=== PATIENT | female | born 1945 | race Caucasian/White ===

== ENCOUNTER → 2017-10-03 10:12 | Outpatient (CLI) | payer MEDICARE, SELFPAY ==
--- NOTE | 2017-10-03 | DI.MG.S_ITS ---
BILATERAL DIGITAL SCREENING MAMMOGRAM 3D/2D WITH CAD: 10/03/2017 CLINICAL: Routine screening. Family history of breast cancer. Comparison is made to exams dated: 09/15/2016 mammogram, 09/10/2015 mammogram, and 09/04/2014 mammogram - [facility]. There are scattered fibroglandular elements in both breasts. Current study was also evaluated with a Computer Aided Detection (CAD) system. No significant masses, calcifications, or other findings are seen in either breast. There has been no significant interval change. IMPRESSION: NEGATIVE There is no mammographic evidence of malignancy. A 1 year screening mammogram is recommended. This exam was interpreted at Station ID: [id number]. NOTE: For mammograms, a report in lay terms will be sent to the patient. Approximately 15% of breast malignancies will not be visualized mammographically. In the management of a palpable breast mass, a negative mammogram must not discourage biopsy of a clinically suspicious lesion. Electronically Signed By: Sergey wakefield/soraida:10/03/2017 16:58:36 letter sent: Normal Exam ACR BI-RADS Category 1: Negative [id number]
== END ==
PROVIDERS: Family Provider Internal Medicine; PCP Internal Medicine; Visit Provider Internal Medicine
DX: Z12.31 Encounter for screening mammogram for malignant neoplasm of breast (principal); Z80.3 Family history of malignant neoplasm of breast
CPT/HCPCS: 77063; 77067

== ENCOUNTER → 2017-11-23 14:02 | Outpatient (CLI) | payer MEDICARE, SELFPAY | PROVIDERS: Family Provider Internal Medicine; PCP Internal Medicine; Visit Provider Internal Medicine | DX: M85.852 Other specified disorders of bone density and structure, left thigh (principal); Z78.0 Asymptomatic menopausal state; E06.3 Autoimmune thyroiditis; Z82.62 Family history of osteoporosis; Z87.891 Personal history of nicotine dependence | CPT/HCPCS: 77080 ==

== ENCOUNTER 2017-12-04 13:53 | Emergency (ER) | payer MEDICARE, SELFPAY ==
[2017-12-04 14:03] VITALS: BP 144/82; PULSE 98; RESP 18; TEMP 35.9; O2SAT 98; BMI 25.8
--- NOTE | 2017-12-04 14:10 | ED.FALL ---
HPI - Fall <Guadalupe CAITLIN Singh - Last Filed: 12/04/17 16:24> General Chief Complaint: Fall Stated Complaint: Cut on head from fall Time Seen by Provider: 12/04/17 14:09 Source: patient Mode of arrival: ambulatory Limitations: no limitations History of Present Illness HPI Narrative: slipped on wet floor and fell, striking her forehead on corner of stove, concerned that the cut has something, like a piece of metal from stove, denies any other injury, thinks she passed out afterwards for a few minutes, but feels fine since, nick trujillo MD complaint: fall Onset (ago): day(s) (yesterday at 0300) Fall from: standing Fall witnessed: no Place fall occurred: home Loss of consciousness: yes (thinks she passed out afterwards, but not sure how long, maybe a few minutes) Prolonged down time: no Symptoms prior to fall: none Context: tripped/slipped (wet floor) Location of injury: face (R eyebrow area) Severity: mild Associated symptoms (after fall): denies Related Data Home Medications Medication Instructions Recorded Confirmed fexofenadine 180 mg PO Q DAY PRN #0 05/04/11 12/04/17 acetaminophen 4 tab PO BID 07/06/17 12/04/17 betamethasone valerate 1 applic TOPICAL DIRECTED 07/06/17 12/04/17 dexamethasone sodium phosphate 1 drp OPHTHALMIC (EYE) BID PRN 07/06/17 12/04/17 diazepam 5 - 10 mg PO QDAY PRN 07/06/17 12/04/17 diphenhydramine HCl [Benadryl] 50 - 100 mg PO BEDTIME PRN 07/06/17 12/04/17 fluticasone 1 spray INTRANASAL BID 07/06/17 12/04/17 levothyroxine 125 mcg PO MOTUWETHFRSA 07/06/17 12/04/17 metronidazole [Metrogel] 1 applic TOPICAL BID PRN 07/06/17 12/04/17 zolpidem 5 mg PO QHS PRN 07/06/17 12/04/17 Calcium Citrate + D 2 tab PO TID 12/04/17 12/04/17 Celebrate Multi-Complex 45 3 cap PO DAILY 12/04/17 12/04/17 cetirizine 10 mg PO DAILY PRN 12/04/17 12/04/17 [id number] 1 applic TOPICAL BID PRN 12/04/17 12/04/17 levothyroxine 0.5 tab PO ESPINOZA 12/04/17 12/04/17 Allergies Allergy/AdvReac Type Severity Reaction Status Date / Time erythromycin base Allergy Intermediate HIVES Unverified 12/04/17 14:07 adhesive Allergy Mild ALLERGIC Unverified 12/04/17 14:07 TO TAPE epinephrine Allergy Mild TACHYCARDIA Unverified 12/04/17 14:07 gentamicin [Gentamicin] Allergy Mild RASH Unverified 12/04/17 14:07 NSAIDS (Non-Steroidal Allergy Mild GASTRITIS Unverified 12/04/17 14:07 Anti-Inflamma Serotonin 5HT-3 Antagonists Allergy Mild GASTRITIS Unverified 12/04/17 14:07 trazodone Allergy Mild LOSS OF Unverified 12/04/17 14:07 BALANCE alprazolam Allergy Unknown LOSS OF Unverified 12/04/17 14:07 ABILITY TO FOCUS amitriptyline Allergy Unknown IBS Unverified 12/04/17 14:07 SYMPTOMS buspirone Allergy Unknown Unverified 12/04/17 14:07 codeine Allergy Unknown IBS Unverified 06/14/17 12:20 SYMPTOMS gabapentin Allergy Unknown SEVERE Unverified 06/14/17 12:20 GASTRITIS Review of Systems <CAITLIN Quarles - Last Filed: 12/04/17 16:24> Constitutional Reports as per HPI, Reports system reviewed and no additional complaints, except as docu and Denies weakness Eyes Reports system reviewed and no additional complaints, except as docu, Denies blurry vision, Denies change in vision, Denies loss of vision, Denies other visual disturbances and Denies eye pain ENT Ears, Nose, Mouth, and Throat: Denies neck pain Cardiovascular Denies chest pain and Denies dyspnea Respiratory Denies dyspnea Musculoskeletal Denies abnormal gait, Denies back pain, Denies limited range of motion, Denies neck pain and Denies numbness Neurologic Denies abnormal gait, Denies loss of vision, Denies numbness and Denies weakness Exam <CAITLIN Quarles - Last Filed: 12/04/17 16:24> Initial Vital Signs Initial Vital Signs: Vital Signs Temperature 96.6 F L 12/04/17 14:03 Pulse Rate 98 H 12/04/17 14:03 Respiratory Rate 18 12/04/17 14:03 Blood Pressure 144/82 H 12/04/17 14:03 Pulse Oximetry 98 12/04/17 14:03 Const General: cooperative, healthy appearing, comfortable, well developed and well groomed Nutritional Appearance: average body habitus Orientation: alert, awake and oriented x3 [facility] Head: normal to inspection and normocephalic Ears: hearing grossly normal bilaterally, external ears normal, TM's normal bilaterally and mastoids normal Nose: external nose normal, nares normal and septum normal Face and sinus: sinuses nontender, face symmetric and laceration (R eyebrow area, 1cm closed with scab, no s/s of infection, no erythema, mild tenderness, mild swelling and contusion to that area) Mouth: oral mucosae normal, lip normal, tongue normal, oropharynx normal, moist mucous membranes and No mouth trauma Teeth and gingiva: dentition normal and gingiva normal Throat: posterior oropharynx normal, tonsils normal and uvula midline Eyes General: appearance normal, both eyes and all related structures Visual Campuzano: normal visual campuzano by confrontation Eyelids: eyelids normal Conjunctivae: conjunctivae normal Sclera: sclerae normal Pupils: PERRL EOM: EOM intact bilaterally Direct ophthalmoscopy: normal light reflex, no papilledema, fundi normal bilaterally and anterior chamber normal Neck Neck: normal visual inspection, full ROM, no meningeal signs, trachea midline, supple, No lymphadenopathy, No midline deformity, No tender and No tracheal deviation Chest Chest: normal inspection of the chest Resp Effort & Inspection: normal respiratory effort and able to speak in complete sentences Auscultation: clear to auscultation bilaterally Cardio Rate: regular rate Rhythm: regular rhythm Heart Sounds: S1 normal and S2 normal Back/Spine/Pelvis Back: normal to inspection and No back tenderness Cervical Spine: cervical ROM normal Thoracic/Lumbar Spine: thoracic and lumbar spine normal to inspection and thoraco-lumbar ROM normal Sacroiliac Joints: nontender Skin General: no rashes or lesions noted, elasticity normal, turgor normal and dry skin Neuro General: alert, awake, oriented x3 and meningeal signs present Cognition: normal cognition Speech: speech normal Gait: normal gait Motor: muscle tone normal throughout Sensory Exam: no sensory deficits noted Extrem General: normal to inspection and full ROM Psych Appearance: grossly normal and well kempt Mental Status: mental status grossly normal Speech and Movement: speech and movement normal Mood: congruent mood Affect: normal affect Attitude: cooperative Thought Process: normal Thought Content: normal Judgment: judgment good <Valentina Hunt DO - Last Filed: 12/09/17 07:26> Initial Vital Signs Initial Vital Signs: Vital Signs Temperature 96.6 F L 12/04/17 14:03 Pulse Rate 98 H 12/04/17 14:03 Respiratory Rate 18 12/04/17 14:03 Blood Pressure 144/82 H 12/04/17 14:03 Pulse Oximetry 98 12/04/17 14:03 Course <CAITLIN Quarles - Last Filed: 12/04/17 16:24> Course Narrative: tx options discussed, nurse Marie in room during discussion, pt voicing concerns about fb being in cut, but has no idea what type of fb, could be metal from corner of stove, or something else, discussed doing imaging, explained that not all fb's, like glass would show up in xray, and discussed doing ct head, but pt declined ct, and agreed we could skip ct since pt is not on blood thinners, fall and head injury was more than 24 hrs ago, neuro exam normal Vital Signs - 8 hr 12/04/17 14:03 Temperature 96.6 F L Pulse Rate 98 H Respiratory Rate 18 Blood Pressure 144/82 H Pulse Oximetry 98 <Valentina Hunt DO - Last Filed: 12/09/17 07:26> Vital Signs - 8 hr 12/04/17 14:03 Temperature 96.6 F L Pulse Rate 98 H Respiratory Rate 18 Blood Pressure 144/82 H Pulse Oximetry 98 MDM - Fall <CAITLIN Quarles - Last Filed: 12/04/17 16:24> Differential Diagnosis Likely other (fall, closed head injury, fx, lac, contusions, abrasions, sprains) Discharge Plan Departure Patient Disposition: Home Clinical Impression: Laceration of eyebrow and forehead, Fall Discharge Date/Time: 12/04/17 14:59 Interventions: ED Discharge Assessment Last Done: 12/04/17 14:59 Instructions: How to Prevent Falls, DI for Minor Laceration Prescriptions: No Action fexofenadine 180 mg Tablet 180 mg PO Q DAY PRN (Reason: Allergy Symptoms) Qty: 0 RF: 0 dexamethasone sodium phosphate 0.1 % drops 1 drp ophthalmic (eye) BID PRN (Reason: Allergy Symptoms) RF: 0 betamethasone valerate 0.1 % cream 1 applic Topical DIRECTED RF: 0 levothyroxine 125 mcg tablet 125 mcg PO MOTUWETHFRSA RF: 0 zolpidem 5 mg tablet 5 mg PO QHS PRN (Reason: Sleep) RF: 0 fluticasone 50 mcg/actuation spray,suspension 1 spray Intranasal BID RF: 0 acetaminophen 500 mg Tablet 4 tab PO BID RF: 0 diphenhydramine HCl [Benadryl] 25 mg Capsule 50 - 100 mg PO BEDTIME PRN (Reason: Sleep) RF: 0 diazepam 5 mg Tablet 5 - 10 mg PO QDAY PRN (Reason: Muscle Spasm) RF: 0 metronidazole [Metrogel] 1 % Gel 1 applic Topical BID PRN (Reason: antibiotic) RF: 0 cetirizine 10 mg Tablet 10 mg PO DAILY PRN (Reason: Allergy Symptoms) RF: 0 yteksdwqcbtnse-sioopkkty-uaby3 2-1-1 % Gel 1 applic Topical BID PRN (Reason: unknown) RF: 0 Celebrate Multi-Complex 45 3 cap PO DAILY RF: 0 Calcium Citrate + D 2 tab PO TID RF: 0 levothyroxine 125 mcg tablet 0.5 tab PO ESPINOZA RF: 0 Referrals: Pete Jones MD [Primary Care Provider] - (follow up in approx 3 days for wound recheck and further evaluation) <Valentina Hunt DO - Last Filed: 12/09/17 07:26> [facility] I was immediately available in the department for consultation. Documentation has been reviewed. I agree with assessment and plan.
--- NOTE | 2017-12-04 14:26 | PC.NURSE ---
Patient fell early monday morning hitting above right eye on oven. Concerns of foreign body in wound. Wound is closed with scab, no signs of infection at this time. Extensive discussion with provider about concerns of foreign body. Patient neurologically intact denies any neck or back pain. Denies headache. Has been icing head at home nad reports cleaning wound after injury
--- NOTE | 2017-12-04 14:44 | ED_ITS ---
HPI - Fall <Guadalupe CAITLIN Singh - Last Filed: 12/04/17 16:24> General Chief Complaint: Fall Stated Complaint: Cut on head from fall Time Seen by Provider: 12/04/17 14:09 Source: patient Mode of arrival: ambulatory Limitations: no limitations History of Present Illness HPI Narrative: slipped on wet floor and fell, striking her forehead on corner of stove, concerned that the cut has something, like a piece of metal from stove , denies any other injury, thinks she passed out afterwards for a few minutes, but feels fine since, nick trujillo MD complaint: fall Onset (ago): day(s) (yesterday at 0300) Fall from: standing Fall witnessed: no Place fall occurred: home Loss of consciousness: yes (thinks she passed out afterwards, but not sure how long, maybe a few minutes) Prolonged down time: no Symptoms prior to fall: none Context: tripped/slipped (wet floor) Location of injury: face (R eyebrow area) Severity: mild Associated symptoms (after fall): denies Related Data Home Medications Medication Instructions Recorded Confirmed fexofenadine 180 mg PO Q DAY PRN #0 05/04/11 12/04/17 acetaminophen 4 tab PO BID 07/06/17 12/04/17 betamethasone valerate 1 applic TOPICAL DIRECTED 07/06/17 12/04/17 dexamethasone sodium phosphate 1 drp OPHTHALMIC (EYE) BID PRN 07/06/17 12/04/17 diazepam 5 - 10 mg PO QDAY PRN 07/06/17 12/04/17 diphenhydramine HCl [Benadryl] 50 - 100 mg PO BEDTIME PRN 07/06/17 12/04/17 fluticasone 1 spray INTRANASAL BID 07/06/17 12/04/17 levothyroxine 125 mcg PO MOTUWETHFRSA 07/06/17 12/04/17 metronidazole [Metrogel] 1 applic TOPICAL BID PRN 07/06/17 12/04/17 zolpidem 5 mg PO QHS PRN 07/06/17 12/04/17 Calcium Citrate + D 2 tab PO TID 12/04/17 12/04/17 Celebrate Multi-Complex 45 3 cap PO DAILY 12/04/17 12/04/17 cetirizine 10 mg PO DAILY PRN 12/04/17 12/04/17 [id number]-[id number] 1 applic TOPICAL BID PRN 12/04/17 12/04/17 levothyroxine 0.5 tab PO ESPINOZA 12/04/17 12/04/17 Allergies Allergy/AdvReac Type Severity Reaction Status Date / Time erythromycin base Allergy Intermediate HIVES Unverified 12/04/17 14:07 adhesive Allergy Mild ALLERGIC Unverified 12/04/17 14:07 TO TAPE epinephrine Allergy Mild TACHYCARDIA Unverified 12/04/17 14:07 gentamicin [Gentamicin] Allergy Mild RASH Unverified 12/04/17 14:07 NSAIDS (Non-Steroidal Allergy Mild GASTRITIS Unverified 12/04/17 14:07 Anti-Inflamma Serotonin 5HT-3 Antagonists Allergy Mild GASTRITIS Unverified 12/04/17 14:07 trazodone Allergy Mild LOSS OF Unverified 12/04/17 14:07 BALANCE alprazolam Allergy Unknown LOSS OF Unverified 12/04/17 14:07 ABILITY TO FOCUS amitriptyline Allergy Unknown IBS Unverified 12/04/17 14:07 SYMPTOMS buspirone Allergy Unknown Unverified 12/04/17 14:07 codeine Allergy Unknown IBS Unverified 06/14/17 12:20 SYMPTOMS gabapentin Allergy Unknown SEVERE Unverified 06/14/17 12:20 GASTRITIS Review of Systems <CAITLIN Quarles - Last Filed: 12/04/17 16:24> Constitutional Reports as per HPI, Reports system reviewed and no additional complaints, except as docu and Denies weakness Eyes Reports system reviewed and no additional complaints, except as docu, Denies blurry vision, Denies change in vision, Denies loss of vision, Denies other visual disturbances and Denies eye pain ENT Ears, Nose, Mouth, and Throat: Denies neck pain Cardiovascular Denies chest pain and Denies dyspnea Respiratory Denies dyspnea Musculoskeletal Denies abnormal gait, Denies back pain, Denies limited range of motion, Denies neck pain and Denies numbness Neurologic Denies abnormal gait, Denies loss of vision, Denies numbness and Denies weakness Exam <CAITLIN Quarles - Last Filed: 12/04/17 16:24> Initial Vital Signs Initial Vital Signs: Vital Signs Temperature 96.6 F L 12/04/17 14:03 Pulse Rate 98 H 12/04/17 14:03 Respiratory Rate 18 12/04/17 14:03 Blood Pressure 144/82 H 12/04/17 14:03 Pulse Oximetry 98 12/04/17 14:03 Const General: cooperative, healthy appearing, comfortable, well developed and well groomed Nutritional Appearance: average body habitus Orientation: alert, awake and oriented x3 [facility] Head: normal to inspection and normocephalic Ears: hearing grossly normal bilaterally, external ears normal, TM's normal bilaterally and mastoids normal Nose: external nose normal, nares normal and septum normal Face and sinus: sinuses nontender, face symmetric and laceration (R eyebrow area , 1cm closed with scab, no s/s of infection, no erythema, mild tenderness, mild swelling and contusion to that area) Mouth: oral mucosae normal, lip normal, tongue normal, oropharynx normal, moist mucous membranes and No mouth trauma Teeth and gingiva: dentition normal and gingiva normal Throat: posterior oropharynx normal, tonsils normal and uvula midline Eyes General: appearance normal, both eyes and all related structures Visual Campuzano: normal visual campuzano by confrontation Eyelids: eyelids normal Conjunctivae: conjunctivae normal Sclera: sclerae normal Pupils: PERRL EOM: EOM intact bilaterally Direct ophthalmoscopy: normal light reflex, no papilledema, fundi normal bilaterally and anterior chamber normal Neck Neck: normal visual inspection, full ROM, no meningeal signs, trachea midline, supple, No lymphadenopathy, No midline deformity, No tender and No tracheal deviation Chest Chest: normal inspection of the chest Resp Effort & Inspection: normal respiratory effort and able to speak in complete sentences Auscultation: clear to auscultation bilaterally Cardio Rate: regular rate Rhythm: regular rhythm Heart Sounds: S1 normal and S2 normal Back/Spine/Pelvis Back: normal to inspection and No back tenderness Cervical Spine: cervical ROM normal Thoracic/Lumbar Spine: thoracic and lumbar spine normal to inspection and thoraco-lumbar ROM normal Sacroiliac Joints: nontender Skin General: no rashes or lesions noted, elasticity normal, turgor normal and dry skin Neuro General: alert, awake, oriented x3 and meningeal signs present Cognition: normal cognition Speech: speech normal Gait: normal gait Motor: muscle tone normal throughout Sensory Exam: no sensory deficits noted Extrem General: normal to inspection and full ROM Psych Appearance: grossly normal and well kempt Mental Status: mental status grossly normal Speech and Movement: speech and movement normal Mood: congruent mood Affect: normal affect Attitude: cooperative Thought Process: normal Thought Content: normal Judgment: judgment good <Valentina Hunt DO - Last Filed: 12/09/17 07:26> Initial Vital Signs Initial Vital Signs: Vital Signs Temperature 96.6 F L 12/04/17 14:03 Pulse Rate 98 H 12/04/17 14:03 Respiratory Rate 18 12/04/17 14:03 Blood Pressure 144/82 H 12/04/17 14:03 Pulse Oximetry 98 12/04/17 14:03 Course <CAITLIN Quarles - Last Filed: 12/04/17 16:24> Course Narrative: tx options discussed, nurse Marie in room during discussion, pt voicing concerns about fb being in cut, but has no idea what type of fb, could be metal from corner of stove, or something else, discussed doing imaging , explained that not all fb's, like glass would show up in xray, and discussed doing ct head, but pt declined ct, and agreed we could skip ct since pt is not on blood thinners, fall and head injury was more than 24 hrs ago, neuro exam normal Vital Signs - 8 hr 12/04/17 14:03 Temperature 96.6 F L Pulse Rate 98 H Respiratory Rate 18 Blood Pressure 144/82 H Pulse Oximetry 98 <Valentina Hunt DO - Last Filed: 12/09/17 07:26> Vital Signs - 8 hr 12/04/17 14:03 Temperature 96.6 F L Pulse Rate 98 H Respiratory Rate 18 Blood Pressure 144/82 H Pulse Oximetry 98 MDM - Fall <CAITLIN Quarles - Last Filed: 12/04/17 16:24> Differential Diagnosis Likely other (fall, closed head injury, fx, lac, contusions, abrasions, sprains) Discharge Plan Departure Patient Disposition: Home Clinical Impression: Laceration of eyebrow and forehead, Fall Discharge Date/Time: 12/04/17 14:59 Interventions: ED Discharge Assessment Last Done: 12/04/17 14:59 Instructions: How to Prevent Falls, DI for Minor Laceration Prescriptions: No Action fexofenadine 180 mg Tablet 180 mg PO Q DAY PRN (Reason: Allergy Symptoms) Qty: 0 RF: 0 dexamethasone sodium phosphate 0.1 % drops 1 drp ophthalmic (eye) BID PRN (Reason: Allergy Symptoms) RF: 0 betamethasone valerate 0.1 % cream 1 applic Topical DIRECTED RF: 0 levothyroxine 125 mcg tablet 125 mcg PO MOTUWETHFRSA RF: 0 zolpidem 5 mg tablet 5 mg PO QHS PRN (Reason: Sleep) RF: 0 fluticasone 50 mcg/actuation spray,suspension 1 spray Intranasal BID RF: 0 acetaminophen 500 mg Tablet 4 tab PO BID RF: 0 diphenhydramine HCl [Benadryl] 25 mg Capsule 50 - 100 mg PO BEDTIME PRN (Reason: Sleep) RF: 0 diazepam 5 mg Tablet 5 - 10 mg PO QDAY PRN (Reason: Muscle Spasm) RF: 0 metronidazole [Metrogel] 1 % Gel 1 applic Topical BID PRN (Reason: antibiotic) RF: 0 cetirizine 10 mg Tablet 10 mg PO DAILY PRN (Reason: Allergy Symptoms) RF: 0 [id number]-tukwlbdlg-oslo1 2-1-1 % Gel 1 applic Topical BID PRN (Reason: unknown) RF: 0 Celebrate Multi-Complex 45 3 cap PO DAILY RF: 0 Calcium Citrate + D 2 tab PO TID RF: 0 levothyroxine 125 mcg tablet 0.5 tab PO ESPINOZA RF: 0 Referrals: Pete Jones MD [Primary Care Provider] - (follow up in approx 3 days for wound recheck and further evaluation) <Valentina Hunt DO - Last Filed: 12/09/17 07:26> [facility]: I was immediately available in the department for consultation. Documentation has been reviewed. I agree with assessment and plan.
== END 2017-12-04 14:59 | disposition home or self-care (01) ==
PROVIDERS: Emergency Provider Nurse Practitioner; Family Provider Internal Medicine; PCP Internal Medicine
DX: S01.81XA Laceration without foreign body of other part of head, initial encounter (principal); W01.190A Fall on same level from slipping, tripping and stumbling with subsequent striking against furniture, initial encounter
CPT/HCPCS: 99282

== ENCOUNTER → 2018-04-27 13:31 | Outpatient (CLI) | payer MEDICARE, SELFPAY ==
[2018-04-27 13:59] LABS: Add Manual Diff / Slide Review NO; Basophils Absolute Auto 0 /uL (0-100); Basophils Percent Auto 0.4 % (0-2); Eosinophils Absolute Auto 100 /uL (0-450); Eosinophils Percent Auto 1.9 % (2-4); Hematocrit 47.8 % (36-46); Hemoglobin 15.8 g/dL (12.0-16.0); Lymphocytes Absolute Auto 2900 /uL (1100-4500); Lymphocytes Percent Auto 37.9 % (25-40); Mean Corpuscular HGB Conc 33.1 % (30-36); Mean Corpuscular Hemoglobin 33.2 PG (26-34); Mean Corpuscular Volume 100.4 fL (80-100); Monocytes Absolute Auto 700 /uL (0-900); Monocytes Percent Auto 9.2 % (3-14); Neutrophils Absolute Auto 3900 /uL (1500-7000); Neutrophils Percent Auto 50.6 % (50-75); Platelet Count 316 X10^3/uL (150-400); Red Blood Cell Count 4.77 X10^6/uL (4.0-5.2); Red Cell Distribution Width 12.8 % (11.6-14.8); White Blood Cell Count 7.6 X10^3/uL (4.5-11.0)
[2018-04-27 14:44] LABS: Alanine Aminotransferase 27 IU/L (9-52); Albumin 4.8 g/dL (3.5-5.0); Albumin Globulin Ratio 1.5 (1.0-2.8); Alkaline Phosphatase 77 U/L (38-126); Aspartate Aminotransferase 38 IU/L (14-36); BUN Creatinine Ratio 18.6 (6-22); Bilirubin Total 0.5 mg/dL (0.2-1.3); Blood Urea Nitrogen 13 mg/dL (7-17); Calcium 9.8 mg/dL (8.4-10.2); Carbon Dioxide 27 mmol/L (22-32); Chloride 104 mmol/L (98-107); Creatine Kinase 23 U/L (30-135); Estimated Glomerular Filt Rate > 60.0 mL/min (>60); Globulin 3.3 g/dL (1.7-4.1); Glucose 68 mg/dL (80-110); HEMOLYSIS < 15 (0-50); Potassium 3.9 mmol/L (3.4-5.1); Sodium 141 mmol/L (137-145); Total Protein 8.1 g/dL (6.3-8.2)
== END ==
PROVIDERS: PCP Internal Medicine; Visit Provider Internal Medicine
DX: R53.83 Other fatigue (principal); E78.2 Mixed hyperlipidemia
CPT/HCPCS: 36415; 80053; 82550; 85025

== ENCOUNTER 2018-05-21 16:57 | Emergency (ER) | payer MEDICARE, SELFPAY ==
[2018-05-21 16:58] VITALS: BP 150/90; PULSE 100; RESP 15; O2SAT 98
--- NOTE | 2018-05-21 17:01 | DI.RAD.S_ITS ---
PROCEDURE: XR KNEE RT 3V INDICATIONS: knee pain TECHNIQUE: 3 views of the knee were acquired. COMPARISON: None. FINDINGS: Bones: No fractures or dislocations. No suspicious bony lesions. Soft tissues: No joint effusion. No suspicious soft tissue calcifications. IMPRESSION: No acute radiographic findings. If pain persists, repeat study in 5-7 days is recommended to exclude occult fracture. Dictated by: Goldie Pierce M.D. on 05/21/2018 at 17:40 Approved by: Goldie Pierce M.D. on 05/21/2018 at 17:40
[2018-05-21] MEDS: ACETAMINOPHEN 325 MG TABLET 975 MG PO (17:15)
--- NOTE | 2018-05-21 18:15 | ED.LOWEXIN ---
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 she has worsening pain with ambulation and improved with rest. She denies any redness, swelling or specific injury but has been limping a bit due to a known right foot injury about a week ago. She denies any history of knee injury MD complaint: knee injury Onset (ago): day(s) Place: home Severity: moderate Relieving factors: rest Exacerbating factors: weight bearing and movement Associated symptoms: able to partially bear weight Other symptoms: none Related Data Home Medications Medication Instructions Recorded Confirmed fexofenadine 180 mg PO Q DAY PRN #0 05/04/11 12/04/17 acetaminophen 4 tab PO BID 07/06/17 12/04/17 betamethasone valerate 1 applic TOPICAL DIRECTED 07/06/17 12/04/17 dexamethasone sodium phosphate 1 drp OPHTHALMIC (EYE) BID PRN 07/06/17 12/04/17 diazepam 5 - 10 mg PO QDAY PRN 07/06/17 12/04/17 diphenhydramine HCl [Benadryl] 50 - 100 mg PO BEDTIME PRN 07/06/17 12/04/17 fluticasone propionate 1 spray INTRANASAL BID 07/06/17 12/04/17 levothyroxine 125 mcg PO MOTUWETHFRSA 07/06/17 12/04/17 metronidazole [Metrogel] 1 applic TOPICAL BID PRN 07/06/17 12/04/17 zolpidem 5 mg PO QHS PRN 07/06/17 12/04/17 Calcium Citrate + D 2 tab PO TID 12/04/17 12/04/17 Celebrate Multi-Complex 45 3 cap PO DAILY 12/04/17 12/04/17 cetirizine 10 mg PO DAILY PRN 12/04/17 12/04/17 [id number] 1 applic TOPICAL BID PRN 12/04/17 12/04/17 levothyroxine 0.5 tab PO ESPINOZA 12/04/17 12/04/17 Allergies Allergy/AdvReac Type Severity Reaction Status Date / Time erythromycin base Allergy Intermediate HIVES Verified 05/21/18 16:58 adhesive Allergy Mild ALLERGIC Verified 05/21/18 16:58 TO TAPE epinephrine Allergy Mild TACHYCARDIA Verified 05/21/18 16:58 gentamicin [Gentamicin] Allergy Mild RASH Verified 05/21/18 16:58 NSAIDS (Non-Steroidal Allergy Mild GASTRITIS Verified 05/21/18 16:58 Anti-Inflamma Serotonin 5HT-3 Antagonists Allergy Mild GASTRITIS Verified 05/21/18 16:58 trazodone Allergy Mild LOSS OF Verified 05/21/18 16:58 BALANCE alprazolam Allergy Unknown LOSS OF Verified 05/21/18 16:58 ABILITY TO FOCUS amitriptyline Allergy Unknown IBS Verified 05/21/18 16:58 SYMPTOMS buspirone Allergy Unknown Verified 05/21/18 16:58 codeine Allergy Unknown IBS Verified 05/21/18 16:58 SYMPTOMS gabapentin Allergy Unknown SEVERE Verified 05/21/18 16:58 GASTRITIS Review of Systems Constitutional Denies chills, Denies fever(s), Denies lethargy and Denies weakness Eyes Denies change in vision, Denies eye discharge, Denies irritation and Denies loss of vision ENT Ears, Nose, Mouth, and Throat: Denies change in voice, Denies neck pain and Denies sore throat Cardiovascular Denies chest pain, Denies irregular heart rhythm, Denies lightheadedness, Denies palpitations, Denies dyspnea, Denies dyspnea on exertion and Denies orthopnea Respiratory Denies cough, Denies dyspnea, Denies dyspnea on exertion and Denies wheezing Gastrointestinal Gastrointestinal: Denies abdominal pain, Denies change in bowel habits, Denies diarrhea, Denies nausea and Denies vomiting Genitourinary Denies hematuria, Denies flank pain, Denies urinary incontinence and Denies urinary urgency Musculoskeletal Reports limited range of motion and Denies neck pain Integumentary/Breasts Denies pruritus, Denies erythema, Denies rash and Denies wounds Neurologic Denies confusion, Denies loss of vision and Denies weakness Psychiatric Denies anxiety, Denies confusion, Denies depression, Denies homicidal ideation and Denies suicidal ideation Endocrine Denies palpitations Hematologic/Lymphatic Denies easy bruising Allergic/Immunologic Denies wheezing PFSH Social History Smoking Status: Never smoker Social History Smoking Status: Never smoker Exam Narrative Exam Narrative: GEN: AOx3 and in mild distress EYES: Pupils are equal, round, and reactive to light and accommodation. Extraoccular muscles are intact bilaterally. There is no subconjunctival hemorrhage or exudate. CHEST: Lungs are clear to auscultation bilaterally and free of wheezes, rales, or rhonchi. Heart rate is regular rhythm, there are no murmurs, clicks, rubs, or gallops. There is no chest wall tenderness. ABD: Abdomen is soft and nontender. There is no guarding or rebound. Bowel sounds are normal in all 4 quadrants. There is no mass or organomegaly. EXT: full but painful range of motion of the right knee. No obvious external manifestation of injury. No effusion, erythema or warmth. No joint line tenderness, no pain with axial load. Mild pain with Gil's test SKIN: Warm, pink, and dry. No erythema or rash Initial Vital Signs Initial Vital Signs: Vital Signs Pulse Rate 100 H 05/21/18 16:58 Respiratory Rate 15 05/21/18 16:58 Blood Pressure 150/90 H 05/21/18 16:58 Pulse Oximetry 98 05/21/18 16:58 Procedures Orthopedic Splinting/Casting Injury #1: Side: right Lower Extremity Injury Location: knee Lower Extremity Immobilizer: knee immobilizer Post splinting neuro exam: intact Post splinting vascular exam: intact Placed by: Nursing Course Orders Ordered: Discontinued Medications Acetaminophen (Tylenol) 975 mg PO NOW ONE Stop: 05/21/18 17:12 Last Admin: 05/21/18 17:15 Dose: 975 mg Vital Signs - 8 hr 05/21/18 16:58 Pulse Rate 100 H Respiratory Rate 15 Blood Pressure 150/90 H Pulse Oximetry 98 MDM - Extremity Injury (Lower) Differential Diagnosis Likely acute internal derangement of knee Imaging Data knee: Radiologist's impression: [address] [address] XRay Report Signed Patient: Mckay Costa GMR#: [id number] : 5Acct:[id number] Age/Sex: 72 / FDate of Service: 05/21/18 Loc: ED Accession Number: [id number] Procedure: XR knee RT 3V Ordering Provider: Hiram Shaw D.O. PROCEDURE: XR KNEE RT 3V INDICATIONS: knee pain TECHNIQUE: 3 views of the knee were acquired. COMPARISON: None. FINDINGS: Bones: No fractures or dislocations. No suspicious bony lesions. Soft tissues: No joint effusion. No suspicious soft tissue calcifications. IMPRESSION: No acute radiographic findings. If pain persists, repeat study in 5-7 days is recommended to exclude occult fracture. Dictated by: Goldie Pierce M.D. on 05/21/2018 at 17:40 Approved by: Goldie Pierce M.D. on 05/21/2018 at 17:40 [facility] Narrative Medical decision making narrative: severe right knee pain in the absence of injury. No redness, warmth or swelling consistent with septic arthritis. Furthermore the patient has relatively painless passive range of motion. Gout and DVT also considered. Most likely etiology of pain is change in gait and mechanics of ambulation secondary to the injury to her right foot. Discharge Plan Departure Patient Disposition: Home Clinical Impression: Internal derangement of knee Qualifiers: Laterality: right Qualified Code(s): M23.91 - Unspecified internal derangement of right knee Discharge Date/Time: 05/21/18 19:00 Interventions: ED Discharge Assessment Last Done: 05/21/18 18:53 Instructions: DI for Knee Sprain Activity Restrictions/Additional Instructions: *You have been diagnosed with [ Internal derangement of Right knee, possible meniscus ] *What to do: *Take medications as directed *Follow up with your primary care provider in 2-3 days, call for an appointment. Let them know you were seen in the Emergency Department and that we ask that you be seen in follow up *Return to ER if you should have any new, worsening or concerning symptoms Prescriptions: No Action fexofenadine 180 mg Tablet 180 mg PO Q DAY PRN (Reason: Allergy Symptoms) Qty: 0 RF: 0 dexamethasone sodium phosphate 0.1 % drops 1 drp ophthalmic (eye) BID PRN (Reason: Allergy Symptoms) RF: 0 betamethasone valerate 0.1 % cream 1 applic Topical DIRECTED RF: 0 levothyroxine 125 mcg tablet 125 mcg PO MOTUWETHFRSA RF: 0 zolpidem 5 mg tablet 5 mg PO QHS PRN (Reason: Sleep) RF: 0 fluticasone propionate 50 mcg/actuation spray,suspension 1 spray Intranasal BID RF: 0 acetaminophen 500 mg Tablet 4 tab PO BID RF: 0 diphenhydramine HCl [Benadryl] 25 mg Capsule 50 - 100 mg PO BEDTIME PRN (Reason: Sleep) RF: 0 diazepam 5 mg Tablet 5 - 10 mg PO QDAY PRN (Reason: Muscle Spasm) RF: 0 metronidazole [Metrogel] 1 % Gel 1 applic Topical BID PRN (Reason: antibiotic) RF: 0 cetirizine 10 mg Tablet 10 mg PO DAILY PRN (Reason: Allergy Symptoms) RF: 0 kamguslcpqvukl-jtxvraall-jxeq5 2-1-1 % Gel 1 applic Topical BID PRN (Reason: unknown) RF: 0 Celebrate Multi-Complex 45 3 cap PO DAILY RF: 0 Calcium Citrate + D 2 tab PO TID RF: 0 levothyroxine 125 mcg tablet 0.5 tab PO ESPINOZA RF: 0 Referrals: Zach Helton MD [Primary Care Provider] - John Dawkins MD [Physician] -
[2018-05-21 18:53] VITALS: BP 115/46; PULSE 78; RESP 18; O2SAT 99
== END 2018-05-21 19:00 | disposition home or self-care (01) ==
PROVIDERS: Emergency Provider Emergency Medicine; PCP Internal Medicine
DX: M23.91 Unspecified internal derangement of right knee (principal)
CPT/HCPCS: 73562; 99283

== ENCOUNTER → 2018-05-30 16:14 | Outpatient (CLI) | payer MEDICARE, SELFPAY ==
--- NOTE | 2018-05-30 | DI.MRI.S_ITS ---
PROCEDURE: MR KNEE RT WO CON INDICATIONS: PAIN IN RIGHT KNEE TECHNIQUE: Noncontrast sagittal PD fast spin echo and T2 fast spin echo with fat saturation, sagittal 3-D FLASH with fat saturation; coronal T1 spin echo and PD fast spin echo with fat saturation, and axial PD fast spin echo with fat saturation through the knee. COMPARISON: None. FINDINGS: Image quality: Excellent. Menisci: There is absence of body and posterior horn of lateral meniscus suggestive of prior partial meniscectomy versus chronic complex tear. Signal abnormality in anterior horn of lateral meniscus, extending to superior articulating surface and is suspicious for focal anterior horn lateral meniscal tear. No evidence of focal medial meniscal tear. The meniscal root ligaments appear intact. Cruciate ligaments: The anterior and posterior cruciate ligaments appear intact. Medial structures: The medial collateral ligament appears intact. The posterior oblique ligament, semimembranosus tendon insertions, oblique popliteal ligament, and meniscocapsular junction appear intact. Visualized portions of the pes anserinus tendons appear normal. No abnormal bursal fluid. Lateral structures: The lateral collateral ligament, long and short heads of the biceps femoris tendon appear intact. The popliteus tendon appears normal; the popliteofibular ligament appears intact. The posterosuperior and anteroinferior popliteomeniscal fascicles appear intact. The arcuate and fabellofibular ligaments appear intact, on either side of the lateral inferior geniculate artery. Iliotibial band appears normal. Anterior structures: The quadriceps and patellar tendons appear intact. Patellar alignment is normal. No femoral trochlear dysplasia or ventral trochlear prominence. No edema in the infrapatellar fat pad. Bones and cartilage: No bone marrow contusions or fractures. 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 The patella cartilage is grossly intact. Joint space: There is moderate amount of joint fluid, and no gross intra-articular loose body. No Chavez's cyst. Normal appearing synovial plicae are incidentally noted. IMPRESSION: 1. Absence of normal body and posterior horn of lateral meniscus, which may represent prior partial meniscectomy versus chronic lateral meniscal tear. There is also signal abnormality in anterior horn of lateral meniscus extending to superior articulating surface suggestive of focal oblique tear in the anterior horn. No evidence of focal medial meniscal tear. 2. Cruciate ligaments are intact. 3. Mild to moderate compartment osteophytes. No fracture or dislocation. 4. Moderate amount of joint fluid, no gross loose body. Dictated by: Jeronimo Bowling M.D. on 05/30/2018 at 17:05 Approved by: Jeronimo Bowling M.D. on 05/30/2018 at 17:09
== END ==
PROVIDERS: Family Provider Internal Medicine; PCP Internal Medicine; Visit Provider Student in an Organized Health Care Education/Training Program
DX: M25.561 Pain in right knee (principal); M25.761 Osteophyte, right knee
CPT/HCPCS: 73721

== ENCOUNTER → 2018-09-21 14:44 | Outpatient (CLI) | payer MEDICARE, SELFPAY ==
--- NOTE | 2018-09-21 | DI.RAD.S_ITS ---
PROCEDURE: XR FOOT RT MIN 3V INDICATIONS: Rt foot pain TECHNIQUE: 3 views of the foot were acquired. COMPARISON: None. FINDINGS: Bones: There is a transverse fracture with minimal displacement at the fifth proximal phalanx. No suspicious bony lesions. Soft tissues: No tibiotalar joint effusion. Achilles tendon appears normal. IMPRESSION: Minimally displaced transverse fracture of the fifth proximal phalanx. This fracture may be subacute given sclerotic appearance across the fracture line. Dictated by: Marge Quinn M.D. on 09/21/2018 at 17:40 Approved by: Marge Quinn M.D. on 09/21/2018 at 17:43
== END ==
PROVIDERS: PCP Internal Medicine; Visit Provider Internal Medicine
DX: S92.911A Unspecified fracture of right toe(s), initial encounter for closed fracture (principal); M79.671 Pain in right foot
CPT/HCPCS: 73630

== ENCOUNTER → 2018-10-17 16:25 | Outpatient (CLI) | payer MEDICARE, SELFPAY ==
--- NOTE | 2018-10-17 16:27 | DI.MG.S_ITS ---
BILATERAL DIGITAL SCREENING MAMMOGRAM 3D/2D WITH CAD: 10/17/2018 CLINICAL: Routine screening. Family history of breast cancer. Comparison is made to exams dated: 10/03/2017 mammogram, 09/15/2016 mammogram, and 09/10/2015 mammogram - [facility]. There are scattered fibroglandular elements in both breasts. Current study was also evaluated with a Computer Aided Detection (CAD) system. No significant masses, calcifications, or other findings are seen in either breast. There has been no significant interval change. IMPRESSION: NEGATIVE There is no mammographic evidence of malignancy. A 1 year screening mammogram is recommended. This exam was interpreted at Station ID: [id number]. NOTE: For mammograms, a report in lay terms will be sent to the patient. Approximately 15% of breast malignancies will not be visualized mammographically. In the management of a palpable breast mass, a negative mammogram must not discourage biopsy of a clinically suspicious lesion. Electronically Signed By: Goldie gimenez/soraida:10/17/2018 17:42:23 letter sent: Normal Exam ACR BI-RADS Category 1: Negative [id number]
== END ==
PROVIDERS: PCP Internal Medicine; Visit Provider Internal Medicine
DX: Z12.31 Encounter for screening mammogram for malignant neoplasm of breast (principal); Z80.3 Family history of malignant neoplasm of breast
CPT/HCPCS: 77063; 77067

== ENCOUNTER 2018-11-28 17:32 | Emergency (ER) | payer MEDICARE, SELFPAY ==
[2018-11-28 17:41] VITALS: BP 171/96; PULSE 102; RESP 22; TEMP 36.6; O2SAT 91; BMI 27.4
--- NOTE | 2018-11-28 17:52 | DI.RAD.S_ITS ---
PROCEDURE: XR CHEST 2V INDICATIONS: difficulty breathing right sided pain TECHNIQUE: 2 views of the chest were acquired. COMPARISON: [facility], CR, XR CHEST 2V, 07/06/2017, 12:53. FINDINGS: Surgical changes and devices: Cervical spine hardware. Surgical clips in left upper quadrant of the abdomen. Lungs and pleura: Lungs are mildly hyperinflated but clear. No pleural effusions or pneumothorax. Mediastinum: Mediastinal contours are normal. Heart size is normal. Bones and chest wall: No suspicious bony abnormalities. Soft tissues appear unremarkable. IMPRESSION: No acute cardiopulmonary disease. Dictated by: Jody Phelps M.D. on 11/28/2018 at 19:18 Approved by: Jody Phelps M.D. on 11/28/2018 at 19:20
[2018-11-28 17:56] VITALS: PULSE 95; RESP 26; O2SAT 91
[2018-11-28] MEDS: ALBUTEROL 2.5 MG/3 ML NEB (ADULT) INH (17:56)
--- NOTE | 2018-11-28 18:03 | PC.NURSE ---
Pt managing secretions,able to swallow
[2018-11-28 18:05] LABS: Add Manual Diff / Slide Review NO; Basophils Absolute Auto 0 /uL (0-100); Basophils Percent Auto 0.6 % (0-2); Eosinophils Absolute Auto 100 /uL (0-450); Eosinophils Percent Auto 1.7 % (2-4); Hematocrit 42.8 % (36-46); Hemoglobin 14.4 g/dL (12.0-16.0); Lymphocytes Absolute Auto 3000 /uL (1100-4500); Lymphocytes Percent Auto 43.4 % (25-40); Mean Corpuscular HGB Conc 33.6 % (30-36); Mean Corpuscular Hemoglobin 32.3 PG (26-34); Monocytes Absolute Auto 600 /uL (0-900); Monocytes Percent Auto 8.2 % (3-14); Neutrophils Absolute Auto 3100 /uL (1500-7000); Neutrophils Percent Auto 46.1 % (50-75); Platelet Count 281 X10^3/uL (150-400); Red Blood Cell Count 4.46 X10^6/uL (4.0-5.2); Red Cell Distribution Width 13.1 % (11.6-14.8); White Blood Cell Count 6.8 X10^3/uL (4.5-11.0)
[2018-11-28] MEDS: MAG HYDROX/ALUMINUM/SIMETH SUS 20 ML, LIDOCAINE VISCOUS 2% 15 ML PO (18:15)
[2018-11-28 18:18] LABS: Alanine Aminotransferase 18 IU/L (9-52); Albumin 4.4 g/dL (3.5-5.0); Albumin Globulin Ratio 1.6 (1.0-2.8); Alkaline Phosphatase 90 U/L (38-126); Aspartate Aminotransferase 32 IU/L (14-36); Bilirubin Total 0.6 mg/dL (0.2-1.3); Blood Urea Nitrogen 24 mg/dL (7-17); Calcium 9.7 mg/dL (8.4-10.2); Carbon Dioxide 23 mmol/L (22-32); Chloride 106 mmol/L (98-107); Creatine Kinase 44 U/L (30-135); Estimated Glomerular Filt Rate > 60.0 mL/min (>60); Globulin 2.8 g/dL (1.7-4.1); Glucose 94 mg/dL (80-110); HEMOLYSIS 22 (0-50); Lipase 211 U/L (23-300); Potassium 4.8 mmol/L (3.4-5.1); Sodium 138 mmol/L (137-145); Total Protein 7.2 g/dL (6.3-8.2)
[2018-11-28 18:30] VITALS: BP 164/72; PULSE 99; RESP 19; O2SAT 100
[2018-11-28 18:30] LABS: Troponin I < 0.012 ng/mL (0.01-0.034)
[2018-11-28 19:00] VITALS: PULSE 98; RESP 20; O2SAT 95
--- NOTE | 2018-11-28 19:23 | ED.SOB ---
HPI - SOB/Dyspnea General Chief Complaint: Shortness of Breath/Dyspnea Stated Complaint: TROUBLE BREATHING,POSSIBLY CHOKING ON A PILL Time Seen by Provider: 11/28/18 17:52 Source: patient Mode of arrival: Ambulatory Limitations: no limitations History of Present Illness HPI Narrative: The patient was taking a calcium supplement about 1 hour prior to arrival. She gagged on the large pill, arrives with difficulty breathing. Initial O2 sats at triage were 88% on room air. She has no chronic airway issues. She has no history of asthma or CHF. She had initial profound coughing. After our the ER she was able calf up fragments of the pill. She has no sinus pressure, ENT complaints or sore throat. She has not been ill. She has no chest pain. She feels like her throat is achy. She has multiple prior C-spine surgeries, she has a C5-C6 fusion with anterior fixation. She has no dysphagia associated with her surgeries. Related Data Home Medications Medication Instructions Recorded Confirmed fexofenadine 180 mg PO Q DAY PRN #0 05/04/11 12/04/17 acetaminophen 4 tab PO BID 07/06/17 12/04/17 betamethasone valerate 1 applic TOPICAL DIRECTED 07/06/17 12/04/17 dexamethasone sodium phosphate 1 drp OPHTHALMIC (EYE) BID PRN 07/06/17 12/04/17 diazepam 5 - 10 mg PO QDAY PRN 07/06/17 12/04/17 diphenhydramine HCl [Benadryl] 50 - 100 mg PO BEDTIME PRN 07/06/17 12/04/17 fluticasone propionate 1 spray INTRANASAL BID 07/06/17 12/04/17 levothyroxine 125 mcg PO MOTUWETHFRSA 07/06/17 12/04/17 metronidazole [Metrogel] 1 applic TOPICAL BID PRN 07/06/17 12/04/17 zolpidem 5 mg PO QHS PRN 07/06/17 12/04/17 Calcium Citrate + D 2 tab PO TID 12/04/17 12/04/17 Celebrate Multi-Complex 45 3 cap PO DAILY 12/04/17 12/04/17 cetirizine 10 mg PO DAILY PRN 12/04/17 12/04/17 [id number] 1 applic TOPICAL BID PRN 12/04/17 12/04/17 levothyroxine 0.5 tab PO ESPINOZA 12/04/17 12/04/17 Previous Rx's Medication Instructions Recorded doxycycline hyclate 100 mg PO BID 7 Days #14 tab 11/28/18 Allergies Allergy/AdvReac Type Severity Reaction Status Date / Time erythromycin base Allergy Intermediate HIVES Verified 11/28/18 17:41 adhesive Allergy Mild ALLERGIC Verified 11/28/18 17:41 TO TAPE epinephrine Allergy Mild TACHYCARDIA Verified 11/28/18 17:41 gentamicin [Gentamicin] Allergy Mild RASH Verified 11/28/18 17:41 NSAIDS (Non-Steroidal Allergy Mild GASTRITIS Verified 11/28/18 17:41 Anti-Inflamma Serotonin 5HT-3 Antagonists Allergy Mild GASTRITIS Verified 11/28/18 17:41 trazodone Allergy Mild LOSS OF Verified 11/28/18 17:41 BALANCE alprazolam Allergy Unknown LOSS OF Verified 11/28/18 17:41 ABILITY TO FOCUS amitriptyline Allergy Unknown IBS Verified 11/28/18 17:41 SYMPTOMS buspirone Allergy Unknown Verified 11/28/18 17:41 codeine Allergy Unknown IBS Verified 11/28/18 17:41 SYMPTOMS gabapentin Allergy Unknown SEVERE Verified 11/28/18 17:41 GASTRITIS Review of Systems Review of Systems ROS Unobtainable: All systems reviewed & are unremarkable except as noted in HPI and below Constitutional Constitutional: Denies chills, Denies fever(s), Denies lethargy and Denies weakness ENT Ears, Nose, Mouth, and Throat: Denies change in voice, Denies dysphagia, Denies neck pain and Reports sore throat Cardiovascular Cardiovascular: Denies chest pain, Denies lightheadedness and Reports dyspnea Respiratory Respiratory: Reports cough, Reports pain with cough and Reports dyspnea Gastrointestinal Gastrointestinal: Denies abdominal pain and Denies dysphagia Musculoskeletal Musculoskeletal: Denies back pain and Denies neck pain Neurologic Neurologic: Denies weakness [facility] Medical History (Updated 11/29/18 @ 01:44 by Alexander Jacobsen MD) Cervical vertebral fusion (Acute) Hypertension (Acute) Hypothyroidism (Acute) Surgical History (Updated 11/29/18 @ 01:44 by Alexander Jacobsen MD) Gastric bypass status for obesity (Acute) Social History Smoking Status: Never smoker Social History Smoking Status: Never smoker Exam Initial Vital Signs Initial Vital Signs: Vital Signs Temperature 97.8 F 11/28/18 17:41 Pulse Rate 102 H 11/28/18 17:41 Respiratory Rate 22 11/28/18 17:41 Blood Pressure 171/96 H 11/28/18 17:41 Pulse Oximetry 91 11/28/18 17:41 Const General: cooperative and well developed Nutritional Appearance: well nourished Orientation: alert, awake and oriented x3 HENMT Mouth: oral mucosae normal and moist mucous membranes Throat: posterior oropharynx normal Neck Neck: normal visual inspection, full ROM, No anterior neck swelling and No lymphadenopathy Chest Chest: normal inspection of the chest Resp Effort & Inspection: normal respiratory effort, able to speak in complete sentences, no respiratory distress and no use of accessory muscles Auscultation: clear to auscultation bilaterally, no rales, no rhonchi and no wheezes Cardio Rate: regular rate Rhythm: regular rhythm Heart Sounds: no click, no gallops, no murmurs and no rubs Pulses: normal peripheral pulses Course Course Course Narrative: Patient's O2 sat on arrival was 87% in triage. She was having severe spasmodic cough. She was given albuterol neb, this induced additional coughing. She coughed up multiple small amounts of white chalky debris. A 2nd neb with saline was given, she appears to have clear airway. The coughing airway discomfort ceased. Chest x-ray is normal. The O2 sats on room air prior to discharge were 100%. The aspirated substance was in her lung for greater than 1 hour. I did give her doxycycline due to the aspiration. She is asymptomatic at the time of discharge home. Orders Ordered: ED Orders 11/28/18 17:39 EKG-12 Lead Routine 11/28/18 17:50 Complete Blood Count AUTO DIFF Stat Comprehensive Metabolic Panel Stat Lipase Stat Troponin & CK Cardiac Panel Stat 11/28/18 17:52 XR chest 2V Stat Discontinued Medications Albuterol (Ventolin) 2.5 mg INH NOW ONE Stop: 11/28/18 17:53 Last Admin: 11/28/18 17:56 Dose: 2.5 mg Documented by: BRITTANY Al Hydrox/Mg Hydrox/Simethicone 20 ml/ Lidocaine HCl 15 ml 0 ml PO NOW ONE Stop: 11/28/18 18:09 Last Admin: 11/28/18 18:15 Dose: 1 ml Documented by: DALLAS Doxycycline Hyclate (Vibramycin) 100 mg PO NOW ONE Stop: 11/28/18 19:24 Last Admin: 11/28/18 19:42 Dose: 100 mg Documented by: DALLAS Vital Signs Vital signs: Vital Signs - 8 hr 11/28/18 17:41 11/28/18 17:56 11/28/18 18:30 Temperature 97.8 F Pulse Rate 102 H 95 H 99 H Respiratory Rate 22 26 H 19 Blood Pressure 171/96 H Blood Pressure [Right Arm] 164/72 H Pulse Oximetry 91 91 100 11/28/18 19:00 11/28/18 20:00 Temperature Pulse Rate 98 H 93 H Respiratory Rate 20 Blood Pressure 154/73 H Blood Pressure [Right Arm] Pulse Oximetry 95 100 MDM - SOB/Dyspnea Lab Data Result diagrams: 11/28/18 17:50 11/28/18 17:50 Labs: Lab Results 11/28/18 11/28/18 Range/Units 17:50 17:50 WBC 6.8 (4.5-11.0) X10^3/uL RBC 4.46 (4.0-5.2) X10^6/uL Hgb 14.4 (12.0-16.0) g/dL Hct 42.8 (36-46) % MCV 96.0 (80-100) fL MCH 32.3 (26-34) PG MCHC 33.6 (30-36) % RDW 13.1 (11.6-14.8) % Plt Count 281 (150-400) X10^3/uL Neut % (Auto) 46.1 L (50-75) % Lymph % (Auto) 43.4 H (25-40) % [place] % (Auto) 8.2 (3-14) % Eos % (Auto) 1.7 L (2-4) % Baso % (Auto) 0.6 (0-2) % Neut # (Auto) 3100 (5265-4162) /uL Lymph # (Auto) 3000 (6535-5528) /uL [place] # (Auto) 600 (0-900) /uL Eos # (Auto) 100 (0-450) /uL Baso # (Auto) 0 (0-100) /uL Sodium 138 (137-145) mmol/L Potassium 4.8 (3.4-5.1) mmol/L Chloride 106 (98-107) mmol/L Carbon Dioxide 23 (22-32) mmol/L BUN 24 H (7-17) mg/dL Creatinine 0.80 (0.52-1.04) mg/dL Estimated GFR > 60.0 (>60) mL/min BUN/Creatinine Ratio 30.0 H (6-22) Glucose 94 (80-110) mg/dL Calcium 9.7 (8.4-10.2) mg/dL Total Bilirubin 0.6 (0.2-1.3) mg/dL AST 32 (14-36) IU/L ALT 18 (9-52) IU/L Alkaline Phosphatase 90 (38-126) U/L Total Creatine Kinase 44 (30-135) U/L CK-MB (CK-2) TNP CK-MB (CK-2) Rel Index TNP Troponin I < 0.012 (0.01-0.034) ng/mL Total Protein 7.2 (6.3-8.2) g/dL Albumin 4.4 (3.5-5.0) g/dL Globulin 2.8 (1.7-4.1) g/dL Albumin/Globulin Ratio 1.6 (1.0-2.8) Lipase 211 (23-300) U/L Imaging Data Chest x-ray: Radiologist's impression: Normal Discharge Plan Departure Patient Disposition: Home Clinical Impression: Aspiration of foreign body into lung Discharge Date/Time: 11/28/18 20:01 Instructions: Aspiration Pneumonia Activity Restrictions/Additional Instructions: Doxycycline 2 times daily for 1 week. Return the ER if he develops fever or increased difficulty breathing. Prescriptions: New doxycycline hyclate 100 mg tablet 100 mg PO BID 7 Days Qty: 14 RF: 0 No Action fexofenadine 180 mg Tablet 180 mg PO Q DAY PRN (Reason: Allergy Symptoms) Qty: 0 RF: 0 dexamethasone sodium phosphate 0.1 % drops 1 drp ophthalmic (eye) BID PRN (Reason: Allergy Symptoms) RF: 0 betamethasone valerate 0.1 % cream 1 applic Topical DIRECTED RF: 0 levothyroxine 125 mcg tablet 125 mcg PO MOTUWETHFRSA RF: 0 zolpidem 5 mg tablet 5 mg PO QHS PRN (Reason: Sleep) RF: 0 fluticasone propionate 50 mcg/actuation spray,suspension 1 spray Intranasal BID RF: 0 acetaminophen 500 mg Tablet 4 tab PO BID RF: 0 diphenhydramine HCl [Benadryl] 25 mg Capsule 50 - 100 mg PO BEDTIME PRN (Reason: Sleep) RF: 0 diazepam 5 mg Tablet 5 - 10 mg PO QDAY PRN (Reason: Muscle Spasm) RF: 0 metronidazole [Metrogel] 1 % Gel 1 applic Topical BID PRN (Reason: antibiotic) RF: 0 cetirizine 10 mg Tablet 10 mg PO DAILY PRN (Reason: Allergy Symptoms) RF: 0 qixgbmmpqsalzj-ezfpylldp-gzft1 2-1-1 % Gel 1 applic Topical BID PRN (Reason: unknown) RF: 0 Celebrate Multi-Complex 45 3 cap PO DAILY RF: 0 Calcium Citrate + D 2 tab PO TID RF: 0 levothyroxine 125 mcg tablet 0.5 tab PO ESPINOZA RF: 0 Referrals: Zach Helton MD [Primary Care Provider] -
[2018-11-28] MEDS: DOXYCYCLINE HYCLATE 100 MG TABLET PO (19:42)
[2018-11-28 20:00] VITALS: BP 154/73; PULSE 93; O2SAT 100
== END 2018-11-28 20:01 | disposition home or self-care (01) ==
PROVIDERS: Emergency Medicine; Emergency Provider Emergency Medicine; PCP Internal Medicine
DX: T17.808A Unspecified foreign body in other parts of respiratory tract causing other injury, initial encounter (principal); R06.02 Shortness of breath; I10 Essential (primary) hypertension
CPT/HCPCS: 36415; 71046; 80053; 82550; 83690; 84484; 85025; 93005; 93010; 94640; 94667; 99282; 99285; J7613

== ENCOUNTER 2019-01-16 07:52 | Day surgery (SDC) | payer MEDICARE, SELFPAY ==
[2019-01-16] VITALS (7 sets, daily range): BP systolic 167–171; BP diastolic 79–102; PULSE 87–102; RESP 11–16; TEMP 36–36.7; O2SAT 98–100; BMI 28.3
--- NOTE | 2019-01-16 | PATH_ITS ---
[facility] Accession Number: [id number] . 01 Material submitted: . PART A: cecum - CECUM POLYP X2 PART B: colon - ASCENDING COLON POLYP PART C: colon - TRANSVERSE COLON POLYP . 02 Diagnosis: A. Cecum, Polyps x2, Biopsies: Tubular adenoma in one of two fragments. . B. Ascending Colon, Polyp, Biopsy: Tubular adenoma. . C. Transverse Colon, Polyp, Biopsy: Sessile serrated adenoma. MRV 01/17/2019 1422 Local . 02 Electronically signed: . Thu Alves MD, Pathologist NPI- [id number] . 01 Gross description: . Part A: CECUM POLYP X2: Received in formalin are 2 fragment(s) of chen, soft tissue measuring 0.1 x 0.1 x 0.1 cm to 0.2 x 0.2 x 0.2 cm submitted entirely in 1 cassette(s) Part B: ASCENDING COLON POLYP: Received in formalin is 1 fragment(s) of chen, soft tissue measuring 0.3 x 0.2 x 0.2 cm submitted entirely in 1 cassette(s) Part C: TRANSVERSE COLON POLYP: Received in formalin is 1 fragment(s) of chen, soft tissue measuring 0.7 x 0.7 x 0.3 cm submitted entirely in 1 cassette(s) /[facility] [place] 01/16/2019 1925 Local . 02 Pathologist provided ICD-10: D12.0, D12.2, D12.3 . 02 CPT . 306586, 900127, 213314 Performed at: [address] [facility], [place], [place] [id number] MD Hunter Ambriz MD Phone: [phone] Performed at: [facility] [address] [place] [id number] MD Thu Alves MD Phone: [phone]
--- NOTE | 2019-01-16 07:51 | PM.HP.1 ---
History of Present Illness History of Present Illness Date Patient Seen: 01/16/19 Chief complaint: [id number] Narrative: 73-year-old female with a family history of colon cancer in a grandmother who is here for colon cancer screening; prior colonoscopy report not available for review. No active GI complaints Patient History Medical History (Updated 12/13/18 @ 00:01 by ) Cervical vertebral fusion (Acute) Hypertension (Acute) Hypothyroidism (Acute) Surgical History (Updated 11/29/18 @ 01:44 by Alexander Jacobsen MD) Gastric bypass status for obesity (Acute) Family & Social History Tobacco & Substance use: Smoking Status Never smoker alcohol intake frequency a few times a week Substance Use Type does not use Meds Home Medications and Allergies Home Medications Medication Instructions Recorded Confirmed Type fexofenadine 180 mg PO Q DAY PRN #0 05/04/11 12/04/17 History acetaminophen 4 tab PO BID 07/06/17 12/04/17 History betamethasone valerate 1 applic TOPICAL DIRECTED 07/06/17 12/04/17 History dexamethasone sodium phosphate 1 drp OPHTHALMIC (EYE) BID PRN 07/06/17 12/04/17 History diazepam 5 - 10 mg PO QDAY PRN 07/06/17 12/04/17 History diphenhydramine HCl [Benadryl] 50 - 100 mg PO BEDTIME PRN 07/06/17 12/04/17 History fluticasone propionate 1 spray INTRANASAL BID 07/06/17 12/04/17 History levothyroxine 125 mcg PO MOTUWETHFRSA 07/06/17 12/04/17 History metronidazole [Metrogel] 1 applic TOPICAL BID PRN 07/06/17 12/04/17 History zolpidem 5 mg PO QHS PRN 07/06/17 12/04/17 History Calcium Citrate + D 2 tab PO TID 12/04/17 12/04/17 History Celebrate Multi-Complex 45 3 cap PO DAILY 12/04/17 12/04/17 History cetirizine 10 mg PO DAILY PRN 12/04/17 12/04/17 History nulbpxtvhavkti-mkixacihk-[id number] 1 applic TOPICAL BID PRN 12/04/17 12/04/17 History levothyroxine 0.5 tab PO ESPINOZA 10/01/18 10/01/18 History Allergies Allergy/AdvReac Type Severity Reaction Status Date / Time erythromycin base Allergy Intermediate HIVES Verified 11/28/18 17:41 adhesive Allergy Mild ALLERGIC Verified 11/28/18 17:41 TO TAPE epinephrine Allergy Mild TACHYCARDIA Verified 11/28/18 17:41 gentamicin [Gentamicin] Allergy Mild RASH Verified 11/28/18 17:41 NSAIDS (Non-Steroidal Allergy Mild GASTRITIS Verified 11/28/18 17:41 Anti-Inflamma Serotonin 5HT-3 Antagonists Allergy Mild GASTRITIS Verified 11/28/18 17:41 trazodone Allergy Mild LOSS OF Verified 11/28/18 17:41 BALANCE alprazolam Allergy Unknown LOSS OF Verified 11/28/18 17:41 ABILITY TO FOCUS amitriptyline Allergy Unknown IBS Verified 11/28/18 17:41 SYMPTOMS buspirone Allergy Unknown Verified 11/28/18 17:41 codeine Allergy Unknown IBS Verified 11/28/18 17:41 SYMPTOMS gabapentin Allergy Unknown SEVERE Verified 11/28/18 17:41 GASTRITIS Exam Narrative Exam Narrative: General: Patient is overweight, not in apparent distress Cardiovascular: Regular rate and rhythm, no murmurs, rubs, or gallops; no evidence of edema; no palpable abdominal aortic aneurysm Gastrointestinal: Normoactive bowel sounds, soft, nontender, nondistended, no rebound tenderness, no hepatosplenomegaly, no evidence of hernia Assessment & Plan Assessment & Plan narrative: 73-year-old female with a family history of colon cancer who is here for colon cancer screening. Prior colonoscopy report not available for review. Regarding the procedure(s), the risks and potential complications, benefits, and alternatives (including not doing the procedure) were discussed with the patient. The risks include but are not limited to bleeding, splenic injury, infection, perforation which may require surgical intervention, missed lesions, and adverse reactions to sedative medicines. After a question and answer period, the patient agreed to proceed with the procedure(s) and gives informed consent.
[2019-01-16] MEDS: SODIUM CHLORIDE 0.9% 1,000 ML 70 ML IV (08:25)
--- NOTE | 2019-01-16 08:42 | PM.OP.ENDO ---
Operative Date/Time/Diagnoses Date of procedure: 01/16/19 Procedure Notes Procedure in detail: Surgeon: Yamil Fraser MD Procedure: Colonoscopy with polypectomy Preoperative diagnosis: Colon cancer screening, family history colon cancer Postoperative diagnosis: Small cecal vascular ectasia, Colon polyps x4 status post polypectomy, grade 1 internal hemorrhoids Medications: Conscious sedation using 4 mg IV of Midazolam and 150 mcg IV of Fentanyl Preanesthesia Assessment An H and P was performed/updated and the Px?s ASA class is 2. The procedure was discussed in detail with the patient. The potential risks and complications including infection, bleeding, missed lesions, perforation, need for surgery in case of perforation, prolonged hospital stay, and were explained. A brief question and answer period was allotted and once all questions were answered, informed consent was obtained. The patient was brought back to the procedure room and placed on standard monitoring. The patient?s vital signs were monitored continuously throughout the entire procedure. Prior to starting, a timeout was performed to confirm the patient?s identity, allergies, medications, and procedure. Procedure in detail The patient was placed in left lateral decubitus position and once adequate sedation was obtained a IMMANUEL was performed. The digital rectal examination did not reveal any palpable lesions. The tip of the colonoscope was placed in the anal canal and advanced without difficulty all the way to the cecum which was identified by the appendiceal orifice and the ileocecal valve. The terminal ileum was intubated to a distance of 5 cm from the ileocecal valve and the mucosa appeared normal. The colonoscope was then withdrawn back into the cecum. Careful examination of all silver of the colon was performed with irrigation of any residual stool. In the cecum, there was note of a small vascular ectasia which was not bleeding. No treatment was performed In the cecum, there was note of 2 sessile polyps measuring 2-3 mm. These were removed by means of cold Jumbo forceps. Retrieval and resection was complete with minimal bleeding In the ascending colon, there was note of a 2 mm sessile polyp which was removed by means of cold Jumbo forceps. Retrieval and resection was complete with minimal bleeding In the transverse colon, there was note of a 7 mm sessile polyp which was removed by means of cold snare. Retrieval and resection was complete with minimal bleeding Retroflexion was performed in the rectum which revealed grade 1 internal hemorrhoids The patient tolerated the procedure well and will be brought back to the recovery area to be discharged once criteria are met. The prep was judged to be good and adequate to identify polyps less than 5 mm. The withdrawal time was 12 minutes. The total physician intraservice time was 19 minutes. Complications There were no complications and estimated blood loss was minimal. Recommendations: Resume previous diet Continue outPx medications Follow up pathology results Repeat colonoscopy in 3 or 5 years depending on pathology results An emergency contact number was given to the patient for any complications related to the procedure
[2019-01-16] MEDS: MIDAZOLAM 5 MG/5 ML VIAL IV (09:12)
[2019-01-16] MEDS: fentaNYL 250 MCG/5 ML INJ IV (09:13)
== END 2019-01-16 10:00 | disposition home or self-care (01) ==
PROVIDERS: PCP Internal Medicine; Visit Provider Internal Medicine Gastroenterology
PROC: 0DJD8ZZ Inspection of Lower Intestinal Tract, Via Natural or Artificial Opening Endoscopic (ICD-10-PCS; CPT 45378; principal; 2019-01-16 09:00)
DX: Z12.11 Encounter for screening for malignant neoplasm of colon (principal); Z80.0 Family history of malignant neoplasm of digestive organs; K64.0 First degree hemorrhoids; K92.89 Other specified diseases of the digestive system; D12.0 Benign neoplasm of cecum; D12.2 Benign neoplasm of ascending colon; D12.3 Benign neoplasm of transverse colon; I10 Essential (primary) hypertension; E03.9 Hypothyroidism, unspecified
CPT/HCPCS: 45385; 45380; J2250; J3010

== ENCOUNTER 2019-03-31 15:52 | Emergency (ER) | payer MEDICARE, SELFPAY ==
[2019-03-31 15:54] VITALS: BP 145/92; PULSE 103; RESP 24; TEMP 36.6; O2SAT 98; BMI 27.4
--- NOTE | 2019-03-31 16:04 | ED_ITS ---
HPI - SOB/Dyspnea General Chief Complaint: Fall Stated Complaint: trouble breathing Time Seen by Provider: 03/31/19 15:59 Source: patient Mode of arrival: Ambulatory Limitations: no limitations History of Present Illness HPI Narrative: Patient is 73-year-old female who presents with left-sided rib pain ongoing for last 2 days. It hurts every time she breathes or moves. She says she tripped and fell and hit her head 2 days ago she is not on any antiplatelet or anticoagulation medication. She has no numbness tingling visual changes nausea or vomiting. However the breathing is becoming more difficult due to pain. MD Complaint: pain with inspiration Related Data Home Medications Medication Instructions Recorded Confirmed acetaminophen 4 tab PO BID 07/06/17 01/16/19 betamethasone valerate 1 applic TOPICAL DIRECTED 07/06/17 01/16/19 dexamethasone sodium phosphate 1 drp OPHTHALMIC (EYE) BID PRN 07/06/17 01/16/19 diazepam 5 - 10 mg PO QDAY PRN 07/06/17 01/16/19 diphenhydramine HCl [Benadryl] 50 - 100 mg PO BEDTIME PRN 07/06/17 01/16/19 fluticasone propionate 1 spray INTRANASAL BID 07/06/17 01/16/19 levothyroxine 125 mcg PO MOTUWETHFRSA 07/06/17 01/16/19 metronidazole [Metrogel] 1 applic TOPICAL BID PRN 07/06/17 01/16/19 zolpidem 5 mg PO QHS PRN 07/06/17 01/16/19 Calcium Citrate + D 2 tab PO TID 12/04/17 01/16/19 Celebrate Multi-Complex 45 3 cap PO DAILY 12/04/17 01/16/19 cetirizine 10 mg PO DAILY PRN 12/04/17 01/16/19 [id number] 1 applic TOPICAL BID PRN 12/04/17 01/16/19 levothyroxine 0.5 tab PO ESPINOZA 12/04/17 01/16/19 Allergies Allergy/AdvReac Type Severity Reaction Status Date / Time erythromycin base Allergy Intermediate HIVES Verified 03/31/19 16:03 adhesive Allergy Mild ALLERGIC Verified 03/31/19 16:03 TO TAPE epinephrine Allergy Mild TACHYCARDIA Verified 03/31/19 16:03 gentamicin [Gentamicin] Allergy Mild RASH Verified 03/31/19 16:03 NSAIDS (Non-Steroidal Allergy Mild GASTRITIS Verified 03/31/19 16:03 Anti-Inflamma Serotonin 5HT-3 Antagonists Allergy Mild GASTRITIS Verified 03/31/19 16:03 trazodone Allergy Mild LOSS OF Verified 03/31/19 16:03 BALANCE alprazolam Allergy Unknown LOSS OF Verified 03/31/19 16:03 ABILITY TO FOCUS amitriptyline Allergy Unknown IBS Verified 03/31/19 16:03 SYMPTOMS buspirone Allergy Unknown Verified 03/31/19 16:03 codeine Allergy Unknown IBS Verified 03/31/19 16:03 SYMPTOMS gabapentin Allergy Unknown SEVERE Verified 03/31/19 16:03 GASTRITIS Review of Systems Review of Systems ROS Unobtainable: All systems reviewed & are unremarkable except as noted in HPI and below Eyes Eyes: Denies change in vision, Denies eye discharge, Denies irritation and Denies loss of vision Cardiovascular Cardiovascular: Denies chest pain, Denies irregular heart rhythm, Denies lightheadedness, Denies palpitations and Denies orthopnea Respiratory Respiratory: Reports as per HPI Gastrointestinal Gastrointestinal: Denies abdominal pain, Denies change in bowel habits, Denies diarrhea, Denies nausea and Denies vomiting Musculoskeletal Musculoskeletal: Denies back pain, Denies muscle weakness, Denies numbness and Denies tingling Integumentary/Breasts Skin/Breast: Denies pruritus, Denies erythema, Denies rash and Denies wounds Neurologic Neurologic: Denies loss of vision, Denies numbness and Denies tingling Endocrine Endocrine: Denies palpitations Patient History Medical History Cervical vertebral fusion (Acute) Hypertension (Acute) Hypothyroidism (Acute) Surgical History Gastric bypass status for obesity (Acute) Social History household members: none Smoking Status: Never smoker Smoking Status: Never smoker alcohol intake frequency: a few times a week Substance Use Type: does not use Exam Initial Vital Signs Initial Vital Signs: Vital Signs Temperature 97.8 F 03/31/19 15:54 Pulse Rate 103 H 03/31/19 15:54 Respiratory Rate 24 03/31/19 15:54 Blood Pressure 145/92 H 03/31/19 15:54 Pulse Oximetry 98 03/31/19 15:54 GENERAL: Well-appearing, well-nourished and in no acute distress. HEENT: Head atraumatic,EOMI, pupils reactive, CARDIOVASCULAR: Regular rate and rhythm without murmurs, rubs or gallops. RESPIRATORY: Breath sounds equal bilaterally, no wheezes rales or rhonchi. Rib but 5. Or 6 just under the breast is tender to touch pain is reproducible with palpation no contusion no flail chest no erythema ABDOMEN: Soft, nontender. Normoactive bowel sounds all 4 quadrants. No guarding or rebound. EXTREMITIES: Normal range of motion, no clubbing or edema. Neurovascularly intact NEUROLOGICAL: Alert and oriented x4.Normal gait and speech. SKIN: Warm, dry, no laceration, no petechiae, no rashes or lesions. Course Orders Ordered: ED Orders 03/31/19 16:05 XR ribs LT min 3V w CXR1V Stat Vital Signs Vital signs: Vital Signs - 8 hr 03/31/19 15:54 Temperature 97.8 F Pulse Rate 103 H Respiratory Rate 24 Blood Pressure 145/92 H Pulse Oximetry 98 MDM - SOB/Dyspnea Imaging Data Chest x-ray: Radiologist's Impression: PROCEDURE: XR RIBS LT MIN 3V W CXR1V INDICATIONS: fall pain TECHNIQUE: 2 views of the left ribs were acquired, along with a single view chest. COMPARISON: [facility], , XR CHEST 2V, 11/28/2018, 18:20. FINDINGS: Surgical changes and devices: Post surgical changes of the lower cervical spine are present. Bones and chest wall: No displaced left rib fractures are evident. No dislocations are identified. No suspicious bony lesions. Overlying soft tissues appear unremarkable. Lungs and pleura: No pleural effusions or pneumothorax. Lungs appear clear. Mediastinum: Mediastinal contours appear normal. Heart size is normal. IMPRESSION: No displaced left rib fractures. Dictated by: Peter Cruz M.D. on 03/31/2019 at 15:34 MDM Narrative Medical decision making narrative: Patient initially requested Dilaudid however she drove herself. She is allergic to NSAIDs and other narcotic medications. She does not have a fractured rib however she is quite tender to palpation pain is reproducible with touch it is possible she has a slight fracture just not seen on x-ray. Unlikely to be cardiac. She is requesting Dilaudid to be a prescription for her at home I have explained that I will not write her for Dilaudid in if she needs that she needs to talk to her PCP. Patient left without her discharge instructions. Discharge Plan Departure Patient Disposition: Home Clinical Impression: Contusion of rib on left side Qualifiers: Encounter type: initial encounter Qualified Code(s): S20.212A - Contusion of left front wall of thorax, initial encounter Discharge Date/Time: 03/31/19 17:19 Instructions: DI for Contusion Activity Restrictions/Additional Instructions: *You have been diagnosed with left rib contusion *What to do: There is no fracture noted on her x-ray however based on the amount of pain your and I would not be surprised if there is a minor fracture that is may Increase activity as tolerated recommend splinting with a pillow or a blanket test help ease the pain. Ice 20-30 minutes at a time complication of *Continue to take medications as directed If you should need stronger pain medications such as to law did please speak with your primary care physician it will not be prescribed in the emergency department *Follow up with your primary care provider in 2-3 days *Return to ER if you should have increasing shortness of breath, worsening pain or any new, worsening or concerning symptoms Prescriptions: No Action dexamethasone sodium phosphate 0.1 % drops 1 drp ophthalmic (eye) BID PRN (Reason: Allergy Symptoms) RF: 0 betamethasone valerate 0.1 % cream 1 applic Topical DIRECTED RF: 0 levothyroxine 125 mcg tablet 125 mcg PO MOTUWETHFRSA RF: 0 zolpidem 5 mg tablet 5 mg PO QHS PRN (Reason: Sleep) RF: 0 fluticasone propionate 50 mcg/actuation spray,suspension 1 spray Intranasal BID RF: 0 acetaminophen 500 mg Tablet 4 tab PO BID RF: 0 diphenhydramine HCl [Benadryl] 25 mg Capsule 50 - 100 mg PO BEDTIME PRN (Reason: Sleep) RF: 0 diazepam 5 mg Tablet 5 - 10 mg PO QDAY PRN (Reason: Muscle Spasm) RF: 0 metronidazole [Metrogel] 1 % Gel 1 applic Topical BID PRN (Reason: antibiotic) RF: 0 cetirizine 10 mg Tablet 10 mg PO DAILY PRN (Reason: Allergy Symptoms) RF: 0 bazxrwakqgafkg-sqjpbniqz-krzb3 2-1-1 % Gel 1 applic Topical BID PRN (Reason: unknown) RF: 0 Celebrate Multi-Complex 45 3 cap PO DAILY RF: 0 Calcium Citrate + D 2 tab PO TID RF: 0 levothyroxine 125 mcg tablet 0.5 tab PO ESPINOZA RF: 0 Referrals: Zach Helton MD [Primary Care Provider] -
--- NOTE | 2019-03-31 17:17 | PC.NURSE ---
pt verbal understanding to follow up with her primary if not better and with worsen conditions. she states, she will call tomorrow.
--- NOTE | 2019-03-31 17:20 | PC.NURSE ---
percocet or tramadol, reactions with rashes.
== END 2019-03-31 17:19 | disposition home or self-care (01) ==
PROVIDERS: Emergency Provider Emergency Medicine; PCP Internal Medicine
DX: S20.212A Contusion of left front wall of thorax, initial encounter (principal); W01.0XXA Fall on same level from slipping, tripping and stumbling without subsequent striking against object, initial encounter
CPT/HCPCS: 71101; 99283

== ENCOUNTER 2019-07-18 16:36 | Emergency (ER) | payer MEDICARE, SELFPAY ==
[2019-07-18 16:45] VITALS: BP 210/112; PULSE 99; RESP 16; TEMP 37.1; O2SAT 97; BMI 27.4
--- NOTE | 2019-07-18 16:49 | ED.FALL ---
HPI - Fall General Chief Complaint: Fall Stated Complaint: left side rib pain s/p fall on monday Time Seen by Provider: 07/18/19 16:38 Source: patient and family Mode of arrival: Ambulatory Limitations: no limitations History of Present Illness HPI Narrative: 73 Nonsmoker with history of hypertension and hypothyroidism presents with a chief complaint of left-sided rib pain after a fall a few days ago. She denies any head neck or back pain. She states she was taking her garbage cans to the street when she tripped on a crack in the concrete landing on her left-sided ribs. She denies any cough or shortness of breath. She denies any hemoptysis. She has had no nausea, vomiting or diarrhea. She denies any difficulty with urination or bloody urine. She has no abdominal pain. She complains of sharp pain with deep breaths and that it wraps around to her back. MD complaint: fall Onset (ago): day(s) Fall from: standing Fall witnessed: no Place fall occurred: home Loss of consciousness: none Prolonged down time: no Symptoms prior to fall: none Context: tripped/slipped Location of injury: chest Severity: moderate Quality: sharp Associated symptoms (after fall): chest pain Related Data Home Medications Medication Instructions Recorded Confirmed acetaminophen 4 tab PO BID 07/06/17 01/16/19 betamethasone valerate 1 applic TOPICAL DIRECTED 07/06/17 01/16/19 dexamethasone sodium phosphate 1 drp OPHTHALMIC (EYE) BID PRN 07/06/17 01/16/19 diazepam 5 - 10 mg PO QDAY PRN 07/06/17 01/16/19 diphenhydramine HCl [Benadryl] 50 - 100 mg PO BEDTIME PRN 07/06/17 01/16/19 fluticasone propionate 1 spray INTRANASAL BID 07/06/17 01/16/19 levothyroxine 125 mcg PO MOTUWETHFRSA 07/06/17 01/16/19 metronidazole [Metrogel] 1 applic TOPICAL BID PRN 07/06/17 01/16/19 zolpidem 5 mg PO QHS PRN 07/06/17 01/16/19 Calcium Citrate + D 2 tab PO TID 12/04/17 01/16/19 Celebrate Multi-Complex 45 3 cap PO DAILY 12/04/17 01/16/19 cetirizine 10 mg PO DAILY PRN 12/04/17 01/16/19 [id number] 1 applic TOPICAL BID PRN 12/04/17 01/16/19 levothyroxine 0.5 tab PO ESPINOZA 12/04/17 01/16/19 Allergies Allergy/AdvReac Type Severity Reaction Status Date / Time erythromycin base Allergy Intermediate HIVES Verified 07/18/19 16:49 adhesive Allergy Mild ALLERGIC Verified 07/18/19 16:49 TO TAPE epinephrine Allergy Mild TACHYCARDIA Verified 07/18/19 16:49 gentamicin [Gentamicin] Allergy Mild RASH Verified 07/18/19 16:49 NSAIDS (Non-Steroidal Allergy Mild GASTRITIS Verified 07/18/19 16:49 Anti-Inflamma Serotonin 5HT-3 Antagonists Allergy Mild GASTRITIS Verified 07/18/19 16:49 trazodone Allergy Mild LOSS OF Verified 07/18/19 16:49 BALANCE alprazolam Allergy Unknown LOSS OF Verified 07/18/19 16:49 ABILITY TO FOCUS amitriptyline Allergy Unknown IBS Verified 07/18/19 16:49 SYMPTOMS buspirone Allergy Unknown Verified 07/18/19 16:49 codeine Allergy Unknown IBS Verified 07/18/19 16:49 SYMPTOMS gabapentin Allergy Unknown SEVERE Verified 07/18/19 16:49 GASTRITIS Review of Systems Constitutional Constitutional: Denies chills, Denies fatigue, Denies fever(s), Denies frequent falls, Denies lethargy and Denies weakness Eyes Eyes: Denies change in vision, Denies eye discharge, Denies irritation and Denies loss of vision ENT Ears, Nose, Mouth, and Throat: Denies change in voice, Denies dizziness, Denies neck pain, Denies sore throat and Denies throat swelling Cardiovascular Cardiovascular: Reports chest pain, Denies irregular heart rhythm, Denies lightheadedness, Denies palpitations, Denies dyspnea, Denies dyspnea on exertion and Denies orthopnea Respiratory Respiratory: Denies cough, Denies dyspnea, Denies dyspnea on exertion and Denies wheezing Gastrointestinal Gastrointestinal: Denies abdominal pain, Denies change in bowel habits, Denies diarrhea, Denies nausea and Denies vomiting Genitourinary Genitourinary: Denies hematuria, Denies flank pain, Denies urinary incontinence and Denies urinary urgency Musculoskeletal Musculoskeletal: Denies back pain, Denies muscle weakness, Denies neck pain, Denies numbness and Denies tingling Integumentary/Breasts Skin/Breast: Denies pruritus, Denies erythema, Denies rash and Denies wounds Neurologic Neurologic: Denies behavioral changes, Denies confusion, Denies dizziness, Denies frequent falls, Denies loss of vision, Denies numbness, Denies tingling and Denies weakness Psychiatric Psychiatric: Denies anxiety, Denies behavioral changes, Denies confusion, Denies depression, Denies homicidal ideation and Denies suicidal ideation Endocrine Endocrine: Denies fatigue, Denies flushing and Denies palpitations Hematologic/Lymphatic Hematologic/Lymphatic: Denies easy bruising Allergic/Immunologic Allergic/Immunologic: Denies urticaria, Denies throat swelling and Denies wheezing Patient History Medical History Cervical vertebral fusion (Acute) Hypertension (Acute) Hypothyroidism (Acute) Surgical History Gastric bypass status for obesity (Acute) Social History household members: none Smoking Status: Never smoker Smoking Status: Never smoker alcohol intake frequency: a few times a week Substance Use Type: does not use Exam Narrative Exam Narrative: GENERAL: [73] year old patient appears stated age. Well-nourished, well-developed patient, in mild distress. HEAD: Atraumatic. Normocephalic. EYES: Pupils equal round and reactive. Extraocular motions intact. No scleral icterus. No injection or drainage. ENT: Nose without bleeding, purulent drainage. Throat without erythema, tonsillar hypertrophy or exudate. Airway patent. NECK: Trachea midline. Non tender CARDIOVASCULAR: Left-sided ribs tender to palpation, no obvious external manifestation such as abrasion, contusion, crepitance. Regular rate and rhythm without murmurs, gallops, or rubs. RESPIRATORY: Clear to auscultation. Breath sounds equal bilaterally. No wheezes, rales, or rhonchi. GASTROINTESTINAL: Abdomen soft, non-tender, nondistended. EXTREMITIES: No edema or joint tenderness. BACK: Nontender without deformity or crepitance. No flank tenderness. NEURO: AOx3. SKIN: No rash or erythema of visible areas Initial Vital Signs Initial Vital Signs: Vital Signs Temperature 98.7 F 07/18/19 16:45 Pulse Rate 99 H 07/18/19 16:45 Respiratory Rate 16 07/18/19 16:45 Blood Pressure 210/112 H 07/18/19 16:45 Pulse Oximetry 97 07/18/19 16:45 Course Course Course Narrative: Patient has x-ray that is unremarkable and demonstrates no obvious fracture. I explained to the patient that there may be contusion or occult fracture causing her pain. Patient has allergies to NSAIDs, all opioids other than the law did and even adhesive tape. I told her that despite her request I was not comfortable giving the law did for this injury from the emergency department but she could call her PCP Orders Ordered: ED Orders 07/18/19 16:48 XR ribs LT min 3V w CXR1V Stat Vital Signs Vital signs: Vital Signs - 8 hr 07/18/19 16:45 07/18/19 17:25 Temperature 98.7 F Pulse Rate 99 H 98 H Respiratory Rate 16 16 Blood Pressure 210/112 H Blood Pressure [Right Arm] 199/93 H Pulse Oximetry 97 98 MDM - Fall Imaging Data Chest x-ray: Radiologist's Impression: [address] [address] XRay Report Signed Patient: Mckay Costa R#: [id number] : 5Acct:[id number] Age/Sex: 73 / FDate of Service: 07/18/19 Loc: ED Accession Number: [id number] Procedure: XR ribs LT min 3V w CXR1V Ordering Provider: Hiram Shaw D.O. PROCEDURE: XR RIBS LT MIN 3V W CXR1V INDICATIONS: fall with severe L sided rib pain TECHNIQUE: 2 views of the left ribs were acquired, along with a single view chest. COMPARISON: [facility], [place], XR RIBS LT MIN 3V W CXR1V, 03/31/2019, 16:04. FINDINGS: Surgical changes and devices: Lower cervical fusion hardware. Bones and chest wall: No displaced fractures or dislocations. No suspicious bony lesions. Overlying soft tissues appear unremarkable. Lungs and pleura: No pleural effusions or pneumothorax. Lungs appear clear. Mediastinum: Mediastinal contours appear normal. Heart size is normal. IMPRESSION: No displaced left rib fractures identified. No pneumothorax or acute pulmonary process identified. Dictated by: Frank Renee M.D. on 07/18/2019 at 17:16 Approved by: Frank Renee M.D. on 07/18/2019 at 17:18 Discharge Plan Departure Patient Disposition: Home Clinical Impression: Contusion of rib Qualifiers: Encounter type: initial encounter Laterality: left Qualified Code(s): S20.212A - Contusion of left front wall of thorax, initial encounter Instructions: How to Prevent Falls Activity Restrictions/Additional Instructions: Activity Restrictions/Additional Instructions: *You have been diagnosed with left rib contusion *What to do: There is no fracture noted on her x-ray however based on the amount of pain there is always the possibility of a minor fracture *You may Increase activity as tolerated recommend splinting with a pillow or a blanket test help ease the pain. Ice 20-30 minutes at a time *Continue to take medications as directed If you should need stronger pain medications suchplease speak with your primary care physician it will not be prescribed in the emergency department *Follow up with your primary care provider in 2-3 days *Return to ER if you should have increasing shortness of breath, worsening pain or any new, worsening or concerning symptoms Prescriptions: No Action dexamethasone sodium phosphate 0.1 % drops 1 drp ophthalmic (eye) BID PRN (Reason: Allergy Symptoms) RF: 0 betamethasone valerate 0.1 % cream 1 applic Topical DIRECTED RF: 0 levothyroxine 125 mcg tablet 125 mcg PO MOTUWETHFRSA RF: 0 zolpidem 5 mg tablet 5 mg PO QHS PRN (Reason: Sleep) RF: 0 fluticasone propionate 50 mcg/actuation spray,suspension 1 spray Intranasal BID RF: 0 acetaminophen 500 mg Tablet 4 tab PO BID RF: 0 diphenhydramine HCl [Benadryl] 25 mg Capsule 50 - 100 mg PO BEDTIME PRN (Reason: Sleep) RF: 0 diazepam 5 mg Tablet 5 - 10 mg PO QDAY PRN (Reason: Muscle Spasm) RF: 0 metronidazole [Metrogel] 1 % Gel 1 applic Topical BID PRN (Reason: antibiotic) RF: 0 cetirizine 10 mg Tablet 10 mg PO DAILY PRN (Reason: Allergy Symptoms) RF: 0 [id number]-[id number]-truh0 2-1-1 % Gel 1 applic Topical BID PRN (Reason: unknown) RF: 0 Celebrate Multi-Complex 45 3 cap PO DAILY RF: 0 Calcium Citrate + D 2 tab PO TID RF: 0 levothyroxine 125 mcg tablet 0.5 tab PO ESPINOZA RF: 0 Referrals: Roberta Olea PA-C [Primary Care Provider] -
[2019-07-18 17:25] VITALS: BP 199/93; PULSE 98; RESP 16; O2SAT 98
[2019-07-18 18:14] VITALS: BP 170/94; PULSE 86; RESP 16; TEMP 37.1; O2SAT 95
== END 2019-07-18 18:20 | disposition home or self-care (01) ==
PROVIDERS: Emergency Provider Emergency Medicine; PCP Physician Assistant
DX: S20.212A Contusion of left front wall of thorax, initial encounter (principal); W19.XXXA Unspecified fall, initial encounter
CPT/HCPCS: 71101; 99283

== ENCOUNTER 2019-10-23 12:09 | Inpatient (IN) | payer MEDICARE, SELFPAY ==
[2019-10-23] VITALS (14 sets, daily range): BP systolic 141–212; BP diastolic 73–88; PULSE 90–114; RESP 11–38; TEMP 37.3; O2SAT 94–99; BMI 31.6
--- NOTE | 2019-10-23 12:31 | DI.CT.S_ITS ---
PROCEDURE: CT CERVICAL SPINE WO CON INDICATIONS: Trauma TECHNIQUE: Noncontrast 3 mm thick sections acquired from the skull base to the T4 level. Sagittal and coronal reformats were then constructed. For radiation dose reduction, the following was used: automated exposure control, adjustment of mA and/or kV according to patient size. COMPARISON: None. FINDINGS: Image quality: Excellent. Bones: No fractures or dislocations. Visualized superior ribs are intact. Postoperative changes are seen, with a disc fusion device at the C5-C6 level. Anteriorly placed fixation hardware with a disc spacer can be seen at C6-C7. No findings of hardware failure or hardware loosening are seen. There is focal reversal of the normal cervical doses seen at C5-C6. Soft tissues: Prevertebral soft tissues are normal in thickness. No paravertebral hematomas. No apical pneumothoraces. IMPRESSION: No acute fractures are seen. Lower cervical spine fixation hardware, which appears intact. Dictated by: Yehuda Ledbetter M.D. on 10/23/2019 at 12:11 Approved by: Yehuda Ledbetter M.D. on 10/23/2019 at 12:12
--- NOTE | 2019-10-23 12:38 | DI.CT.S_ITS ---
PROCEDURE: CT HEAD/BRAIN WO CON INDICATIONS: Trauma TECHNIQUE: Noncontrast 4.5 mm thick angled axial sections acquired from the foramen magnum to the vertex, with coronal and sagittal reformats. For radiation dose reduction, the following was used: automated exposure control, adjustment of mA and/or kV according to patient size. COMPARISON: [facility], CT, CT CERVICAL SPINE WO CON, 10/23/2019, 12:42. [facility], CT, CT HEAD/BRAIN WO CON, 07/06/2017, 12:58. FINDINGS: Image quality: Metallic artifact from the patient's earrings can be seen. CSF spaces: Basal cisterns are patent. No extra-axial fluid collections. The ventricles are symmetric in size and shape. Brain: No intracranial bleeds or masses. There is cerebral volume loss for age, with resultant ventricular and sulcal prominence. There are periventricular and deep white matter chronic small vessel ischemic changes. There is intracranial internal carotid artery atherosclerosis. Skull and face: Calvarium and visualized facial bones appear intact, without suspicious lesions. Sinuses: Visualized sinuses and mastoids are clear. IMPRESSION: Limited study demonstrating no jean-pierre intracranial hemorrhage. No acute intracranial process is seen. Dictated by: Yehuda Ledbetter M.D. on 10/23/2019 at 12:09 Approved by: Yehuda Ledbetter M.D. on 10/23/2019 at 12:11
[2019-10-23 12:41] LABS: Add Manual Diff / Slide Review NO; Basophils Absolute Auto 0 /uL (0-100); Basophils Percent Auto 0.4 % (0-2); Eosinophils Absolute Auto 0 /uL (0-450); Hematocrit 40.8 % (36-46); Hemoglobin 13.6 g/dL (12.0-16.0); Lymphocytes Absolute Auto 1700 /uL (1100-4500); Lymphocytes Percent Auto 13.7 % (25-40); Mean Corpuscular HGB Conc 33.4 % (30-36); Mean Corpuscular Hemoglobin 32.2 PG (26-34); Mean Corpuscular Volume 96.6 fL (80-100); Monocytes Absolute Auto 1000 /uL (0-900); Monocytes Percent Auto 8.4 % (3-14); Neutrophils Absolute Auto 9400 /uL (1500-7000); Neutrophils Percent Auto 77.5 % (50-75); Platelet Count 231 X10^3/uL (150-400); Red Blood Cell Count 4.22 X10^6/uL (4.0-5.2); Red Cell Distribution Width 13.5 % (11.6-14.8); White Blood Cell Count 12.1 X10^3/uL (4.5-11.0)
[2019-10-23 12:43] LABS: Prothrombin Time 11.4 SECONDS (10.1-12.7)
[2019-10-23 12:46] LABS: PTT Partial Thromboplastin Tim 31 SECONDS (26.4-36.2)
[2019-10-23 12:47] LABS: Alanine Aminotransferase 30 IU/L (<35); Albumin 4.6 g/dL (3.5-5.0); Albumin Globulin Ratio 1.5 (1.0-2.8); Alkaline Phosphatase 91 U/L (38-126); Aspartate Aminotransferase 51 IU/L (14-36); BUN Creatinine Ratio 27.7 (6-22); Blood Urea Nitrogen 18 mg/dL (7-17); Carbon Dioxide 26 mmol/L (22-32); Chloride 103 mmol/L (98-107); Creatine Kinase 86 U/L (30-135); Estimated Glomerular Filt Rate > 60.0 mL/min (>60); Ethanol (ETOH) < 10 mg/dL; Globulin 3.1 g/dL (1.7-4.1); Glucose 122 mg/dL (80-110); HEMOLYSIS 35 (0-50); Lipase 88 U/L (23-300); Potassium 4.6 mmol/L (3.4-5.1); Sodium 137 mmol/L (137-145); Total Protein 7.7 g/dL (6.3-8.2)
--- NOTE | 2019-10-23 12:51 | DI.CT.S_ITS ---
PROCEDURE: CT UE RT WO CON INDICATIONS: Fall/injury TECHNIQUE: Noncontrast 1-1.5 mm thick sections acquired from the acromioclavicular joint to the inferior scapula, with coronal and sagittal reformatting. COMPARISON: None. FINDINGS: Image quality: Excellent. Bones: Severely comminuted fracture involving the surgical neck and greater tuberosity of the right humerus. There is slight medial displacement of the distal dominant humeral diaphyseal fracture fragment. Grossly anatomic alignment of the glenohumeral joint and the AC joint. Soft tissues: Diffuse soft tissue edema and swelling. IMPRESSION: Severely comminuted fracture of the right humerus as above Dictated by: Arthur Wagner M.D. on 10/23/2019 at 13:32 Approved by: Arthur Wagner M.D. on 10/23/2019 at 13:37
--- NOTE | 2019-10-23 12:54 | DI.CT.S_ITS ---
PROCEDURE: CT CHEST WO CON INDICATIONS: Fall/injury TECHNIQUE: Noncontrast 5 mm thick sections acquired from the pulmonary apices to the posterior costophrenic angles. 1 mm lung window, 5 mm thick coronal and sagittal and 7 mm axial MIP reformats were then acquired. For radiation dose reduction, the following was used: automated exposure control, adjustment of mA and/or kV according to patient size. COMPARISON: CR, SPINE LUMB 2 OR 3VW, 12/12/2013, 15:25. [facility], CT, CT UE RT WO CON, 10/23/2019, 12:42. [facility], CR, XR CHEST 2V, 11/28/2018, 18:20. FINDINGS: Image quality: Excellent. Lungs and pleura: No acute air space opacities. No pleural effusions or pneumothorax. Central and peripheral airways are patent and normal in caliber. Mediastinum: Heart size is normal. No pericardial effusion. No mediastinal adenopathy by size criteria. Thoracic aorta and central pulmonary arteries are normal in size. Esophagus is normal in caliber. No hiatal hernia. Bones and chest wall: Incompletely visualized sclerosis within the L3 vertebral body. No vertebral body compression fractures. No axillary or supraclavicular adenopathy by size criteria. Comminuted fracture of the humeral head extending through the tuberosity and surgical neck. There is a fracture is also present within the proximal humeral diaphysis. Thyroid gland is unremarkable. Abdomen: Visualized upper abdominal solid organs and bowel loops appear normal in the absence of contrast. IMPRESSION: 1. Comminuted right humeral fracture as above. Please see CT upper extremity report of 10/23/2019 for further details. 2. Incompletely visualized L3 sclerosis. While this could represent degenerative change, is incompletely evaluated. If clinical concern persists, bone scan or lumbar spine may be obtained. Dictated by: Nga Knowles M.D. on 10/23/2019 at 13:22 Approved by: Nga Knowles M.D. on 10/23/2019 at 13:29
--- NOTE | 2019-10-23 12:57 | ED.FALL ---
HPI - Fall General Chief Complaint: Trauma Stated Complaint: syncope / + arm/shoulder pain, fx Time Seen by Provider: 10/23/19 12:32 Source: patient and EMS Mode of arrival: EMS History of Present Illness HPI Narrative: Patient is certain that she fell, however she does not remember falling or how she fell or where she fell in her house. She woke on her couch. She thinks she may have fallen in her kitchen but is uncertain. Complains of right shoulder pain bilateral rib pain and scalp pain. Denies any alcohol abuse or drug abuse. No recent illness cough cold congestion fever chills. No nausea vomiting or diarrhea. No urinary complaints. Patient does not recall any chest pain or back pain or abdominal pain yesterday or today. Patient called EMS Related Data Home Medications Medication Instructions Recorded Confirmed acetaminophen 4 tab PO BID 07/06/17 01/16/19 betamethasone valerate 1 applic TOPICAL DIRECTED 07/06/17 01/16/19 dexamethasone sodium phosphate 1 drp OPHTHALMIC (EYE) BID PRN 07/06/17 01/16/19 diazepam 5 - 10 mg PO QDAY PRN 07/06/17 01/16/19 diphenhydramine HCl [Benadryl] 50 - 100 mg PO BEDTIME PRN 07/06/17 01/16/19 fluticasone propionate 1 spray INTRANASAL BID 07/06/17 01/16/19 levothyroxine 125 mcg PO MOTUWETHFRSA 07/06/17 01/16/19 metronidazole [Metrogel] 1 applic TOPICAL BID PRN 07/06/17 01/16/19 zolpidem 5 mg PO QHS PRN 07/06/17 01/16/19 Calcium Citrate + D 2 tab PO TID 12/04/17 01/16/19 Celebrate Multi-Complex 45 3 cap PO DAILY 12/04/17 01/16/19 cetirizine 10 mg PO DAILY PRN 12/04/17 01/16/19 [id number] 1 applic TOPICAL BID PRN 12/04/17 01/16/19 levothyroxine 0.5 tab PO ESPINOZA 12/04/17 01/16/19 Allergies Allergy/AdvReac Type Severity Reaction Status Date / Time erythromycin base Allergy Intermediate HIVES Verified 10/23/19 12:29 adhesive Allergy Mild ALLERGIC Verified 10/23/19 12:29 TO TAPE epinephrine Allergy Mild TACHYCARDIA Verified 10/23/19 12:29 gentamicin [Gentamicin] Allergy Mild RASH Verified 10/23/19 12:29 NSAIDS (Non-Steroidal Allergy Mild GASTRITIS Verified 10/23/19 12:29 Anti-Inflamma Serotonin 5HT-3 Antagonists Allergy Mild GASTRITIS Verified 10/23/19 12:29 trazodone Allergy Mild LOSS OF Verified 10/23/19 12:29 BALANCE alprazolam Allergy Unknown LOSS OF Verified 10/23/19 12:29 ABILITY TO FOCUS amitriptyline Allergy Unknown IBS Verified 10/23/19 12:29 SYMPTOMS buspirone Allergy Unknown Verified 10/23/19 12:29 codeine Allergy Unknown IBS Verified 10/23/19 12:29 SYMPTOMS gabapentin Allergy Unknown SEVERE Verified 10/23/19 12:29 GASTRITIS Review of Systems Review of Systems Narrative: GENERAL: Denies chills, fatigue, malaise, fever, sweats. HEENT: Denies sinus pain, ear pain, sore throat, difficulty swallowing, dizziness. RESPIRATORY: Denies dyspnea, cough, wheezing, hemoptysis, sputum. CARDIOVASCULAR: Denies chest pain, palpitations, orthopnea, edema, GASTROINTESTINAL: Denies nausea, vomiting, abdominal pain, diarrhea, constipation, melena. : Denies dysuria, frequency, incontinence, hematuria, urinary retention. MUSCULOSKELETAL: denies weakness, complains of joint pain, and bony pain SKIN: Denies rash, skin lesions, or other NEUROLOGIC: Denies weakness, headache, numbness, change in speech, complains of confusion, denies seizures, incoordination. PSYCHIATRIC: No concerning psychosocial issues. No hallucinations no SI HI ROS Unobtainable: All systems reviewed & are unremarkable except as noted in HPI and below Patient History Medical History Cervical vertebral fusion (Acute) Hypertension (Acute) Hypothyroidism (Acute) Surgical History Gastric bypass status for obesity (Acute) Social History household members: none Smoking Status: Former smoker alcohol intake: current Smoking Status: Former smoker alcohol intake frequency: 3 or more drinks per day Substance Use Type: does not use Exam Narrative Exam Narrative: GENERAL: patient appears stated age. Well-nourished, well-developed patient, in no distress, not toxic HEAD: Atraumatic. Normocephalic. Mild tenderness to the right forehead. No bruising. No crepitus or step-off EYES: Pupils equal round and reactive. Extraocular motions intact. No scleral icterus. No injection or drainage. ENT: Nose without bleeding, purulent drainage. Throat without erythema, tonsillar hypertrophy or exudate. Airway patent. No facial mandibular tenderness no malocclusion or trismus NECK: Trachea midline. Non tender no midline tenderness or step-off CARDIOVASCULAR: Regular rate and rhythm without murmurs, gallops, or rubs. RESPIRATORY: Clear to auscultation. Breath sounds equal bilaterally. No wheezes, rales, or rhonchi. GASTROINTESTINAL: Abdomen soft, non-tender, nondistended. EXTREMITIES: Nontender bilateral feet ankles knees and hips and pelvis. Nontender left upper extremity shoulder elbow and wrist. Right arm held in adduction and flex 90? close to the chest. Nontender hand wrist and elbow. Strong watch electrician. Light touch intact to thumb and fingers. Diffuse tenderness of the right shoulder with deformity of the biceps. Bruising overlying the biceps. No deformity of the right shoulder. Clavicle nontender BACK: Nontender without deformity or crepitance. No flank tenderness. Patient in down. Did patient up to use bedside commode with assist with the nurse. No midline tenderness or step-off of the back are thoracic or lumbar spine. No skin injury other than old healing left scapular bruise NEURO: AOx3. Patient does not recall events of falling SKIN: No rash or erythema of visible areas, diffuse bruising different stages of healing on the left leg left scapula as well as right biceps and right clavicle PSYCH: Not anxious, is cooperative Initial Vital Signs Initial Vital Signs: Vital Signs Temperature 99.1 F 10/23/19 12:10 Pulse Rate 103 H 10/23/19 12:10 Respiratory Rate 32 H 10/23/19 12:10 Blood Pressure 141/75 H 10/23/19 12:10 Pulse Oximetry 96 10/23/19 12:10 Course Course Course Narrative: Patient has multiple bilateral rib fractures. Will have surgery as consult. Admit to hospitalist. Right humeral fracture is nonsurgical according to Dr. cho, orthopedics Decision to Admit Date: 10/23/19 Decision to Admit time: 14:54 Orders Ordered: ED Orders 10/23/19 12:31 CT cervical spine wo con Stat 10/23/19 12:38 CT head/brain wo con Stat Complete Blood Count AUTO DIFF Stat Comprehensive Metabolic Panel Stat Ethanol (ETOH) Stat Lipase Stat Partial Thromboplastin Time Stat Prothrombin Time INR Stat Troponin & CK Cardiac Panel Stat 10/23/19 12:40 Urinalysis and Microscopic Stat Urine Drug Screen, Rapid Stat 10/23/19 12:51 CT UE RT wo con Stat 10/23/19 12:54 CT chest wo con Stat 10/23/19 12:56 Thyroid Stimulating Hormone Stat Acetaminophen (Tylenol) 650 mg PO Q6HR SIDRA Acetaminophen (Tylenol) 650 mg PO Q6HR PRN PRN Reason: Fever/Mild Pain (1-3) Hydrocodone Bitart/Acetaminophen ([place] 5/325) 1 tab PO Q4HR PRN PRN Reason: Pain, Moderate (4-6) Al Hydrox/Mg Hydrox/Simethicone (Maalox Plus) 30 ml PO Q6HR PRN PRN Reason: Dyspepsia Bisacodyl (Dulcolax) 10 mg TX DAILY PRN PRN Reason: Constipation Calcium Carbonate (Tums) 1,000 mg PO Q4HR PRN PRN Reason: Dyspepsia Enoxaparin Sodium (Lovenox) 40 mg SUBCUT DAILY SIDRA Magnesium Hydroxide (Milk Of Magnesia) 30 ml PO DAILY PRN PRN Reason: Constipation Morphine Sulfate (Morphine) 2 mg IV Q4HR PRN PRN Reason: Pain, Moderate (4-6) Last Admin: 10/23/19 16:44 Dose: 2 mg Documented by: FREDDIE Naloxone HCl (Narcan) 0.2 mg IV Q2MIN PRN PRN Reason: Opiate Reversal Naloxone HCl (Narcan) 0.2 mg IV Q2MIN PRN PRN Reason: Opiate Reversal Ondansetron HCl (Zofran) 4 mg IV Q6HR PRN PRN Reason: Nausea And Vomiting Ondansetron HCl (Zofran) 4 mg IV Q8HR PRN PRN Reason: Nausea And Vomiting Ondansetron HCl (Zofran Odt) 4 mg PO Q8HR PRN PRN Reason: Nausea And Vomiting Discontinued Medications Hydromorphone HCl (Dilaudid) 1 mg IV NOW ONE Stop: 10/23/19 14:55 Last Admin: 10/23/19 15:00 Dose: 1 mg Documented by: FREDDIE Consultations Consultation #1: Spoke with Dr. cho, orthopedist, will treat nonsurgical. Apply sling Time: 14:55 Consultation #2: Spoke with Dr. Fitzgerald, general surgeon/trauma, will follow along with patient Time: 14:57 Consultation #3: Spoke with hospitalist Dr. San, will admit observation telemetry Time: 15:12 Vital Signs Vital signs: Vital Signs - 8 hr 10/23/19 12:10 10/23/19 12:42 10/23/19 12:49 Temperature 99.1 F Pulse Rate 103 H 114 H 102 H Respiratory Rate 32 H 38 H 25 H Blood Pressure 141/75 H 212/88 H Pulse Oximetry 96 98 10/23/19 13:04 10/23/19 13:30 10/23/19 14:30 Temperature Pulse Rate 101 H 96 H 90 Respiratory Rate 21 15 Blood Pressure Pulse Oximetry 98 95 99 10/23/19 15:00 10/23/19 15:03 Temperature Pulse Rate 92 H 92 H Respiratory Rate 20 26 H Blood Pressure 177/86 H Pulse Oximetry 97 99 MDM - Fall Differential Diagnosis Differential diagnosis: Likely syncope, dislocation of shoulder region, concussion with loss of consciousness and other (Multiple fractures) Lab Data Attestation: I reviewed the patient's lab results. Result diagrams: 10/23/19 12:38 10/23/19 12:38 Labs: Lab Results 10/23/19 10/23/19 10/23/19 Range/Units 12:38 12:38 12:38 WBC 12.1 H (4.5-11.0) X10^3/uL RBC 4.22 (4.0-5.2) X10^6/uL Hgb 13.6 (12.0-16.0) g/dL Hct 40.8 (36-46) % MCV 96.6 (80-100) fL MCH 32.2 (26-34) PG MCHC 33.4 (30-36) % RDW 13.5 (11.6-14.8) % Plt Count 231 (150-400) X10^3/uL Neut % (Auto) 77.5 H (50-75) % Lymph % (Auto) 13.7 L (25-40) % [place] % (Auto) 8.4 (3-14) % Eos % (Auto) 0.0 L (2-4) % Baso % (Auto) 0.4 (0-2) % Neut # (Auto) 9400 H (5639-8435) /uL Lymph # (Auto) 1700 (3178-8486) /uL [place] # (Auto) 1000 H (0-900) /uL Eos # (Auto) 0 (0-450) /uL Baso # (Auto) 0 (0-100) /uL PT 11.4 (10.1-12.7) SECONDS INR 1.0 (0.9-1.3) APTT 31 (26.4-36.2) SECONDS Sodium 137 (137-145) mmol/L Potassium 4.6 (3.4-5.1) mmol/L Chloride 103 (98-107) mmol/L Carbon Dioxide 26 (22-32) mmol/L BUN 18 H (7-17) mg/dL Creatinine 0.65 (0.52-1.04) mg/dL Estimated GFR > 60.0 (>60) mL/min BUN/Creatinine Ratio 27.7 H (6-22) Glucose 122 H (80-110) mg/dL Calcium 10.0 (8.4-10.2) mg/dL Total Bilirubin 1.0 (0.2-1.3) mg/dL AST 51 H (14-36) IU/L ALT 30 (<35) IU/L Alkaline Phosphatase 91 (38-126) U/L Total Creatine Kinase 86 (30-135) U/L CK-MB (CK-2) TNP CK-MB (CK-2) Rel Index TNP Troponin I < 0.012 (0.01-0.034) ng/mL Total Protein 7.7 (6.3-8.2) g/dL Albumin 4.6 (3.5-5.0) g/dL Globulin 3.1 (1.7-4.1) g/dL Albumin/Globulin Ratio 1.5 (1.0-2.8) Lipase 88 (23-300) U/L TSH (0.47-4.68) uIU/mL Urine Color Urine Appearance Urine pH (4.5-8.0) Ur Specific [place] (1.000-1.035) Urine Protein (Negative) Urine Glucose (UA) (Negative) g/dL Urine Ketones (NEGATIVE) Urine Occult Blood (Negative) Urine Nitrate (Negative) Urine Bilirubin (NEGATIVE) Urine Urobilinogen (0.2) E.U./dL Ur Leukocyte Esterase (NEGATIVE) Urine RBC (0-5/HPF) Urine WBC (0-5/HPF) Ur Squamous Epith Cells (0-5/HPF) Urine Bacteria (None) Hyaline Casts (None) Urine Mucus (Negative) Ur Culture Indicated? U Opiates 300ng/mL cut (Negative) Ur Oxycodone Screen (Negative) Urine Methadone Screen (Negative) Ur Barbiturates Screen (Negative) U Tricyclic Antidepress (Negative) Ur Phencyclidine Scrn (Negative) Ur Amphetamines Screen (Negative) U Methamphetamines Scrn (Negative) Ur MDMA Scrn (Ecstasy) (Negative) U Benzodiazepines Scrn (Negative) Urine Cocaine Screen (Negative) U Marijuana (THC) Screen (Negative) Ethyl Alcohol < 10 ( - 10) mg/dL COVID-19 PCR (Negative) 10/23/19 10/23/19 10/23/19 Range/Units 12:40 12:40 12:56 WBC (4.5-11.0) X10^3/uL RBC (4.0-5.2) X10^6/uL Hgb (12.0-16.0) g/dL Hct (36-46) % MCV (80-100) fL MCH (26-34) PG MCHC (30-36) % RDW (11.6-14.8) % Plt Count (150-400) X10^3/uL Neut % (Auto) (50-75) % Lymph % (Auto) (25-40) % [place] % (Auto) (3-14) % Eos % (Auto) (2-4) % Baso % (Auto) (0-2) % Neut # (Auto) (9946-2922) /uL Lymph # (Auto) (0103-8346) /uL [place] # (Auto) (0-900) /uL Eos # (Auto) (0-450) /uL Baso # (Auto) (0-100) /uL PT (10.1-12.7) SECONDS INR (0.9-1.3) APTT (26.4-36.2) SECONDS Sodium (137-145) mmol/L Potassium (3.4-5.1) mmol/L Chloride (98-107) mmol/L Carbon Dioxide (22-32) mmol/L BUN (7-17) mg/dL Creatinine (0.52-1.04) mg/dL Estimated GFR (>60) mL/min BUN/Creatinine Ratio (6-22) Glucose (80-110) mg/dL Calcium (8.4-10.2) mg/dL Total Bilirubin (0.2-1.3) mg/dL AST (14-36) IU/L ALT (<35) IU/L Alkaline Phosphatase (38-126) U/L Total Creatine Kinase (30-135) U/L CK-MB (CK-2) CK-MB (CK-2) Rel Index Troponin I (0.01-0.034) ng/mL Total Protein (6.3-8.2) g/dL Albumin (3.5-5.0) g/dL Globulin (1.7-4.1) g/dL Albumin/Globulin Ratio (1.0-2.8) Lipase (23-300) U/L TSH 0.475 (0.47-4.68) uIU/mL Urine Color Yellow Urine Appearance Clear Urine pH 6.5 (4.5-8.0) Ur Specific [place] 1.020 (1.000-1.035) Urine Protein 1+ H (Negative) Urine Glucose (UA) Negative (Negative) g/dL Urine Ketones Trace H (NEGATIVE) Urine Occult Blood Negative (Negative) Urine Nitrate Negative (Negative) Urine Bilirubin Negative (NEGATIVE) Urine Urobilinogen 0.2 (0.2) E.U./dL Ur Leukocyte Esterase Trace H (NEGATIVE) Urine RBC None seen (0-5/HPF) Urine WBC None seen (0-5/HPF) Ur Squamous Epith Cells 1-5 /hpf (0-5/HPF) Urine Bacteria None seen (None) Hyaline Casts 1-5/lpf (None) Urine Mucus 3+ H (Negative) Ur Culture Indicated? Cult not indicated U Opiates 300ng/mL cut Negative (Negative) Ur Oxycodone Screen Negative (Negative) Urine Methadone Screen Negative (Negative) Ur Barbiturates Screen Negative (Negative) U Tricyclic Antidepress Negative (Negative) Ur Phencyclidine Scrn Negative (Negative) Ur Amphetamines Screen Negative (Negative) U Methamphetamines Scrn Negative (Negative) Ur MDMA Scrn (Ecstasy) Negative (Negative) U Benzodiazepines Scrn Positive H (Negative) Urine Cocaine Screen Negative (Negative) U Marijuana (THC) Screen Negative (Negative) Ethyl Alcohol ( - 10) mg/dL COVID-19 PCR (Negative) 10/23/19 Range/Units 13:05 WBC (4.5-11.0) X10^3/uL RBC (4.0-5.2) X10^6/uL Hgb (12.0-16.0) g/dL Hct (36-46) % MCV (80-100) fL MCH (26-34) PG MCHC (30-36) % RDW (11.6-14.8) % Plt Count (150-400) X10^3/uL Neut % (Auto) (50-75) % Lymph % (Auto) (25-40) % [place] % (Auto) (3-14) % Eos % (Auto) (2-4) % Baso % (Auto) (0-2) % Neut # (Auto) (5771-6920) /uL Lymph # (Auto) (5468-4263) /uL [place] # (Auto) (0-900) /uL Eos # (Auto) (0-450) /uL Baso # (Auto) (0-100) /uL PT (10.1-12.7) SECONDS INR (0.9-1.3) APTT (26.4-36.2) SECONDS Sodium (137-145) mmol/L Potassium (3.4-5.1) mmol/L Chloride (98-107) mmol/L Carbon Dioxide (22-32) mmol/L BUN (7-17) mg/dL Creatinine (0.52-1.04) mg/dL Estimated GFR (>60) mL/min BUN/Creatinine Ratio (6-22) Glucose (80-110) mg/dL Calcium (8.4-10.2) mg/dL Total Bilirubin (0.2-1.3) mg/dL AST (14-36) IU/L ALT (<35) IU/L Alkaline Phosphatase (38-126) U/L Total Creatine Kinase (30-135) U/L CK-MB (CK-2) CK-MB (CK-2) Rel Index Troponin I (0.01-0.034) ng/mL Total Protein (6.3-8.2) g/dL Albumin (3.5-5.0) g/dL Globulin (1.7-4.1) g/dL Albumin/Globulin Ratio (1.0-2.8) Lipase (23-300) U/L TSH (0.47-4.68) uIU/mL Urine Color Urine Appearance Urine pH (4.5-8.0) Ur Specific [place] (1.000-1.035) Urine Protein (Negative) Urine Glucose (UA) (Negative) g/dL Urine Ketones (NEGATIVE) Urine Occult Blood (Negative) Urine Nitrate (Negative) Urine Bilirubin (NEGATIVE) Urine Urobilinogen (0.2) E.U./dL Ur Leukocyte Esterase (NEGATIVE) Urine RBC (0-5/HPF) Urine WBC (0-5/HPF) Ur Squamous Epith Cells (0-5/HPF) Urine Bacteria (None) Hyaline Casts (None) Urine Mucus (Negative) Ur Culture Indicated? U Opiates 300ng/mL cut (Negative) Ur Oxycodone Screen (Negative) Urine Methadone Screen (Negative) Ur Barbiturates Screen (Negative) U Tricyclic Antidepress (Negative) Ur Phencyclidine Scrn (Negative) Ur Amphetamines Screen (Negative) U Methamphetamines Scrn (Negative) Ur MDMA Scrn (Ecstasy) (Negative) U Benzodiazepines Scrn (Negative) Urine Cocaine Screen (Negative) U Marijuana (THC) Screen (Negative) Ethyl Alcohol ( - 10) mg/dL COVID-19 PCR Negative (Negative) Imaging Data CT scan - chest: Radiologist's Impression: [address] [address] [address] Scan Report Addendum Patient: Mckay Costa GMR#: [id number] : 5Acct:[id number] Age/Sex: 73 / FDate of Service: 10/23/19 Loc: ED Accession Number: [id number] Procedure: CT chest wo con Ordering Provider: John Vidal MD ADDENDUM This report includes an Addendum and supersedes previous reports for this exam. This report includes an Addendum and supersedes previous reports for this exam. PROCEDURE: CT CHEST WO CON INDICATIONS: Fall/injury TECHNIQUE: Noncontrast 5 mm thick sections acquired from the pulmonary apices to the posterior costophrenic angles. 1 mm lung window, 5 mm thick coronal and sagittal and 7 mm axial MIP reformats were then acquired. For radiation dose reduction, the following was used: automated exposure control, adjustment of mA and/or kV according to patient size. COMPARISON: CR, SPINE LUMB 2 OR 3VW, 12/12/2013, 15:25. [facility], CT, CT UE RT WO CON, 10/23/2019, 12:42. [facility], CR, XR CHEST 2V, 11/28/2018, 18:20. FINDINGS: Image quality: Excellent. Lungs and pleura: No acute air space opacities. No pleural effusions or pneumothorax. Central and peripheral airways are patent and normal in caliber. Mediastinum: Heart size is normal. No pericardial effusion. No mediastinal adenopathy by size criteria. Thoracic aorta and central pulmonary arteries are normal in size. Esophagus is normal in caliber. No hiatal hernia. Bones and chest wall: Incompletely visualized sclerosis within the L3 vertebral body. No vertebral body compression fractures. No axillary or supraclavicular adenopathy by size criteria. Comminuted fracture of the humeral head extending through the tuberosity and surgical neck. There is a fracture is also present within the proximal humeral diaphysis. Thyroid gland is unremarkable. Abdomen: Visualized upper abdominal solid organs and bowel loops appear normal in the absence of contrast. IMPRESSION: 1. Comminuted right humeral fracture as above. Please see CT upper extremity report of 10/23/2019 for further details. 2. Incompletely visualized L3 sclerosis. While this could represent degenerative change, is incompletely evaluated. If clinical concern persists, bone scan or lumbar spine may be obtained. Dictated by: Nga Knowles M.D. on 10/23/2019 at 13:22 Approved by: Nga Knowles M.D. on 10/23/2019 at 13:29 ADDENDUM: Left posterior 8-10th rib fractures are noted. Left posterior lateral 10th and suuspected nondisplaced posterior right 11th and 12th rib fractures. Dictated by: Nga Knowles M.D. on 10/23/2019 at 13:49 Approved by: Nga Knowles M.D. on 10/23/2019 at 13:56 ADDENDUM: Left posterior 8-10th rib fractures are noted. Right posterior lateral 10th and suuspected nondisplaced posterior right 11th and 12th rib fractures.Slight cortical irregularity of anterolateral right 5-7th ribs. This could be related to chest wall deformity and point tenderness correlation is recommended. Dictated by: Nga Knowles M.D. on 10/23/2019 at 14:01 Approved by: Nga Knowles M.D. on 10/23/2019 at 14:03 Addendum Dictated By:Nga Knowles MD Addendum Signed By: Addendum Cosigned By: DD/ TD/TT: 10/23/19 PROCEDURE: CT CHEST WO CON INDICATIONS: Fall/injury TECHNIQUE: Noncontrast 5 mm thick sections acquired from the pulmonary apices to the posterior costophrenic angles. 1 mm lung window, 5 mm thick coronal and sagittal and 7 mm axial MIP reformats were then acquired. For radiation dose reduction, the following was used: automated exposure control, adjustment of mA and/or kV according to patient size. COMPARISON: CR, SPINE LUMB 2 OR 3VW, 12/12/2013, 15:25. [facility], CT, CT UE RT WO CON, 10/23/2019, 12:42. [facility], CR, XR CHEST 2V, 11/28/2018, 18:20. FINDINGS: Image quality: Excellent. Lungs and pleura: No acute air space opacities. No pleural effusions or pneumothorax. Central and peripheral airways are patent and normal in caliber. Mediastinum: Heart size is normal. No pericardial effusion. No mediastinal adenopathy by size criteria. Thoracic aorta and central pulmonary arteries are normal in size. Esophagus is normal in caliber. No hiatal hernia. Bones and chest wall: Incompletely visualized sclerosis within the L3 vertebral body. No vertebral body compression fractures. No axillary or supraclavicular adenopathy by size criteria. Comminuted fracture of the humeral head extending through the tuberosity and surgical neck. There is a fracture is also present within the proximal humeral diaphysis. Thyroid gland is unremarkable. Abdomen: Visualized upper abdominal solid organs and bowel loops appear normal in the absence of contrast. IMPRESSION: 1. Comminuted right humeral fracture as above. Please see CT upper extremity report of 10/23/2019 for further details. 2. Incompletely visualized L3 sclerosis. While this could represent degenerative change, is incompletely evaluated. If clinical concern persists, bone scan or lumbar spine may be obtained. Dictated by: Nga Knowles M.D. on 10/23/2019 at 13:22 Approved by: Nga Knowles M.D. on 10/23/2019 at 13:29 CT scan - head: Radiologist's Impression: [place] [address] CT Scan Report Signed Patient: Mckay Costa GMR#: [id number] : 5Acct:[id number] Age/Sex: 73 / FDate of Service: 10/23/19 Loc: ED Accession Number: [id number] Procedure: CT head/brain wo con Ordering Provider: John Vidal MD PROCEDURE: CT HEAD/BRAIN WO CON INDICATIONS: Trauma TECHNIQUE: Noncontrast 4.5 mm thick angled axial sections acquired from the foramen magnum to the vertex, with coronal and sagittal reformats. For radiation dose reduction, the following was used: automated exposure control, adjustment of mA and/or kV according to patient size. COMPARISON: [facility], CT, CT CERVICAL SPINE WO CON, 10/23/2019, 12:42. [facility], CT, CT HEAD/BRAIN WO CON, 07/06/2017, 12:58. FINDINGS: Image quality: Metallic artifact from the patient's earrings can be seen. CSF spaces: Basal cisterns are patent. No extra-axial fluid collections. The ventricles are symmetric in size and shape. Brain: No intracranial bleeds or masses. There is cerebral volume loss for age, with resultant ventricular and sulcal prominence. There are periventricular and deep white matter chronic small vessel ischemic changes. There is intracranial internal carotid artery atherosclerosis. Skull and face: Calvarium and visualized facial bones appear intact, without suspicious lesions. Sinuses: Visualized sinuses and mastoids are clear. IMPRESSION: Limited study demonstrating no jean-pierre intracranial hemorrhage. No acute intracranial process is seen. Dictated by: Yehuda Ledbetter M.D. on 10/23/2019 at 12:09 Approved by: Yehuda Ledbetter M.D. on 10/23/2019 at 12:11 CT - cervical spine: Radiologist's Impression: [address] [address] [address] Scan Report Signed Patient: Mckay Costa GMR#: [id number] : 5Acct:[id number] Age/Sex: 73 / FDate of Service: 10/23/19 Loc: ED Accession Number: [id number] Procedure: CT cervical spine wo con Ordering Provider: John Vidal MD PROCEDURE: CT CERVICAL SPINE WO CON INDICATIONS: Trauma TECHNIQUE: Noncontrast 3 mm thick sections acquired from the skull base to the T4 level. Sagittal and coronal reformats were then constructed. For radiation dose reduction, the following was used: automated exposure control, adjustment of mA and/or kV according to patient size. COMPARISON: None. FINDINGS: Image quality: Excellent. Bones: No fractures or dislocations. Visualized superior ribs are intact. Postoperative changes are seen, with a disc fusion device at the C5-C6 level. Anteriorly placed fixation hardware with a disc spacer can be seen at C6-C7. No findings of hardware failure or hardware loosening are seen. There is focal reversal of the normal cervical doses seen at C5-C6. Soft tissues: Prevertebral soft tissues are normal in thickness. No paravertebral hematomas. No apical pneumothoraces. IMPRESSION: No acute fractures are seen. Lower cervical spine fixation hardware, which appears intact. Dictated by: Yehuda Ledbetter M.D. on 10/23/2019 at 12:11 Approved by: Yehuda Ledbetter M.D. on 10/23/2019 at 12:12 CT scan right upper extremity: Radiologist's Impression: [address] [address] [address] Scan Report Signed Patient: Mckay Costa R#: [id number] : 5Acct:[id number] Age/Sex: 73 / FDate of Service: 10/23/19 Loc: ED Accession Number: [id number] Procedure: CT UE RT wo con Ordering Provider: John Vidal MD PROCEDURE: CT UE RT WO CON INDICATIONS: Fall/injury TECHNIQUE: Noncontrast 1-1.5 mm thick sections acquired from the acromioclavicular joint to the inferior scapula, with coronal and sagittal reformatting. COMPARISON: None. FINDINGS: Image quality: Excellent. Bones: Severely comminuted fracture involving the surgical neck and greater tuberosity of the right humerus. There is slight medial displacement of the distal dominant humeral diaphyseal fracture fragment. Grossly anatomic alignment of the glenohumeral joint and the AC joint. Soft tissues: Diffuse soft tissue edema and swelling. IMPRESSION: Severely comminuted fracture of the right humerus as above Dictated by: Arthur Wagner M.D. on 10/23/2019 at 13:32 Approved by: Arthur Wagner M.D. on 10/23/2019 at 13:37 ECG Data Attestation: I personally reviewed and interpreted this ECG as follows: Interpretation: Sinus tachycardia otherwise normal EKG, rate 106 MDM Narrative Medical decision making narrative: Appropriate for admission. Will need pain control as well as PT/OT and pulmonary toilet, possible rehab Discharge Plan Departure Patient Disposition: Admitted As Inpatient Clinical Impression: Closed right humeral fracture Qualifiers: Encounter type: initial encounter Humerus Location: greater tuberosity Fracture alignment: displaced Qualified Code(s): S42.251A - Displaced fracture of greater tuberosity of right humerus, initial encounter for closed fracture Multiple fractures of ribs Qualifiers: Encounter type: initial encounter Fracture type: closed Laterality: bilateral Qualified Code(s): S22.43XA - Multiple fractures of ribs, bilateral, initial encounter for closed fracture Discharge Date/Time: 10/23/19 16:55 Referrals: Roberta Olea PA-C [Primary Care Provider] - Admit Date/Time: 10/23/19 15:08 Admit Provider: Naz San
[2019-10-23 12:58] LABS: Troponin I < 0.012 ng/mL (0.01-0.034)
[2019-10-23 13:04] LABS: Ur Creatinine Normal (Normal); Ur Specific Gravity Normal (Normal); Urine pH Normal (Normal)
[2019-10-23 13:05] LABS: UR Morphine/Opiate cutoff 300 Negative (Negative); Urine Amphetamines Negative (Negative); Urine Barbiturates Negative (Negative); Urine Benzodiazepines Positive (Negative); Urine Cocaine Negative (Negative); Urine MDMA Negative (Negative); Urine Methadone Negative (Negative); Urine Methamphetamines Negative (Negative); Urine Oxycodone Negative (Negative); Urine Phencyclidine Negative (Negative); Urine Tetrahydrocannabinol Negative (Negative); Urine Tricyclic Antidepressant Negative (Negative)
[2019-10-23 13:29] LABS: Bacteria Urine None Seen; RBC Urine None Seen (0-5/HPF); WBC Urine None Seen (0-5/HPF)
[2019-10-23 13:30] LABS: Appearance Urine UA CLEAR; Bilirubin Urine UA NEGATIVE (NEGATIVE); Color Urine UA YELLOW; Glucose Urine UA NEGATIVE (Negative); Ketones Urine UA TRACE (NEGATIVE); Leukocyte Esterase Urine UA TRACE (NEGATIVE); Nitrite Urine UA NEGATIVE (Negative); Occult Blood Urine UA NEGATIVE (Negative); Protein Urine UA 1+ (Negative); Urobilinogen Urine UA 0.2 E.U./dL (0.2)
[2019-10-23 13:33] LABS: pH Urine UA 6.5 (4.5-8.0)
[2019-10-23 13:35] LABS: Squamous Epithelial Cell Urine 1-5 /HPF (0-5/HPF)
[2019-10-23 13:36] LABS: Culture Indicated Urine Cult Not Indicated; Hyaline Casts Urine 1-5/LPF; Mucus Urine 3+ (Negative)
[2019-10-23 13:48] LABS: Thyroid Stimulating Hormone 0.475 uIU/mL (0.47-4.68)
[2019-10-23] MEDS: HYDROMORPHONE 1 MG INJ IV (15:00)
--- NOTE | 2019-10-23 15:27 | PM.CN ---
History of Present Illness Consult details Date Patient Seen: 10/23/19 Time Patient Seen: 15:27 Chief complaint: syncope / + arm/shoulder pain, fx Reason for consult: Trauma Narrative: 73-year-old female status post ground level fall seen in consultation for trauma. She thinks she has slipped and fell last night perhaps a loss of consciousness. When she awoke she was having right shoulder pain and left rib pain. Pain aggravated with deep inspiration and rotation of her right upper extremity. On arrival to the emergency room she was hemodynamically stable alert and oriented. She is not anticoagulated. Meds Home Medications and Allergies Home Medications Medication Instructions Recorded Confirmed Type acetaminophen 4 tab PO BID 07/06/17 01/16/19 History betamethasone valerate 1 applic TOPICAL DIRECTED 07/06/17 01/16/19 History dexamethasone sodium phosphate 1 drp OPHTHALMIC (EYE) BID PRN 07/06/17 01/16/19 History diazepam 5 - 10 mg PO QDAY PRN 07/06/17 01/16/19 History diphenhydramine HCl [Benadryl] 50 - 100 mg PO BEDTIME PRN 07/06/17 01/16/19 History fluticasone propionate 1 spray INTRANASAL BID 07/06/17 01/16/19 History levothyroxine 125 mcg PO MOTUWETHFRSA 07/06/17 01/16/19 History metronidazole [Metrogel] 1 applic TOPICAL BID PRN 07/06/17 01/16/19 History zolpidem 5 mg PO QHS PRN 07/06/17 01/16/19 History Calcium Citrate + D 2 tab PO TID 12/04/17 01/16/19 History Celebrate Multi-Complex 45 3 cap PO DAILY 12/04/17 01/16/19 History cetirizine 10 mg PO DAILY PRN 12/04/17 01/16/19 History [id number] 1 applic TOPICAL BID PRN 12/04/17 01/16/19 History levothyroxine 0.5 tab PO ESPINOZA 12/04/17 01/16/19 History Allergies Allergy/AdvReac Type Severity Reaction Status Date / Time erythromycin base Allergy Intermediate HIVES Verified 10/23/19 12:29 adhesive Allergy Mild ALLERGIC Verified 10/23/19 12:29 TO TAPE epinephrine Allergy Mild TACHYCARDIA Verified 10/23/19 12:29 gentamicin [Gentamicin] Allergy Mild RASH Verified 10/23/19 12:29 NSAIDS (Non-Steroidal Allergy Mild GASTRITIS Verified 10/23/19 12:29 Anti-Inflamma Serotonin 5HT-3 Antagonists Allergy Mild GASTRITIS Verified 10/23/19 12:29 trazodone Allergy Mild LOSS OF Verified 10/23/19 12:29 BALANCE alprazolam Allergy Unknown LOSS OF Verified 10/23/19 12:29 ABILITY TO FOCUS amitriptyline Allergy Unknown IBS Verified 10/23/19 12:29 SYMPTOMS buspirone Allergy Unknown Verified 10/23/19 12:29 codeine Allergy Unknown IBS Verified 10/23/19 12:29 SYMPTOMS gabapentin Allergy Unknown SEVERE Verified 10/23/19 12:29 GASTRITIS Review of Systems Review of Systems Narrative: A 10 point review of systems is negative except as noted in the HPI Exam Vital Signs (past 8 hours): - 10/23/19 12:10 10/23/19 12:42 10/23/19 12:49 Temperature 99.1 F Pulse Rate 103 H 114 H 102 H Respiratory Rate 32 H 38 H 25 H Blood Pressure 141/75 H 212/88 H Pulse Oximetry 96 98 10/23/19 13:04 10/23/19 13:30 10/23/19 14:30 Temperature Pulse Rate 101 H 96 H 90 Respiratory Rate 21 15 Blood Pressure Pulse Oximetry 98 95 99 10/23/19 15:00 10/23/19 15:03 Temperature Pulse Rate 92 H 92 H Respiratory Rate 20 26 H Blood Pressure 177/86 H Pulse Oximetry 97 99 Oxygen Delivery Method Room Air Narrative Exam Narrative: General-elderly female no acute distress HEENT-moist mucous membranes, no scleral icterus Neck-supple, no lymphadenopathy Chest- non labored respirations, clear to auscultation bilaterally Cardiac-regular rate no peripheral edema Abdomen-soft, nontender, non distended Extremities-warm, well perfused. Right upper extremity is in a sling motor and motor intact Neurological-alert and oriented, no focal deficits Objective Labs Result Diagrams: 10/23/19 12:38 10/23/19 12:38 Labs: Laboratory Results - last 24 hr 10/23/19 10/23/19 10/23/19 12:38 12:38 12:38 WBC 12.1 H RBC 4.22 Hgb 13.6 Hct 40.8 MCV 96.6 MCH 32.2 MCHC 33.4 RDW 13.5 Plt Count 231 Neut % (Auto) 77.5 H Lymph % (Auto) 13.7 L [place] % (Auto) 8.4 Eos % (Auto) 0.0 L Baso % (Auto) 0.4 Neut # (Auto) 9400 H Lymph # (Auto) 1700 [place] # (Auto) 1000 H Eos # (Auto) 0 Baso # (Auto) 0 PT 11.4 INR 1.0 APTT 31 Sodium 137 Potassium 4.6 Chloride 103 Carbon Dioxide 26 BUN 18 H Creatinine 0.65 Estimated GFR > 60.0 BUN/Creatinine Ratio 27.7 H Glucose 122 H Calcium 10.0 Total Bilirubin 1.0 AST 51 H ALT 30 Alkaline Phosphatase 91 Total Creatine Kinase 86 CK-MB (CK-2) TNP CK-MB (CK-2) Rel Index TNP Troponin I < 0.012 Total Protein 7.7 Albumin 4.6 Globulin 3.1 Albumin/Globulin Ratio 1.5 Lipase 88 TSH Urine Color Urine Appearance Urine pH Ur Specific [place] Urine Protein Urine Glucose (UA) Urine Ketones Urine Occult Blood Urine Nitrate Urine Bilirubin Urine Urobilinogen Ur Leukocyte Esterase Urine RBC Urine WBC Ur Squamous Epith Cells Urine Bacteria Hyaline Casts Urine Mucus Ur Culture Indicated? U Opiates 300ng/mL cut Ur Oxycodone Screen Urine Methadone Screen Ur Barbiturates Screen U Tricyclic Antidepress Ur Phencyclidine Scrn Ur Amphetamines Screen U Methamphetamines Scrn Ur MDMA Scrn (Ecstasy) U Benzodiazepines Scrn Urine Cocaine Screen U Marijuana (THC) Screen Ethyl Alcohol < 10 10/23/19 10/23/19 10/23/19 12:40 12:40 12:56 WBC RBC Hgb Hct MCV MCH MCHC RDW Plt Count Neut % (Auto) Lymph % (Auto) [place] % (Auto) Eos % (Auto) Baso % (Auto) Neut # (Auto) Lymph # (Auto) [place] # (Auto) Eos # (Auto) Baso # (Auto) PT INR APTT Sodium Potassium Chloride Carbon Dioxide BUN Creatinine Estimated GFR BUN/Creatinine Ratio Glucose Calcium Total Bilirubin AST ALT Alkaline Phosphatase Total Creatine Kinase CK-MB (CK-2) CK-MB (CK-2) Rel Index Troponin I Total Protein Albumin Globulin Albumin/Globulin Ratio Lipase TSH 0.475 Urine Color Yellow Urine Appearance Clear Urine pH 6.5 Ur Specific [place] 1.020 Urine Protein 1+ H Urine Glucose (UA) Negative Urine Ketones Trace H Urine Occult Blood Negative Urine Nitrate Negative Urine Bilirubin Negative Urine Urobilinogen 0.2 Ur Leukocyte Esterase Trace H Urine RBC None seen Urine WBC None seen Ur Squamous Epith Cells 1-5 /hpf Urine Bacteria None seen Hyaline Casts 1-5/lpf Urine Mucus 3+ H Ur Culture Indicated? Cult not indicated U Opiates 300ng/mL cut Negative Ur Oxycodone Screen Negative Urine Methadone Screen Negative Ur Barbiturates Screen Negative U Tricyclic Antidepress Negative Ur Phencyclidine Scrn Negative Ur Amphetamines Screen Negative U Methamphetamines Scrn Negative Ur MDMA Scrn (Ecstasy) Negative U Benzodiazepines Scrn Positive H Urine Cocaine Screen Negative U Marijuana (THC) Screen Negative Ethyl Alcohol Assessment & Plan Assessment & Plan narrative: 73-year-old female status post ground level fall hemodynamically stable. I reviewed her workup including laboratory studies and imaging CT head, CT C-spine, CT chest and CT right upper extremity. She sustained multiple rib fractures and a right humeral fracture. On tertiary exam there is no evidence of any further injury. Her initial trauma workup is complete. Unclear if fall was mechanical in nature or if she had syncope, will need further investigation. # multiple fractures of ribs-left rib fractures 8 through 10 and right 10 through 12. No acute surgical intervention there is no evidence of pneumothorax. -incentive spirometry -multimodal pain control, ordered # right humeral fracture-orthopedic surgery consulted appears to be non operative management.
[2019-10-23 16:14] LABS: COVID19 -Nasal RAPID Negative (Negative)
[2019-10-23] MEDS: MORPHINE 2 MG/ML INJ IV (16:44)
--- NOTE | 2019-10-23 18:22 | PM.CN ---
History of Present Illness Consult details Date Patient Seen: 10/23/19 Time Patient Seen: 18:55 Chief complaint: syncope / + arm/shoulder pain, fx Reason for consult: Right Proximal humerus fracture Requesting provider: Naz San Narrative: 73-year-old female with a right proximal humerus fracture. She does not know what happened but she presumed she fell last night after she had gone to the bathroom. She normally takes Valium, Benadryl, and drinks up to a bottle of wine at night. She thinks she probably tripped on a small dresser. She woke up on the couch and had severe pain in her chest and her right arm. She called EMS and was brought to the hospital. She was found to have multiple rib fractures as well as a proximal humerus fracture. I was consulted to evaluate this. She also has chronic neck pain and this is about the same as it normally is. She denies pain anywhere else. Meds Home Medications and Allergies Home Medications Medication Instructions Recorded Confirmed Type acetaminophen 4 tab PO BID 07/06/17 01/16/19 History betamethasone valerate 1 applic TOPICAL DIRECTED 07/06/17 01/16/19 History dexamethasone sodium phosphate 1 drp OPHTHALMIC (EYE) BID PRN 07/06/17 01/16/19 History diazepam 5 - 10 mg PO QDAY PRN 07/06/17 01/16/19 History diphenhydramine HCl [Benadryl] 50 - 100 mg PO BEDTIME PRN 07/06/17 01/16/19 History fluticasone propionate 1 spray INTRANASAL BID 07/06/17 01/16/19 History levothyroxine 125 mcg PO MOTUWETHFRSA 07/06/17 01/16/19 History metronidazole [Metrogel] 1 applic TOPICAL BID PRN 07/06/17 01/16/19 History zolpidem 5 mg PO QHS PRN 07/06/17 01/16/19 History Calcium Citrate + D 2 tab PO TID 12/04/17 01/16/19 History Celebrate Multi-Complex 45 3 cap PO DAILY 12/04/17 01/16/19 History cetirizine 10 mg PO DAILY PRN 12/04/17 01/16/19 History [id number] 1 applic TOPICAL BID PRN 12/04/17 01/16/19 History fexofenadine [Madelyn Allergy] 180 mg PO DAILY 10/23/19 10/23/19 History Allergies Allergy/AdvReac Type Severity Reaction Status Date / Time erythromycin base Allergy Intermediate HIVES Verified 10/23/19 12:29 adhesive Allergy Mild ALLERGIC Verified 10/23/19 12:29 TO TAPE epinephrine Allergy Mild TACHYCARDIA Verified 10/23/19 12:29 gentamicin [Gentamicin] Allergy Mild RASH Verified 10/23/19 12:29 NSAIDS (Non-Steroidal Allergy Mild GASTRITIS Verified 10/23/19 12:29 Anti-Inflamma Serotonin 5HT-3 Antagonists Allergy Mild GASTRITIS Verified 10/23/19 12:29 trazodone Allergy Mild LOSS OF Verified 10/23/19 12:29 BALANCE alprazolam Allergy Unknown LOSS OF Verified 10/23/19 12:29 ABILITY TO FOCUS amitriptyline Allergy Unknown IBS Verified 10/23/19 12:29 SYMPTOMS buspirone Allergy Unknown Verified 10/23/19 12:29 codeine Allergy Unknown IBS Verified 10/23/19 12:29 SYMPTOMS gabapentin Allergy Unknown SEVERE Verified 10/23/19 12:29 GASTRITIS Review of Systems Constitutional Constitutional: Denies chills and Denies fever(s) Cardiovascular Cardiovascular: Denies chest pain Respiratory Respiratory: Denies chest congestion Hematologic/Lymphatic Hematologic/Lymphatic: Denies easy bruising Exam Vital Signs (past 8 hours): - 10/23/19 12:10 10/23/19 12:42 10/23/19 12:49 Temperature 99.1 F Pulse Rate 103 H 114 H 102 H Respiratory Rate 32 H 38 H 25 H Blood Pressure 141/75 H 212/88 H Pulse Oximetry 96 98 10/23/19 13:04 10/23/19 13:30 10/23/19 14:30 Temperature Pulse Rate 101 H 96 H 90 Respiratory Rate 21 15 Blood Pressure Pulse Oximetry 98 95 99 10/23/19 15:00 10/23/19 15:03 10/23/19 15:30 Temperature Pulse Rate 92 H 92 H 93 H Respiratory Rate 20 26 H 22 Blood Pressure 177/86 H Pulse Oximetry 97 99 94 10/23/19 15:31 10/23/19 16:00 10/23/19 16:30 Temperature Pulse Rate 92 H 92 H 93 H Respiratory Rate 26 H 11 L 21 Blood Pressure 171/73 H 165/78 H 166/79 H Pulse Oximetry 94 98 96 Oxygen Delivery Method Room Air Const Orientation: alert and oriented x3 Resp Auscultation: clear to auscultation bilaterally Cardio Rate: regular rate Rhythm: regular rhythm Back/Spine/Pelvis Other: Tender mid to lower bilateral cervical paraspinal muscles. 45 degree side rotation 20? extension 45 flexion. Extrem Other: Intact integument over the right shoulder significant ecchymosis going down along the anterior arm. Intact sensation throughout the arm and fingers. Good reconcilement clerk and easily moves fingers and thumb. 2+ distal pulses. Tender over the neck of the humerus and proximal head. Objective Imaging CT scan of right shoulder: My impression: Taken today shows a comminuted fracture through the proximal right humerus. This involves the greater tuberosity as well as the surgical neck. This is minimally displaced with good overall alignment. No intra-articular involvement of the glenohumeral joint. CT scan cervical spine: My impression: Taken today shows an anterior instrumented fusion at C5-6 and C6-7 with focal kyphosis at the C5-6 level. Mild central stenosis at C5-6. Open neural foramen throughout. No fracture or dislocation. Labs Result Diagrams: 10/23/19 12:38 10/23/19 12:38 Labs: Laboratory Results - last 24 hr 10/23/19 10/23/19 10/23/19 12:38 12:38 12:38 WBC 12.1 H RBC 4.22 Hgb 13.6 Hct 40.8 MCV 96.6 MCH 32.2 MCHC 33.4 RDW 13.5 Plt Count 231 Neut % (Auto) 77.5 H Lymph % (Auto) 13.7 L [place] % (Auto) 8.4 Eos % (Auto) 0.0 L Baso % (Auto) 0.4 Neut # (Auto) 9400 H Lymph # (Auto) 1700 [place] # (Auto) 1000 H Eos # (Auto) 0 Baso # (Auto) 0 PT 11.4 INR 1.0 APTT 31 Sodium 137 Potassium 4.6 Chloride 103 Carbon Dioxide 26 BUN 18 H Creatinine 0.65 Estimated GFR > 60.0 BUN/Creatinine Ratio 27.7 H Glucose 122 H Calcium 10.0 Total Bilirubin 1.0 AST 51 H ALT 30 Alkaline Phosphatase 91 Total Creatine Kinase 86 CK-MB (CK-2) TNP CK-MB (CK-2) Rel Index TNP Troponin I < 0.012 Total Protein 7.7 Albumin 4.6 Globulin 3.1 Albumin/Globulin Ratio 1.5 Lipase 88 TSH Urine Color Urine Appearance Urine pH Ur Specific [place] Urine Protein Urine Glucose (UA) Urine Ketones Urine Occult Blood Urine Nitrate Urine Bilirubin Urine Urobilinogen Ur Leukocyte Esterase Urine RBC Urine WBC Ur Squamous Epith Cells Urine Bacteria Hyaline Casts Urine Mucus Ur Culture Indicated? U Opiates 300ng/mL cut Ur Oxycodone Screen Urine Methadone Screen Ur Barbiturates Screen U Tricyclic Antidepress Ur Phencyclidine Scrn Ur Amphetamines Screen U Methamphetamines Scrn Ur MDMA Scrn (Ecstasy) U Benzodiazepines Scrn Urine Cocaine Screen U Marijuana (THC) Screen Ethyl Alcohol < 10 COVID-19 PCR 10/23/19 10/23/19 10/23/19 12:40 12:40 12:56 WBC RBC Hgb Hct MCV MCH MCHC RDW Plt Count Neut % (Auto) Lymph % (Auto) [place] % (Auto) Eos % (Auto) Baso % (Auto) Neut # (Auto) Lymph # (Auto) [place] # (Auto) Eos # (Auto) Baso # (Auto) PT INR APTT Sodium Potassium Chloride Carbon Dioxide BUN Creatinine Estimated GFR BUN/Creatinine Ratio Glucose Calcium Total Bilirubin AST ALT Alkaline Phosphatase Total Creatine Kinase CK-MB (CK-2) CK-MB (CK-2) Rel Index Troponin I Total Protein Albumin Globulin Albumin/Globulin Ratio Lipase TSH 0.475 Urine Color Yellow Urine Appearance Clear Urine pH 6.5 Ur Specific [place] 1.020 Urine Protein 1+ H Urine Glucose (UA) Negative Urine Ketones Trace H Urine Occult Blood Negative Urine Nitrate Negative Urine Bilirubin Negative Urine Urobilinogen 0.2 Ur Leukocyte Esterase Trace H Urine RBC None seen Urine WBC None seen Ur Squamous Epith Cells 1-5 /hpf Urine Bacteria None seen Hyaline Casts 1-5/lpf Urine Mucus 3+ H Ur Culture Indicated? Cult not indicated U Opiates 300ng/mL cut Negative Ur Oxycodone Screen Negative Urine Methadone Screen Negative Ur Barbiturates Screen Negative U Tricyclic Antidepress Negative Ur Phencyclidine Scrn Negative Ur Amphetamines Screen Negative U Methamphetamines Scrn Negative Ur MDMA Scrn (Ecstasy) Negative U Benzodiazepines Scrn Positive H Urine Cocaine Screen Negative U Marijuana (THC) Screen Negative Ethyl Alcohol COVID-19 PCR 10/23/19 13:05 WBC RBC Hgb Hct MCV MCH MCHC RDW Plt Count Neut % (Auto) Lymph % (Auto) [place] % (Auto) Eos % (Auto) Baso % (Auto) Neut # (Auto) Lymph # (Auto) [place] # (Auto) Eos # (Auto) Baso # (Auto) PT INR APTT Sodium Potassium Chloride Carbon Dioxide BUN Creatinine Estimated GFR BUN/Creatinine Ratio Glucose Calcium Total Bilirubin AST ALT Alkaline Phosphatase Total Creatine Kinase CK-MB (CK-2) CK-MB (CK-2) Rel Index Troponin I Total Protein Albumin Globulin Albumin/Globulin Ratio Lipase TSH Urine Color Urine Appearance Urine pH Ur Specific [place] Urine Protein Urine Glucose (UA) Urine Ketones Urine Occult Blood Urine Nitrate Urine Bilirubin Urine Urobilinogen Ur Leukocyte Esterase Urine RBC Urine WBC Ur Squamous Epith Cells Urine Bacteria Hyaline Casts Urine Mucus Ur Culture Indicated? U Opiates 300ng/mL cut Ur Oxycodone Screen Urine Methadone Screen Ur Barbiturates Screen U Tricyclic Antidepress Ur Phencyclidine Scrn Ur Amphetamines Screen U Methamphetamines Scrn Ur MDMA Scrn (Ecstasy) U Benzodiazepines Scrn Urine Cocaine Screen U Marijuana (THC) Screen Ethyl Alcohol COVID-19 PCR Negative Assessment & Plan Assessment & Plan narrative: Fall at home with loss of consciousness. Patient has high risk for future falls with her benzodiazepines and Benadryl combined with her alcohol use. Right proximal humerus fracture. There is good overall alignment of her fracture and this should heal up uneventfully. I do not recommend any surgical intervention. For now treated with a shoulder immobilizer. She can follow up my clinic in 1 week. No further hospital treatment needed for this. Cervical strain with a history of cervical fusion. No acute treatment needed. Multiple rib fractures, seen by General surgery, no intervention. Admitted to Medicine for pain control. COVID-19 COVID-19 status: Negative Result date/Date tested (Pos, Neg/Pending): 10/23/19
--- NOTE | 2019-10-23 18:33 | P.HP_ITS ---
History of Present Illness History of Present Illness Date Patient Seen: 10/23/19 Chief complaint: syncope / + arm/shoulder pain, fx Narrative: Mckay Costa is a 73-year-old female with a past medical history significant for hypothyroidism, seasonal allergies, alcohol dependence, previous opiate dependence in remission, insomnia on Ambien and Benadryl who presented to the ED via EMS after sustaining a ground level fall with arm pain. The patient reports that she got up in the middle of the night to use the restroom and believes she fell on the way back to bed. She does not remember the fall or specific details. She has piece together which she presumes happened which is she tr ipped and fell over dresser drawer. The patient is on Ambien and a significant dose of Benadryl per night approximately 150-200 mg. She also had several glasses of wine yesterday evening around 17:00 She reports that she drinks 2-3 drinks most nights and will finish a full bottle of wine every other day. She sleeps on her couch and woke up on her couch this morning with significant pain of her right arm prompting her to call EMS. She was found to have multiple rib fractures as well as a proximal humerus fracture. She endorses pain with deep inspiration of her ribs bilaterally and pain of her right arm. She has a significant allergy list especially to narcotics and reports only narcotic she is able to take his Dilaudid a couple times and then has to give herself a day or to break due to severe pruritus. She has a history of opiate dependence in remission since 2010. She has no other complaints and denies headache, chest pain, shortness of breath, abdominal pain, nausea, vomiting, fever, chills, dysuria, diarrhea or constipation. She is admitted observation for multiple bilateral rib fractures and right humeral fracture. Patient History Medical History (Updated 10/24/19 @ 09:24 by Naz San DO) Alcohol dependence (Acute) Cervical vertebral fusion (Acute) Hypothyroidism (Acute) Insomnia (Acute) Surgical History (Updated 10/24/19 @ 09:24 by Naz San DO) Gastric bypass status for obesity (Acute) S/P cervical spinal fusion (Acute) Family & Social History Family History (Updated 10/24/19 @ 00:03 by Naz San DO) Father MVA (motor vehicle accident) Mother Lung cancer Social History: household members none Prior Living Arrangements House Safety & Behavioral: Feels Safe in Current Yes Environment Been Physically Hurt or No Threatened By a Person Suicidal Ideation Description None Suicide Plan Description No Plan Tobacco & Substance use: Smoking Status Former smoker, 1 pack per day x 10 years alcohol intake current alcohol intake frequency 2-3 glasses of wine 3-4 x a week Substance Use Type does not use She is and has 2 adult sons who are healthy. 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 Meds Home Medications and Allergies Home Medications Medication Instructions Recorded Confirmed Type acetaminophen 3 tab PO BID 07/06/17 10/23/19 History betamethasone valerate 1 applic TOPICAL DIRECTED 07/06/17 10/23/19 History dexamethasone sodium phosphate 1 drp OPHTHALMIC (EYE) BID PRN 07/06/17 10/23/19 History diazepam 5 - 10 mg PO QDAY PRN 07/06/17 10/23/19 History diphenhydramine HCl [Benadryl] 150 mg PO BEDTIME PRN 07/06/17 10/23/19 History fluticasone propionate 1 spray INTRANASAL BID 07/06/17 10/23/19 History levothyroxine 150 mcg PO DAILY 07/06/17 10/23/19 History metronidazole [Metrogel] 1 applic TOPICAL BID PRN 07/06/17 10/23/19 History zolpidem 5 mg PO QHS PRN 07/06/17 10/23/19 History Calcium Citrate + D 2 tab PO TID 12/04/17 10/23/19 History Celebrate Multi-Complex 45 3 cap PO DAILY 12/04/17 10/23/19 History cetirizine 10 mg PO DAILY PRN 12/04/17 10/23/19 History [id number] 1 applic TOPICAL BID PRN 12/04/17 10/23/19 History fexofenadine [Madelyn Allergy] 180 mg PO DAILY 10/23/19 10/23/19 History Allergies Allergy/AdvReac Type Severity Reaction Status Date / Time erythromycin base Allergy Intermediate HIVES Verified 10/23/19 12:29 adhesive Allergy Mild ALLERGIC Verified 10/23/19 12:29 TO TAPE epinephrine Allergy Mild TACHYCARDIA Verified 10/23/19 12:29 gentamicin [Gentamicin] Allergy Mild RASH Verified 10/23/19 12:29 NSAIDS (Non-Steroidal Allergy Mild GASTRITIS Verified 10/23/19 12:29 Anti-Inflamma Serotonin 5HT-3 Antagonists Allergy Mild GASTRITIS Verified 10/23/19 12:29 trazodone Allergy Mild LOSS OF Verified 10/23/19 12:29 BALANCE alprazolam Allergy Unknown LOSS OF Verified 10/23/19 12:29 ABILITY TO FOCUS amitriptyline Allergy Unknown IBS Verified 10/23/19 12:29 SYMPTOMS buspirone Allergy Unknown Verified 10/23/19 12:29 codeine Allergy Unknown IBS Verified 10/23/19 12:29 SYMPTOMS gabapentin Allergy Unknown SEVERE Verified 10/23/19 12:29 GASTRITIS Review of Systems Review of Systems Narrative: A 10 system comprehensive review of systems was conducted with the patient and found to be negative except as above in the History of Present Illness. Exam Vital Signs (past 8 hours): - 10/23/19 12:42 10/23/19 12:49 10/23/19 13:04 Pulse Rate 114 H 102 H 101 H Respiratory Rate 38 H 25 H Blood Pressure 212/88 H Pulse Oximetry 98 98 10/23/19 13:30 10/23/19 14:30 10/23/19 15:00 Pulse Rate 96 H 90 92 H Respiratory Rate 21 15 20 Blood Pressure Pulse Oximetry 95 99 97 10/23/19 15:03 10/23/19 15:30 10/23/19 15:31 Pulse Rate 92 H 93 H 92 H Respiratory Rate 26 H 22 26 H Blood Pressure 177/86 H 171/73 H Pulse Oximetry 99 94 94 10/23/19 16:00 10/23/19 16:30 10/23/19 17:29 Pulse Rate 92 H 93 H Respiratory Rate 11 L 21 Blood Pressure 165/78 H 166/79 H Pulse Oximetry 98 96 96 Oxygen Delivery Method Room Air Narrative Exam Narrative: General: Elderly female sitting in bed and in no acute distress, well-developed, well-nourished, appropriately interactive. HEENT: Normocephalic, atraumatic. External ears without defect. Pupils equal, round, and reactive to light. Anicteric sclerae, moist conjunctivae, and no lid lag. Oropharynx free of erythema and cobble stoning with dry oral mucosa. Neck: Supple with full range of motion. No lymphadenopathy or thyromegaly. Cardiovascular: Regular rate and rhythm without murmurs, rubs, or gallops appreciated Pulmonary: Clear to auscultation bilaterally without crackles, wheezes, or rhonchi. Normal respiratory effort with no use of accessory muscles. Mild pain with inspiration due to rib fractures but no splinting. Abdomen: Soft, bowel tones present. nontender, nondistended. No hepatosplen omegaly or masses appreciated. Extremities: No clubbing, cyanosis, or edema. Right arm in sling with distal movement, sensation and pulses intact with large bruise over medial bicep. Scattered bruising throughout upper body Skin: Normal temperature, turgor, and texture; no rash, ulcers, or subcutaneous nodules appreciated. Neurological: Cranial nerves grossly intact. Psychiatric: Normal mood and affect. Alert and oriented to person, place, and time. Objective Labs Result Diagrams: 10/24/19 06:30 10/24/19 06:30 Labs: Laboratory Results - last 24 hr 10/23/19 10/23/19 10/23/19 12:38 12:38 12:38 WBC 12.1 H RBC 4.22 Hgb 13.6 Hct 40.8 MCV 96.6 MCH 32.2 MCHC 33.4 RDW 13.5 Plt Count 231 Neut % (Auto) 77.5 H Lymph % (Auto) 13.7 L Richardson % (Auto) 8.4 Eos % (Auto) 0.0 L Baso % (Auto) 0.4 Neut # (Auto) 9400 H Lymph # (Auto) 1700 Richardson # (Auto) 1000 H Eos # (Auto) 0 Baso # (Auto) 0 PT 11.4 INR 1.0 APTT 31 Sodium 137 Potassium 4.6 Chloride 103 Carbon Dioxide 26 BUN 18 H Creatinine 0.65 Estimated GFR > 60.0 BUN/Creatinine Ratio 27.7 H Glucose 122 H Calcium 10.0 Total Bilirubin 1.0 AST 51 H ALT 30 Alkaline Phosphatase 91 Total Creatine Kinase 86 CK-MB (CK-2) TNP CK-MB (CK-2) Rel Index TNP Troponin I < 0.012 Total Protein 7.7 Albumin 4.6 Globulin 3.1 Albumin/Globulin Ratio 1.5 Lipase 88 TSH Urine Color Urine Appearance Urine pH Ur Specific Florence Urine Protein Urine Glucose (UA) Urine Ketones Urine Occult Blood Urine Nitrate Urine Bilirubin Urine Urobilinogen Ur Leukocyte Esterase Urine RBC Urine WBC Ur Squamous Epith Cells Urine Bacteria Hyaline Casts Urine Mucus Ur Culture Indicated? U Opiates 300ng/mL cut Ur Oxycodone Screen Urine Methadone Screen Ur Barbiturates Screen U Tricyclic Antidepress Ur Phencyclidine Scrn Ur Amphetamines Screen U Methamphetamines Scrn Ur MDMA Scrn (Ecstasy) U Benzodiazepines Scrn Urine Cocaine Screen U Marijuana (THC) Screen Ethyl Alcohol < 10 COVID-19 PCR 10/23/19 10/23/19 10/23/19 12:40 12:40 12:56 WBC RBC Hgb Hct MCV MCH MCHC RDW Plt Count Neut % (Auto) Lymph % (Auto) Richardson % (Auto) Eos % (Auto) Baso % (Auto) Neut # (Auto) Lymph # (Auto) Richardson # (Auto) Eos # (Auto) Baso # (Auto) PT INR APTT Sodium Potassium Chloride Carbon Dioxide BUN Creatinine Estimated GFR BUN/Creatinine Ratio Glucose Calcium Total Bilirubin AST ALT Alkaline Phosphatase Total Creatine Kinase CK-MB (CK-2) CK-MB (CK-2) Rel Index Troponin I Total Protein Albumin Globulin Albumin/Globulin Ratio Lipase TSH 0.475 Urine Color Yellow Urine Appearance Clear Urine pH 6.5 Ur Specific Florence 1.020 Urine Protein 1+ H Urine Glucose (UA) Negative Urine Ketones Trace H Urine Occult Blood Negative Urine Nitrate Negative Urine Bilirubin Negative Urine Urobilinogen 0.2 Ur Leukocyte Esterase Trace H Urine RBC None seen Urine WBC None seen Ur Squamous Epith Cells 1-5 /hpf Urine Bacteria None seen Hyaline Casts 1-5/lpf Urine Mucus 3+ H Ur Culture Indicated? Cult not indicated U Opiates 300ng/mL cut Negative Ur Oxycodone Screen Negative Urine Methadone Screen Negative Ur Barbiturates Screen Negative U Tricyclic Antidepress Negative Ur Phencyclidine Scrn Negative Ur Amphetamines Screen Negative U Methamphetamines Scrn Negative Ur MDMA Scrn (Ecstasy) Negative U Benzodiazepines Scrn Positive H Urine Cocaine Screen Negative U Marijuana (THC) Screen Negative Ethyl Alcohol COVID-19 PCR 10/23/19 13:05 WBC RBC Hgb Hct MCV MCH MCHC RDW Plt Count Neut % (Auto) Lymph % (Auto) Richardson % (Auto) Eos % (Auto) Baso % (Auto) Neut # (Auto) Lymph # (Auto) Richardson # (Auto) Eos # (Auto) Baso # (Auto) PT INR APTT Sodium Potassium Chloride Carbon Dioxide BUN Creatinine Estimated GFR BUN/Creatinine Ratio Glucose Calcium Total Bilirubin AST ALT Alkaline Phosphatase Total Creatine Kinase CK-MB (CK-2) CK-MB (CK-2) Rel Index Troponin I Total Protein Albumin Globulin Albumin/Globulin Ratio Lipase TSH Urine Color Urine Appearance Urine pH Ur Specific Florence Urine Protein Urine Glucose (UA) Urine Ketones Urine Occult Blood Urine Nitrate Urine Bilirubin Urine Urobilinogen Ur Leukocyte Esterase Urine RBC Urine WBC Ur Squamous Epith Cells Urine Bacteria Hyaline Casts Urine Mucus Ur Culture Indicated? U Opiates 300ng/mL cut Ur Oxycodone Screen Urine Methadone Screen Ur Barbiturates Screen U Tricyclic Antidepress Ur Phencyclidine Scrn Ur Amphetamines Screen U Methamphetamines Scrn Ur MDMA Scrn (Ecstasy) U Benzodiazepines Scrn Urine Cocaine Screen U Marijuana (THC) Screen Ethyl Alcohol COVID-19 PCR Negative Assessment & Plan Assessment & Plan narrative: pranav Costa is a 73-year-old female with a past medical history significant for hypothyroidism, seasonal allergies, alcohol dependence, previous opiate dependence in remission, insomnia on Ambien and Benadryl who presented to the ED via EMS after sustaining a ground level fall with arm pain. 1. Ground level fall with pathological multiple bilateral rib fractures and right proximal comminuted humeral fracture, present on admission. Active. -CT head without contrast did not demonstrated any acute intracranial abnormalities. -CT right upper extremity without contrast demonstrated Sseverely comminuted fracture of the right humerus as above -CT chest without contrast demonstrated left posterior 8-10th rib fractures in right posterior lateral 10th and suspected nondisplaced posterior right 11th and 12th rib fractures. No pneumothorax. -Consulted general surgery, Dr. Fitzegrald, and we appreciate his time and recommendations. Continue pulmonary toilet with IS, deep breathing, duonebs every 6 hours as needed for shortness of breath or wheezing and respiratory therapy evaluation and treatment. -Consulted orthopedic surgery, Dr. Dawkins, and we appreciate his time and recommendations. Right proximal comminuted humeral fracture is nonoperable and continue immobilization right arm sling. -Continue pain control with: Frequent icing, acetaminophen 975 mg 3 times daily and Dilaudid 1 mg PO every 6 hours as needed for severe pain and 0.5 mg every 6 hours for severe break through pain and diazepam 5 mg twice daily as needed for muscle spasm. Patient has a significant list of allergies to narcotics and other nonnarcotic pain medications making pain control challenging. -ordered physical therapy and occupational therapy evaluation treatment. 2. Alcohol dependence, chronic, present on admission. Stable. -Patient consumes 2-3 glasses of wine most nights and reports she will finish a bottle of wine in approximately 2 days. She denies history of alcohol withdrawal, alcohol seizures or DTs. She has gone significant amount of time without alcohol without symptoms. Discussed sedative use with alcohol intake and risk of respiratory suppression and . Patient acknowledged risk and reports that she is going to stop drinking alcohol. -Continue to monitor for alcohol withdrawal and low threshold to start CIWA protocol. -Consulted IT INSTRUCTOR and we appreciate her time and recommendations. 3. Hypothyroidism, chronic, present on admission. Stable. -TSH normal at 0.475. -Continue levothyroxine 150 mcg daily. 4. Insomnia, chronic, present on admission. Stable. -Patient reports she takes Benadryl 150-200 mg and Ambien 5 mg each night. Discussed sedative use with alcohol intake and risk of respiratory suppression and . Patient acknowledged risk and reports that she is going to stop drinking alcohol. -Continued Ambien 5 mg daily at bedtime and Benadryl 25 mg daily at bedtime as needed for insomnia. Continuous pulse oximetry monitoring. 5. Chronic neck pain with benzodiazepine dependence and opiate dependence in remission, present on admission. Stable. -Patient reports multiple narcotic and nonnarcotic pain medication allergies. She previously was on Dilaudid for several years for neck pain and believes she has not been using this medication since approximately 2010. She reports that she cannot take Dilaudid more than a couple times a day and then has to give herself several day break due to severe pruritus. -Continue pain control as above. -Patient takes diazepam 5 mg up to twice daily for muscle spasms which has been continued. Code status: Full code VTE prophylaxis: Enoxaparin, SCDs Patient is admitted under observation status with expected length of stay less than 2 midnights due to severity of presenting symptoms, risk of adverse event, and complexity of treatment plan. Quality VTE Deep Vein Thrombosis/Pulmonary Embolism Present on Admission: No
[2019-10-23] MEDS: FLUTICASONE 120 SPRAY/16 GM SPRAY.SUSP NASAL (21:30)
[2019-10-23] MEDS: ACETAMINOPHEN 325 MG TABLET 975 MG PO (21:31)
[2019-10-23] MEDS: LEVOTHYROXINE 150 MCG TABLET PO (21:32)
[2019-10-23] MEDS: HYDROMORPHONE 0.5 MG INJ IV (21:36)
[2019-10-24] VITALS (9 sets, daily range): BP systolic 122–149; BP diastolic 75–95; PULSE 80–110; RESP 18–20; TEMP 35.9–37.2; O2SAT 94–99
[2019-10-24] MEDS: ZOLPIDEM 5 MG TABLET PO ×2 (01:20→23:24)
[2019-10-24] MEDS: LEVOTHYROXINE 150 MCG TABLET PO (06:21)
[2019-10-24 07:18] LABS: Add Manual Diff / Slide Review NO; Basophils Absolute Auto 0 /uL (0-100); Basophils Percent Auto 0.4 % (0-2); Eosinophils Absolute Auto 0 /uL (0-450); Eosinophils Percent Auto 0.6 % (2-4); Hematocrit 38.1 % (36-46); Hemoglobin 12.7 g/dL (12.0-16.0); Lymphocytes Absolute Auto 1900 /uL (1100-4500); Mean Corpuscular HGB Conc 33.3 % (30-36); Mean Corpuscular Hemoglobin 32.7 PG (26-34); Mean Corpuscular Volume 98.2 fL (80-100); Monocytes Absolute Auto 800 /uL (0-900); Monocytes Percent Auto 9.9 % (3-14); Neutrophils Absolute Auto 5100 /uL (1500-7000); Neutrophils Percent Auto 65.1 % (50-75); Platelet Count 188 X10^3/uL (150-400); Red Blood Cell Count 3.88 X10^6/uL (4.0-5.2); Red Cell Distribution Width 13.6 % (11.6-14.8); White Blood Cell Count 7.8 X10^3/uL (4.5-11.0)
[2019-10-24 07:27] LABS: Blood Urea Nitrogen 20 mg/dL (7-17); Calcium 9.1 mg/dL (8.4-10.2); Carbon Dioxide 28 mmol/L (22-32); Chloride 96 mmol/L (98-107); Estimated Glomerular Filt Rate > 60.0 mL/min (>60); Glucose 113 mg/dL (80-110); HEMOLYSIS < 15 (0-50); Magnesium 2.2 mg/dL (1.6-2.3); Potassium 3.9 mmol/L (3.4-5.1); Sodium 131 mmol/L (137-145)
[2019-10-24] MEDS: ACETAMINOPHEN 325 MG TABLET 975 MG PO ×3 (08:16→19:40)
[2019-10-24] MEDS: HYDROMORPHONE 0.5 MG INJ IV ×3 (08:17→19:41)
[2019-10-24] MEDS: ENOXAPARIN 40 MG/0.4 ML SYRINGE SUBCUT (08:17)
[2019-10-24] MEDS: LORATADINE 10 MG TABLET PO (08:17)
[2019-10-24] MEDS: FLUTICASONE 120 SPRAY/16 GM SPRAY.SUSP NASAL ×2 (08:18→21:13)
--- NOTE | 2019-10-24 11:03 | PT.IIE ---
Surgical History (Last Updated 10/23/19 @ 23:47 by Naz San DO) Gastric bypass status for obesity (Acute) S/P cervical spinal fusion (Acute) Medical History (Last Updated 10/23/19 @ 23:47 by Naz San DO) Alcohol dependence (Acute) Cervical vertebral fusion (Acute) Hypothyroidism (Acute) Insomnia (Acute) Physical Therapy Inpatient Evaluation/Re-Eval M1 PT/OT-IP Prior Functional Status Start: 10/24/19 12:43 Freq: NEEDED Status: Active Protocol: Document 10/24/19 11:03 AB (Rec: 10/24/19 13:43 AB [id number]) Medical Review Prior Functional Status Medical History Reviewed Yes Communication able to make needs known Mobility and Gait pt stated that she is independent with all mobilities and ambulation without AD Social History Household Members none Living Arrangements House Number of Floors (Floors) One Floor Number of Stairs To Enter/Railing? no stairs to enter from the garage Home Environment Standard Height Toilet,Tub/ Shower Home Equipment Front Wheel Walker,Straight Cane,Hand Held Shower,Grab Bars In Shower Additional Social History Comment pt have an adjustable bed but stated that she sleeps on her sofa M2 PT-IP Current Condition Start: 10/24/19 12:43 Freq: NEEDED Status: Active Protocol: Document 10/24/19 11:03 AB (Rec: 10/24/19 13:43 AB [id number]) Physical Therapy Current Condition Current Condition Evaluation Date 10/24/19 Treatment Diagnosis R proximal humerus fx; difficulty with walking Onset Date 10/23/19 Precautions Shoulder Precautions Sling Weight Bearing Status Weight Bearing Status Non-Weight Bearing Allowed Weight Bearing Amount (enter % RUE NWB or #) (%) M3 PT-IP Subjective Start: 10/24/19 12:43 Freq: NEEDED Status: Active Protocol: Document 10/24/19 11:03 AB (Rec: 10/24/19 13:43 AB [id number]) Subjective Physical Therapy Visit Type Type Initial Evaluation Visit Start Time 11:03 Visit Stop Time 11:25 Total Visit Minutes 22 Number of AUTOMATIC SCREWMAKER Visits 0 Physical Therapy Visit Comments Patient Comments pt requires encouragement to participate Therapy Pain Assessment Pain When Pain Assessed At Rest Pain Present Pain Present Pain Reported Location Right Shoulder Intensity 8 Scale Used Numeric (0 - 10) Pain Behaviors Holding Area Pain Management Techniques Apply Cold,Re-positioning, Timing of Activity with Medications M4 PT-IP Mobility and Gait Start: 10/24/19 12:43 Freq: NEEDED Status: Active Protocol: Document 10/24/19 11:03 AB (Rec: 10/24/19 13:43 AB [id number]) PT-Bed Mobility Assessment Supine to Sit Supine to Sit Maximum Assistance Scooting Scooting to Edge of Bed Maximum Assistance PT-Transfer Assessment Sit to and From Stand Sit to and from Stand Moderate Assistance,1 Person Assistance Equipment Transfer Assistive Device Gait Belt,Small Based Quad Cane Orthotic/Prosthetic Devices or Brace: No Transfers Transfer Destination Chair Transfer Technique ambulated using quad cane Transfer Ability Level of Assist 1 Person Assistance,Use of Upper Extremities Comments Mobility Comments reviewed weight bearing precautions with pt. completed supine to sit with HOB elevated max A and max cues. pt was able to sit on EOB CGA. Sling readjusted. pt completed sit to stand mod A and cues. ambulated towards the chair using quad cane mod A and max cues with (+) LOB x 2 requiring mod A for stability. positioned pt on chair. call light and table placed within reach. ice pack provided Gait Assessment Gait Gait Assistance Required: Moderate Assistance Distance (Feet) 20 Able to Maintain Weight Bearing Status Yes During Gait Assistive Devices Assistive Device Gait Belt,Small Based Quad Cane Orthotic/Prosthetic Devices or Brace: No Gait Deviations General Gait Pattern Antalgic,Decreased Stride Length,Decreased Feet Clearance Factors Limiting Gait Function Factors Limiting Gait Function Decreased Activity Tolerance, Decreased Strength,Difficulty Following Directions,Limited Range of Motion,Pain,Poor Balance,Poor Safety Awareness PT-Balance Assessment Sitting Balance and Reactions Static Sitting Balance Ability Good Dynamic Sitting Balance Ability Fair Standing Balance and Reactions Static Standing Balance Ability Poor Dynamic Standing Balance Ability Poor Device Used quad cane M5 PT-IP Objective Assessments Start: 10/24/19 12:43 Freq: NEEDED Status: Active Protocol: Document 10/24/19 11:03 AB (Rec: 10/24/19 13:43 AB [id number]) Orientation Orientation/Cognition Level of Alertness Alert Orientation Name Language Function Ability No Deficits Noted,Hard of Hearing Safety Awareness Decreased Safety Awareness Memory Description Short Term Impaired Gross Range of Motion Lower Extremity ROM Assessment Within Functional Limits Strength Lower Extremity Strength Hip 4-/5 Knee 4-/5 Coordination Assessment Gross Coordination Gross Coordination WNL Muscle Tone Muscle Tone WNL Yes M6 PT-IP Treatment Start: 10/24/19 12:43 Freq: NEEDED Status: Active Protocol: Document 10/24/19 11:03 AB (Rec: 10/24/19 13:43 AB [id number]) Physical Therapy Treatment Education Education Provided Precautions,Weight Bearing Status,Safety M7 PT-IP Assessment and Plan Start: 10/24/19 12:43 Freq: NEEDED Status: Active Protocol: Document 10/24/19 11:03 AB (Rec: 10/24/19 13:43 AB [id number]) PT Summary Assessment and Plan Potential Rehabilitation Potential Fair Status of Condition at Evaluation Evolving Summary Impairments Pain,ROM,Strength,Balance, Coordination,Sensation,Tone, Cognition,Bed Mobility, Transfers,Gait,Activity Tolerance Assessment Summary pt requiring max A with bed mobility and mod A with transfer and ambulation and max cues for all tasks. pt with decrease safety awareness affecting mobility. pt will require SNF rehab to improve strength and function. Goals Bed Mobility Goal Standby Assistance Transfer Goal Minimal Assistance,Cane Gait Goal Minimal Assistance,Cane Gait Distance 100 Days to Meet Goals 5 Frequency of Treatment Frequency Of Treatment Twice a Day Treatment Plan Physical Therapy Treatment Plan Bed Mobility Training,Transfer Training,Gait Training, Therapeutic Exercise,Balance Retraining,Discharge Planning, Hot or Cold Pack,Neuromuscular Re-ed,Coordination Retraining Recommendations To Nursing Amount of Assist Needed 1 Person Assist Discharge Recommendations PT Discharge Recommendations SNF Rehab Transportation Needs at Discharge Wheelchair/Cabulance
[2019-10-24] MEDS: HYDROMORPHONE 2 MG TABLET 1 MG PO ×2 (11:45→19:42)
--- NOTE | 2019-10-24 11:55 | P.PN_ITS ---
Subjective Subjective Date Patient Seen: 10/24/19 Interval history: Mckay Costa is a 73-year-old female with a past medical history significant for hypothyroidism, seasonal allergies, alcohol dependence, chronic neck pain with benzodiazepine dependence and previous opiate dependence in remission, insomnia on Ambien and Benadryl who presented to the ED via EMS after sustaining a ground level fall with arm pain. The patient is returning to bed with nursing staff when entering the room. She appears moderately uncomfortable due to pain of her right arm. She just received Dilaudid IV for severe breakthrough pain. She is receiving acetaminophen 975 mg 3 times daily and is more open to taking the hydromorphone more regularly for pain control. She reports she will live with the itching caused by hydromorphone. She continues to have mild pain with deep inspiration and occasional splinting noted. She has no other complaints and denies headache, chest pain, shortness of breath, abdominal pain, nausea, vomiting, fever, chills, dysuria, diarrhea or constipation. She is voiding without difficulty. Patient had a bowel movement prior to admission and a bowel regimen has been implemented to avoid opiate induced constipation. She is up ambulating minimally with assistance. Exam Vital Signs (past 8 hours): - 10/24/19 06:00 10/24/19 08:00 Temperature 98.0 F 98.2 F Pulse Rate 96 H 110 H Respiratory Rate 18 20 Blood Pressure 134/90 122/76 Pulse Oximetry 95 98 Oxygen Delivery Method Room Air Oxygen Flow Rate 0 Narrative Exam Narrative: General: Elderly female getting into bed after using the restroom, appears uncomfortable but in no acute distress, well-developed, well-nourished, appropriately interactive. HEENT: Normocephalic, atraumatic. External ears without defect. Pupils equal, round, and reactive to light. Anicteric sclerae, moist conjunctivae, and no lid lag. Oropharynx free of erythema and cobble stoning with moist oral mucosa. Neck: Supple with full range of motion. No lymphadenopathy or thyromegaly. Cardiovascular: Regular rate and rhythm without murmurs, rubs, or gallops appreciated Pulmonary: Clear to auscultation bilaterally without crackles, wheezes, or rhonchi. Normal respiratory effort with no use of accessory muscles. Mild pain with inspiration due to rib fractures with mild splinting today. Abdomen: Soft, bowel tones present, nontender, nondistended. No hepatosplenomegaly or masses appreciated. Extremities: No clubbing, cyanosis, or edema. Right arm in sling with distal movement, sensation and pulses intact with large bruise over medial bicep. Scattered bruising throughout upper body. Skin: Normal temperature, turgor, and texture; no rash, ulcers, or subcutaneous nodules appreciated. Neurological: Cranial nerves grossly intact. Psychiatric: Normal mood and affect. Alert and oriented to person, place, and time. Mild cognitive impairment with short-term memory recall deficit. Objective Labs Result Diagrams: 10/24/19 06:30 10/24/19 06:30 Labs: Laboratory Results - last 24 hr 10/23/19 10/23/19 10/23/19 12:38 12:38 12:38 WBC 12.1 H RBC 4.22 Hgb 13.6 Hct 40.8 MCV 96.6 MCH 32.2 MCHC 33.4 RDW 13.5 Plt Count 231 Neut % (Auto) 77.5 H Lymph % (Auto) 13.7 L [place] % (Auto) 8.4 Eos % (Auto) 0.0 L Baso % (Auto) 0.4 Neut # (Auto) 9400 H Lymph # (Auto) 1700 [place] # (Auto) 1000 H Eos # (Auto) 0 Baso # (Auto) 0 PT 11.4 INR 1.0 APTT 31 Sodium 137 Potassium 4.6 Chloride 103 Carbon Dioxide 26 BUN 18 H Creatinine 0.65 Estimated GFR > 60.0 BUN/Creatinine Ratio 27.7 H Glucose 122 H Calcium 10.0 Magnesium Total Bilirubin 1.0 AST 51 H ALT 30 Alkaline Phosphatase 91 Total Creatine Kinase 86 CK-MB (CK-2) TNP CK-MB (CK-2) Rel Index TNP Troponin I < 0.012 Total Protein 7.7 Albumin 4.6 Globulin 3.1 Albumin/Globulin Ratio 1.5 Lipase 88 TSH Urine Color Urine Appearance Urine pH Ur Specific [place] Urine Protein Urine Glucose (UA) Urine Ketones Urine Occult Blood Urine Nitrate Urine Bilirubin Urine Urobilinogen Ur Leukocyte Esterase Urine RBC Urine WBC Ur Squamous Epith Cells Urine Bacteria Hyaline Casts Urine Mucus Ur Culture Indicated? U Opiates 300ng/mL cut Ur Oxycodone Screen Urine Methadone Screen Ur Barbiturates Screen U Tricyclic Antidepress Ur Phencyclidine Scrn Ur Amphetamines Screen U Methamphetamines Scrn Ur MDMA Scrn (Ecstasy) U Benzodiazepines Scrn Urine Cocaine Screen U Marijuana (THC) Screen Ethyl Alcohol < 10 COVID-19 PCR 10/23/19 10/23/19 10/23/19 12:40 12:40 12:56 WBC RBC Hgb Hct MCV MCH MCHC RDW Plt Count Neut % (Auto) Lymph % (Auto) [place] % (Auto) Eos % (Auto) Baso % (Auto) Neut # (Auto) Lymph # (Auto) [place] # (Auto) Eos # (Auto) Baso # (Auto) PT INR APTT Sodium Potassium Chloride Carbon Dioxide BUN Creatinine Estimated GFR BUN/Creatinine Ratio Glucose Calcium Magnesium Total Bilirubin AST ALT Alkaline Phosphatase Total Creatine Kinase CK-MB (CK-2) CK-MB (CK-2) Rel Index Troponin I Total Protein Albumin Globulin Albumin/Globulin Ratio Lipase TSH 0.475 Urine Color Yellow Urine Appearance Clear Urine pH 6.5 Ur Specific [place] 1.020 Urine Protein 1+ H Urine Glucose (UA) Negative Urine Ketones Trace H Urine Occult Blood Negative Urine Nitrate Negative Urine Bilirubin Negative Urine Urobilinogen 0.2 Ur Leukocyte Esterase Trace H Urine RBC None seen Urine WBC None seen Ur Squamous Epith Cells 1-5 /hpf Urine Bacteria None seen Hyaline Casts 1-5/lpf Urine Mucus 3+ H Ur Culture Indicated? Cult not indicated U Opiates 300ng/mL cut Negative Ur Oxycodone Screen Negative Urine Methadone Screen Negative Ur Barbiturates Screen Negative U Tricyclic Antidepress Negative Ur Phencyclidine Scrn Negative Ur Amphetamines Screen Negative U Methamphetamines Scrn Negative Ur MDMA Scrn (Ecstasy) Negative U Benzodiazepines Scrn Positive H Urine Cocaine Screen Negative U Marijuana (THC) Screen Negative Ethyl Alcohol COVID-19 PCR 10/23/19 10/24/19 10/24/19 13:05 06:30 06:30 WBC 7.8 RBC 3.88 L Hgb 12.7 Hct 38.1 MCV 98.2 MCH 32.7 MCHC 33.3 RDW 13.6 Plt Count 188 Neut % (Auto) 65.1 Lymph % (Auto) 24.0 L [place] % (Auto) 9.9 Eos % (Auto) 0.6 L Baso % (Auto) 0.4 Neut # (Auto) 5100 Lymph # (Auto) 1900 [place] # (Auto) 800 Eos # (Auto) 0 Baso # (Auto) 0 PT INR APTT Sodium 131 L Potassium 3.9 Chloride 96 L Carbon Dioxide 28 BUN 20 H Creatinine 0.77 Estimated GFR > 60.0 BUN/Creatinine Ratio 26.0 H Glucose 113 H Calcium 9.1 Magnesium 2.2 Total Bilirubin AST ALT Alkaline Phosphatase Total Creatine Kinase CK-MB (CK-2) CK-MB (CK-2) Rel Index Troponin I Total Protein Albumin Globulin Albumin/Globulin Ratio Lipase TSH Urine Color Urine Appearance Urine pH Ur Specific [place] Urine Protein Urine Glucose (UA) Urine Ketones Urine Occult Blood Urine Nitrate Urine Bilirubin Urine Urobilinogen Ur Leukocyte Esterase Urine RBC Urine WBC Ur Squamous Epith Cells Urine Bacteria Hyaline Casts Urine Mucus Ur Culture Indicated? U Opiates 300ng/mL cut Ur Oxycodone Screen Urine Methadone Screen Ur Barbiturates Screen U Tricyclic Antidepress Ur Phencyclidine Scrn Ur Amphetamines Screen U Methamphetamines Scrn Ur MDMA Scrn (Ecstasy) U Benzodiazepines Scrn Urine Cocaine Screen U Marijuana (THC) Screen Ethyl Alcohol COVID-19 PCR Negative Assessment & Plan Assessment & Plan narrative: Mckay Costa is a 73-year-old female with a past medical history significant for hypothyroidism, seasonal allergies, alcohol dependence, chronic neck pain with benzodiazepine dependence and previous opiate dependence in remission, insomnia on Ambien and Benadryl who presented to the ED via EMS after sustaining a ground level fall with arm pain. 1. Ground level fall with pathological multiple bilateral rib fractures and right proximal comminuted humeral fracture, present on admission. Active. -CT head without contrast did not demonstrated any acute intracranial abnormalities. -CT right upper extremity without contrast demonstrated Sseverely comminuted fracture of the right humerus as above -CT chest without contrast demonstrated left posterior 8-10th rib fractures in right posterior lateral 10th and suspected nondisplaced posterior right 11th and 12th rib fractures. No pneumothorax. -Consulted general surgery, Dr. Fitzgerald, and we appreciate his time and recommendations. Continue pulmonary toilet with IS, deep breathing, duonebs every 6 hours as needed for shortness of breath or wheezing and continuous pulse oximetry monitoring. Continue respiratory therapy evaluation and treatment. -Consulted orthopedic surgery, Dr. Dawkins, and we appreciate his time and recommendations. Right proximal comminuted humeral fracture is nonoperable and continue immobilization right arm sling. -Continue pain control with: Frequent icing, acetaminophen 975 mg 3 times daily and Dilaudid 1 mg PO every 6 hours as needed for severe pain and 0.5 mg IV every 6 hours for severe break through pain and home diazepam 5 mg twice daily as needed for muscle spasm. Patient has a significant list of allergies to narcotics and other non-narcotic pain medications making pain control challenging. -Continue physical therapy and occupational therapy evaluation treatment. 2. Alcohol dependence, chronic, present on admission. Stable. -Patient consumes 2-3 glasses of wine most nights and reports she will finish a bottle of wine in approximately 2 days. She denies history of alcohol withdrawal, alcohol seizures or DTs. She has gone significant amount of time without alcohol without symptoms. Discussed sedative use with alcohol intake and risk of respiratory suppression and . Patient acknowledged risk and reports that she is going to stop drinking alcohol. -Continue to monitor for alcohol withdrawal and low threshold to start CIWA protocol. -Consulted [facility] and we appreciate her time and recommendations. 3. Hypothyroidism, chronic, present on admission. Stable. -TSH normal at 0.475. -Continue levothyroxine 150 mcg daily. 4. Insomnia, chronic, present on admission. Stable. -Patient reports she takes Benadryl 150-200 mg and Ambien 5 mg each night. Discussed sedative use with alcohol intake and risk of respiratory suppression and . Patient acknowledged risk and reports that she is going to stop drinking alcohol. -Continue Ambien 5 mg daily at bedtime and Benadryl 25 mg daily at bedtime as needed for insomnia. Continuous pulse oximetry monitoring. 5. Chronic neck pain with benzodiazepine dependence and opiate dependence in remission, present on admission. Stable. -Patient reports multiple narcotic and nonnarcotic pain medication allergies. She previously was on Dilaudid for several years for neck pain and believes she has not been using this medication since approximately 2010. She reports that she cannot take Dilaudid more than a couple times a day and then has to give herself several day break due to severe pruritus. -Continue pain control as above. -Patient takes diazepam 5 mg up to twice daily for muscle spasms which has been continued. Code status: Full code VTE prophylaxis: Enoxaparin, SCDs Disposition: Patient remains hospitalized due to right comminuted humeral fracture and multiple rib fractures for pain control and mobilization. Patient may possibly discharge home with home health versus [facility] facility for rehabilitation. Quality VTE Deep Vein Thrombosis/Pulmonary Embolism Present on Admission: No
--- NOTE | 2019-10-24 11:57 | CM.DANOTE ---
Addendum entered by DREA Lopez 10/24/19 14:32: ADD: Per PT, recommending SNF/24-7 care at d/ currently based on pt's limited ability to complete ADL's and unsteady gait. SW and OT met bedside with pt and discussed SNF/24-7 care at [facility] and home and pt currently states she does not have anyone that can stay with her at discharge for 24/7 care and SW discussed SNF rehab and pt agreeable and aware that currently she is OBS Status and SNF would not be covered by Medicare unless she changes to Inpt Status. SW provided the SNF Choice list and preference is [facility] as pt lives nearby. SW made SNF referral to [facility] and updated that pt currently OBS and they will review. Plan: SW to follow in the morning towards determining if pt can be switched to Inpt Status towards SNF coverage at d/ vs backup plan of private pay vs home with HH and maybe caregiver?? DREA Lopez Original Note: Patient is a 73 year old female who was admitted on 10/23/19 for GLF/rib fx. Pt has MCR and AARP for insurance and her PCP is Roberta WALTERS. EMR was reviewed. Per Ortho MD, pt with multiple rib fxs and humerus fx that are non-operable and need to be immobilized with sling. Per Surgeon, no evidence of pneumothorax or need for surgery at this time. Per MD, pt with ETOH use and ambien and Benadryl prior to GLF. PT/OT have been ordered and pending. SW met bedside with pt and explained role and pt confirms that she lives alone in [place] near the hospital and is independent with ADL's at baseline and drives and does her own grocery shopping. Pt has no local family but has supportive neighbors/friends. Pt's son Kahlil is her DPOA and he lives in [place] near [place]. Pt denies any hx of HH or SNF and denies any ETOH treatment or need for treatment as she only drinks a glass or two of wine a night at the most. Pt currently on CIWA protocol for precaution and pt denies any hx of withdrawal. Pt states she does not need to drink and does not plan to drink again after d/c and takes Ambien and Benadryl due to insomnia issues. PT/OT to work with pt to determine if she will be able to safely manage return to home alone with possible HH when medically stable since pt not currently needing surgery but time to heal and pain management. Plan: SW to follow closely after PT/OT eval and recommendations to determine d/c planning needs. DREA Lopez Discharge Planning/Care Management CM Discharge Assessment Start: 10/24/19 11:45 Freq: Status: Active Protocol: Document 10/24/19 11:46 BF (Rec: 10/24/19 11:56 BF [email or web address]) Discharge Planning Assessment Assigned Strawhat Sizer DREA Naik DPOA/Assigned Designee Name son Kahlil near [place] Advance Directives? No Advance Directives on File No History Provided By Patient,Medical Record Has Patient been admitted in last 30 No days? Prior Living Arrangements House Household Members none Type of transporation used prior to Drives own vehicle admit Independent with ADL's Yes Is patient alert and oriented? Yes Caregiver for Another No Patient/Family Preference Home with Home Health Comment Pending PT/OT initial eval and recommendations Barriers to Discharge No Discharge Plan Home with Home Health Transportation Arrangement local neighbor/friend support for transport Additional Comment Pending PT/OT eval and recommendations Whiteboard Updated in Patient Room with Yes name and ext. # of Strawhat Sizer Review Status In Process Please Provide Date Initial DC 10/24/19 Assessment Was Performed Next Review Type Continued Stay Review
[2019-10-24] MEDS: SODIUM CHLORIDE 0.9% FLUSH 10 ML IV (14:13)
--- NOTE | 2019-10-24 14:30 | OT.IPNOTE ---
Spoke at length with pt regarding prior history, but pt not willing to get up at this time as states has been getting up with nursing to use the BSC often. Dr. Dawkins provided consult to pt due to her right proximal comminuted humeral fracture on 10/23/19 and did not recommend any surgical intervention and to treat with shoulder immobilizer. Called his office to ask if regarding her right arm can be taken out of the sling for any hygiene, dressing , and to clarify if pt able to just dangle her arm down. Office staff states the doctor not in but will have him call to clarify. Nursing notified of call to the doctor.
--- NOTE | 2019-10-24 15:03 | PT.IPTN ---
Physical Therapy Treatment Note M2 PT-IP Current Condition Start: 10/24/19 12:43 Freq: NEEDED Status: Active Protocol: Document 10/24/19 11:03 AB (Rec: 10/24/19 13:43 AB [id number]) Physical Therapy Current Condition Current Condition Evaluation Date 10/24/19 Treatment Diagnosis R proximal humerus fx; difficulty with walking Onset Date 10/23/19 Precautions Shoulder Precautions Sling Weight Bearing Status Weight Bearing Status Non-Weight Bearing Allowed Weight Bearing Amount (enter % RUE NWB or #) (%) M3 PT-IP Subjective Start: 10/24/19 12:43 Freq: NEEDED Status: Active Protocol: Document 10/24/19 14:43 KS (Rec: 10/24/19 16:23 KS [email or web address]) Subjective Physical Therapy Visit Type Type Treatment Note Visit Start Time 14:43 Visit Stop Time 15:03 Total Visit Minutes 20 Number of [place] ADMINISTRATOR Visits 1 Physical Therapy Visit Comments Patient Comments Pt agreeable to work w/ therapy. Therapy Pain Assessment Pain When Pain Assessed At Rest Pain Present Pain Present Pain Reported Location Right Shoulder Scale Used no number given, low pain after medication Description Dull Pain Behaviors Guarding Pain Management Techniques Apply Cold,Re-positioning, Timing of Activity with Medications M4 PT-IP Mobility and Gait Start: 10/24/19 12:43 Freq: NEEDED Status: Active Protocol: Document 10/24/19 14:43 KS (Rec: 10/24/19 16:23 KS [email or web address]) PT-Bed Mobility Assessment Supine to Sit Supine to Sit Minimal Assistance,Moderate Assistance,1 Person Assistance ,Head of Bed Elevated Scooting Scooting to Edge of Bed Minimal Assistance PT-Transfer Assessment Sit to and From Stand Sit to and from Stand Minimal Assistance,1 Person Assistance,Use of Upper Extremities Equipment Transfer Assistive Device Gait Belt,Small Based Quad Cane Orthotic/Prosthetic Devices or Brace: No Transfers Transfer Destination Bed Transfer Technique ambulated using quad cane Transfer Ability Level of Assist 1 Person Assistance,Use of Upper Extremities Comments Mobility Comments Pt in bed upon arrival from therapy w/ sling and ice to RUE. Pt Min to Mod A for sup<> sit w/ cues and HOB elevated. Min A/cues for scooting to EOB and for sit<>stand w/ SBQC. Pt then ambulated ~180 ft w/ SBQC CGA to Min A for balance. Pt appeared to have slight labored breathing, but denied SOB during ambulation. Pt returned to bed CGA to Min A for repositioning. Pt left in bed w/ ice applied to R shoulder and all needs in reach. Gait Assessment Gait Gait Assistance Required: Contact Guard Assist,Minimum Assistance,1 Person Assist Distance (Feet) 180 Able to Maintain Weight Bearing Status Yes During Gait Assistive Devices Assistive Device Gait Belt,Small Based Quad Cane Orthotic/Prosthetic Devices or Brace: No Gait Deviations General Gait Pattern Antalgic,Decreased Stride Length,Decreased Feet Clearance Factors Limiting Gait Function Factors Limiting Gait Function Decreased Activity Tolerance, Decreased Strength,Difficulty Following Directions,Limited Range of Motion,Pain,Poor Balance,Poor Safety Awareness Comments Gait Comments Pt ambulated ~180 ft w/ SBQC and CGA to Min A to remain balanced and cues for SBQC use . Pt denied SOB. Pt slightly impulsive w/ poor safety awareness resulting in 1 x slight LOB w/ Min A to recover. PT-Balance Assessment Sitting Balance and Reactions Static Sitting Balance Ability Good Dynamic Sitting Balance Ability Fair Standing Balance and Reactions Static Standing Balance Ability Fair Dynamic Standing Balance Ability Fair Device Used quad cane M5 PT-IP Objective Assessments Start: 10/24/19 12:43 Freq: NEEDED Status: Active Protocol: Document 10/24/19 11:03 AB (Rec: 10/24/19 13:43 AB [id number]) Orientation Orientation/Cognition Level of Alertness Alert Orientation Name Language Function Ability No Deficits Noted,Hard of Hearing Safety Awareness Decreased Safety Awareness Memory Description Short Term Impaired Gross Range of Motion Lower Extremity ROM Assessment Within Functional Limits Strength Lower Extremity Strength Hip 4-/5 Knee 4-/5 Coordination Assessment Gross Coordination Gross Coordination WNL Muscle Tone Muscle Tone WNL Yes M6 PT-IP Treatment Start: 10/24/19 12:43 Freq: NEEDED Status: Active Protocol: Document 10/24/19 14:43 KS (Rec: 10/24/19 16:23 KS [email or web address]) Physical Therapy Treatment Education Education Provided Precautions,Weight Bearing Status,Safety M7 PT-IP Assessment and Plan Start: 10/24/19 12:43 Freq: NEEDED Status: Active Protocol: Document 10/24/19 14:43 KS (Rec: 10/24/19 16:23 KS [email or web address]) PT Summary Assessment and Plan Potential Rehabilitation Potential Fair Status of Condition at Evaluation Evolving Summary Impairments Pain,ROM,Strength,Balance, Coordination,Sensation,Tone, Cognition,Bed Mobility, Transfers,Gait,Activity Tolerance Assessment Summary Pt Min to Mod A for sit<>sup, Min A for scooting to EOB, Min A for sit<>stand, and CGA to Min A for ambulation. Pt able to tolerate ~180 ft ambulation w/ SBQC w/ 1x slight LOB w/ Min A to recover. Pt had poor safety awareness during ambulation, and required cues for proper use of SBQC. Pt appeared fatigued and to have slight labored breathing during ambulation, but denied SOB. Pt unable to tolerate elbow extension at this time d /t pain and is limited in strength and mobility. Pt will require SNF to improve functional mobility and balance. Goals Bed Mobility Goal Standby Assistance Transfer Goal Minimal Assistance,Cane Gait Goal Minimal Assistance,Cane Gait Distance 100 Days to Meet Goals 5 Frequency of Treatment Frequency Of Treatment Twice a Day Treatment Plan Physical Therapy Treatment Plan Bed Mobility Training,Transfer Training,Gait Training, Therapeutic Exercise,Balance Retraining,Discharge Planning, Hot or Cold Pack,Neuromuscular Re-ed,Coordination Retraining Recommendations To Nursing Amount of Assist Needed 1 Person Assist Discharge Recommendations PT Discharge Recommendations SNF Rehab Transportation Needs at Discharge Wheelchair/Cabulance
--- NOTE | 2019-10-24 19:29 | PM.PN.1 ---
Subjective Subjective Date Patient Seen: 10/24/19 Time Patient Seen: 19:29 Interval history: She has been up and walking around today. Still very limited. Pain in the shoulder is getting better but the ribs are worse today. Exam Vital Signs (past 8 hours): - 10/24/19 13:00 10/24/19 15:15 Temperature 97.1 F L 96.6 F L Pulse Rate 99 H 88 Respiratory Rate 20 18 Blood Pressure 136/95 H 138/75 Pulse Oximetry 96 96 Oxygen Delivery Method Room Air Oxygen Flow Rate 0 Const Orientation: alert and oriented x3 Extrem Other: Unchanged ecchymosis along the forearm. Easily wiggles fingers. Intact sensation in the right arm. Objective Labs Result Diagrams: 10/24/19 06:30 10/24/19 06:30 Labs: Laboratory Results - last 24 hr 10/24/19 10/24/19 06:30 06:30 WBC 7.8 RBC 3.88 L Hgb 12.7 Hct 38.1 MCV 98.2 MCH 32.7 MCHC 33.3 RDW 13.6 Plt Count 188 Neut % (Auto) 65.1 Lymph % (Auto) 24.0 L [place] % (Auto) 9.9 Eos % (Auto) 0.6 L Baso % (Auto) 0.4 Neut # (Auto) 5100 Lymph # (Auto) 1900 [place] # (Auto) 800 Eos # (Auto) 0 Baso # (Auto) 0 Sodium 131 L Potassium 3.9 Chloride 96 L Carbon Dioxide 28 BUN 20 H Creatinine 0.77 Estimated GFR > 60.0 BUN/Creatinine Ratio 26.0 H Glucose 113 H Calcium 9.1 Magnesium 2.2 Assessment & Plan Assessment & Plan narrative: Right proximal humerus fracture Continuing sling. May come out of the sling and let arm hang for hygiene purposes only. No pendulum exercises at this point. Follow-up in 2 weeks in my office Quality VTE Deep Vein Thrombosis/Pulmonary Embolism Present on Admission: No
[2019-10-24] MEDS: diphenhydrAMINE 25 MG TABLET PO (23:24)
[2019-10-25] MEDS: diazePAM 5 MG TABLET PO (02:07)
[2019-10-25] MEDS: HYDROMORPHONE 2 MG TABLET 1 MG PO ×2 (02:13→08:16)
[2019-10-25] MEDS: HYDROMORPHONE 0.5 MG INJ IV (03:51)
[2019-10-25 04:15] VITALS: BP 114/68; PULSE 100; RESP 20; TEMP 37.2; O2SAT 98
[2019-10-25] MEDS: LEVOTHYROXINE 150 MCG TABLET PO (05:31)
[2019-10-25] MEDS: LORATADINE 10 MG TABLET PO (08:15)
[2019-10-25] MEDS: ACETAMINOPHEN 325 MG TABLET 975 MG PO ×3 (08:16→21:47)
[2019-10-25] MEDS: ENOXAPARIN 40 MG/0.4 ML SYRINGE SUBCUT (08:17)
[2019-10-25 08:36] VITALS: BP 157/84; PULSE 83; RESP 17; TEMP 37; O2SAT 98
[2019-10-25] MEDS: FLUTICASONE 120 SPRAY/16 GM SPRAY.SUSP NASAL ×2 (09:13→21:48)
--- NOTE | 2019-10-25 09:23 | OT.IP.EVAL ---
Past Medical History (Last Updated 10/23/19 @ 23:47 by Naz San DO) Alcohol dependence (Acute) Cervical vertebral fusion (Acute) Hypothyroidism (Acute) Insomnia (Acute) Surgical History (Last Updated 10/23/19 @ 23:47 by aNz San DO) Gastric bypass status for obesity (Acute) S/P cervical spinal fusion (Acute) Occupational Therapy Inpatient Evaluation/Re-Eval M1 PT/OT-IP Prior Functional Status Start: 10/25/19 10:35 Freq: NEEDED Status: Active Protocol: Document 10/25/19 10:36 [facility] (Rec: 10/25/19 10:50 [facility] [id number]) Medical Review Prior Functional Status Medical History Reviewed Yes Communication able to make needs known Mobility and Gait pt stated that she is independent with all mobilities and ambulation without AD Activities of Daily Living and IADL's Completely independent for all needs, including driving. Social History Household Members none Living Arrangements House Number of Stairs To Enter/Railing? no stairs to enter from the garage Home Environment Standard Height Toilet,Tub/ Shower Home Equipment Front Wheel Walker,Straight Cane,Hand Held Shower,Grab Bars In Shower Additional Social History Comment pt have an adjustable bed but stated that she sleeps on her sofa M2 OT-IP Current Condition Start: 10/25/19 10:35 Freq: Status: Active Protocol: Document 10/25/19 10:36 [facility] (Rec: 10/25/19 10:50 [facility] [id number]) Occupational Therapy Current Condition Current Condition Evaluation Date 10/25/19 Treatment Diagnosis Right proximal comminuted humeral fracture Diagnosis Onset Date 10/23/19 Post Operative Precautions Other Precautions Per Dr. Dawkins out of sling for hygiene, only to hang. Weight Bearing Status Weight Bearing Status Non-Weight Bearing Allowed Weight Bearing Amount (enter % NWB RUE or #) (%) M3 OT- IP Subjective and Pain Start: 10/25/19 10:35 Freq: Status: Active Protocol: Document 10/25/19 10:36 [facility] (Rec: 10/25/19 10:50 [facility] [id number]) OT- Subjective Occupational Therapy Visit Type Type Initial Evaluation Visit Start Time 09:23 Visit Stop Time 09:50 Total Visit Minutes 27 Occupational Therapy Visit Comments Patient Comments Pt agreed to see OT. Patient/Caregiver Goals To go home, but realizes will not be able to care for herself. OT Pain Assessment Pain When Pain Assessed At Rest Pain Present Pain Present Pain Reported Location Right Shoulder Intensity 8 M4 OT- IP ADL's Start: 10/25/19 10:35 Freq: Status: Active Protocol: Document 10/25/19 10:36 [facility] (Rec: 10/25/19 10:50 [facility] [id number]) OT [id number] General Evaluation Self-Feeding Ability Independent OT ADL-Grooming General Evaluation Grooming Ability Independent Comments OT Grooming Comments After set-up while seated in the recliner. OT ADL-Dressing General Eval Lower Body Dressing Ability Maximum Assistance Comments OT Dressing Comments At this time pt will be dependent for all sling management needs and MAX A for LB dressing as needing assist to doreen clothing over her feet and to assist to help pull up over her right hip. OT ADL-Toileting General Evaluation Toileting Ability Moderate Assistance,Maximum Assistance Areas Needing Assistance Perform Perineal Hygiene Comments OT Toileting Comments Pt needing assist for completeness for pericare needs and to help pull up brief all the way up in the back and right side. OT ADL-Bathing Comments OT Bathing Comments Not performed. M5 OT- IP IADL's Start: 10/25/19 10:35 Freq: Status: Active Protocol: Document 10/25/19 10:36 [facility] (Rec: 10/25/19 10:50 [facility] [id number]) OT-Instrumental Activities of Daily Living Home Safety Awareness Ability to Problem Solve Emergency Able to Problem Solve Situations Medication Management Medication Management No Deficits Identified Money Management Money Management No Deficits Identified Meal Preparation Meal Preparation Comments Pt will be dependent and need assist at this time. Superintendent Schools Superintendent Schools Comments Pt will be dependent and need assist at this time. M6 OT- IP Functional Cognition Start: 10/25/19 10:35 Freq: Status: Active Protocol: Document 10/25/19 10:36 [facility] (Rec: 10/25/19 10:50 [facility] [id number]) Cognitive Factors Limiting Selfcare Function Cognitive Ability Level of Alertness Alert Patient Orientation Name,Place,Situation Attention Span Ability Capable of Focused Attention, Capable of Sustained Attention Ability to Follow Commands Able to Follow One Step Commands Problem Solving Ability No deficits Noted Cognitive Comments Cognitive Assessment Comments Pt a little forgetful/groggy especially when just waking up or on pain medication. OT- Vision and Hearing OT- Hearing Assessment OT- Hearing Assessment WFL M7 OT- IP Mobility and Balance Start: 10/25/19 10:35 Freq: Status: Active Protocol: Document 10/25/19 10:36 [facility] (Rec: 10/25/19 10:50 [facility] [id number]) OT- Bed Mobility Assessment Supine to Sit Supine to Sit Assist Minimal Assistance Sit to Supine Sit to Supine Assist Minimal Assistance OT-Transfer Assessment Sit to and From Stand Sit to and from Stand Minimal Assistance,Moderate Assistance Comments Mobility Comments Per nursing , pt needing MODA to stand especially for the lower surfaces. OT- Gait Assessment Comments Gait Ability Comments See PT notes, pt not wanting to get up at this time as just got back from the bathroom with nursing. OT- Balance Assessment Sitting Balance and Reactions Static Sitting Balance Ability Normal M8 OT- IP Objective Assessments Start: 10/25/19 10:35 Freq: Status: Active Protocol: Document 10/25/19 10:36 [facility] (Rec: 10/25/19 10:50 [facility] [id number]) OT Gross Range of Motion Upper Extremity Range of Motion Assessment Right Impaired M9 OT- IP Assessment and Plan Start: 10/25/19 10:35 Freq: Status: Active Protocol: Document 10/25/19 10:36 [facility] (Rec: 10/25/19 10:50 [facility] [id number]) OT Summary Assessment and Plan Potential Rehabilitation Potential Good Analytic Complexity at Evaluation Low Summary OT Impairments Pain,Functional Mobility, Grooming,Dressing,Toileting, Bathing,Toilet Transfers, Shower Transfers,Activity Tolerance Progress Towards Goals Slow Progress due to Pain,Slow Progress due to Medical Issues Assessment Summary Pt low complexity with recent right proximal comminuted humeral fracture and to be in a sling at all times except for hygiene to hang per Dr. Dawkins. Pt at this time needing MODA-MAX A for all LB dressing and toileting needs. Pt lives alone and will not be able to care for herself at this time and would benefit from skilled rehab versus someone to stay with her to assist. Pt states lives alone and does not have anyone to assist . Goals Grooming Goal Independent Dressing Goal Independent Toileting Goal Independent Bathing Goal Independent Toilet Transfer Goal Independent Shower Transfer Goal Independent Days to Meet Goals 20 Frequency of Treatment Frequency Of Treatment Once a Day Treatment Plan OT Treatment Plan ADL Training,Functional Mobility,Patient/Family Education,Discharge Planning Other Treatment Recommendations and Next Sling managemeetn and RUE Treatment Focus positioning needs. Discharge Recommendations OT Discharge Recommendations SNF Rehab Home Equipment Needs defer to SNF Transportation Needs at Discharge Wheelchair/Cabulance
--- NOTE | 2019-10-25 10:50 | PT.IPTN ---
Physical Therapy Treatment Note M2 PT-IP Current Condition Start: 10/24/19 12:43 Freq: NEEDED Status: Active Protocol: Document 10/24/19 11:03 [facility] (Rec: 10/24/19 13:43 [facility] [id number]) Physical Therapy Current Condition Current Condition Evaluation Date 10/24/19 Treatment Diagnosis R proximal humerus fx; difficulty with walking Onset Date 10/23/19 Precautions Shoulder Precautions Sling Weight Bearing Status Weight Bearing Status Non-Weight Bearing Allowed Weight Bearing Amount (enter % RUE NWB or #) (%) M3 PT-IP Subjective Start: 10/24/19 12:43 Freq: NEEDED Status: Active Protocol: Document 10/25/19 10:27 [facility] (Rec: 10/25/19 11:57 [facility] [id number]) Subjective Physical Therapy Visit Type Type Treatment Note Visit Start Time 10:27 Visit Stop Time 10:50 Total Visit Minutes 23 Number of CANAL SUPERINTENDENT Visits 2 Physical Therapy Visit Comments Patient Comments Pt agreeable to work w/ therapy. Therapy Pain Assessment Pain When Pain Assessed During Mobility Pain Present Pain Present Pain Reported Location Right Shoulder Intensity 7 Scale Used Numeric (0 - 10) Description Dull Pain Behaviors Guarding Pain Management Techniques Apply Cold,Re-positioning, Timing of Activity with Medications M4 PT-IP Mobility and Gait Start: 10/24/19 12:43 Freq: NEEDED Status: Active Protocol: Document 10/25/19 10:27 [facility] (Rec: 10/25/19 11:57 [facility] [id number]) PT-Bed Mobility Assessment Supine to Sit Supine to Sit Minimal Assistance,Moderate Assistance,1 Person Assistance ,Head of Bed Elevated Sit to Supine Sit to Supine Contact Guard Assistance Scooting Scooting to Edge of Bed Minimal Assistance Scooting Up and Down in Bed Maximum Assistance PT-Transfer Assessment Sit to and From Stand Sit to and from Stand Minimal Assistance,1 Person Assistance,Use of Upper Extremities Equipment Transfer Assistive Device Gait Belt,Small Based Quad Cane Orthotic/Prosthetic Devices or Brace: No Transfers Transfer Destination Bed Transfer Technique ambulated using quad cane Transfer Ability Level of Assist 1 Person Assistance,Use of Upper Extremities Comments Mobility Comments Pt in bed upon arrival from therapy. Min to Mod A for sit< >sup w/ HOB elevated and Min A for scooting to EOB as well as sit<>stand w/ SBQC. Pt then amvbulated ~200 ft w/ SBQC and CGA to Min A for balance. Pt required 3x standing rest breaks during ambulation d/t fatigue and needed cues for SBQC management and avoiding obstacles in hallway. Pt expressed increase pain to 7/ 10 during ambulation. Pt returned to room and sit<>sup Min A. Repositoned pts sling for comfort and she refused elbow extension d/t pain. Max A x2 for scooting up in bed. Pt left w/ REFRIGERATOR ASSEMBLER. Gait Assessment Gait Gait Assistance Required: Contact Guard Assist,Minimum Assistance,1 Person Assist Distance (Feet) 200 Able to Maintain Weight Bearing Status Yes During Gait Assistive Devices Assistive Device Gait Belt,Small Based Quad Cane Orthotic/Prosthetic Devices or Brace: No Gait Deviations General Gait Pattern Antalgic,Decreased Stride Length,Decreased Feet Clearance Factors Limiting Gait Function Factors Limiting Gait Function Decreased Activity Tolerance, Decreased Strength,Difficulty Following Directions,Limited Range of Motion,Pain,Poor Balance,Poor Safety Awareness Comments Gait Comments Please refer to mobilty section for details. PT-Balance Assessment Sitting Balance and Reactions Static Sitting Balance Ability Good Dynamic Sitting Balance Ability Fair Standing Balance and Reactions Static Standing Balance Ability Fair Dynamic Standing Balance Ability Fair Device Used quad cane M5 PT-IP Objective Assessments Start: 10/24/19 12:43 Freq: NEEDED Status: Active Protocol: Document 10/24/19 11:03 [facility] (Rec: 10/24/19 13:43 [facility] [id number]) Orientation Orientation/Cognition Level of Alertness Alert Orientation Name Language Function Ability No Deficits Noted,Hard of Hearing Safety Awareness Decreased Safety Awareness Memory Description Short Term Impaired Gross Range of Motion Lower Extremity ROM Assessment Within Functional Limits Strength Lower Extremity Strength Hip 4-/5 Knee 4-/5 Coordination Assessment Gross Coordination Gross Coordination WNL Muscle Tone Muscle Tone WNL Yes M6 PT-IP Treatment Start: 10/24/19 12:43 Freq: NEEDED Status: Active Protocol: Document 10/25/19 10:27 [facility] (Rec: 10/25/19 11:57 [facility] [id number]) Physical Therapy Treatment Education Education Provided Precautions,Weight Bearing Status,Safety M7 PT-IP Assessment and Plan Start: 10/24/19 12:43 Freq: NEEDED Status: Active Protocol: Document 10/25/19 10:27 [facility] (Rec: 10/25/19 11:57 [facility] [id number]) PT Summary Assessment and Plan Potential Rehabilitation Potential Fair Status of Condition at Evaluation Evolving Summary Impairments Pain,ROM,Strength,Balance, Coordination,Sensation,Tone, Cognition,Bed Mobility, Transfers,Gait,Activity Tolerance Assessment Summary Pt continues to require Min to Mod A for most bed mobility and trasnfers, however Max A x2 for scooting up in bed. CGA to Min A during ambulation w/ SBQC for balance and cues. Pt able to tolerate 200 ft ambulation w/ SBQC, requiring 3x standing rest breaks d/t fatigue. Pt will require SNF to improve functional mobility and balance. Goals Bed Mobility Goal Standby Assistance Transfer Goal Minimal Assistance,Cane Gait Goal Minimal Assistance,Cane Gait Distance 100 Days to Meet Goals 5 Frequency of Treatment Frequency Of Treatment Twice a Day Treatment Plan Physical Therapy Treatment Plan Bed Mobility Training,Transfer Training,Gait Training, Therapeutic Exercise,Balance Retraining,Discharge Planning, Hot or Cold Pack,Neuromuscular Re-ed,Coordination Retraining Recommendations To Nursing Amount of Assist Needed 1 Person Assist Discharge Recommendations PT Discharge Recommendations SNF Rehab Transportation Needs at Discharge Wheelchair/Cabulance
--- NOTE | 2019-10-25 10:56 | CM.DPC ---
DCP SNF Planning: Per MD, pt with increased need for IV Dilaudid for better pain management and per RN having some SOB with ambulation/exertion. Per JENS Harrison, EHR determined pt meets Inpt Status criteria starting today 10/25/19. SW met bedside with pt and updated on Inpt Status and pt very appreciative and feels SNF still needed at d/c prior to safe return home as dominant arm in sling and pain management issues with rib fxs. SW spoke to admissions at [facility] and they can accept pt when stable for d/c and aware pt now Inpt Status. Pt preference is [facility] at d/c. PASRR completed in anticipation of SNF. Plan: SW to follow for likely pt d/c to [facility] when medically stable prior to safe return home alone. DREA Lopez
[2019-10-25] MEDS: HYDROMORPHONE 1 MG INJ 0.7 MG IV ×2 (11:41→18:03)
[2019-10-25 12:00] VITALS: BP 154/80; PULSE 80; RESP 18; TEMP 37.1; O2SAT 97
--- NOTE | 2019-10-25 12:13 | P.PN_ITS ---
Subjective Subjective Date Patient Seen: 10/25/19 Time Patient Seen: 12:13 Interval history: Mckay Costa is a 73-year-old female with a past medical history significant for hypothyroidism, seasonal allergies, alcohol dependence, chronic neck pain with benzodiazepine dependence and previous opiate dependence in remission, insomnia on Ambien and Benadryl who presented to the ED via EMS after sustaining a ground level fall with arm pain. The patient is returning to bed with nursing staff when entering the room. She appears moderately uncomfortable due to pain of her right arm. She just received Dilaudid IV for severe breakthrough pain which does seemingly help control her pain but she states this only brings her down to a 7/10. She is receiving acetaminophen 975 mg 3 times daily and will increase her dilaudid dosing today after discussion. She reports she will live with the itching caused by hydromorphone. She continues to have mild pain with deep inspiration and occasional splinting noted. She has no other complaints and denies headache, chest pain, shortness of breath, abdominal pain, nausea, vomiting, fever, chills, dysuria, diarrhea or constipation. She is voiding without difficulty. Patient had a bowel movement prior to admission and a bowel regimen has been implemented to avoid opiate induced constipation. Exam Vital Signs (past 8 hours): - 10/25/19 04:15 10/25/19 08:36 Temperature 99.0 F 98.6 F Pulse Rate 100 H 83 Respiratory Rate 20 17 Blood Pressure 114/68 157/84 H Pulse Oximetry 98 98 Oxygen Delivery Method Room Air Oxygen Flow Rate 0 Narrative Exam Narrative: General: Elderly female getting into bed after using the restroom, appears uncomfortable but in no acute distress, well-developed, well- nourished, appropriately interactive. HEENT: Normocephalic, atraumatic. External ears without defect. Pupils equal, round, and reactive to light. Anicteric sclerae, moist conjunctivae, and no lid lag. Oropharynx free of erythema and cobble stoning with moist oral mucosa. Neck: Supple with full range of motion. No lymphadenopathy or thyromegaly. Cardiovascular: Regular rate and rhythm without murmurs, rubs, or gallops appreciated Pulmonary: Clear to auscultation bilaterally without crackles, wheezes, or rhonchi. Normal respiratory effort with no use of accessory muscles. Mild pain with inspiration due to rib fractures with mild splinting today. Abdomen: Soft, bowel tones present, nontender, nondistended. No hepatosplenomega ly or masses appreciated. Extremities: No clubbing, cyanosis, or edema. Right arm in sling with distal movement, sensation and pulses intact with large bruise over medial bicep. Scattered bruising throughout upper body. Skin: Normal temperature, turgor, and texture; no rash, ulcers, or subcutaneous nodules appreciated. Neurological: Cranial nerves grossly intact. Psychiatric: Normal mood and affect. Alert and oriented to person, place, and time. Mild cognitive impairment with short-term memory recall deficit. Objective Labs Result Diagrams: 10/24/19 06:30 10/24/19 06:30 Assessment & Plan Assessment & Plan narrative: Mckay Costa is a 73-year-old female with a past medical history significant for hypothyroidism, seasonal allergies, alcohol dependence, chronic neck pain with benzodiazepine dependence and previous opiate dependence in remission, insomnia on Ambien and Benadryl who presented to the ED via EMS after sustaining a ground level fall with arm pain. 1. Ground level fall with pathological multiple bilateral rib fractures and right proximal comminuted humeral fracture, present on admission. Active. -CT head without contrast did not demonstrated any acute intracranial abnormalit ies. -CT right upper extremity without contrast demonstrated Sseverely comminuted fracture of the right humerus as above -CT chest without contrast demonstrated left posterior 8-10th rib fractures in right posterior lateral 10th and suspected nondisplaced posterior right 11th and 12th rib fractures. No pneumothorax. -Consulted general surgery, Dr. Fitzgerald, and we appreciate his time and recommendations. Continue pulmonary toilet with IS, deep breathing, duonebs every 6 hours as needed for shortness of breath or wheezing and continuous pulse oximetry monitoring. Continue respiratory therapy evaluation and treatment. -Consulted orthopedic surgery, Dr. Dawkins, and we appreciate his time and recommendations. Right proximal comminuted humeral fracture is nonoperable and continue immobilization right arm sling. -Continue pain control with: Frequent icing, acetaminophen 975 mg 3 times daily and increased Dilaudid to 2 mg PO every 6 hours as needed for severe pain and 0.7 mg IV every 6 hours for severe break through pain and home diazepam 5 mg twice daily as needed for muscle spasm. Patient has a significant list of allergies to narcotics and other non-narcotic pain medications making pain control challenging. -Continue physical therapy and occupational therapy evaluation treatment, currently recommending SNF placement. 2. Alcohol dependence, chronic, present on admission. Stable. -Patient consumes 2-3 glasses of wine most nights and reports she will finish a bottle of wine in approximately 2 days. She denies history of alcohol withdrawal, alcohol seizures or DTs. She has gone significant amount of time without alcohol without symptoms. Discussed sedative use with alcohol intake and risk of respiratory suppression and . Patient acknowledged risk and reports that she is going to stop drinking alcohol. -Continue to monitor for alcohol withdrawal and low threshold to start CIWA protocol. No current signs or symptoms of withdrawal but is receiving diazepam as noted above. -Consulted MANUAL CONTROL AUGER PRESS OPERATOR and we appreciate her time and recommendations. 3. Hypothyroidism, chronic, present on admission. Stable. -TSH normal at 0.475. -Continue levothyroxine 150 mcg daily. 4. Insomnia, chronic, present on admission. Stable. -Patient reports she takes Benadryl 150-200 mg and Ambien 5 mg each night. Discussed sedative use with alcohol intake and risk of respiratory suppression and . Patient acknowledged risk and reports that she is going to stop drinking alcohol. -Continue Ambien 5 mg daily at bedtime and Benadryl 25 mg daily at bedtime as needed for insomnia. Continuous pulse oximetry monitoring. 5. Chronic neck pain with benzodiazepine dependence and opiate dependence in remission, present on admission. Stable. -Patient reports multiple narcotic and nonnarcotic pain medication allergies. She previously was on Dilaudid for several years for neck pain and believes she has not been using this medication since approximately 2010. She reports that she cannot take Dilaudid more than a couple times a day and then has to give herself several day break due to severe pruritus. -Continue pain control as above. -Patient takes diazepam 5 mg up to twice daily for muscle spasms which has been continued. Code status: Full code VTE prophylaxis: Enoxaparin, SCDs Disposition: Patient remains hospitalized due to right comminuted humeral fracture and multiple rib fractures for pain control and mobilization. Changed to inpatient today. Likely SNF discharge after 3 midnights or home with home health depending on continued progress with PT. Quality VTE Deep Vein Thrombosis/Pulmonary Embolism Present on Admission: No
--- NOTE | 2019-10-25 13:47 | PC.NURSE ---
SHIFT SUMMARY: PATIENT PLEASANT AND COOPERATIVE, MOTIVATED TO DO MORE INDEP THROUGHOUT SHIFT. MIN ASSIST IN AND OUT OF BED, AMB TO BR SBA WITH 4PT CANE, ABLE TO SIT ON TOILET WITHOUT ASSIST. ABLE TO CLEANSE RUSLAN-AREA AFTERWARDS INDEP. SAT UP IN RECLINER THIS AM. PAIN MED REGIMEN CHANGED BY DR CERVANTES THIS AM. PATIENT STATES IS HELPING. SLING IN PLACE ALL SHIFT. CMS INTACT. STATES ICE PACKS HELP VERY MUCH. REFRESHING NEEDED T/O SHIFT. PATIENT CALLS FOR ASSIST APPROPRIATELY.
[2019-10-25 14:24] VITALS: PULSE 86; RESP 16; O2SAT 96
--- NOTE | 2019-10-25 15:12 | PT.IPTN ---
Physical Therapy Treatment Note M2 PT-IP Current Condition Start: 10/24/19 12:43 Freq: NEEDED Status: Active Protocol: Document 10/24/19 11:03 AB (Rec: 10/24/19 13:43 AB [id number]) Physical Therapy Current Condition Current Condition Evaluation Date 10/24/19 Treatment Diagnosis R proximal humerus fx; difficulty with walking Onset Date 10/23/19 Precautions Shoulder Precautions Sling Weight Bearing Status Weight Bearing Status Non-Weight Bearing Allowed Weight Bearing Amount (enter % RUE NWB or #) (%) M3 PT-IP Subjective Start: 10/24/19 12:43 Freq: NEEDED Status: Active Protocol: Document 10/25/19 14:43 KS (Rec: 10/25/19 15:29 KS [id number]) Subjective Physical Therapy Visit Type Type Treatment Note Visit Start Time 14:43 Visit Stop Time 15:12 Total Visit Minutes 29 Number of OFFSET SECOND PRESS OPERATOR Visits 3 Physical Therapy Visit Comments Patient Comments Pt agreeable to work w/ therapy. Therapy Pain Assessment Pain When Pain Assessed During Mobility Pain Present Pain Present Pain Reported Location Right Shoulder Intensity 7 Scale Used Numeric (0 - 10) Description Dull Pain Behaviors Guarding Pain Management Techniques Apply Cold,Re-positioning, Timing of Activity with Medications M4 PT-IP Mobility and Gait Start: 10/24/19 12:43 Freq: NEEDED Status: Active Protocol: Document 10/25/19 14:43 KS (Rec: 10/25/19 15:29 KS [id number]) PT-Bed Mobility Assessment Supine to Sit Supine to Sit Contact Guard Assistance, Minimal Assistance,1 Person Assistance,Head of Bed Elevated Sit to Supine Sit to Supine Contact Guard Assistance,Head of Bed Elevated,Bedrails PT-Transfer Assessment Sit to and From Stand Sit to and from Stand Contact Guard Assistance,1 Person Assistance,Use of Upper Extremities Equipment Transfer Assistive Device Gait Belt,Small Based Quad Cane Orthotic/Prosthetic Devices or Brace: No Transfers Transfer Destination Bed,Toilet Transfer Technique ambulated using quad cane Transfer Ability Level of Assist Contact Guard Assistance, Minimal Assistance,1 Person Assistance,Use of Upper Extremities Comments Mobility Comments Pt in bed upon arrival. CGA to Min A for sup<>sit w/ HOB elevated. CGA for sit<>stand from raised bed. Pt then ambulated to toilet CGA w/ SBQC. Pt able to stand<>sit<> stand from toilet CGA. Pt unable to perform own pericare . Pt then ambulated ~220 ft w/ CGA and SBQC. Pt still has poor safety awareness and needs min cues to avoid objects as well as reminders for breathing techniques. Pt had labored breathing during ambulation, but denied light headedness or SOB. Pt returned to room, CGA for stand<>sit<> sup in bed w/ HOB elevated. Pt then performed 1x AAROM for R elbow flexion/extension. Unable to reach full extension d/t pain. Pt left in bed w/ all needs in reach and [employer] in room. Gait Assessment Gait Gait Assistance Required: Contact Guard Assist,1 Person Assist Distance (Feet) 220 Able to Maintain Weight Bearing Status Yes During Gait Assistive Devices Assistive Device Gait Belt,Small Based Quad Cane Gait Deviations General Gait Pattern Antalgic,Decreased Stride Length,Decreased Feet Clearance Factors Limiting Gait Function Factors Limiting Gait Function Decreased Activity Tolerance, Decreased Strength,Difficulty Following Directions,Limited Range of Motion,Pain,Poor Balance,Poor Safety Awareness Comments Gait Comments Please refer to mobilty section for details. PT-Balance Assessment Sitting Balance and Reactions Static Sitting Balance Ability Good Dynamic Sitting Balance Ability Fair Standing Balance and Reactions Static Standing Balance Ability Fair Dynamic Standing Balance Ability Fair Device Used quad cane M5 PT-IP Objective Assessments Start: 10/24/19 12:43 Freq: NEEDED Status: Active Protocol: Document 10/24/19 11:03 AB (Rec: 10/24/19 13:43 AB [id number]) Orientation Orientation/Cognition Level of Alertness Alert Orientation Name Language Function Ability No Deficits Noted,Hard of Hearing Safety Awareness Decreased Safety Awareness Memory Description Short Term Impaired Gross Range of Motion Lower Extremity ROM Assessment Within Functional Limits Strength Lower Extremity Strength Hip 4-/5 Knee 4-/5 Coordination Assessment Gross Coordination Gross Coordination WNL Muscle Tone Muscle Tone WNL Yes M6 PT-IP Treatment Start: 10/24/19 12:43 Freq: NEEDED Status: Active Protocol: Document 10/25/19 14:43 KS (Rec: 10/25/19 15:29 KS [id number]) Physical Therapy Treatment Exercises Exercises Elbow Flexion/Extension Education Education Provided Precautions,Weight Bearing Status,Safety M7 PT-IP Assessment and Plan Start: 10/24/19 12:43 Freq: NEEDED Status: Active Protocol: Document 10/25/19 14:43 KS (Rec: 10/25/19 15:29 KS [id number]) PT Summary Assessment and Plan Potential Rehabilitation Potential Fair Status of Condition at Evaluation Evolving Summary Impairments Pain,ROM,Strength,Balance, Coordination,Sensation,Tone, Cognition,Bed Mobility, Transfers,Gait,Activity Tolerance Assessment Summary Pt CGA to Min A for mobility, transfers, and ambulation. She requires cues for safety and breathing while ambulating w/ SBQC. Pt fatigued w/ labored breathing after ambulation. Pt unable to perform pericare at this time. Pt will benefit from SNF to improve functional independence and tolerance for activity. Goals Bed Mobility Goal Standby Assistance Transfer Goal Minimal Assistance,Cane Gait Goal Minimal Assistance,Cane Gait Distance 100 Days to Meet Goals 5 Frequency of Treatment Frequency Of Treatment Twice a Day Treatment Plan Physical Therapy Treatment Plan Bed Mobility Training,Transfer Training,Gait Training, Therapeutic Exercise,Balance Retraining,Discharge Planning, Hot or Cold Pack,Neuromuscular Re-ed,Coordination Retraining Recommendations To Nursing Amount of Assist Needed 1 Person Assist Discharge Recommendations PT Discharge Recommendations SNF Rehab Transportation Needs at Discharge Wheelchair/Cabulance
[2019-10-25] MEDS: HYDROMORPHONE 2 MG TABLET PO (15:21)
[2019-10-25 15:42] VITALS: BP 128/73; PULSE 90; RESP 18; TEMP 36.1; O2SAT 99
[2019-10-25 19:52] VITALS: BP 130/74; PULSE 80; RESP 18; TEMP 35.8; O2SAT 98
[2019-10-25] MEDS: ZOLPIDEM 5 MG TABLET PO (23:33)
[2019-10-25] MEDS: diphenhydrAMINE 25 MG TABLET PO (23:33)
[2019-10-26] VITALS (8 sets, daily range): BP systolic 114–152; BP diastolic 66–93; PULSE 84–95; RESP 16–19; TEMP 36.1–37; O2SAT 96–100
[2019-10-26] MEDS: HYDROMORPHONE 2 MG TABLET PO ×3 (04:27→21:29)
[2019-10-26] MEDS: LEVOTHYROXINE 150 MCG TABLET PO (05:27)
--- NOTE | 2019-10-26 08:26 | P.PN_ITS ---
Subjective Subjective Date Patient Seen: 10/26/19 Time Patient Seen: 08:26 Interval history: Right shoulder pain is [id number]. Denies numbness tingling in the right upper extremity. Otherwise without complaints this morning. Exam Vital Signs (past 8 hours): - 10/26/19 04:00 Temperature 97.8 F Pulse Rate 95 H Respiratory Rate 18 Blood Pressure 136/93 H Pulse Oximetry 99 Oxygen Delivery Method Room Air Oxygen Flow Rate 0 Narrative Exam Narrative: 73-year-old female resting comfortably in bed in no apparent distress. Right arm is in a sling. Ecchymosis present right upper extremity into mid biceps. Sensation grossly intact to light touch wrist and hand. She is able wiggle all fingers as well as flex and extend her wrist. She has good capillary refill. Right upper extremity is warm and dry. Objective Labs Result Diagrams: 10/24/19 06:30 10/24/19 06:30 Assessment & Plan Assessment & Plan narrative: Right proximal humerus fracture. Patient may come out of sling for hygiene purposes only. No pendulum exercises at this point. Follow-up [facility] in 2 weeks. Quality VTE Deep Vein Thrombosis/Pulmonary Embolism Present on Admission: No
[2019-10-26] MEDS: ACETAMINOPHEN 325 MG TABLET 975 MG PO ×3 (08:30→21:29)
[2019-10-26] MEDS: FLUTICASONE 120 SPRAY/16 GM SPRAY.SUSP NASAL ×2 (08:31→21:31)
[2019-10-26] MEDS: LORATADINE 10 MG TABLET PO (08:32)
[2019-10-26] MEDS: ENOXAPARIN 40 MG/0.4 ML SYRINGE SUBCUT (08:32)
--- NOTE | 2019-10-26 10:18 | P.PN_ITS ---
Subjective Subjective Date Patient Seen: 10/26/19 Time Patient Seen: 10:35 Interval history: Mckay Costa is a 73-year-old female with a past medical history significant for hypothyroidism, seasonal allergies, alcohol dependence, chronic neck pain with benzodiazepine dependence and previous opiate dependence in remission, insomnia on Ambien and Benadryl who presented to the ED via EMS after sustaining a ground level fall with arm pain. She was found to have a R h umeral fracture as well as rib fractures and is seen for follow up today. She has improved pain control today with the increased doses of dilaudid. She has not had a bowel movement since admission. Agreed to prune juice and does take senna at home which we will start this evening. She is wary of any new medications. She complains her arm pain is a 7/10 at worst but also states it is a tolerable pain. Exam Vital Signs (past 8 hours): - 10/26/19 04:00 10/26/19 07:26 Temperature 97.8 F 97.4 F L Pulse Rate 95 H 85 Respiratory Rate 18 16 Blood Pressure 136/93 H 114/78 Pulse Oximetry 99 98 Oxygen Delivery Method Room Air Oxygen Flow Rate 0 Narrative Exam Narrative: General: Elderly female, well-developed, well-nourished, appropriately interactive. No acute distress. HEENT: Normocephalic, atraumatic. External ears without defect. Pupils equal, round, and reactive to light. Anicteric sclerae, moist conjunctivae, and no lid lag. Oropharynx free of erythema and cobble stoning with moist oral mucosa. Neck: Supple with full range of motion. No lymphadenopathy or thyromegaly. Cardiovascular: Regular rate and rhythm without murmurs, rubs, or gallops appreciated Pulmonary: Clear to auscultation bilaterally without crackles, wheezes, or rhonchi. Normal respiratory effort with no use of accessory muscles. Mild pain with inspiration due to rib fractures with mild splinting today. Abdomen: Soft, bowel tones present, nontender, nondistended. No hepatosplenomegaly or masses appreciated. Extremities: No clubbing, cyanosis, or edema. Right arm in sling with distal movement, sensation and pulses intact with large bruise over medial bicep. Scattered bruising throughout upper body and small hypopigmented lesion on R upper arm near sling border, non-tender near an apparent very small subcutaneous hematoma. Skin: Normal temperature, turgor, and texture; no rash, ulcers, or subcutaneous nodules appreciated. Neurological: Cranial nerves grossly intact. Psychiatric: Normal mood and affect. Alert and oriented to person, place, and time. Mild cognitive impairment with short-term memory recall deficit. Objective Labs Result Diagrams: 10/24/19 06:30 10/24/19 06:30 Assessment & Plan Assessment & Plan narrative: Mckay Costa is a 73-year-old female with a past medical history significant for hypothyroidism, seasonal allergies, alcohol dependence, chronic neck pain with benzodiazepine dependence and previous opiate dependence in remission, insomnia on Ambien and Benadryl who presented to the ED via EMS after sustaining a ground level fall with arm pain. 1. Ground level fall with pathological multiple bilateral rib fractures and right proximal comminuted humeral fracture, present on admission. Active. -CT head without contrast did not demonstrated any acute intracranial abnormalities. -CT right upper extremity without contrast demonstrated severely comminuted fracture of the right humerus as above -CT chest without contrast demonstrated left posterior 8-10th rib fractures in right posterior lateral 10th and suspected nondisplaced posterior right 11th and 12th rib fractures. No pneumothorax. -Consulted general surgery, Dr. Fitzgerald, and we appreciate his time and recommendations. Continue pulmonary toilet with IS, deep breathing, duonebs every 6 hours as needed for shortness of breath or wheezing and continuous pulse oximetry monitoring. Continue respiratory therapy evaluation and treatment. -Consulted orthopedic surgery, Dr. Dawkins, and we appreciate his time and recommendations. Right proximal comminuted humeral fracture is nonoperable and continue immobilization right arm sling. -Continue pain control with: Frequent icing, acetaminophen 975 mg 3 times daily and increased Dilaudid to 2 mg PO every 6 hours as needed for severe pain and 0.7 mg IV every 6 hours for severe break through pain and home diazepam 5 mg twice daily as needed for muscle spasm. Patient has a significant list of allergies to narcotics and other non-narcotic pain medications making pain control challenging. -Continue physical therapy and occupational therapy evaluation treatment, currently recommending SNF placement. 2. Alcohol dependence, chronic, present on admission. Stable. -Patient consumes 2-3 glasses of wine most nights and reports she will finish a bottle of wine in approximately 2 days. She denies history of alcohol withdrawal, alcohol seizures or DTs. She has gone significant amount of time without alcohol without symptoms. Discussed sedative use with alcohol intake and risk of respiratory suppression and . Patient acknowledged risk and reports that she is going to stop drinking alcohol. -Continue to monitor for alcohol withdrawal and low threshold to start CIWA protocol. No current signs or symptoms of withdrawal but is receiving some diazepam as noted above. -Consulted [facility]BACCO SAMPLE PULLER and we appreciate her time and recommendations. 3. Hypothyroidism, chronic, present on admission. Stable. -TSH normal at 0.475. -Continue levothyroxine 150 mcg daily. 4. Insomnia, chronic, present on admission. Stable. -Patient reports she takes Benadryl 150-200 mg and Ambien 5 mg each night. Discussed sedative use with alcohol intake and risk of respiratory suppression and . Patient acknowledged risk and reports that she is going to stop drinking alcohol. -Continue Ambien 5 mg daily at bedtime and Benadryl 25 mg daily at bedtime as needed for insomnia. Continuous pulse oximetry monitoring. 5. Chronic neck pain with benzodiazepine dependence and opiate dependence in remission, present on admission. Stable. -Patient reports multiple narcotic and nonnarcotic pain medication allergies. She previously was on Dilaudid for several years for neck pain and believes she has not been using this medication since approximately 2010. She reports that she cannot take Dilaudid more than a couple times a day and then has to give herself several day break due to severe pruritus. -Continue pain control as above. -Patient takes diazepam 5 mg up to twice daily for muscle spasms which has been continued. Code status: Full code VTE prophylaxis: Enoxaparin, SCDs Disposition: Patient remains hospitalized due to right comminuted humeral fracture and multiple rib fractures for pain control and mobilization. Changed to inpatient on 10/24. Likely SNF discharge after 3 midnights (10/27) or home with home health depending on continued progress with PT. Quality VTE Deep Vein Thrombosis/Pulmonary Embolism Present on Admission: No
--- NOTE | 2019-10-26 10:28 | PT-IP ANOTE ---
Attempted to see pt at 9:05 and again at 10:28 this AM, pt refused both times d/t reported high level of fatigue. Will try again in PM, per pts request.
[2019-10-26] MEDS: HYDROMORPHONE 1 MG INJ 0.7 MG IV (14:21)
--- NOTE | 2019-10-26 14:28 | OT.IP.TRT ---
Current Diagnoses Pathological fracture, other site, initial encounter for fracture (10/25/19) Occupational Therapy Treatment Note M2 OT-IP Current Condition Start: 10/25/19 10:35 Freq: Status: Active Protocol: Document 10/25/19 10:36 CCC (Rec: 10/25/19 10:50 [facility] [id number]) Occupational Therapy Current Condition Current Condition Evaluation Date 10/25/19 Treatment Diagnosis Right proximal comminuted humeral fracture Diagnosis Onset Date 10/23/19 Post Operative Precautions Other Precautions Per Dr. Dawkins out of sling for hygiene, only to hang. Weight Bearing Status Weight Bearing Status Non-Weight Bearing Allowed Weight Bearing Amount (enter % NWB RUE or #) (%) M3 OT- IP Subjective and Pain Start: 10/25/19 10:35 Freq: Status: Active Protocol: Document 10/26/19 14:26 CGR (Rec: 10/26/19 14:28 CGR [id number]) OT- Subjective Occupational Therapy Visit Type Type Administrative Note Notes Attempted to see pt for OT services. PT up to BR with nursing but declined other ADLs at this time d/t concern for her IV and nursing to assess her IV shortly. No OT services rendered.
--- NOTE | 2019-10-26 14:58 | CM.DPC ---
DCP/continued: Reviewed chart. Patient changed to inpatient status on 10-25-19. Current d/c plan is for patient to d/c to [facility] when medically stable. PASSR completed. CM team to continue to follow. P: [facility] when medically stable. DREA Conn
--- NOTE | 2019-10-26 15:03 | PC.NURSE ---
Nurse was giving IV Dilauded, diluted into saline syring and the IV infiltrated after about 2/3 given. No discoloration in skin, medication stopped and IV removed and new IV placed. Ice was placed on old IV site. Pt requested double gauze and tight coban wrap over old IV site. Pt in bed an comfortable, no complaints.
[2019-10-26] MEDS: SENNOSIDES 8.6 MG TABLET 17.2 MG PO (21:30)
[2019-10-26] MEDS: SODIUM CHLORIDE 0.9% FLUSH 10 ML IV (21:32)
[2019-10-27] VITALS (9 sets, daily range): BP systolic 139–158; BP diastolic 72–98; PULSE 76–93; RESP 16–18; TEMP 35.6–36.6; O2SAT 96–100
[2019-10-27] MEDS: diphenhydrAMINE 25 MG TABLET PO (00:03)
[2019-10-27] MEDS: ZOLPIDEM 5 MG TABLET PO ×2 (00:03→21:39)
[2019-10-27] MEDS: LEVOTHYROXINE 150 MCG TABLET PO (05:14)
[2019-10-27] MEDS: HYDROMORPHONE 2 MG TABLET PO ×4 (07:50→21:20)
[2019-10-27] MEDS: ACETAMINOPHEN 325 MG TABLET 975 MG PO ×3 (09:16→21:18)
[2019-10-27] MEDS: FLUTICASONE 120 SPRAY/16 GM SPRAY.SUSP NASAL ×2 (09:17→21:17)
[2019-10-27] MEDS: SODIUM CHLORIDE 0.9% FLUSH 10 ML IV ×2 (09:17→21:22)
[2019-10-27] MEDS: LORATADINE 10 MG TABLET PO (09:17)
[2019-10-27] MEDS: ENOXAPARIN 40 MG/0.4 ML SYRINGE SUBCUT (09:17)
--- NOTE | 2019-10-27 10:23 | PT.IPTN ---
Current Diagnoses Pathological fracture, other site, initial encounter for fracture (10/25/19) Physical Therapy Treatment Note M2 PT-IP Current Condition Start: 10/24/19 12:43 Freq: NEEDED Status: Active Protocol: Document 10/24/19 11:03 AB (Rec: 10/24/19 13:43 AB [id number]) Physical Therapy Current Condition Current Condition Evaluation Date 10/24/19 Treatment Diagnosis R proximal humerus fx; difficulty with walking Onset Date 10/23/19 Precautions Shoulder Precautions Sling Weight Bearing Status Weight Bearing Status Non-Weight Bearing Allowed Weight Bearing Amount (enter % RUE NWB or #) (%) M3 PT-IP Subjective Start: 10/24/19 12:43 Freq: NEEDED Status: Active Protocol: Document 10/27/19 09:50 LJ (Rec: 10/27/19 10:23 LJ [id number]) Subjective Physical Therapy Visit Type Type Treatment Note Visit Start Time 09:50 Visit Stop Time 10:12 Total Visit Minutes 22 Number of MARINE FIRE FIGHTER Visits 4 Physical Therapy Visit Comments Patient Comments Pt agreeable to work w/ therapy. Therapy Pain Assessment Pain When Pain Assessed During Mobility Pain Present Pain Present Pain Reported M4 PT-IP Mobility and Gait Start: 10/24/19 12:43 Freq: NEEDED Status: Active Protocol: Document 10/27/19 09:50 LJ (Rec: 10/27/19 10:23 LJ [id number]) PT-Bed Mobility Assessment Supine to Sit Supine to Sit Standby Assistance,Head of Bed Elevated,Bedrails PT-Transfer Assessment Sit to and From Stand Sit to and from Stand Standby Assistance,Use of Upper Extremities Equipment Orthotic/Prosthetic Devices or Brace: No Transfers Transfer Destination Bed,Toilet Transfer Technique ambulated using quad cane Transfer Ability Level of Assist Standby Assistance,Use of Upper Extremities Comments Mobility Comments Pt in bed requesting to use toilet prior to gait training. Required SBA for bed mobility and transfers both in and out of bed and sit<>stand to/from toilet. Gait Assessment Gait Gait Assistance Required: Standby Assistance,1 Person Assist Assistive Devices Assistive Device Gait Belt,Small Based Quad Cane Gait Deviations General Gait Pattern Antalgic,Decreased Stride Length,Decreased Feet Clearance Factors Limiting Gait Function Factors Limiting Gait Function Decreased Activity Tolerance, Decreased Strength,Difficulty Following Directions,Limited Range of Motion,Pain,Poor Balance,Poor Safety Awareness Comments Gait Comments Pt ambulated to toilet SBA using quad cane. No LOB. Ambulated in hallway around N nurse's station slowly while looking at art work. She required assist with pericare in bathroom. Pt returned to bed SBA. She did not demonstrate any LOB during gait training but stated her ribs were painful and affecting her breathing. She was encouraged to slow her breathing and attempt deeper breaths. M5 PT-IP Objective Assessments Start: 10/24/19 12:43 Freq: NEEDED Status: Active Protocol: Document 10/24/19 11:03 AB (Rec: 10/24/19 13:43 AB [id number]) Orientation Orientation/Cognition Level of Alertness Alert Orientation Name Language Function Ability No Deficits Noted,Hard of Hearing Safety Awareness Decreased Safety Awareness Memory Description Short Term Impaired Gross Range of Motion Lower Extremity ROM Assessment Within Functional Limits Strength Lower Extremity Strength Hip 4-/5 Knee 4-/5 Coordination Assessment Gross Coordination Gross Coordination WNL Muscle Tone Muscle Tone WNL Yes M6 PT-IP Treatment Start: 10/24/19 12:43 Freq: NEEDED Status: Active Protocol: Document 10/27/19 09:50 LJ (Rec: 10/27/19 10:23 LJ [id number]) Physical Therapy Treatment Education Education Provided Precautions,Weight Bearing Status,Safety M7 PT-IP Assessment and Plan Start: 10/24/19 12:43 Freq: NEEDED Status: Active Protocol: Document 10/27/19 09:50 LJ (Rec: 10/27/19 10:23 LJ [id number]) PT Summary Assessment and Plan Potential Rehabilitation Potential Fair Status of Condition at Evaluation Evolving Summary Impairments Pain,ROM,Strength,Balance, Coordination,Sensation,Tone, Bed Mobility,Transfers,Gait, Activity Tolerance Assessment Summary Pt SBA for all mobility and gait. She requires cues for relaxing her breathing during activity. Also needs assistance with pericare. She was left in bed with ice on RUE and all needs within reach Goals Bed Mobility Goal Standby Assistance Transfer Goal Minimal Assistance,Cane Gait Goal Minimal Assistance,Cane Gait Distance 100 Days to Meet Goals 5 Frequency of Treatment Frequency Of Treatment Twice a Day Treatment Plan Physical Therapy Treatment Plan Bed Mobility Training,Transfer Training,Gait Training, Therapeutic Exercise,Balance Retraining,Discharge Planning, Hot or Cold Pack,Neuromuscular Re-ed,Coordination Retraining Recommendations To Nursing Amount of Assist Needed 1 Person Assist Discharge Recommendations PT Discharge Recommendations SNF Rehab Transportation Needs at Discharge Wheelchair/Cabulance
--- NOTE | 2019-10-27 13:25 | PT.IPTN ---
Current Diagnoses Pathological fracture, other site, initial encounter for fracture (10/25/19) Physical Therapy Treatment Note M2 PT-IP Current Condition Start: 10/24/19 12:43 Freq: NEEDED Status: Active Protocol: Document 10/24/19 11:03 AB (Rec: 10/24/19 13:43 AB [id number]) Physical Therapy Current Condition Current Condition Evaluation Date 10/24/19 Treatment Diagnosis R proximal humerus fx; difficulty with walking Onset Date 10/23/19 Precautions Shoulder Precautions Sling Weight Bearing Status Weight Bearing Status Non-Weight Bearing Allowed Weight Bearing Amount (enter % RUE NWB or #) (%) M3 PT-IP Subjective Start: 10/24/19 12:43 Freq: NEEDED Status: Active Protocol: Document 10/27/19 12:54 LJ (Rec: 10/27/19 13:25 LJ [id number]) Subjective Physical Therapy Visit Type Type Treatment Note Visit Start Time 12:54 Visit Stop Time 13:13 Total Visit Minutes 19 Number of MANAGER ADVERTISING Visits 5 Physical Therapy Visit Comments Patient Comments Pt agreeable to work w/ therapy. Therapy Pain Assessment Pain When Pain Assessed During Mobility Pain Present Pain Present Pain Reported M4 PT-IP Mobility and Gait Start: 10/24/19 12:43 Freq: NEEDED Status: Active Protocol: Document 10/27/19 12:54 LJ (Rec: 10/27/19 13:25 LJ [id number]) PT-Bed Mobility Assessment Supine to Sit Supine to Sit Standby Assistance PT-Transfer Assessment Sit to and From Stand Sit to and from Stand Standby Assistance,Use of Upper Extremities Equipment Transfer Assistive Device Gait Belt,Small Based Quad Cane Orthotic/Prosthetic Devices or Brace: No Transfers Transfer Destination Chair,Toilet Transfer Technique ambulated using quad cane Transfer Ability Level of Assist Standby Assistance,Use of Upper Extremities Comments Mobility Comments Pt seated in chair. Removed sling for shower which she had earlier. Donned sling prior to treatment. Pt able to flex and extend elbow with limited extension. Transferred SBA and use of UEs to from chair and toilet. Pt ambulated in hallway one lap around [employer]s station 220' SBA. No LOB. Returned to room and sat in chair. Gait Assessment Gait Gait Assistance Required: Standby Assistance,1 Person Assist Distance (Feet) 220 Able to Maintain Weight Bearing Status Yes During Gait Assistive Devices Assistive Device Gait Belt,Small Based Quad Cane Gait Deviations General Gait Pattern Antalgic,Decreased Stride Length,Decreased Feet Clearance Factors Limiting Gait Function Factors Limiting Gait Function Decreased Activity Tolerance, Decreased Strength,Difficulty Following Directions,Limited Range of Motion,Pain,Poor Balance,Poor Safety Awareness Comments Gait Comments Pt shown how to don and adjust sling prior to ambulation. See mobility section for ambulation M5 PT-IP Objective Assessments Start: 10/24/19 12:43 Freq: NEEDED Status: Active Protocol: Document 10/24/19 11:03 AB (Rec: 10/24/19 13:43 AB [id number]) Orientation Orientation/Cognition Level of Alertness Alert Orientation Name Language Function Ability No Deficits Noted,Hard of Hearing Safety Awareness Decreased Safety Awareness Memory Description Short Term Impaired Gross Range of Motion Lower Extremity ROM Assessment Within Functional Limits Strength Lower Extremity Strength Hip 4-/5 Knee 4-/5 Coordination Assessment Gross Coordination Gross Coordination WNL Muscle Tone Muscle Tone WNL Yes M6 PT-IP Treatment Start: 10/24/19 12:43 Freq: NEEDED Status: Active Protocol: Document 10/27/19 12:54 LJ (Rec: 10/27/19 13:25 LJ [id number]) Physical Therapy Treatment Exercises Exercises Elbow Flexion/Extension Other Treatments Other Treatment Performed sling donning and doffing M7 PT-IP Assessment and Plan Start: 10/24/19 12:43 Freq: NEEDED Status: Active Protocol: Document 10/27/19 12:54 LJ (Rec: 10/27/19 13:25 LJ [id number]) PT Summary Assessment and Plan Potential Rehabilitation Potential Fair Status of Condition at Evaluation Evolving Summary Impairments Pain,ROM,Strength,Balance, Coordination,Sensation,Tone, Bed Mobility,Transfers,Gait, Activity Tolerance Assessment Summary Pt SBA for transfers and gait requiring assist with pericare . Still needing cues for proper breathing during ambulation but overall is doing well and able to carry on conversation while walking without increasing respiratory distress. Goals Bed Mobility Goal Standby Assistance Transfer Goal Minimal Assistance,Cane Gait Goal Minimal Assistance,Cane Gait Distance 100 Days to Meet Goals 5 Frequency of Treatment Frequency Of Treatment Twice a Day Treatment Plan Physical Therapy Treatment Plan Bed Mobility Training,Transfer Training,Gait Training, Therapeutic Exercise,Balance Retraining,Discharge Planning, Hot or Cold Pack,Neuromuscular Re-ed,Coordination Retraining Recommendations To Nursing Amount of Assist Needed 1 Person Assist Discharge Recommendations PT Discharge Recommendations SNF Rehab Transportation Needs at Discharge Wheelchair/Cabulance
--- NOTE | 2019-10-27 14:19 | PM.PN.1 ---
Subjective Subjective Date Patient Seen: 10/27/19 Time Patient Seen: 14:20 Interval history: Mckay Costa is a 73-year-old female with a past medical history significant for hypothyroidism, seasonal allergies, alcohol dependence, chronic neck pain with benzodiazepine dependence and previous opiate dependence in remission, insomnia on Ambien and Benadryl who presented to the ED via EMS after sustaining a ground level fall with arm pain. She was found to have a R humeral fracture as well as rib fractures and is seen for follow up today. She has improved pain control today with the increased doses of dilaudid but increased frequency. She has not had a bowel movement since admission. Agreed to prune juice and did take senna but refuses further interventions at this time as she is wary of any new medications. She complains her arm pain is a 7/10 at worst but also states it is a tolerable pain. Exam Vital Signs (past 8 hours): - 10/27/19 07:20 10/27/19 09:32 10/27/19 12:34 Temperature 97.0 F L 97.8 F Pulse Rate 76 91 H 90 Respiratory Rate 18 16 18 Blood Pressure 151/76 H 144/90 H Pulse Oximetry 99 96 100 Oxygen Delivery Method Room Air Oxygen Flow Rate 0 Narrative Exam Narrative: General: Elderly female, well-developed, well-nourished, appropriately interactive. No acute distress. HEENT: Normocephalic, atraumatic. External ears without defect. Pupils equal, round, and reactive to light. Anicteric sclerae, moist conjunctivae, and no lid lag. Oropharynx free of erythema and cobble stoning with moist oral mucosa. Neck: Supple with full range of motion. No lymphadenopathy or thyromegaly. Cardiovascular: Regular rate and rhythm without murmurs, rubs, or gallops appreciated Pulmonary: Clear to auscultation bilaterally without crackles, wheezes, or rhonchi. Normal respiratory effort with no use of accessory muscles. Mild pain with inspiration due to rib fractures with mild splinting today. Abdomen: Soft, bowel tones present, nontender, nondistended. No hepatosplenomegaly or masses appreciated. Extremities: No clubbing, cyanosis, or edema. Right arm without sling (being washed) with distal movement, sensation and pulses intact with large bruise over medial bicep. Scattered bruising throughout upper body and small hypopigmented lesion on R upper arm near sling border, non-tender near an apparent very small subcutaneous hematoma. Skin: Normal temperature, turgor, and texture; no rash, ulcers, or subcutaneous nodules appreciated. Neurological: Cranial nerves grossly intact. Psychiatric: Normal mood and affect. Alert and oriented to person, place, and time. Mild cognitive impairment with short-term memory recall deficit. Objective Labs Result Diagrams: 10/24/19 06:30 10/24/19 06:30 Assessment & Plan Assessment & Plan narrative: Mckay Costa is a 73-year-old female with a past medical history significant for hypothyroidism, seasonal allergies, alcohol dependence, chronic neck pain with benzodiazepine dependence and previous opiate dependence in remission, insomnia on Ambien and Benadryl who presented to the ED via EMS after sustaining a ground level fall with arm pain. 1. Ground level fall with pathological multiple bilateral rib fractures and right proximal comminuted humeral fracture, present on admission. Active. -CT head without contrast did not demonstrated any acute intracranial abnormalities. -CT right upper extremity without contrast demonstrated Sseverely comminuted fracture of the right humerus as above -CT chest without contrast demonstrated left posterior 8-10th rib fractures in right posterior lateral 10th and suspected nondisplaced posterior right 11th and 12th rib fractures. No pneumothorax. -Consulted general surgery, Dr. Fitzgeradl, and we appreciate his time and recommendations. Continue pulmonary toilet with IS, deep breathing, duonebs every 6 hours as needed for shortness of breath or wheezing and continuous pulse oximetry monitoring. Continue respiratory therapy evaluation and treatment. -Consulted orthopedic surgery, Dr. Dawkins, and we appreciate his time and recommendations. Right proximal comminuted humeral fracture is nonoperable and continue immobilization right arm sling. Follow up in clinic in 2 weeks. -Continue pain control with: Frequent icing, acetaminophen 975 mg 3 times daily and increased Dilaudid to 2 mg PO every 4 hours as needed for severe pain discontinued IV dilaudid for break through as planned to discharge to SNF tomorrow. Continue home diazepam 5 mg twice daily as needed for muscle spasm. Patient has a significant list of allergies to narcotics and other non-narcotic pain medications making pain control challenging. -Continue physical therapy and occupational therapy evaluation treatment, currently recommending SNF placement. 2. Alcohol dependence, chronic, present on admission. Stable. -Patient consumes 2-3 glasses of wine most nights and reports she will finish a bottle of wine in approximately 2 days. She denies history of alcohol withdrawal, alcohol seizures or DTs. She has gone significant amount of time without alcohol without symptoms. Discussed sedative use with alcohol intake and risk of respiratory suppression and . Patient acknowledged risk and reports that she is going to stop drinking alcohol. -Continue to monitor for alcohol withdrawal and low threshold to start CIWA protocol. No current signs or symptoms of withdrawal but is receiving diazepam as noted above. -Consulted [facility] and we appreciate her time and recommendations. 3. Hypothyroidism, chronic, present on admission. Stable. -TSH normal at 0.475. -Continue levothyroxine 150 mcg daily. 4. Insomnia, chronic, present on admission. Stable. -Patient reports she takes Benadryl 150-200 mg and Ambien 5 mg each night. Discussed sedative use with alcohol intake and risk of respiratory suppression and . Patient acknowledged risk and reports that she is going to stop drinking alcohol. -Continue Ambien 5 mg daily at bedtime and Benadryl 25 mg daily at bedtime as needed for insomnia. Stopped continuous pulse oximetry monitoring once unremarkable. 5. Chronic neck pain with benzodiazepine dependence and opiate dependence in remission, present on admission. Stable. -Patient reports multiple narcotic and nonnarcotic pain medication allergies. She previously was on Dilaudid for several years for neck pain and believes she has not been using this medication since approximately 2010. She reports that she cannot take Dilaudid more than a couple times a day and then has to give herself several day break due to severe pruritus. -Continue pain control as above. -Patient takes diazepam 5 mg up to twice daily for muscle spasms which has been continued. Code status: Full code VTE prophylaxis: Enoxaparin, SCDs Disposition: Patient remains hospitalized due to right comminuted humeral fracture and multiple rib fractures for pain control and mobilization. Changed to inpatient. Likely SNF discharge after 3 midnights or home with home health depending on continued progress with PT. Anticipate discharge tomorrow to SNF. Quality VTE Deep Vein Thrombosis/Pulmonary Embolism Present on Admission: No
[2019-10-27] MEDS: diazePAM 5 MG TABLET PO (14:22)
[2019-10-27] MEDS: SENNOSIDES 8.6 MG TABLET 17.2 MG PO (21:17)
[2019-10-28] MEDS: HYDROMORPHONE 2 MG TABLET PO ×4 (01:34→12:33)
[2019-10-28 04:54] VITALS: BP 138/78; PULSE 85; RESP 16; TEMP 36.3; O2SAT 100
[2019-10-28] MEDS: LEVOTHYROXINE 150 MCG TABLET PO (06:11)
--- NOTE | 2019-10-28 07:23 | PM.DS.1 ---
History of Present Illness History of Present Illness Date Patient Seen: 10/28/19 Time Patient Seen: 07:23 Chief complaint: syncope / + arm/shoulder pain, fx Narrative: As per Dr. San, Mckay Costa is a 73-year-old female with a past medical history significant for hypothyroidism, seasonal allergies, alcohol dependence, previous opiate dependence in remission, insomnia on Ambien and Benadryl who presented to the ED via EMS after sustaining a ground level fall with arm pain. The patient reports that she got up in the middle of the night to use the restroom and believes she fell on the way back to bed. She does not remember the fall or specific details. She has piece together which she presumes happened which is she tripped and fell over dresser drawer. The patient is on Ambien and a significant dose of Benadryl per night approximately 150-200 mg. She also had several glasses of wine yesterday evening around 17:00 She reports that she drinks 2-3 drinks most nights and will finish a full bottle of wine every other day. She sleeps on her couch and woke up on her couch this morning with significant pain of her right arm prompting her to call EMS. She was found to have multiple rib fractures as well as a proximal humerus fracture. She endorses pain with deep inspiration of her ribs bilaterally and pain of her right arm. She has a significant allergy list especially to narcotics and reports only narcotic she is able to take his Dilaudid a couple times and then has to give herself a day or to break due to severe pruritus. She has a history of opiate dependence in remission since 2010. She has no other complaints and denies headache, chest pain, shortness of breath, abdominal pain, nausea, vomiting, fever, chills, dysuria, diarrhea or constipation. She is admitted observation for multiple bilateral rib fractures and right humeral fracture. Discharge Providers Provider Date of admission: 10/25/19 10:38 Discharge Date: 10/28/19 Primary care physician: Roberta Olea PA-C Consults: 10/23/19 15:43 Consult to Respiratory Therapy Evaluate & Treat Comment: goal of 80% inspirority capcity or max 1500mL Physician Instructions: Baseline spriometry vol 10/23/19 17:33 Consult to Physical Therapy Evaluate & Treat Comment: Physician Instructions: Evaluate and Treat Consult to Physician Routine Comment: Consulting Provider: John Dawkins Reason for consultation: Right Humeral Fracture 10/23/19 17:34 Consult to Physician Routine Comment: Consulting Provider: Kin Fitzgerald Reason for consultation: Multiple Rib Fractures Has provider been notified: Yes 10/23/19 18:16 Consult to Respiratory Therapy Evaluate & Treat Comment: Physician Instructions: Evaluate and treat 10/24/19 00:23 Consult to INSURANCE PLAN SPECIALIST - Mixer Operator Routine Comment: INSURANCE PLAN SPECIALIST Consult: Substance Abuse Assess 10/24/19 09:24 Consult to Occupational Therapy Evaluate & Treat Comment: Physician Instructions: Evaluate and treat 10/24/19 10:14 Consult to Dietitian, Adult Routine Comment: Reason For Exam: per order Discharge provider: Konrad Cortez DO Summary Hospital Course Discharge Diagnosis: Please see hospital course by problem list noted below. Hospital Course: Mckay Costa is a 73-year-old female with a past medical history significant for hypothyroidism, seasonal allergies, alcohol dependence, chronic neck pain with benzodiazepine dependence and previous opiate dependence in remission, insomnia on Ambien and Benadryl who presented to the ED via EMS after sustaining a ground level fall with arm pain. 1. Ground level fall with pathological multiple bilateral rib fractures and right proximal comminuted humeral fracture, present on admission. Active. -CT head without contrast did not demonstrated any acute intracranial abnormalities. -CT right upper extremity without contrast demonstrated Sseverely comminuted fracture of the right humerus as above -CT chest without contrast demonstrated left posterior 8-10th rib fractures in right posterior lateral 10th and suspected nondisplaced posterior right 11th and 12th rib fractures. No pneumothorax. -Consulted general surgery, Dr. Fitzgerald, and we appreciate his time and recommendations. -Consulted orthopedic surgery, Dr. Dawkins, and we appreciate his time and recommendations. Right proximal comminuted humeral fracture is nonoperable and continue immobilization right arm sling. Follow up in clinic in 2 weeks. -Continue pain control with: Frequent icing, acetaminophen 975 mg 3 times daily and increased Dilaudid to 2 mg PO every 4 hours as needed for severe pain. Continue home diazepam 5 mg twice daily as needed for muscle spasm. Patient has a significant list of allergies to narcotics and other non-narcotic pain medications making pain control challenging. -Continue physical therapy and occupational therapy at SNF. 2. Alcohol dependence, chronic, present on admission. Stable. -Patient consumes 2-3 glasses of wine most nights and reports she will finish a bottle of wine in approximately 2 days. She denied history of alcohol withdrawal, alcohol seizures or DTs. She has gone significant amount of time without alcohol without symptoms. Discussed sedative use with alcohol intake and risk of respiratory suppression and . Patient acknowledged risk and reports that she is going to stop drinking alcohol. -Patient did not demonstrate any signs or symptoms of withdrawal but did receive diazepam as noted above. -Consulted INSURANCE PLAN SPECIALIST and we appreciate her time and recommendations. 3. Hypothyroidism, chronic, present on admission. Stable. -TSH normal at 0.475. -Continue levothyroxine 150 mcg daily. 4. Insomnia, chronic, present on admission. Stable. -Patient reports she takes Benadryl 150-200 mg and Ambien 5 mg each night. Discussed sedative use with alcohol intake and risk of respiratory suppression and . Patient acknowledged risk and reports that she is going to stop drinking alcohol. -Continue Ambien 5 mg daily at bedtime and Benadryl 25 mg daily at bedtime as needed for insomnia. Stopped continuous pulse oximetry monitoring once unremarkable. 5. Chronic neck pain with benzodiazepine dependence and opiate dependence in remission, present on admission. Stable. -Patient reports multiple narcotic and nonnarcotic pain medication allergies. She previously was on Dilaudid for several years for neck pain and believes she has not been using this medication since approximately 2010. She reports that she cannot take Dilaudid more than a couple times a day and then has to give herself several day break due to severe pruritus. -Continue pain control as above. -Patient takes diazepam 5 mg up to twice daily for muscle spasms which has been continued. Exam Vital Signs (past 8 hours): - 10/27/19 23:25 10/28/19 04:54 Temperature 97.3 F L Pulse Rate 85 Respiratory Rate 16 Blood Pressure 138/78 Pulse Oximetry 100 100 Oxygen Delivery Method Room Air Oxygen Flow Rate 0 Narrative Exam Narrative: General: Elderly female, well-developed, well-nourished, appropriately interactive. No acute distress. HEENT: Normocephalic, atraumatic. External ears without defect. Pupils equal, round, and reactive to light. Anicteric sclerae, moist conjunctivae, and no lid lag. Oropharynx free of erythema and cobble stoning with moist oral mucosa. Neck: Supple with full range of motion. No lymphadenopathy or thyromegaly. Cardiovascular: Regular rate and rhythm without murmurs, rubs, or gallops appreciated Pulmonary: Clear to auscultation bilaterally without crackles, wheezes, or rhonchi. Normal respiratory effort with no use of accessory muscles. Mild pain with inspiration due to rib fractures with mild splinting today. Abdomen: Soft, bowel tones present, nontender, nondistended. No hepatosplenomegaly or masses appreciated. Extremities: No clubbing, cyanosis, or edema. Right arm without sling (being washed) with distal movement, sensation and pulses intact with large bruise over medial bicep. Scattered bruising throughout upper body and small hypopigmented lesion on R upper arm near sling border, non-tender near an apparent very small subcutaneous hematoma. Skin: Normal temperature, turgor, and texture; no rash, ulcers, or subcutaneous nodules appreciated. Neurological: Cranial nerves grossly intact. Psychiatric: Normal mood and affect. Alert and oriented to person, place, and time. Objective Labs Result Diagrams: 10/24/19 06:30 10/24/19 06:30 Discharge Plan Discharge Plan Patient Disposition: SNF Discharge comment: Mckay Costa is a 73-year-old female with a past medical history significant for hypothyroidism, seasonal allergies, alcohol dependence, chronic neck pain with benzodiazepine dependence and previous opiate dependence in remission, insomnia on Ambien and Benadryl who presented to the ED via EMS after sustaining a ground level fall with arm pain. 1. Ground level fall with pathological multiple bilateral rib fractures and right proximal comminuted humeral fracture, present on admission. Active. -CT head without contrast did not demonstrated any acute intracranial abnormalities. -CT right upper extremity without contrast demonstrated Sseverely comminuted fracture of the right humerus as above -CT chest without contrast demonstrated left posterior 8-10th rib fractures in right posterior lateral 10th and suspected nondisplaced posterior right 11th and 12th rib fractures. No pneumothorax. -Consulted general surgery, Dr. Fitzgerald, and we appreciate his time and recommendations. Continue pulmonary toilet with IS, deep breathing, duonebs every 6 hours as needed for shortness of breath or wheezing and continuous pulse oximetry monitoring. Continue respiratory therapy evaluation and treatment. -Consulted orthopedic surgery, Dr. Dawkins, and we appreciate his time and recommendations. Right proximal comminuted humeral fracture is nonoperable and continue immobilization right arm sling. Follow up in clinic in 2 weeks. -Continue pain control with: Frequent icing, acetaminophen 975 mg 3 times daily and increased Dilaudid to 2 mg PO every 4 hours as needed for severe pain. Continue home diazepam 5 mg twice daily as needed for muscle spasm. Patient has a significant list of allergies to narcotics and other non-narcotic pain medications making pain control challenging. -Continue physical therapy and occupational therapy 2. Alcohol dependence, chronic, present on admission. Stable. -Patient consumes 2-3 glasses of wine most nights and reports she will finish a bottle of wine in approximately 2 days. She denied history of alcohol withdrawal, alcohol seizures or DTs. She has gone significant amount of time without alcohol without symptoms. Discussed sedative use with alcohol intake and risk of respiratory suppression and . Patient acknowledged risk and reports that she is going to stop drinking alcohol. -Patient did not demonstrate any signs or symptoms of withdrawal but did receive diazepam as noted above. -Consulted INSURANCE PLAN SPECIALIST and we appreciate her time and recommendations. 3. Hypothyroidism, chronic, present on admission. Stable. -TSH normal at 0.475. -Continue levothyroxine 150 mcg daily. 4. Insomnia, chronic, present on admission. Stable. -Patient reports she takes Benadryl 150-200 mg and Ambien 5 mg each night. Discussed sedative use with alcohol intake and risk of respiratory suppression and . Patient acknowledged risk and reports that she is going to stop drinking alcohol. -Continue Ambien 5 mg daily at bedtime and Benadryl 25 mg daily at bedtime as needed for insomnia. Stopped continuous pulse oximetry monitoring once unremarkable. 5. Chronic neck pain with benzodiazepine dependence and opiate dependence in remission, present on admission. Stable. -Patient reports multiple narcotic and nonnarcotic pain medication allergies. She previously was on Dilaudid for several years for neck pain and believes she has not been using this medication since approximately 2010. She reports that she cannot take Dilaudid more than a couple times a day and then has to give herself several day break due to severe pruritus. -Continue pain control as above. -Patient takes diazepam 5 mg up to twice daily for muscle spasms which has been continued. Discharge orders & Medications Prescriptions: New sennosides [senna] 8.6 mg Tablet 17.2 mg PO BEDTIME 14 Days Qty: 28 RF: 0 acetaminophen 325 mg Tablet 975 mg PO TID 30 Days Qty: 270 RF: 0 hydromorphone 2 mg Tablet 2 mg PO Q4HR PRN (Reason: Pain, Moderate (4-6)) 7 Days Qty: 30 RF: 0 magnesium hydroxide [Milk of Magnesia] 400 mg/5 mL Suspension 30 ml PO DAILY PRN (Reason: Constipation) 14 Days Qty: 14 RF: 0 diphenhydramine HCl [Allergy (diphenhydramine)] 25 mg Tablet 25 mg PO BEDTIME PRN (Reason: Sleep) 30 Days RF: 0 ondansetron 4 mg Tablet,Disintegrating 4 mg PO Q8HR PRN (Reason: Nausea And Vomiting) 14 Days Qty: 20 RF: 0 diazepam 5 mg Tablet 5 mg PO DAILY PRN (Reason: MUSCLE SPASM) 7 Days Qty: 7 RF: 0 Continued dexamethasone sodium phosphate 0.1 % drops 1 drp ophthalmic (eye) BID PRN (Reason: Allergy Symptoms) RF: 0 betamethasone valerate 0.1 % cream 1 applic Topical DIRECTED RF: 0 levothyroxine 125 mcg tablet 150 mcg PO DAILY RF: 0 zolpidem 5 mg tablet 5 mg PO QHS PRN (Reason: Sleep) RF: 0 fluticasone propionate 50 mcg/actuation spray,suspension 1 spray Intranasal BID RF: 0 metronidazole [Metrogel] 1 % Gel 1 applic Topical BID PRN (Reason: antibiotic) RF: 0 cetirizine 10 mg Tablet 10 mg PO DAILY PRN (Reason: Allergy Symptoms) RF: 0 [id number] 2-1-1 % Gel 1 applic Topical BID PRN (Reason: unknown) RF: 0 Celebrate Multi-Complex 45 3 cap PO DAILY RF: 0 Calcium Citrate + D 2 tab PO TID RF: 0 fexofenadine [Madelyn Allergy] 180 mg Tablet 180 mg PO DAILY RF: 0 Discontinued acetaminophen 500 mg Tablet 3 tab PO BID RF: 0 diphenhydramine HCl [Benadryl] 25 mg Capsule 150 mg PO BEDTIME PRN (Reason: Sleep) RF: 0 diazepam 5 mg Tablet 5 - 10 mg PO QDAY PRN (Reason: Muscle Spasm) RF: 0 Follow up/Referrals: Roberta Olea PA-C [Primary Care Provider] - John Dawkins MD [Physician] - (follow up in 2 weeks) Discharge Health Status Precautions: [place] Diet/Activity/Treatments Diet: Diet as Tolerated Liquid consistency: Normal/Thin Food texture: Regular Activity: As tolerated [facility] Rehab type: Physical therapy and Occupational therapy Discharge Data Primary Care Provider: Roberta Olea Discharges patient from system. Discharge Date/Time: 10/28/19 13:51 Quality VTE Deep Vein Thrombosis/Pulmonary Embolism Present on Admission: No
[2019-10-28 08:00] VITALS: BP 155/96; PULSE 79; RESP 20; TEMP 36.6; O2SAT 99
[2019-10-28] MEDS: ACETAMINOPHEN 325 MG TABLET 975 MG PO ×2 (09:21→12:32)
[2019-10-28] MEDS: SODIUM CHLORIDE 0.9% FLUSH 10 ML IV (09:22)
[2019-10-28] MEDS: LORATADINE 10 MG TABLET PO (09:22)
[2019-10-28] MEDS: FLUTICASONE 120 SPRAY/16 GM SPRAY.SUSP NASAL (09:22)
[2019-10-28] MEDS: ENOXAPARIN 40 MG/0.4 ML SYRINGE SUBCUT (09:22)
--- NOTE | 2019-10-28 11:32 | OT.IP.TRT ---
Current Diagnoses Pathological fracture, other site, initial encounter for fracture (10/25/19) Occupational Therapy Treatment Note M2 OT-IP Current Condition Start: 10/25/19 10:35 Freq: Status: Active Protocol: Document 10/25/19 10:36 [facility] (Rec: 10/25/19 10:50 [facility] [id number]) Occupational Therapy Current Condition Current Condition Evaluation Date 10/25/19 Treatment Diagnosis Right proximal comminuted humeral fracture Diagnosis Onset Date 10/23/19 Post Operative Precautions Other Precautions Per Dr. Dawkins out of sling for hygiene, only to hang. Weight Bearing Status Weight Bearing Status Non-Weight Bearing Allowed Weight Bearing Amount (enter % NWB RUE or #) (%) M3 OT- IP Subjective and Pain Start: 10/25/19 10:35 Freq: Status: Active Protocol: Document 10/28/19 11:31 [facility] (Rec: 10/28/19 11:32 [facility] [id number]) OT- Subjective Occupational Therapy Visit Type Type Administrative Note Notes Pt is dressed and ready for discharge to [facility] today, planned for a 1pm departure. Pt writing check and paying bills when OT entered. Pt requested to skip OT today to finish her bills before discharge. No OT services rendered.
[2019-10-28 11:55] LABS: COVID19 -Nasal RAPID Negative (Negative)
--- NOTE | 2019-10-28 12:21 | CM.DANOTE ---
DCP/continued: Reviewed chart. Received notification from provider that patient medically stable for d/c today. Orders obtained and faxed to [facility]. Met with patient in AM rounds and she confirms d/c plan today. Placed call to August at [facility] and patient scheduled to be picked up at approximately 1:30pm. RN updated. P: [facility] today. DREA Conn
--- NOTE | 2019-10-28 13:47 | PC.NURSE ---
Transfer to SNF: IV dc'd intact. Transfer packet given to transport staff (including controlled scripts). All personal belongings sent with patient including wallet/contents from safe. Taken out in wheelchair by [facility] transport staff.
== END 2019-10-28 13:51 | DRG 543 ==
LOC: ED 14:53 → AC 15:08
PROVIDERS: Internal Medicine; Admitting Provider Internal Medicine; Emergency Provider Emergency Medicine; PCP Physician Assistant; Visit Provider Internal Medicine
DX: M84.48XA Pathological fracture, other site, initial encounter for fracture (principal); F13.20 Sedative, hypnotic or anxiolytic dependence, uncomplicated; M84.421A Pathological fracture, right humerus, initial encounter for fracture; F10.20 Alcohol dependence, uncomplicated; Y90.0 Blood alcohol level of less than 20 mg/100 ml; W18.30XA Fall on same level, unspecified, initial encounter; Y92.009 Unspecified place in unspecified non-institutional (private) residence as the place of occurrence of the external cause; I10 Essential (primary) hypertension; E03.9 Hypothyroidism, unspecified; G47.00 Insomnia, unspecified; G89.29 Other chronic pain; Z87.891 Personal history of nicotine dependence
CPT/HCPCS: 36415; 51798; 70450; 71250; 72125; 73200; 80048; 80053; 80305; 80320; 81001; 82550; 83690; 83735; 84443; 84484; 85025; 85610; 85730; 87635; 93005; 93010; 94760; 94762; 96374; 96375; 97116; 97162; 97165; 97530; 99284; G0378; J1170; J1650; J2270

== ENCOUNTER 2019-11-24 19:00 | Emergency (ER) | payer MEDICARE, SELFPAY ==
[2019-10-23 15:16] VITALS: BMI 31.6
[2019-11-24 19:07] VITALS: BP 132/79; PULSE 86; RESP 18; TEMP 36.5; O2SAT 100; BMI 29.0
--- NOTE | 2019-11-24 19:20 | ED_ITS ---
HPI - Extremity Injury (Upper) General Chief Complaint: Extremity Injury, Upper Stated Complaint: R arm pain after fall Time Seen by Provider: 11/24/19 19:08 Source: patient and EMS Mode of arrival: EMS History of Present Illness HPI narrative: Patient brought here from home by EMS. Complains of right arm pain. Patient seen by me 1 month ago for a fall at home. She had multiple rib fractures with a right humeral fracture. She was sent to rehab after admission here. She does not want to go back to that facility again. She currently resides at home. She does have history of alcohol abuse. Does admit drinking wine today. Patient denies any new falls. Denies hitting her head or neck. She states her right arm is doing better. Has followed with Dr. cho, orthopedic this past Monday. She states she was informed that is healing well. At this time her main complaint is that her feet are cold. She has no shoes or socks on. She immediately felt better with warm blankets on her feet currently she states she has no head neck pain no chest pain no abdominal pain no headache. No pelvis or hip or lower extremity pain. She states her right arm is not a problem at this time. She only wants warm blankets. The patient is awake alert to self and place and events. Related Data Home Medications Medication Instructions Recorded Confirmed betamethasone valerate 1 applic TOPICAL DIRECTED 07/06/17 10/23/19 dexamethasone sodium phosphate 1 drp OPHTHALMIC (EYE) BID PRN 07/06/17 10/23/19 fluticasone propionate 1 spray INTRANASAL BID 07/06/17 10/23/19 levothyroxine 150 mcg PO DAILY 07/06/17 10/23/19 metronidazole [Metrogel] 1 applic TOPICAL BID PRN 07/06/17 10/23/19 zolpidem 5 mg PO QHS PRN 07/06/17 10/23/19 Calcium Citrate + D 2 tab PO TID 12/04/17 10/23/19 Celebrate Multi-Complex 45 3 cap PO DAILY 12/04/17 10/23/19 cetirizine 10 mg PO DAILY PRN 12/04/17 10/23/19 [id number] 1 applic TOPICAL BID PRN 12/04/17 10/23/19 fexofenadine [Madelyn Allergy] 180 mg PO DAILY 10/23/19 10/23/19 Previous Rx's Medication Instructions Recorded acetaminophen 975 mg PO TID 30 Days #270 tab 10/28/19 diphenhydramine HCl [Allergy 25 mg PO BEDTIME PRN 30 Days tab 10/28/19 (diphenhydramine)] Allergies Allergy/AdvReac Type Severity Reaction Status Date / Time erythromycin base Allergy Intermediate HIVES Verified 10/23/19 12:29 adhesive Allergy Mild ALLERGIC Verified 10/23/19 12:29 TO TAPE epinephrine Allergy Mild TACHYCARDIA Verified 10/23/19 12:29 gentamicin [Gentamicin] Allergy Mild RASH Verified 10/23/19 12:29 NSAIDS (Non-Steroidal Allergy Mild GASTRITIS Verified 10/23/19 12:29 Anti-Inflamma Serotonin 5HT-3 Antagonists Allergy Mild GASTRITIS Verified 10/23/19 12:29 trazodone Allergy Mild LOSS OF Verified 10/23/19 12:29 BALANCE alprazolam Allergy Unknown LOSS OF Verified 10/23/19 12:29 ABILITY TO FOCUS amitriptyline Allergy Unknown IBS Verified 10/23/19 12:29 SYMPTOMS buspirone Allergy Unknown Verified 10/23/19 12:29 codeine Allergy Unknown IBS Verified 10/23/19 12:29 SYMPTOMS gabapentin Allergy Unknown SEVERE Verified 10/23/19 12:29 GASTRITIS Review of Systems Review of Systems Narrative: GENERAL: Denies chills, fatigue, malaise, fever, sweats. HEENT: Denies sinus pain, ear pain, sore throat, difficulty swallowing, dizziness. RESPIRATORY: Denies dyspnea, cough, wheezing, hemoptysis, sputum. CARDIOVASCULAR: Denies chest pain, palpitations, orthopnea, edema, GASTROINTESTINAL: Denies nausea, vomiting, abdominal pain, diarrhea, constipation, melena. : Denies dysuria, frequency, incontinence, hematuria, urinary retention. MUSCULOSKELETAL: denies weakness, joint pain, or bony pain SKIN: Denies rash, skin lesions NEUROLOGIC: Denies weakness, headache, numbness, change in speech, confusion, seizures, incoordination. PSYCHIATRIC: No concerning psychosocial issues. ROS Unobtainable: All systems reviewed & are unremarkable except as noted in HPI and below Patient History Medical History Alcohol dependence (Acute) Cervical vertebral fusion (Acute) Hypothyroidism (Acute) Insomnia (Acute) Surgical History Gastric bypass status for obesity (Acute) S/P cervical spinal fusion (Acute) Family History Father MVA (motor vehicle accident) Mother Lung cancer Social History household members: none Smoking Status: Former smoker alcohol intake: current Smoking Status: Former smoker alcohol intake frequency: 3 or more drinks per day Alcohol type: wine Substance Use Type: does not use Exam Narrative Exam Narrative: GENERAL: patient appears stated age. Well-nourished, well-d eveloped patient, in no distress, not toxic HEAD: Atraumatic. Normocephalic. Nontender scalp face and skull. No crepitus or step-off for skin injury. EYES: Pupils equal round and reactive. Extraocular motions intact. No scleral icterus. No injection or drainage. ENT: Nose without bleeding, purulent drainage. Throat without erythema, tonsillar hypertrophy or exudate. Airway patent. NECK: Trachea midline. Non tender, no midline tenderness or step-off. Full active range of motion without any pain. CARDIOVASCULAR: Regular rate and rhythm without murmurs, gallops, or rubs. Nontender chest wall and ribs RESPIRATORY: Clear to auscultation. Breath sounds equal bilaterally. No wheezes, rales, or rhonchi. GASTROINTESTINAL: Abdomen soft, non-tender, nondistended. EXTREMITIES: Nontender shoulder and humerus on the right side. Strong hotel associate in radial pulse with light touch intact to deltoid in fingertips and thumb. No skin injury. BACK: Nontender without deformity or crepitance. No flank tenderness., patient able leaned forward. No midline tenderness or step-off NEURO: AOx4. No altered mental status at this time. Clear speech no facial droop. No slurred speech SKIN: No rash or erythema of visible areas PSYCH: Patient is slightly anxious, is cooperative, not combative. Initial Vital Signs Initial Vital Signs: Vital Signs Temperature 97.7 F 11/24/19 19:07 Pulse Rate 86 11/24/19 19:07 Respiratory Rate 18 11/24/19 19:07 Blood Pressure 132/79 11/24/19 19:07 Pulse Oximetry 100 11/24/19 19:07 Course Course Course Narrative: Patient did not request any pain medication while here. Patient has been cooperative. No new issues. She desires discharge home after review of imaging results Orders Ordered: ED Orders 11/24/19 19:18 CT cervical spine wo con Stat CT head/brain wo con Stat XR humerus RT 2V Stat 11/24/19 19:25 Complete Blood Count AUTO DIFF Stat Comprehensive Metabolic Panel Stat Ethanol (ETOH) Stat Reevaluation(s) Reevaluation #1: Not toxic. Clear speech. Not altered. Patient desires discharge home. Time: 21:00 Vital Signs Vital signs: Vital Signs - 8 hr 11/24/19 19:07 11/24/19 19:25 11/24/19 19:30 Temperature 97.7 F Pulse Rate 86 86 85 Respiratory Rate 18 Blood Pressure 132/79 Pulse Oximetry 100 96 97 11/24/19 19:31 11/24/19 20:00 11/24/19 20:30 Temperature Pulse Rate 86 93 H Respiratory Rate Blood Pressure 127/62 143/70 H 149/83 H Pulse Oximetry 98 100 99 MDM - Extremity Injury (Upper) Differential Diagnosis Differential diagnosis: Likely other (Right humerus contusion) Medical Records Attestation: I reviewed the patient's medical records. Lab Data Attestation: I reviewed the patient's lab results. Result diagrams: 11/24/19 19:25 11/24/19 19:25 Labs: Lab Results 11/24/19 11/24/19 Range/Units 19:25 19:25 WBC 5.5 (4.5-11.0) X10^3/uL RBC 4.72 (4.0-5.2) X10^6/uL Hgb 15.2 (12.0-16.0) g/dL Hct 45.5 (36-46) % MCV 96.4 (80-100) fL MCH 32.2 (26-34) PG MCHC 33.4 (30-36) % RDW 13.5 (11.6-14.8) % Plt Count 274 (150-400) X10^3/uL Neut % (Auto) 52.7 (50-75) % Lymph % (Auto) 39.0 (25-40) % Scott % (Auto) 5.4 (3-14) % Eos % (Auto) 1.9 L (2-4) % Baso % (Auto) 1.0 (0-2) % Neut # (Auto) 2900 (9346-2997) /uL Lymph # (Auto) 2200 (7927-5630) /uL Scott # (Auto) 300 (0-900) /uL Eos # (Auto) 100 (0-450) /uL Baso # (Auto) 100 (0-100) /uL Sodium 149 H (137-145) mmol/L Potassium 4.1 (3.4-5.1) mmol/L Chloride 113 H (98-107) mmol/L Carbon Dioxide 19 L (22-32) mmol/L BUN 15 (7-17) mg/dL Creatinine 0.69 (0.52-1.04) mg/dL Estimated GFR > 60.0 (>60) mL/min BUN/Creatinine Ratio 21.7 (6-22) Glucose 94 (80-110) mg/dL Calcium 10.0 (8.4-10.2) mg/dL Total Bilirubin 0.4 (0.2-1.3) mg/dL AST 35 (14-36) IU/L ALT 20 (<35) IU/L Alkaline Phosphatase 142 H (38-126) U/L Total Protein 7.7 (6.3-8.2) g/dL Albumin 4.6 (3.5-5.0) g/dL Globulin 3.1 (1.7-4.1) g/dL Albumin/Globulin Ratio 1.5 (1.0-2.8) Ethyl Alcohol 210 H ( - 10) mg/dL Urine Dip Bedside Urine Glucose Negative Bedside Urine Bilirubin - Negative Bedside Urine Ketone - Negative Urine Specific [place] 1.005 Bedside Urine Occult Blood - Negative Bedside Urine pH 6.0 Bedside Urine Protein - Negative Bedside Urine Urobilinogen - Negative Bedside Urine Nitrite - Negative Bedside Urine Leukocytes - Negative Esterase Imaging Data CT scan - head: Radiologist's Impression: [address] [address] [address] Scan Report Signed Patient: Mckay Costa GMR#: [id number] : 5Acct:[id number] Age/Sex: 73 / FDate of Service: 11/24/19 Loc: ED Accession Number: [id number] Procedure: CT head/brain wo con Ordering Provider: John Vidal MD PROCEDURE: CT HEAD/BRAIN WO CON INDICATIONS: fall TECHNIQUE: Noncontrast 4.5 mm thick angled axial sections acquired from the foramen magnum to the vertex, with coronal and sagittal reformats. For radiation dose reduction, the following was used: automated exposure control, adjustment of mA and/or kV according to patient size. COMPARISON: [facility], CT, CT HEAD/BRAIN WO CON, 10/23/2019, 12:42. [facility], CT, CT HEAD/BRAIN WO CON, 07/06/2017, 12:58. FINDINGS: Image quality: Excellent. CSF spaces: Basal cisterns are patent. No extra-axial fluid collections. The ventricles are symmetric in size and shape. Brain: No intracranial bleeds or masses. There is cerebral volume loss for age, with resultant ventricular and sulcal prominence. There are periventricular and deep white matter chronic small vessel ischemic changes. There is intracranial internal carotid artery atherosclerosis. Skull and face: Calvarium and visualized facial bones appear intact, without suspicious lesions. Sinuses: Visualized sinuses and mastoids are clear. IMPRESSION: No acute intracranial abnormality. Dictated by: Delroy Main M.D. on 11/24/2019 at 20:12 Approved by: Delroy Main M.D. on 11/24/2019 at 20:13 CT - cervical spine: Radiologist's Impression: [place] [address] CT Scan Report Signed Patient: Mckay Costa GMR#: [id number] : 5Acct:[id number] Age/Sex: 73 / FDate of Service: 11/24/19 Loc: ED Accession Number: [id number] Procedure: CT cervical spine wo con Ordering Provider: John Vidal MD PROCEDURE: CT CERVICAL SPINE WO CON INDICATIONS: fall TECHNIQUE: Noncontrast 3 mm thick sections acquired from the skull base to the T4 level. Sagittal and coronal reformats were then constructed. For radiation dose reduction, the following was used: automated exposure control, adjustment of mA and/or kV according to patient size. COMPARISON: [facility], CT, CT CERVICAL SPINE WO CON, 10/23/2019, 12:42. FINDINGS: Image quality: Excellent. Bones: Postsurgical changes are seen from anterior fixation of the cervical spine extending from C5 through C7 with osseous fusion. The metallic hardware is grossly intact. No acute fractures or dislocations. The alignment is grossly unchanged when compared to the CT from 10/23/2019. Visualized superior ribs are intact. Soft tissues: Prevertebral soft tissues are normal in thickness. No paravertebral hematomas. No apical pneumothoraces. IMPRESSION: Stable postsurgical changes extending from C5 through C7. No acute cervical spine fracture is seen. Dictated by: Delroy Main M.D. on 11/24/2019 at 20:14 Approved by: Delroy Main M.D. on 11/24/2019 at 20:20 Extremity x-ray #1: Radiologist's Impression: [address] [address] XRay Report Signed Patient: Mckay Costa GMR#: [id number] : 5Acct:[id number] Age/Sex: 73 / FDate of Service: 11/24/19 Loc: ED Accession Number: [id number] Procedure: XR humerus RT 2V Ordering Provider: John Vidal MD PROCEDURE: XR HUMERUS RT 2V INDICATIONS: fall TECHNIQUE: 2 views of the humerus were acquired. COMPARISON: [facility], CR, XR SHOULDER 2+ VIEWS RIGHT, 11/06/2019, 10:33. [facility], CR, XR SHOULDER 2+ VIEWS RIGHT, 11/20/2019, 14:41. FINDINGS: Bones: A comminuted fracture is redemonstrated in the proximal humeral head and neck. The alignment does not appear significantly changed when compared to the radiographs from 11/20/2019. Soft tissues: No suspicious soft tissue calcifications. IMPRESSION: Comminuted, mildly displaced fracture of the proximal humeral head and neck with unchanged alignment when compared to the radiographs from 11/20/2019. Dictated by: Delroy Main M.D. on 11/24/2019 at 20:05 Approved by: Delroy Main M.D. on 11/24/2019 at 20:07 MDM Narrative Medical decision making narrative: Appropriate for discharge home. Alcohol level reviewed. However patient drinks daily. Patient is mentating appropriately no slurred speech. Awake alert oriented x4 Discharge Plan Departure Patient Disposition: Home Clinical Impression: Fracture of humerus Qualifiers: Encounter type: subsequent encounter Humerus Location: surgical neck Fracture type: closed Fracture morphology: unspecified fracture morphology Fracture alignment: displaced Laterality: right Fracture healing: with routine healing Qualified Code(s): S42.211D - Unspecified displaced fracture of surgical neck of right humerus, subsequent encounter for fracture with routine healing Discharge Date/Time: 11/24/19 21:15 Activity Restrictions/Additional Instructions: Decrease your alcohol consumption. See your orthopedist and her family doctor's week for recheck. Return if worse. No operating machinery. No driving. Prescriptions: No Action dexamethasone sodium phosphate 0.1 % drops 1 drp ophthalmic (eye) BID PRN (Reason: Allergy Symptoms) RF: 0 betamethasone valerate 0.1 % cream 1 applic Topical DIRECTED RF: 0 levothyroxine 125 mcg tablet 150 mcg PO DAILY RF: 0 zolpidem 5 mg tablet 5 mg PO QHS PRN (Reason: Sleep) RF: 0 fluticasone propionate 50 mcg/actuation spray,suspension 1 spray Intranasal BID RF: 0 metronidazole [Metrogel] 1 % Gel 1 applic Topical BID PRN (Reason: antibiotic) RF: 0 cetirizine 10 mg Tablet 10 mg PO DAILY PRN (Reason: Allergy Symptoms) RF: 0 yjdgplnwtmgcpw-irdhqqykr-svuu7 2-1-1 % Gel 1 applic Topical BID PRN (Reason: unknown) RF: 0 Celebrate Multi-Complex 45 3 cap PO DAILY RF: 0 Calcium Citrate + D 2 tab PO TID RF: 0 fexofenadine [Madelyn Allergy] 180 mg Tablet 180 mg PO DAILY RF: 0 acetaminophen 325 mg Tablet 975 mg PO TID 30 Days Qty: 270 RF: 0 diphenhydramine HCl [Allergy (diphenhydramine)] 25 mg Tablet 25 mg PO BEDTIME PRN (Reason: Sleep) 30 Days RF: 0 Referrals: Roberta Olea PA-C [Primary Care Provider] -
[2019-11-24 19:25] VITALS: PULSE 86; O2SAT 96
[2019-11-24 19:30] VITALS: PULSE 85; O2SAT 97
[2019-11-24 19:31] VITALS: BP 127/62; O2SAT 98
[2019-11-24 19:34] LABS: Add Manual Diff / Slide Review NO; Basophils Absolute Auto 100 /uL (0-100); Eosinophils Absolute Auto 100 /uL (0-450); Eosinophils Percent Auto 1.9 % (2-4); Hematocrit 45.5 % (36-46); Hemoglobin 15.2 g/dL (12.0-16.0); Lymphocytes Absolute Auto 2200 /uL (1100-4500); Mean Corpuscular HGB Conc 33.4 % (30-36); Mean Corpuscular Hemoglobin 32.2 PG (26-34); Mean Corpuscular Volume 96.4 fL (80-100); Monocytes Absolute Auto 300 /uL (0-900); Monocytes Percent Auto 5.4 % (3-14); Neutrophils Absolute Auto 2900 /uL (1500-7000); Neutrophils Percent Auto 52.7 % (50-75); Platelet Count 274 X10^3/uL (150-400); Red Blood Cell Count 4.72 X10^6/uL (4.0-5.2); Red Cell Distribution Width 13.5 % (11.6-14.8); White Blood Cell Count 5.5 X10^3/uL (4.5-11.0)
[2019-11-24 19:43] LABS: Alanine Aminotransferase 20 IU/L (<35); Albumin 4.6 g/dL (3.5-5.0); Albumin Globulin Ratio 1.5 (1.0-2.8); Alkaline Phosphatase 142 U/L (38-126); Aspartate Aminotransferase 35 IU/L (14-36); BUN Creatinine Ratio 21.7 (6-22); Bilirubin Total 0.4 mg/dL (0.2-1.3); Blood Urea Nitrogen 15 mg/dL (7-17); Carbon Dioxide 19 mmol/L (22-32); Chloride 113 mmol/L (98-107); Estimated Glomerular Filt Rate > 60.0 mL/min (>60); Ethanol (ETOH) 210 mg/dL; Globulin 3.1 g/dL (1.7-4.1); Glucose 94 mg/dL (80-110); HEMOLYSIS 23 (0-50); Potassium 4.1 mmol/L (3.4-5.1); Sodium 149 mmol/L (137-145); Total Protein 7.7 g/dL (6.3-8.2)
[2019-11-24 20:00] VITALS: BP 143/70; PULSE 86; O2SAT 100
[2019-11-24 20:30] VITALS: BP 149/83; PULSE 93; O2SAT 99
== END 2019-11-24 21:15 | disposition home or self-care (01) ==
PROVIDERS: Emergency Provider Emergency Medicine; PCP Physician Assistant
DX: S42.211D Unspecified displaced fracture of surgical neck of right humerus, subsequent encounter for fracture with routine healing (principal); S09.90XA Unspecified injury of head, initial encounter; S19.9XXA Unspecified injury of neck, initial encounter; W19.XXXD Unspecified fall, subsequent encounter
CPT/HCPCS: 36415; 70450; 72125; 73060; 80053; 80320; 81003; 85025; 99283; 99284

== ENCOUNTER 2020-01-14 14:06 | Emergency (ER) | payer MEDICARE, SELFPAY ==
[2019-10-23 15:16] VITALS: BMI 31.6
[2020-01-14] VITALS (7 sets, daily range): BP systolic 167–189; BP diastolic 80–86; PULSE 85–112; RESP 14–30; TEMP 36.4; O2SAT 98–99; BMI 27.4
--- NOTE | 2020-01-14 14:17 | DI.RAD.S_ITS ---
PROCEDURE: XR CHEST 1V INDICATIONS: Shortness of breath TECHNIQUE: One view of the chest was acquired. COMPARISON: [facility], , XR CHEST 2V, 11/28/2018, 18:20. FINDINGS: Surgical changes and devices: Cervical spine fixation hardware. Lungs and pleura: Lungs are clear of acute opacities. 1.4 centimeter nodular opacity projects over the right lung base.. No pleural effusions or pneumothorax. Mediastinum: Mediastinal contours appear normal. Heart size is normal. Bones and chest wall: No suspicious bony lesions. Overlying soft tissues appear unremarkable. IMPRESSION: 1. No acute cardiopulmonary disease process. 2. 1.4 centimeter nodular opacity projecting over the right lung base. Recommend standard two view of the chest when clinically feasible to confirm presence of the finding. If nodule persists on two view of the chest, CT scan of the chest should be performed to exclude neoplastic process. Dictated by: Traci Sanders MD, PhD on 01/14/2020 at 15:35 Approved by: Traci Sanders MD, PhD on 01/14/2020 at 15:37
[2020-01-14 14:45] LABS: COVID19 -Nasal RAPID Negative (Negative)
--- NOTE | 2020-01-14 16:14 | ED_ITS ---
HPI - SOB/Dyspnea <Humza CAITLIN Rayo - Last Filed: 01/14/20 23:35> General Chief Complaint: Shortness of Breath/Dyspnea Stated Complaint: trouble breathing// mucas/ sore throat Time Seen by Provider: 01/14/20 14:16 Source: patient Mode of arrival: Ambulatory Limitations: no limitations History of Present Illness HPI Narrative: This is a 74 year female, former smoker, who has past medical history significant for hypothyroidism, allergies who is currently taking Flonase BID and as needed Madelyn presented to ED with chief complain of clear postnasal drips with some short of breath which started this morning at 8:00 a.m.. Patient denies chest pain, dizziness or diaphoresis. Patient reports mild nausea but denies vomiting, fever, cough or chills. Patient denies known exposure to COVID virus and states has been using mask everywhere she goes. Patient denies recent weight changes, leg swelling. Related Data Home Medications Medication Instructions Recorded Confirmed betamethasone valerate 1 applic TOPICAL DIRECTED 07/06/17 10/23/19 dexamethasone sodium phosphate 1 drp OPHTHALMIC (EYE) BID PRN 07/06/17 10/23/19 fluticasone propionate 1 spray INTRANASAL BID 07/06/17 10/23/19 levothyroxine 150 mcg PO DAILY 07/06/17 10/23/19 metronidazole [Metrogel] 1 applic TOPICAL BID PRN 07/06/17 10/23/19 zolpidem 5 mg PO QHS PRN 07/06/17 10/23/19 Calcium Citrate + D 2 tab PO TID 12/04/17 10/23/19 Celebrate Multi-Complex 45 3 cap PO DAILY 12/04/17 10/23/19 cetirizine 10 mg PO DAILY PRN 12/04/17 10/23/19 [id number] 1 applic TOPICAL BID PRN 12/04/17 10/23/19 fexofenadine [Madelyn Allergy] 180 mg PO DAILY 10/23/19 10/23/19 Allergies Allergy/AdvReac Type Severity Reaction Status Date / Time erythromycin base Allergy Intermediate HIVES Verified 10/23/19 12:29 adhesive Allergy Mild ALLERGIC Verified 10/23/19 12:29 TO TAPE epinephrine Allergy Mild TACHYCARDIA Verified 10/23/19 12:29 gentamicin [Gentamicin] Allergy Mild RASH Verified 10/23/19 12:29 NSAIDS (Non-Steroidal Allergy Mild GASTRITIS Verified 10/23/19 12:29 Anti-Inflamma Serotonin 5HT-3 Antagonists Allergy Mild GASTRITIS Verified 10/23/19 12:29 trazodone Allergy Mild LOSS OF Verified 10/23/19 12:29 BALANCE alprazolam Allergy Unknown LOSS OF Verified 10/23/19 12:29 ABILITY TO FOCUS amitriptyline Allergy Unknown IBS Verified 10/23/19 12:29 SYMPTOMS buspirone Allergy Unknown Verified 10/23/19 12:29 codeine Allergy Unknown IBS Verified 10/23/19 12:29 SYMPTOMS gabapentin Allergy Unknown SEVERE Verified 10/23/19 12:29 GASTRITIS Review of Systems <CAITLIN Bright - Last Filed: 01/14/20 23:35> Review of Systems Narrative: General: Denies fever, chills, fatigue, malaise, sweats. HEENT: See HPI Respiratory: Denies dyspnea, cough, wheezing, hemoptysis, sputum but some sh ortness of breath. Cardiovascular: Denies chest pain, palpitations, orthopnea, edema. Gastrointestinal: Denies (+) mild nausea, vomiting, abdominal pain, diarrhea, constipation, melena. : Denies dysuria, frequency, incontinence, hematuria, urinary retention. Musculoskeletal: Denies weakness, joint pain or bony pain. Skin: Denies rash, skin lesions, or other. Neurologic: Denies weakness, headache, numbness, change in speech, confusion, seizures, incoordination. Psychiatric: No concerning psychosocial issues. 12-point review of systems is negative except for those stated above. Patient History <CAITLIN Bright - Last Filed: 01/14/20 23:35> Medical History Alcohol dependence (Acute) Cervical vertebral fusion (Acute) Hypothyroidism (Acute) Insomnia (Acute) Surgical History Gastric bypass status for obesity (Acute) S/P cervical spinal fusion (Acute) Family History Father MVA (motor vehicle accident) Mother Lung cancer Social History household members: none Smoking Status: Former smoker alcohol intake: current Smoking Status: Former smoker alcohol intake frequency: 3 or more drinks per day Alcohol type: wine Substance Use Type: does not use Exam <CAITLIN Bright - Last Filed: 01/14/20 23:35> Narrative Exam Narrative: GEN: Alert, oriented x 3, well appearing and nourished, and in no acute distress. Head: Normal cephalic, atraumatic. No scalp or temporal tenderness, palpable mass or rash. EYES: Pupils are equal, round, and reactive to light and accommodation. Extraocular muscles are intact bilaterally. There is no subconjunctival hemorrhage, exudate and sclera non-icteric. ENT: Hearing grossly intact. Nose without bleeding, purulent discharge or deviation. Moderate right nasal turbinate edema, erythema and post nasal drip appreciated in oral pharynx. Facial sinuses nontender to palpate. Mucous membrane moist, no mucosal lesion. Throat without erythema, tonsillar hypertrophy or exudate. Uvula in midline, airway patent. Neck: Trachea in midline. No JVD, non-tender without lymphadenopathy. No masses or thyroid megaly. Supple, non-tender and no meningeal signs. CARDIAC: Normal regular rate and rhythm without murmurs, gallops, or rubs. No chest wall tenderness. No peripheral edema, cyanosis or pallor. Capillary refill is less than 2 seconds. RESPIRATORY: Lungs are clear to auscultate bilaterally. No cough, wheezes, rales, or rhonchi. No stridor, respiratory distress, increase work of breathing, or accessary muscle used. ABD: Abdomen soft, nontender and non-distended. No guarding or rebound t enderness to palpate. Bowel sounds are normal in all 4 quadrants. There is no palpable masses or organomegaly. EXT: Full painless ROM of all extremities with no loss of sensation, strength, effusion or edema. SKIN: Warm, dry, normal color for patient. No erythema, lesions or rash over visible areas. BACK: Nontender without deformity or crepitance. No flank tenderness. NEUROLOGICAL: Alert and oriented to place, time and person. Sensation and motor function intact bilaterally. No facial droops, dysphasia. PSYCHIATRIC: Good judgement and reason, without hallucinations, abnormal affect or abnormal behaviors during the examination. Patient is not suicidal. Initial Vital Signs Initial Vital Signs: Vital Signs Temperature 97.5 F L 01/14/20 14:19 Pulse Rate 95 H 01/14/20 14:19 Respiratory Rate 20 01/14/20 14:19 Blood Pressure 167/80 H 01/14/20 14:19 Pulse Oximetry 98 01/14/20 14:19 <Tor Oliver DO - Last Filed: 01/18/20 18:21> Initial Vital Signs Initial Vital Signs: Vital Signs Temperature 97.5 F L 01/14/20 14:19 Pulse Rate 95 H 01/14/20 14:19 Respiratory Rate 01/14/20 14:19 Blood Pressure 167/80 H 01/14/20 14:19 Pulse Oximetry 98 01/14/20 14:19 Scores <CAITLIN Bright - Last Filed: 01/14/20 23:35> GCS [place] coma scale eye opening: Spontaneous [place] coma scale verbal response: Orientated Sarahy coma scale motor response: Obey commands Sarahy coma scale total score: 15 Course <CAITLIN Bright Last Filed: 01/14/20 23:35> Orders Ordered: Discontinued Medications Sodium Chloride (Normal Saline 0.9%) 1,000 mls @ 125 mls/hr IV CONT SIDRA Vital Signs Vital signs: Vital Signs - 8 hr 01/14/20 15:52 01/14/20 16:00 01/14/20 16:30 Pulse Rate 92 H 88 92 H Respiratory Rate 21 17 30 H Blood Pressure 189/86 H Pulse Oximetry 98 99 99 01/14/20 19:01 01/14/20 19:03 01/14/20 19:30 Pulse Rate 112 H 91 H 85 Respiratory Rate 27 H 14 Blood Pressure 187/84 H Pulse Oximetry 98 99 <DO Haydee Esteves Last Filed: 01/18/20 18:21> Orders Ordered: Discontinued Medications Sodium Chloride (Normal Saline 0.9%) 1,000 mls @ 125 mls/hr IV CONT SIDRA Vital Signs Vital signs: Vital Signs - 8 hr 01/14/20 15:52 01/14/20 16:00 01/14/20 16:30 Pulse Rate 92 H 88 92 H Respiratory Rate 21 17 30 H Blood Pressure 189/86 H Pulse Oximetry 98 99 99 01/14/20 19:01 01/14/20 19:03 01/14/20 19:30 Pulse Rate 112 H 91 H 85 Respiratory Rate 27 H 14 Blood Pressure 187/84 H Pulse Oximetry 98 99 MDM - SOB/Dyspnea <Humza CAITLIN Rayo - Last Filed: 01/14/20 23:35> Differential Diagnosis Differential diagnosis: Likely other (Postnasal drips, allergies, nasal congest ion, sinus infection, Covid, pneumonia) Medical Records Attestation: I reviewed the patient's medical records. Lab Data Attestation: I reviewed the patient's lab results. Result diagrams: 01/14/20 17:51 01/14/20 17:51 Labs: Lab Results 01/14/20 01/14/20 01/14/20 Range/Units 14:23 17:51 17:51 WBC 5.6 (4.5-11.0) X10^3/uL RBC 4.35 (4.0-5.2) X10^6/uL Hgb 13.7 (12.0-16.0) g/dL Hct 41.6 (36-46) % MCV 95.8 (80-100) fL MCH 31.6 (26-34) PG MCHC 33.0 (30-36) % RDW 14.8 (11.6-14.8) % Plt Count 235 (150-400) X10^3/uL Neut % (Auto) 55.0 (50-75) % Lymph % (Auto) 35.9 (25-40) % Kingfisher % (Auto) 7.3 (3-14) % Eos % (Auto) 1.2 L (2-4) % Baso % (Auto) 0.6 (0-2) % Neut # (Auto) 3100 (5718-2637) /uL Lymph # (Auto) 2000 (6555-6662) /uL [place] # (Auto) 400 (0-900) /uL Eos # (Auto) 100 (0-450) /uL Baso # (Auto) 0 (0-100) /uL PT 11.3 (10.1-12.7) SECONDS INR 1.0 (0.9-1.3) APTT 33 D (26.4-36.2) SECONDS Sodium (137-145) mmol/L Potassium (3.4-5.1) mmol/L Chloride (98-107) mmol/L Carbon Dioxide (22-32) mmol/L BUN (7-17) mg/dL Creatinine (0.52-1.04) mg/dL Estimated GFR (>60) mL/min BUN/Creatinine Ratio (6-22) Glucose (80-110) mg/dL Calcium (8.4-10.2) mg/dL Magnesium (1.6-2.3) mg/dL Total Bilirubin (0.2-1.3) mg/dL AST (14-36) IU/L ALT (<35) IU/L Alkaline Phosphatase (38-126) U/L Total Creatine Kinase (30-135) U/L CK-MB (CK-2) CK-MB (CK-2) Rel Index Troponin I (0.01-0.034) ng/mL NT-Pro-B Natriuret Pep (<450) pg/mL Total Protein (6.3-8.2) g/dL Albumin (3.5-5.0) g/dL Globulin (1.7-4.1) g/dL Albumin/Globulin Ratio (1.0-2.8) COVID-19 PCR Negative (Negative) 01/14/20 Range/Units 17:51 WBC (4.5-11.0) X10^3/uL RBC (4.0-5.2) X10^6/uL Hgb (12.0-16.0) g/dL Hct (36-46) % MCV (80-100) fL MCH (26-34) PG MCHC (30-36) % RDW (11.6-14.8) % Plt Count (150-400) X10^3/uL Neut % (Auto) (50-75) % Lymph % (Auto) (25-40) % Kingfisher % (Auto) (3-14) % Eos % (Auto) (2-4) % Baso % (Auto) (0-2) % Neut # (Auto) (5031-4237) /uL Lymph # (Auto) (5686-2574) /uL Kingfisher # (Auto) (0-900) /uL Eos # (Auto) (0-450) /uL Baso # (Auto) (0-100) /uL PT (10.1-12.7) SECONDS INR (0.9-1.3) APTT (26.4-36.2) SECONDS Sodium 137 (137-145) mmol/L Potassium 3.8 (3.4-5.1) mmol/L Chloride 103 (98-107) mmol/L Carbon Dioxide 26 (22-32) mmol/L BUN 20 H (7-17) mg/dL Creatinine 0.68 (0.52-1.04) mg/dL Estimated GFR > 60.0 (>60) mL/min BUN/Creatinine Ratio 29.4 H (6-22) Glucose 92 (80-110) mg/dL Calcium 9.9 (8.4-10.2) mg/dL Magnesium 2.0 (1.6-2.3) mg/dL Total Bilirubin 0.8 (0.2-1.3) mg/dL AST 26 (14-36) IU/L ALT 15 (<35) IU/L Alkaline Phosphatase 114 (38-126) U/L Total Creatine Kinase 47 (30-135) U/L CK-MB (CK-2) TNP CK-MB (CK-2) Rel Index TNP Troponin I < 0.012 (0.01-0.034) ng/mL NT-Pro-B Natriuret Pep 53 (<450) pg/mL Total Protein 7.2 (6.3-8.2) g/dL Albumin 4.4 (3.5-5.0) g/dL Globulin 2.8 (1.7-4.1) g/dL Albumin/Globulin Ratio 1.6 (1.0-2.8) COVID-19 PCR (Negative) Imaging Data Chest x-ray: Radiologist's Impression: [address] [address] XRay Report Signed Patient: Mckay Costa GMR#: [id number] : 5Acct:[id number] Age/Sex: 74 / FDate of Service: 01/14/20 Loc: ED Accession Number: [id number] Procedure: XR chest 1V Ordering Provider: Tor Oliver D.O. PROCEDURE: XR CHEST 1V INDICATIONS: Shortness of breath TECHNIQUE: One view of the chest was acquired. COMPARISON: [facility], XR CHEST 2V, 11/28/2018, 18:20. FINDINGS: Surgical changes and devices: Cervical spine fixation hardware. Lungs and pleura: Lungs are clear of acute opacities. 1.4 centimeter nodular opacity projects over the right lung base.. No pleural effusions or pneumothorax. Mediastinum: Mediastinal contours appear normal. Heart size is normal. Bones and chest wall: No suspicious bony lesions. Overlying soft tissues appear unremarkable. IMPRESSION: 1. No acute cardiopulmonary disease process. 2. 1.4 centimeter nodular opacity projecting over the right lung base. Recommend standard two view of the chest when clinically feasible to confirm presence of the finding. If nodule persists on two view of the chest, CT scan of the chest should be performed to exclude neoplastic process. Dictated by: Traci Sanders MD, PhD on 01/14/2020 at 15:35 Approved by: Traci Sanders MD, PhD on 01/14/2020 at 15:37 XR-Chest 2 view: Radiologist's Impression: [place] [address] XRay Report Signed Patient: Mckay Costa GMR#: [id number] : 5Acct:[id number] Age/Sex: 74 / FDate of Service: 01/14/20 Loc: ED Accession Number: [id number] Procedure: XR chest 2V Ordering Provider: Humza Rayo PROCEDURE: XR CHEST 2V INDICATIONS: POSSIBLE NODULE TECHNIQUE: 2 views of the chest were acquired. COMPARISON: [facility], XR CHEST 1V, 01/14/2020, 14:49. [facility], XR CHEST 2V, 11/28/2018, 18:20. FINDINGS: Surgical changes and devices: None. Lungs and pleura: Lungs are clear. Nodular density persist in the right lung base may represent superimposition of shadows or lung nodule. No pleural effusions or pneumothorax. Mediastinum: Mediastinal contours are normal. Heart size is normal. Bones and chest wall: No suspicious bony abnormalities. Soft tissues appear unremarkable. IMPRESSION: 1.4 centimeter nodule opacity in the right lung base which could represent superimposition shadows or nodule. Recommend CT scan of the chest for further evaluation. Dictated by: Traci Sanders MD, PhD on 01/14/2020 at 17:11 Approved by: Traci Sanders MD, PhD on 01/14/2020 at 17:15 CT scan - chest: Radiologist's Impression: [address] [address] [address] Scan Report Signed Patient: Mckay Costa GMR#: [id number] : 5Acct:[id number] Age/Sex: 74 / FDate of Service: 01/14/20 Loc: ED Accession Number: [id number] Procedure: CT chest w con Ordering Provider: Humza Rayo PROCEDURE: CT CHEST W CON INDICATIONS: chest nodule per CXR, SOB TECHNIQUE: After the administration of intravenous contrast, 5 mm thick sections acquired from the pulmonary apices to the posterior costophrenic angles. 1 mm axial lung, 5 mm thick coronal and sagittal reformats and 7 mm axial MIP were acquired. For radiation dose reduction, the following was used: automated exposure control, adjustment of mA and/or kV according to patient size. COMPARISON: [facility], CT, CT CHEST WO CON, 10/23/2019, 12:42. [facility], CR, XR CHEST 2V, 01/14/2020, 16:51. FINDINGS: Image quality: Excellent. Lungs and pleura: No acute air space opacities. No pleural effusions or pneumothorax. Central and peripheral airways are patent and normal in caliber. No nodules identified in the area of concern on chest x-ray of 01/14/2020. Mediastinum: Heart size is normal. No pericardial effusion. No mediastinal or hilar adenopathy by size criteria. Thoracic aorta and central pulmonary arteries are normal in size. Esophagus is normal in caliber. No hiatal hernia. Bones and chest wall: No suspicious bony lesions. Multiple old bilateral rib fractures are noted. Incompletely visualized old right humeral head fracture. No vertebral body compression fractures. No axillary or supraclavicular adenopathy by size criteria. Thyroid gland is unremarkable . Abdomen: Visualized upper abdominal solid organs appear normal. Upper abdominal bowel loops are normal in caliber. IMPRESSION: 1. No pulmonary parenchymal abnormality identified an area of concern on recent chest x-ray. Areas likely represent of overlapping soft tissue and osseous structures. Dictated by: Nga Knowles M.D. on 01/14/2020 at 19:06 Approved by: Nga Knowles M.D. on 01/14/2020 at 19:10 ECG Data Attestation: I personally reviewed and interpreted this ECG as follows: Prior ECG tracings: available for review Interpretation: Sinus rhythm rate at 92. Left dominant axis. TX interval 168, QRS duration 72, QT/QTC 340/[address] changes. Previous EKG showing ST are in 100's with similar tracing but in normal axis. MDM Narrative Medical decision making narrative: This is a 74 year female who presents to ED with postnasal drips and some shortness of breath started this morning without purulent discharge, or facial pressure-like pain. Patient is afebrile with slightly hypertensive with room air oxygenation ranging from 98-99%. COvid test was negative. Portable CXR showed no acute cardiopulmonary disease process but indicated 1.4 cm nodular opacity projecting over the right lung base and recommending two-view chest x-ray test. Two view CXR was obtained again showing 1.4 cm nodule density persistent in the right lung base recommending chest CT to rule out neoplasm. Chest CT was ordered and obtained. CT test does not show nodules, pleural effusion, pneumothorax and indicates likely represent of overlapping soft tissue and osseous structures. Blood tests were unremarkable. No leukocytsis. Stable H/H. Mildly elevated BUN of 20 and BUN creatinine ratio of 29.4 indicating mild dehydration otherwise normal kidney function, normal liver function, negative cardiac enzymes. The patient reports resolved short of breath and would like to go home. Physical exam is not consistent for sinus infection at this time. Patient advised continue with allergy medication and Flonase at least twice a day for acute symptoms and she declines using Sudafed, guaifenesin, or Afrin in addition. Advised nasal rinses as needed and to monitor for signs and symptoms for sinus infection and to follow-up with her primary care physician next 2-3 days. Patient verbalized understanding in agreement with treatment plan. <Tor Oliver, DO - Last Filed: 01/18/20 18:21> Lab Data Labs: Lab Results 01/14/20 01/14/20 01/14/20 Range/Units 14:23 17:51 17:51 WBC 5.6 (4.5-11.0) X10^3/uL RBC 4.35 (4.0-5.2) X10^6/uL Hgb 13.7 (12.0-16.0) g/dL Hct 41.6 (36-46) % MCV 95.8 (80-100) fL MCH 31.6 (26-34) PG MCHC 33.0 (30-36) % RDW 14.8 (11.6-14.8) % Plt Count 235 (150-400) X10^3/uL Neut % (Auto) 55.0 (50-75) % Lymph % (Auto) 35.9 (25-40) % Kingfisher % (Auto) 7.3 (3-14) % Eos % (Auto) 1.2 L (2-4) % Baso % (Auto) 0.6 (0-2) % Neut # (Auto) 3100 (7607-1400) /uL Lymph # (Auto) 2000 (8596-6690) /uL Kingfisher # (Auto) 400 (0-900) /uL Eos # (Auto) 100 (0-450) /uL Baso # (Auto) 0 (0-100) /uL PT 11.3 (10.1-12.7) SECONDS INR 1.0 (0.9-1.3) APTT 33 D (26.4-36.2) SECONDS Sodium (137-145) mmol/L Potassium (3.4-5.1) mmol/L Chloride (98-107) mmol/L Carbon Dioxide (22-32) mmol/L BUN (7-17) mg/dL Creatinine (0.52-1.04) mg/dL Estimated GFR (>60) mL/min BUN/Creatinine Ratio (6-22) Glucose (80-110) mg/dL Calcium (8.4-10.2) mg/dL Magnesium (1.6-2.3) mg/dL Total Bilirubin (0.2-1.3) mg/dL AST (14-36) IU/L ALT (<35) IU/L Alkaline Phosphatase (38-126) U/L Total Creatine Kinase (30-135) U/L CK-MB (CK-2) CK-MB (CK-2) Rel Index Troponin I (0.01-0.034) ng/mL NT-Pro-B Natriuret Pep (<450) pg/mL Total Protein (6.3-8.2) g/dL Albumin (3.5-5.0) g/dL Globulin (1.7-4.1) g/dL Albumin/Globulin Ratio (1.0-2.8) COVID-19 PCR Negative (Negative) 01/14/20 Range/Units 17:51 WBC (4.5-11.0) X10^3/uL RBC (4.0-5.2) X10^6/uL Hgb (12.0-16.0) g/dL Hct (36-46) % MCV (80-100) fL MCH (26-34) PG MCHC (30-36) % RDW (11.6-14.8) % Plt Count (150-400) X10^3/uL Neut % (Auto) (50-75) % Lymph % (Auto) (25-40) % Kingfisher % (Auto) (3-14) % Eos % (Auto) (2-4) % Baso % (Auto) (0-2) % Neut # (Auto) (3360-6447) /uL Lymph # (Auto) (7470-9893) /uL Kingfisher # (Auto) (0-900) /uL Eos # (Auto) (0-450) /uL Baso # (Auto) (0-100) /uL PT (10.1-12.7) SECONDS INR (0.9-1.3) APTT (26.4-36.2) SECONDS Sodium 137 (137-145) mmol/L Potassium 3.8 (3.4-5.1) mmol/L Chloride 103 (98-107) mmol/L Carbon Dioxide 26 (22-32) mmol/L BUN 20 H (7-17) mg/dL Creatinine 0.68 (0.52-1.04) mg/dL Estimated GFR > 60.0 (>60) mL/min BUN/Creatinine Ratio 29.4 H (6-22) Glucose 92 (80-110) mg/dL Calcium 9.9 (8.4-10.2) mg/dL Magnesium 2.0 (1.6-2.3) mg/dL Total Bilirubin 0.8 (0.2-1.3) mg/dL AST 26 (14-36) IU/L ALT 15 (<35) IU/L Alkaline Phosphatase 114 (38-126) U/L Total Creatine Kinase 47 (30-135) U/L CK-MB (CK-2) TNP CK-MB (CK-2) Rel Index TNP Troponin I < 0.012 (0.01-0.034) ng/mL NT-Pro-B Natriuret Pep 53 (<450) pg/mL Total Protein 7.2 (6.3-8.2) g/dL Albumin 4.4 (3.5-5.0) g/dL Globulin 2.8 (1.7-4.1) g/dL Albumin/Globulin Ratio 1.6 (1.0-2.8) COVID-19 PCR (Negative) Discharge Plan Departure Patient Disposition: Home Clinical Impression: Nasal congestion with rhinorrhea Discharge Date/Time: 01/14/20 20:08 Instructions: DI for Nasal Congestion Activity Restrictions/Additional Instructions: You have been diagnosed with [nasal congestion and postnasal drips. Small nodule that was seen in chest xray was not visualized in chest CT. It is likely represent of overlapping soft tissue or bone structure. Lab tests are assuring. Covid test was negative.]. What to do: *Take your medications as directed. You can continue to use Flonase, allergy medications. You can consider using Afrin as needed which you can purchase [id number]. You can rinse your nose as needed. Sudafed will help with congestion and nasal drips if you can tolerated. *Follow up with your primary care provider in 2-3 days, call for an appointment. Let them know you were seen in the ED and that we asked you to be seen in follow up. *Return to ED if you have any new, worsening, or concerning symptoms, such as [facial pain and redness, fever, decreased energy, chest pain, breathing difficulty, unable to tolerate fluids, or any acute concerns]. Prescriptions: No Action dexamethasone sodium phosphate 0.1 % drops 1 drp ophthalmic (eye) BID PRN (Reason: Allergy Symptoms) RF: 0 betamethasone valerate 0.1 % cream 1 applic Topical DIRECTED RF: 0 levothyroxine 125 mcg tablet 150 mcg PO DAILY RF: 0 zolpidem 5 mg tablet 5 mg PO QHS PRN (Reason: Sleep) RF: 0 fluticasone propionate 50 mcg/actuation spray,suspension 1 spray Intranasal BID RF: 0 metronidazole [Metrogel] 1 % Gel 1 applic Topical BID PRN (Reason: antibiotic) RF: 0 cetirizine 10 mg Tablet 10 mg PO DAILY PRN (Reason: Allergy Symptoms) RF: 0 yaexymsxbacrrv-[id number] 2-1-1 % Gel 1 applic Topical BID PRN (Reason: unknown) RF: 0 Celebrate Multi-Complex 45 3 cap PO DAILY RF: 0 Calcium Citrate + D 2 tab PO TID RF: 0 fexofenadine [Madeyln Allergy] 180 mg Tablet 180 mg PO DAILY RF: 0 Referrals: Roberta Olea PA-C [Primary Care Provider] - <Tor Oliver, - Last Filed: 01/18/20 18:21> Cosign ED Attending Cosignature Attestation: Dr Oliver Co-Sign Statement: I was available for consultation during this patient's emergency department visit. This chart is signed by myself for administrative purposes only. I did not have direct contact with this patient during this visit. They were seen independentl y by the APC.
--- NOTE | 2020-01-14 16:52 | DI.RAD.S_ITS ---
PROCEDURE: XR CHEST 2V INDICATIONS: POSSIBLE NODULE TECHNIQUE: 2 views of the chest were acquired. COMPARISON: [facility], CR, XR CHEST 1V, 01/14/2020, 14:49. [facility], CR, XR CHEST 2V, 11/28/2018, 18:20. FINDINGS: Surgical changes and devices: None. Lungs and pleura: Lungs are clear. Nodular density persist in the right lung base may represent superimposition of shadows or lung nodule. No pleural effusions or pneumothorax. Mediastinum: Mediastinal contours are normal. Heart size is normal. Bones and chest wall: No suspicious bony abnormalities. Soft tissues appear unremarkable. IMPRESSION: 1.4 centimeter nodule opacity in the right lung base which could represent superimposition shadows or nodule. Recommend CT scan of the chest for further evaluation. Dictated by: Traci Sanders MD, PhD on 01/14/2020 at 17:11 Approved by: Traci Sanders MD, PhD on 01/14/2020 at 17:15
--- NOTE | 2020-01-14 17:19 | PC.NURSE ---
patient refusing monitoring while awaiting the results of the second chest xray. Provider aware
[2020-01-14 17:58] LABS: Add Manual Diff / Slide Review NO; Basophils Absolute Auto 0 /uL (0-100); Basophils Percent Auto 0.6 % (0-2); Eosinophils Absolute Auto 100 /uL (0-450); Eosinophils Percent Auto 1.2 % (2-4); Hematocrit 41.6 % (36-46); Hemoglobin 13.7 g/dL (12.0-16.0); Lymphocytes Absolute Auto 2000 /uL (1100-4500); Lymphocytes Percent Auto 35.9 % (25-40); Mean Corpuscular Hemoglobin 31.6 PG (26-34); Mean Corpuscular Volume 95.8 fL (80-100); Monocytes Absolute Auto 400 /uL (0-900); Monocytes Percent Auto 7.3 % (3-14); Neutrophils Absolute Auto 3100 /uL (1500-7000); Platelet Count 235 X10^3/uL (150-400); Red Blood Cell Count 4.35 X10^6/uL (4.0-5.2); Red Cell Distribution Width 14.8 % (11.6-14.8); White Blood Cell Count 5.6 X10^3/uL (4.5-11.0)
[2020-01-14 18:12] LABS: Prothrombin Time 11.3 SECONDS (10.1-12.7)
[2020-01-14 18:15] LABS: PTT Partial Thromboplastin Tim 33 SECONDS (26.4-36.2)
[2020-01-14 18:19] LABS: Alanine Aminotransferase 15 IU/L (<35); Albumin 4.4 g/dL (3.5-5.0); Albumin Globulin Ratio 1.6 (1.0-2.8); Alkaline Phosphatase 114 U/L (38-126); Aspartate Aminotransferase 26 IU/L (14-36); BUN Creatinine Ratio 29.4 (6-22); Bilirubin Total 0.8 mg/dL (0.2-1.3); Blood Urea Nitrogen 20 mg/dL (7-17); Calcium 9.9 mg/dL (8.4-10.2); Carbon Dioxide 26 mmol/L (22-32); Chloride 103 mmol/L (98-107); Creatine Kinase 47 U/L (30-135); Estimated Glomerular Filt Rate > 60.0 mL/min (>60); Globulin 2.8 g/dL (1.7-4.1); Glucose 92 mg/dL (80-110); HEMOLYSIS < 15 (0-50); Potassium 3.8 mmol/L (3.4-5.1); Sodium 137 mmol/L (137-145); Total Protein 7.2 g/dL (6.3-8.2)
[2020-01-14 18:30] LABS: NT-proBNP (BNP-Adult 18+) 53 pg/mL (<450); Troponin I < 0.012 ng/mL (0.01-0.034)
--- NOTE | 2020-01-14 18:34 | DI.CT.S_ITS ---
PROCEDURE: CT CHEST W CON INDICATIONS: chest nodule per CXR, SOB TECHNIQUE: After the administration of intravenous contrast, 5 mm thick sections acquired from the pulmonary apices to the posterior costophrenic angles. 1 mm axial lung, 5 mm thick coronal and sagittal reformats and 7 mm axial MIP were acquired. For radiation dose reduction, the following was used: automated exposure control, adjustment of mA and/or kV according to patient size. COMPARISON: [facility], CT, CT CHEST WO CON, 10/23/2019, 12:42. [facility], CR, XR CHEST 2V, 01/14/2020, 16:51. FINDINGS: Image quality: Excellent. Lungs and pleura: No acute air space opacities. No pleural effusions or pneumothorax. Central and peripheral airways are patent and normal in caliber. No nodules identified in the area of concern on chest x-ray of 01/14/2020. Mediastinum: Heart size is normal. No pericardial effusion. No mediastinal or hilar adenopathy by size criteria. Thoracic aorta and central pulmonary arteries are normal in size. Esophagus is normal in caliber. No hiatal hernia. Bones and chest wall: No suspicious bony lesions. Multiple old bilateral rib fractures are noted. Incompletely visualized old right humeral head fracture. No vertebral body compression fractures. No axillary or supraclavicular adenopathy by size criteria. Thyroid gland is unremarkable . Abdomen: Visualized upper abdominal solid organs appear normal. Upper abdominal bowel loops are normal in caliber. IMPRESSION: 1. No pulmonary parenchymal abnormality identified an area of concern on recent chest x-ray. Areas likely represent of overlapping soft tissue and osseous structures. Dictated by: Nga Knowles M.D. on 01/14/2020 at 19:06 Approved by: Nga Knowles M.D. on 01/14/2020 at 19:10
== END 2020-01-14 20:08 | disposition home or self-care (01) ==
PROVIDERS: Emergency Medicine; Emergency Provider Nurse Practitioner Family; PCP Physician Assistant
DX: R09.81 Nasal congestion (principal); J34.89 Other specified disorders of nose and nasal sinuses; R09.82 Postnasal drip; R11.0 Nausea; E03.9 Hypothyroidism, unspecified; E86.0 Dehydration; R07.9 Chest pain, unspecified
CPT/HCPCS: 36415; 71045; 71046; 71260; 80053; 82550; 83735; 83880; 84484; 85025; 85610; 85730; 87635; 93005; 99283; 99284

== ENCOUNTER 2020-07-03 16:56 | Emergency (ER) | payer MEDICARE, SELFPAY ==
[2019-10-23 15:16] VITALS: BMI 31.6
[2020-07-03 16:59] VITALS: BP 165/92; PULSE 91; RESP 22; TEMP 36.6; O2SAT 100; BMI 31.4
--- NOTE | 2020-07-03 17:25 | DI.RAD.S_ITS ---
PROCEDURE: XR FOOT RT 2V INDICATIONS: suspect toe fracture TECHNIQUE: 2 views of the foot were acquired. COMPARISON: None. FINDINGS: Bones: Nondisplaced fracture is suspected in the segment proximal phalangeal neck. No suspicious bony lesions. Soft tissues: No tibiotalar joint effusion. Achilles tendon appears normal. IMPRESSION: Suspect nondisplaced fracture of the 2nd proximal phalangeal neck. Dictated by: Marge Quinn M.D. on 07/03/2020 at 18:07 Approved by: Marge Quinn M.D. on 07/03/2020 at 18:08
--- NOTE | 2020-07-03 17:25 | DI.CT.S_ITS ---
PROCEDURE: CT CHEST ABD PEL W CON INDICATIONS: fall, rib pain, hip pain TECHNIQUE: After the administration of intravenous contrast, 5 mm thick sections acquired from the lung apices to the symphysis. 5 mm coronal and sagittal reformats were performed, with additional 7 mm MIP reformats through the lungs. For radiation dose reduction, the following was used: automated exposure control, adjustment of mA and/or kV according to patient size. COMPARISON: [facility], CT, CT CHEST WO CON, 10/23/2019, 12:42. [facility], CR, XR CHEST 2V, 01/14/2020, 16:51. [facility], CT, CT CHEST W CON, 01/14/2020, 18:40. FINDINGS: Image quality: Excellent. CHEST: Lungs and pleura: No acute airspace opacities. There are right middle lobe, lingula and left lower lobe scars and atelectasis. No pleural effusions or pneumothorax. Central and peripheral airways appear patent and normal in caliber. Small pulmonary nodules are present bilaterally. [employer] Inspector nodules are listed as the following: Nodule 1: 2 mm; RUL; series 3 image 79; stable. Nodule 2: 2 mm; RUL; series 3 image 144; stable. Mediastinum: Heart size is normal. No pericardial effusion. No mediastinal or hilar adenopathy by size criteria. Thoracic aorta and central pulmonary arteries are normal in size. Esophagus is normal in caliber. No hiatal hernia. Chest wall: Old left 8th, 9th, and 10th rib fractures are noted. No axillary or supraclavicular adenopathy by size criteria. Thyroid gland is normal. ABDOMEN: Solid organs: There is a large left hepatic lobe. Liver is normal in size and enhancement. Gallbladder is no . Biliary system is non dilated. Pancreas enhances normally. Spleen is normal in size and enhancement. No adrenal nodules. Kidneys demonstrate normal size and enhancement, without hydronephrosis. Peritoneum and bowel: Postsurgical changes with gastric bypass. Bowel loops demonstrate normal wall thickness and caliber. No free fluid or air. Nodes and vessels: No retroperitoneal or mesenteric adenopathy by size criteria. Aorta and inferior vena cava are normal in size. Miscellaneous: No ventral hernias. PELVIS: Genitourinary: Bladder wall thickness is normal. Uterus is normal. Ovaries are not well seen. No pathological free-fluid in the cul-de-sac. Miscellaneous: No inguinal hernias or adenopathy. Bones: Scoliosis. No suspicious bony lesions. No vertebral body compression fractures. Degenerative disc disease in thoracic and lumbar spine, most severe at L2-L3. IMPRESSION: 1. No acute fractures in thorax, abdomen or pelvis. 2. Old left 8th, 9th and 10th rib fractures. 3. No visceral injuries in thorax, abdomen or pelvis. 4. Small pulmonary nodules. Please see enclosed follow-up recommendation. 5. Gastric bypass. 6. Scoliosis and degenerative changes in thoracic and lumbar spine. Fleischner Society criteria for SOLID lung nodule followup. Nodule size (mm)Low-risk patientHigh-risk patient?4No follow-up neededFollow-up at 12 mo; if no change, no further follow-up>0-5Xoitgl-lp CT at 12 mo; if no change, no further follow-up needed.Initial follow-up CT at 6-12 mo, then 18-24 mo if no change. >6-8Initial follow-up CT at 6-12 mo, then 18-24 mo if no change. Initial follow-up CT at 3-6 mo, then 9-12 mo and 24 mo if no change. >8Follow-up CT at 3, 9, 24 mo. Or PET and/or biopsy.Same as for low-risk pts. Fleischner Society criteria for SUB-SOLID lung nodule followup. Solitary pure ground-glass nodules5 mm or lessNo followup needed. >5 mm3 mo follow-up CT to confirm persistence. Then annual CT for 3 years. Part-solid nodules3 mo follow-up CT to confirm persistence. If persistent with solid component <5 mm, annual CT for at least 3 years. If solid component is 5 mm or more, biopsy or surgical resection. Consider PET-CT for lesions > 10 mm. Multiple sub-solid nodulesPure ground glass nodules [address] at 2 and 4 years. Pure ground glass nodules >5 mm without dominant lesion. [address] to confirm persistence, then annual followup CT for at least 3 years. Dominant nodule(s) with part-solid or solid component. [address] to confirm persistence. If persistent, consider biopsy or surgical resection, rod if lesions have >5 mm solid component. Dictated by: Marge Quinn M.D. on 07/03/2020 at 18:41 Approved by: Marge Quinn M.D. on 07/03/2020 at 18:54
[2020-07-03] MEDS: HYDROMORPHONE 0.5 MG INJ IV (17:49)
[2020-07-03 17:53] LABS: Add Manual Diff / Slide Review NO; Basophils Absolute Auto 100 /uL (0-100); Basophils Percent Auto 0.7 % (0-2); Eosinophils Absolute Auto 200 /uL (0-450); Eosinophils Percent Auto 2.2 % (2-4); Hematocrit 42.6 % (36-46); Hemoglobin 14.4 g/dL (12.0-16.0); Lymphocytes Absolute Auto 2000 /uL (1100-4500); Lymphocytes Percent Auto 27.7 % (25-40); Mean Corpuscular HGB Conc 33.9 % (30-36); Mean Corpuscular Hemoglobin 33.3 PG (26-34); Mean Corpuscular Volume 98.3 fL (80-100); Monocytes Absolute Auto 700 /uL (0-900); Monocytes Percent Auto 9.2 % (3-14); Neutrophils Absolute Auto 4300 /uL (1500-7000); Neutrophils Percent Auto 60.2 % (50-75); Platelet Count 246 X10^3/uL (150-400); Red Blood Cell Count 4.33 X10^6/uL (4.0-5.2); Red Cell Distribution Width 13.3 % (11.6-14.8); White Blood Cell Count 7.2 X10^3/uL (4.5-11.0)
[2020-07-03 18:05] LABS: Alanine Aminotransferase 17 IU/L (<35); Albumin 4.3 g/dL (3.5-5.0); Albumin Globulin Ratio 1.4 (1.0-2.8); Alkaline Phosphatase 116 U/L (38-126); Aspartate Aminotransferase 28 IU/L (14-36); BUN Creatinine Ratio 23.9 (6-22); Bilirubin Total 0.5 mg/dL (0.2-1.3); Blood Urea Nitrogen 16 mg/dL (7-17); Calcium 9.8 mg/dL (8.4-10.2); Carbon Dioxide 26 mmol/L (22-32); Chloride 104 mmol/L (98-107); Estimated Glomerular Filt Rate > 60.0 mL/min (>60); Glucose 90 mg/dL (80-110); HEMOLYSIS 17 (0-50); Lipase 167 U/L (23-300); Potassium 4.2 mmol/L (3.4-5.1); Sodium 138 mmol/L (137-145); Total Protein 7.3 g/dL (6.3-8.2)
--- NOTE | 2020-07-03 18:32 | ED.FALL ---
HPI - Fall <Gay Aviles MD - Last Filed: 07/09/20 17:59> General Chief Complaint: Fall Stated Complaint: FELL BACK PAIN Time Seen by Provider: 07/03/20 17:12 Source: patient Mode of arrival: Wheelchair History of Present Illness HPI Narrative: 74-year-old woman with a history of hypothyroidism lives independently and spilled some water on the floor 2 days ago. She then managed to slipped on said water her right foot crashed into the covered and then her right hip flank and ribs landed on the floor. She was able to get up did not have acute injuries and did not feel that evaluation was immediately required. However over the ensuing 48 hours she has noted that the pain has gotten significantly worse including right 2nd toe pain and severe midthoracic as well as right lower rib pain. She describes no fevers, no recurrent coughing, no no tachypnea she is splinting significantly due to the midthoracic and right rib pain she has been voiding and stooling normally, no hematuria no dysuria. She denies hitting her head and is not complaining of head or neck pain at this time. Related Data Home Medications Medication Instructions Recorded Confirmed betamethasone valerate 1 applic TOPICAL DIRECTED 07/06/17 10/23/19 dexamethasone sodium phosphate 1 drp OPHTHALMIC (EYE) BID PRN 07/06/17 10/23/19 fluticasone propionate 1 spray INTRANASAL BID 07/06/17 10/23/19 levothyroxine 150 mcg PO DAILY 07/06/17 10/23/19 metronidazole [Metrogel] 1 applic TOPICAL BID PRN 07/06/17 10/23/19 zolpidem 5 mg PO QHS PRN 07/06/17 10/23/19 Calcium Citrate + D 2 tab PO TID 12/04/17 10/23/19 Celebrate Multi-Complex 45 3 cap PO DAILY 12/04/17 10/23/19 cetirizine 10 mg PO DAILY PRN 12/04/17 10/23/19 [id number] 1 applic TOPICAL BID PRN 12/04/17 10/23/19 fexofenadine [Madelyn Allergy] 180 mg PO DAILY 10/23/19 10/23/19 Allergies Allergy/AdvReac Type Severity Reaction Status Date / Time erythromycin base Allergy Intermediate HIVES Verified 10/23/19 12:29 adhesive Allergy Mild ALLERGIC Verified 10/23/19 12:29 TO TAPE epinephrine Allergy Mild TACHYCARDIA Verified 10/23/19 12:29 gentamicin [Gentamicin] Allergy Mild RASH Verified 10/23/19 12:29 NSAIDS (Non-Steroidal Allergy Mild GASTRITIS Verified 10/23/19 12:29 Anti-Inflamma Serotonin 5HT-3 Antagonists Allergy Mild GASTRITIS Verified 10/23/19 12:29 trazodone Allergy Mild LOSS OF Verified 10/23/19 12:29 BALANCE alprazolam Allergy Unknown LOSS OF Verified 10/23/19 12:29 ABILITY TO FOCUS amitriptyline Allergy Unknown IBS Verified 10/23/19 12:29 SYMPTOMS buspirone Allergy Unknown Verified 10/23/19 12:29 codeine Allergy Unknown IBS Verified 10/23/19 12:29 SYMPTOMS gabapentin Allergy Unknown SEVERE Verified 10/23/19 12:29 GASTRITIS Review of Systems <Gay Aviles MD - Last Filed: 07/09/20 17:59> Review of Systems Narrative: Remainder of complete review of systems is otherwise unremarkable except for that included in the HPI. Patient History <Gay Aviles MD - Last Filed: 07/09/20 17:59> Medical History (Updated 07/03/20 @ 19:17 by Valentina Hunt DO) Alcohol dependence Cervical vertebral fusion Hypothyroidism Insomnia Surgical History Gastric bypass status for obesity S/P cervical spinal fusion Family History Father MVA (motor vehicle accident) Mother Lung cancer Social History household members: none Smoking Status: Former smoker alcohol intake: current Smoking Status: Former smoker alcohol intake frequency: 3 or more drinks per day Alcohol type: wine Substance Use Type: marijuana Exam <Gay Aviles MD - Last Filed: 07/09/20 17:59> Narrative Exam Narrative: General: Healthy appearing, in acute distress secondary to rib in midthoracic back pain but Able to give a complete and coherent history. Well-nourished well-developed HEENT: Moist mucous membranes, normal sclera with reactive pupils, Neck: No JVD, supple Respiratory: Lungs are clear to auscultation, no wheezing no rales no rhonchi. Splinting on the right side Chest: Tenderness approximately T8-T10 midline. Tenderness right lower posterior ribs. There is a small bruise mid posterior left ribs with no associated tenderness. She has a contusion to the right hip. Cardiac: Regular rate and rhythm no murmurs no bruits Abdomen: Soft, nontender, good bowel tones, no flank pain Skin: Warm and dry, no rashes Neurologic: Grossly neurologically intact with no obvious asymmetries or abnormalities Extremities: Right foot with healing ecchymosis over the dorsum of the foot and deeper ecchymosis at the base of the 2nd and 3rd toes. She is able to move in manipulate the toes with minimal pain., well perfused Psych: Cooperative, appropriate insight and affect Initial Vital Signs Initial Vital Signs: Vital Signs Temperature 97.8 F 07/03/20 16:59 Pulse Rate 91 H 07/03/20 16:59 Respiratory Rate 22 07/03/20 16:59 Blood Pressure 165/92 H 07/03/20 16:59 Pulse Oximetry 100 07/03/20 16:59 <Valentina Hunt DO - Last Filed: 07/04/20 01:03> Initial Vital Signs Initial Vital Signs: Vital Signs Temperature 97.8 F 07/03/20 16:59 Pulse Rate 91 H 07/03/20 16:59 Respiratory Rate 22 07/03/20 16:59 Blood Pressure 165/92 H 07/03/20 16:59 Pulse Oximetry 100 07/03/20 16:59 Course <Gay Aviles MD - Last Filed: 07/09/20 17:59> Orders Ordered: Discontinued Medications Hydromorphone HCl (Hydromorphone 0.5 Mg Inj) 0.5 mg IV Q15MIN PRN PRN Reason: Pain, Last Admin: 07/03/20 17:49 Dose: 0.5 mg Documented by: DAMARI Vital Signs Vital signs: Vital Signs - 8 hr 07/03/20 19:32 Pulse Rate 96 H Respiratory Rate 16 Blood Pressure 194/86 H <Valentina Hunt DO - Last Filed: 07/04/20 01:03> Orders Ordered: Discontinued Medications Hydromorphone HCl (Hydromorphone 0.5 Mg Inj) 0.5 mg IV Q15MIN PRN PRN Reason: Pain, Last Admin: 07/03/20 17:49 Dose: 0.5 mg Documented by: DAMARI Vital Signs Vital signs: Vital Signs - 8 hr 07/03/20 19:32 Pulse Rate 96 H Respiratory Rate 16 Blood Pressure 194/86 H MDM - Fall <Gay Aviles MD - Last Filed: 07/09/20 17:59> Medical Records Attestation: I reviewed the patient's medical records. Lab Data Attestation: I reviewed the patient's lab results. Result diagrams: 07/03/20 17:40 07/03/20 17:40 Labs: Lab Results 07/03/20 07/03/20 Range/Units 17:40 17:40 WBC 7.2 (4.5-11.0) X10^3/uL RBC 4.33 (4.0-5.2) X10^6/uL Hgb 14.4 (12.0-16.0) g/dL Hct 42.6 (36-46) % MCV 98.3 (80-100) fL MCH 33.3 (26-34) PG MCHC 33.9 (30-36) % RDW 13.3 (11.6-14.8) % Plt Count 246 (150-400) X10^3/uL Neut % (Auto) 60.2 (50-75) % Lymph % (Auto) 27.7 (25-40) % [place] % (Auto) 9.2 (3-14) % Eos % (Auto) 2.2 (2-4) % Baso % (Auto) 0.7 (0-2) % Neut # (Auto) 4300 (6184-6049) /uL Lymph # (Auto) 2000 (4214-8334) /uL [place] # (Auto) 700 (0-900) /uL Eos # (Auto) 200 (0-450) /uL Baso # (Auto) 100 (0-100) /uL Sodium 138 (137-145) mmol/L Potassium 4.2 (3.4-5.1) mmol/L Chloride 104 (98-107) mmol/L Carbon Dioxide 26 (22-32) mmol/L BUN 16 (7-17) mg/dL Creatinine 0.67 (0.52-1.04) mg/dL Estimated GFR > 60.0 (>60) mL/min BUN/Creatinine Ratio 23.9 H (6-22) Glucose 90 (80-110) mg/dL Calcium 9.8 (8.4-10.2) mg/dL Total Bilirubin 0.5 (0.2-1.3) mg/dL AST 28 (14-36) IU/L ALT 17 (<35) IU/L Alkaline Phosphatase 116 (38-126) U/L Total Protein 7.3 (6.3-8.2) g/dL Albumin 4.3 (3.5-5.0) g/dL Globulin 3.0 (1.7-4.1) g/dL Albumin/Globulin Ratio 1.4 (1.0-2.8) Lipase 167 (23-300) U/L MDM Narrative Medical decision making narrative: 74-year-old woman who describes fairly significant fall 48 hours ago with increasing pain. Concern for new midthoracic fractures, rib fractures and additional intra-abdominal pathology. CT scan is pending. X-ray of the right foot is obtained. Care is turned over to Dr. Hunt at change of shift. <Valentina Hunt, DO - Last Filed: 07/04/20 01:03> Lab Data Attestation: I reviewed the patient's lab results. Labs: Lab Results 07/03/20 07/03/20 Range/Units 17:40 17:40 WBC 7.2 (4.5-11.0) X10^3/uL RBC 4.33 (4.0-5.2) X10^6/uL Hgb 14.4 (12.0-16.0) g/dL Hct 42.6 (36-46) % MCV 98.3 (80-100) fL MCH 33.3 (26-34) PG MCHC 33.9 (30-36) % RDW 13.3 (11.6-14.8) % Plt Count 246 (150-400) X10^3/uL Neut % (Auto) 60.2 (50-75) % Lymph % (Auto) 27.7 (25-40) % [place] % (Auto) 9.2 (3-14) % Eos % (Auto) 2.2 (2-4) % Baso % (Auto) 0.7 (0-2) % Neut # (Auto) 4300 (3835-2351) /uL Lymph # (Auto) 2000 (9997-0895) /uL [place] # (Auto) 700 (0-900) /uL Eos # (Auto) 200 (0-450) /uL Baso # (Auto) 100 (0-100) /uL Sodium 138 (137-145) mmol/L Potassium 4.2 (3.4-5.1) mmol/L Chloride 104 (98-107) mmol/L Carbon Dioxide 26 (22-32) mmol/L BUN 16 (7-17) mg/dL Creatinine 0.67 (0.52-1.04) mg/dL Estimated GFR > 60.0 (>60) mL/min BUN/Creatinine Ratio 23.9 H (6-22) Glucose 90 (80-110) mg/dL Calcium 9.8 (8.4-10.2) mg/dL Total Bilirubin 0.5 (0.2-1.3) mg/dL AST 28 (14-36) IU/L ALT 17 (<35) IU/L Alkaline Phosphatase 116 (38-126) U/L Total Protein 7.3 (6.3-8.2) g/dL Albumin 4.3 (3.5-5.0) g/dL Globulin 3.0 (1.7-4.1) g/dL Albumin/Globulin Ratio 1.4 (1.0-2.8) Lipase 167 (23-300) U/L Imaging Data CT scan - abdomen/pelvis: Radiologist's Impression: PROCEDURE: CT CHEST ABD PEL W CON INDICATIONS: fall, rib pain, hip pain TECHNIQUE: After the administration of intravenous contrast, 5 mm thick sections acquired from the lung apices to the symphysis. 5 mm coronal and sagittal reformats were performed, with additional 7 mm MIP reformats through the lungs. For radiation dose reduction, the following was used: automated exposure control, adjustment of mA and/or kV according to patient size. COMPARISON: [facility], CT, CT CHEST WO CON, 10/23/2019, 12:42. [facility], CR, XR CHEST 2V, 01/14/2020, 16:51. [facility], CT, CT CHEST W CON, 01/14/2020, 18:40. FINDINGS: Image quality: Excellent. CHEST: Lungs and pleura: No acute airspace opacities. There are right middle lobe, lingula and left lower lobe scars and atelectasis. No pleural effusions or pneumothorax. Central and peripheral airways appear patent and normal in caliber. Small pulmonary nodules are present bilaterally. [employer] nodules are listed as the following: Nodule 1: 2 mm; RUL; series 3 image 79; stable. Nodule 2: 2 mm; RUL; series 3 image 144; stable. Mediastinum: Heart size is normal. No pericardial effusion. No mediastinal or hilar adenopathy by size criteria. Thoracic aorta and central pulmonary arteries are normal in size. Esophagus is normal in caliber. No hiatal hernia. Chest wall: Old left 8th, 9th, and 10th rib fractures are noted. No axillary or supraclavicular adenopathy by size criteria. Thyroid gland is normal. ABDOMEN: Solid organs: There is a large left hepatic lobe. Liver is normal in size and enhancement. Gallbladder is no . Biliary system is non dilated. Pancreas enhances normally. Spleen is normal in size and enhancement. No adrenal nodules. Kidneys demonstrate normal size and enhancement, without hydronephrosis. Peritoneum and bowel: Postsurgical changes with gastric bypass. Bowel loops demonstrate normal wall thickness and caliber. No free fluid or air. Nodes and vessels: No retroperitoneal or mesenteric adenopathy by size criteria. Aorta and inferior vena cava are normal in size. Miscellaneous: No ventral hernias. PELVIS: Genitourinary: Bladder wall thickness is normal. Uterus is normal. Ovaries are not well seen. No pathological free-fluid in the cul-de-sac. Miscellaneous: No inguinal hernias or adenopathy. Bones: Scoliosis. No suspicious bony lesions. No vertebral body compression fractures. Degenerative disc disease in thoracic and lumbar spine, most severe at L2-L3. IMPRESSION: 1. No acute fractures in thorax, abdomen or pelvis. 2. Old left 8th, 9th and 10th rib fractures. 3. No visceral injuries in thorax, abdomen or pelvis. 4. Small pulmonary nodules. Please see enclosed follow-up recommendation. 5. Gastric bypass. 6. Scoliosis and degenerative changes in thoracic and lumbar spine. Fleischner Society criteria for SOLID lung nodule followup. Nodule size (mm)Low-risk patientHigh-risk patient?4No follow-up neededFollow-up at 12 mo; if no change, no further follow-up>5-5Jpocey-ac CT at 12 mo; if no change, no further follow-up needed.Initial follow-up CT at 6-12 mo, then 18-24 mo if no change. >6-8Initial follow-up CT at 6-12 mo, then 18-24 mo if no change. Initial follow-up CT at 3-6 mo, then 9-12 mo and 24 mo if no change. >8Follow-up CT at 3, 9, 24 mo. Or PET and/or biopsy.Same as for low-risk pts. Fleischner Society criteria for SUB-SOLID lung nodule followup. Solitary pure ground-glass nodules5 mm or lessNo followup needed. >5 mm3 mo follow-up CT to confirm persistence. Then annual CT for 3 years. Part-solid nodules3 mo follow-up CT to confirm persistence. If persistent with solid component <5 mm, annual CT for at least 3 years. If solid component is 5 mm or more, biopsy or surgical resection. Consider PET-CT for lesions > 10 mm. Multiple sub-solid nodulesPure ground glass nodules [address] at 2 and 4 years. Pure ground glass nodules >5 mm without dominant lesion. [address] to confirm persistence, then annual followup CT for at least 3 years. Dominant nodule(s) with part-solid or solid component. [address] to confirm persistence. If persistent, consider biopsy or surgical resection, rod if lesions have >5 mm solid component. Dictated by: Marge Quinn M.D. on 07/03/2020 at 18:41 Extremity x-ray #1: Radiologist's Impression: PROCEDURE: XR FOOT RT 2V INDICATIONS: suspect toe fracture TECHNIQUE: 2 views of the foot were acquired. COMPARISON: None. FINDINGS: Bones: Nondisplaced fracture is suspected in the segment proximal phalangeal neck. No suspicious bony lesions. Soft tissues: No tibiotalar joint effusion. Achilles tendon appears normal. IMPRESSION: Suspect nondisplaced fracture of the 2nd proximal phalangeal neck. Dictated by: Marge Quinn M.D. on 07/03/2020 at 18:07 [facility] Narrative Medical decision making narrative: I have received sign-out from Dr. Rodriguez I have seen and evaluated patient myself. She is found have a nondisplaced 2nd right toe fracture. Her blood pressure is noted be quite elevated 200/100 is. She denies having any extreme pain or prior history of hypertension. She unfortunately is allergic to all opiate medications including tramadol, [place], Percocet she even has morphine and dilaudid listed. She says she cannot take ibuprofen. At this time I recommend she follow up with her PCP in regards to pain management and at this time she can take Tylenol. Discharge Plan Departure Patient Disposition: Home Clinical Impression: Closed fracture of second toe of right foot, Contusion Instructions: Toe Fracture Activity Restrictions/Additional Instructions: *You have been diagnosed with right toe fracture, contusion *What to do: Expect to be sore and uncomfortable for the next few days. Her toe will heal on its own without any surgical intervention. Recommend that he wear orthopedic shoe for support. *Continue to take medications as directed Tylenol 500 mg every 4-6 hours if needed for ucus-rq-qjtnnmal pain *Follow up with your primary care provider in 2-3 days *Return to ER if you should have increasing pain, weakness, or any new, worsening or concerning symptoms Prescriptions: No Action dexamethasone sodium phosphate 0.1 % drops 1 drp ophthalmic (eye) BID PRN (Reason: Allergy Symptoms) RF: 0 betamethasone valerate 0.1 % cream 1 applic Topical DIRECTED RF: 0 levothyroxine 125 mcg tablet 150 mcg PO DAILY RF: 0 zolpidem 5 mg tablet 5 mg PO QHS PRN (Reason: Sleep) RF: 0 fluticasone propionate 50 mcg/actuation spray,suspension 1 spray Intranasal BID RF: 0 metronidazole [Metrogel] 1 % Gel 1 applic Topical BID PRN (Reason: antibiotic) RF: 0 cetirizine 10 mg Tablet 10 mg PO DAILY PRN (Reason: Allergy Symptoms) RF: 0 jnfqdtztgftlen-yhspbhpli-qbyu9 2-1-1 % Gel 1 applic Topical BID PRN (Reason: unknown) RF: 0 Celebrate Multi-Complex 45 3 cap PO DAILY RF: 0 Calcium Citrate + D 2 tab PO TID RF: 0 fexofenadine [Madelyn Allergy] 180 mg Tablet 180 mg PO DAILY RF: 0 Referrals: Roberta Olea PA-C [Primary Care Provider] -
[2020-07-03 19:32] VITALS: BP 194/86; PULSE 96; RESP 16
== END 2020-07-03 19:53 | disposition home or self-care (01) ==
PROVIDERS: Emergency Medicine; Emergency Provider Emergency Medicine; PCP Physician Assistant
DX: S92.504A Nondisplaced unspecified fracture of right lesser toe(s), initial encounter for closed fracture (principal); R07.81 Pleurodynia; M54.6 Pain in thoracic spine; W01.0XXA Fall on same level from slipping, tripping and stumbling without subsequent striking against object, initial encounter
CPT/HCPCS: 36415; 71260; 73620; 74177; 80053; 83690; 85025; 96374; 99284; J1170

== ENCOUNTER → 2020-10-14 15:06 | Outpatient (CLI) | payer MEDICARE, SELFPAY ==
[2019-10-23 15:16] VITALS: BMI 31.6
--- NOTE | 2020-10-14 | DI.MG.S_ITS ---
BILATERAL DIGITAL SCREENING MAMMOGRAM 3D/2D WITH CAD: 10/14/2020 CLINICAL: Routine screening. Family history of breast cancer. Comparison is made to exams dated: 10/17/2018 mammogram, 10/03/2017 mammogram, and 09/15/2016 mammogram - [facility]. There are scattered fibroglandular elements in both breasts. Current study was also evaluated with a Computer Aided Detection (CAD) system. No significant masses, calcifications, or other findings are seen in either breast. There has been no significant interval change. IMPRESSION: NEGATIVE There is no mammographic evidence of malignancy. A 1 year screening mammogram is recommended. This exam was interpreted at Station ID: [id number]. NOTE: For mammograms, a report in lay terms will be sent to the patient. Approximately 15% of breast malignancies will not be visualized mammographically. In the management of a palpable breast mass, a negative mammogram must not discourage biopsy of a clinically suspicious lesion. Electronically Signed By: Luis Alberto Velarde M.D., jr/soraida:10/14/2020 16:10:24 letter sent: Normal Exam ACR BI-RADS Category 1: Negative [id number]
== END ==
PROVIDERS: PCP Physician Assistant; Referring Provider Physician Assistant; Visit Provider Physician Assistant
DX: Z12.31 Encounter for screening mammogram for malignant neoplasm of breast (principal); Z80.3 Family history of malignant neoplasm of breast
CPT/HCPCS: 77063; 77067

== ENCOUNTER 2020-12-05 12:13 | Emergency (ER) | payer MEDICARE, SELFPAY ==
[2019-10-23 15:16] VITALS: BMI 31.6
[2020-12-05] VITALS (11 sets, daily range): BP systolic 164–200; BP diastolic 79–111; PULSE 91–100; RESP 17–30; TEMP 36.2; O2SAT 94–99
--- NOTE | 2020-12-05 12:36 | DI.RAD.S_ITS ---
PROCEDURE: XR CHEST 1V INDICATIONS: shortness of breath TECHNIQUE: One view of the chest was acquired. COMPARISON: [facility], CR, XR CHEST 2V, 01/14/2020, 16:51. FINDINGS: Surgical changes and devices: None. Lungs and pleura: Lungs are clear. No pleural effusions or pneumothorax. Mediastinum: Mediastinal contours appear normal. Heart size is normal. Bones and chest wall: No suspicious bony lesions. Overlying soft tissues appear unremarkable. Lower cervical spine instrumentation noted, unchanged IMPRESSION: No acute cardiopulmonary findings Approved by: Sharath Wilkins M.D. on 12/05/2020 at 13:35
--- NOTE | 2020-12-05 12:38 | DI.RAD.S_ITS ---
PROCEDURE: XR SACRUM COCCYX MIN 2V INDICATIONS: fall w/ coccyx pain TECHNIQUE: 3 views of the sacrum and coccyx acquired. COMPARISON: None. FINDINGS: Bones: No fractures or dislocations. No suspicious bony lesions. Soft tissues: Visualized bowel gas pattern is normal. No suspicious soft tissue densities. IMPRESSION: Unremarkable sacrum and coccygeal radiographs Approved by: Sharath Wilkins M.D. on 12/05/2020 at 13:33
[2020-12-05 13:19] LABS: Add Manual Diff / Slide Review NO; Basophils Absolute Auto 0 /uL (0-100); Basophils Percent Auto 0.4 % (0-2); Eosinophils Absolute Auto 100 /uL (0-450); Eosinophils Percent Auto 2.2 % (2-4); Hemoglobin 13.7 g/dL (12.0-16.0); Lymphocytes Absolute Auto 1300 /uL (1100-4500); Lymphocytes Percent Auto 28.5 % (25-40); Mean Corpuscular HGB Conc 33.5 % (30-36); Mean Corpuscular Hemoglobin 33.8 PG (26-34); Mean Corpuscular Volume 100.8 fL (80-100); Monocytes Absolute Auto 500 /uL (0-900); Monocytes Percent Auto 9.9 % (3-14); Neutrophils Absolute Auto 2700 /uL (1500-7000); Platelet Count 222 X10^3/uL (150-400); Red Blood Cell Count 4.07 X10^6/uL (4.0-5.2); Red Cell Distribution Width 13.9 % (11.6-14.8); White Blood Cell Count 4.6 X10^3/uL (4.5-11.0)
[2020-12-05 13:31] LABS: COVID19 -Nasal RAPID Negative (Negative)
[2020-12-05 13:32] LABS: Creatine Kinase 89 U/L (30-135); Magnesium 2.4 mg/dL (1.6-2.3)
[2020-12-05 13:33] LABS: Lactate (Lactic Acid) 1.7 mmol/L (0.7-2.1)
--- NOTE | 2020-12-05 13:34 | ED_ITS ---
HPI - Back Pain/Injury General Chief Complaint: Shortness of Breath/Dyspnea Stated Complaint: tailbone pain x3 weeks Time Seen by Provider: 12/05/20 12:45 Source: patient Limitations: no limitations History of Present Illness HPI Narrative: PATIENT IS A 74-YEAR-OLD FEMALE WHO PRESENTS TODAY WITH COCCYX PAIN. SHE CAN NOT remember exactly when it started but thinks it has been a few weeks. She thinks that she hurt it walking out of the bathroom slipping and falling on a wet floor. She denies any other injury. She has various bruising on her part of the left arm and left foot as well she can not remember how got. She was noted by nursing staff to be tachypneic but not hypoxic. She denies any chest pain palpitations fever chills or shortness of breath. To records she does fall frequently she was admitted with a humeral fracture in 2019, of alcohol dependence as well as benzodiazepine dependence. At this time she really is only complaining of tailbone pain. She has no numbness tingling or weakness in her lower extremities. She has not had any difficulty walking. Related Data Home Medications Medication Instructions Recorded Confirmed betamethasone valerate 0.1 % 1 applic TOPICAL DIRECTED 07/06/17 10/23/19 topical cream dexamethasone sodium phosphate 0.1 1 drp OPHTHALMIC (EYE) BID PRN 07/06/17 10/23/19 % eye drops fluticasone propionate 50 1 spray INTRANASAL BID 07/06/17 10/23/19 mcg/actuation nasal spray,suspension levothyroxine 125 mcg tablet 150 mcg PO DAILY 07/06/17 10/23/19 metronidazole 1 % topical gel 1 applic TOPICAL BID PRN 07/06/17 10/23/19 (Metrogel) zolpidem 5 mg tablet 5 mg PO QHS PRN 07/06/17 10/23/19 Calcium Citrate + D 2 tab PO TID 12/04/17 10/23/19 Celebrate Multi-Complex 45 3 cap PO DAILY 12/04/17 10/23/19 cetirizine 10 mg tablet 10 mg PO DAILY PRN 12/04/17 10/23/19 hydrocortisone 2 %-iodoquinol 1 1 applic TOPICAL BID PRN 12/04/17 10/23/19 %-aloe polysacch no.2 1 % topical gel fexofenadine 180 mg tablet 180 mg PO DAILY 10/23/19 10/23/19 ([facility]) Previous Rx's Medication Instructions Recorded hydrocodone 5 mg-acetaminophen 325 1 tab PO Q6H PRN #10 tab 12/05/20 mg tablet Allergies Allergy/AdvReac Type Severity Reaction Status Date / Time erythromycin base Allergy Intermediate HIVES Verified 12/05/20 12:29 adhesive Allergy Mild ALLERGIC Verified 12/05/20 12:29 TO TAPE epinephrine Allergy Mild TACHYCARDIA Verified 12/05/20 12:29 gentamicin [Gentamicin] Allergy Mild RASH Verified 12/05/20 12:29 NSAIDS (Non-Steroidal Allergy Mild GASTRITIS Verified 12/05/20 12:29 Anti-Inflamma Serotonin 5HT-3 Antagonists Allergy Mild GASTRITIS Verified 12/05/20 12:29 trazodone Allergy Mild LOSS OF Verified 12/05/20 12:29 BALANCE alprazolam Allergy Unknown LOSS OF Verified 12/05/20 12:29 ABILITY TO FOCUS amitriptyline Allergy Unknown IBS Verified 12/05/20 12:29 SYMPTOMS buspirone Allergy Unknown Verified 12/05/20 12:29 codeine Allergy Unknown IBS Verified 12/05/20 12:29 SYMPTOMS gabapentin Allergy Unknown SEVERE Verified 12/05/20 12:29 GASTRITIS Review of Systems Review of Systems Narrative: GENERAL: Denies chills, fatigue, malaise, fever, sweats, travel HEENT: Denies sinus pain, ear pain, sore throat, difficulty swallowing, neck pain RESPIRATORY: Denies dyspnea, cough, wheezing, hemoptysis, sputum. CARDIOVASCULAR: Denies chest pain, palpitations, orthopnea, edema GASTROINTESTINAL: Denies nausea, vomiting, abdominal pain, diarrhea, constipation, melena. : Denies dysuria, frequency, incontinence, hematuria, urinary retention, flank pain. MUSCULOSKELETAL: See HPI SKIN: No rash, no erythema, no pruritus NEUROLOGIC: Denies weakness, dizziness, headache, numbness, change in speech, confusion PSYCHIATRIC: No concerning psychosocial issues. 12 point review of systems is negative except for those stated above and HPI Patient History Medical History (Updated 12/05/20 @ 15:01 by Valentina Hunt DO) Alcohol dependence Cervical vertebral fusion Hypothyroidism Insomnia Surgical History Gastric bypass status for obesity S/P cervical spinal fusion Family History Father MVA (motor vehicle accident) Mother Lung cancer Social History household members: none Smoking Status: Former smoker alcohol intake: current Smoking Status: Former smoker alcohol intake frequency: a few times a week Alcohol type: wine Substance Use Type: does not use Exam Initial Vital Signs Initial Vital Signs: Vital Signs Temperature 97.1 F L 12/05/20 12:25 Pulse Rate 100 H 12/05/20 12:25 Respiratory Rate 30 H 12/05/20 12:25 Blood Pressure 189/87 H 12/05/20 12:25 Pulse Oximetry 94 12/05/20 12:25 GENERAL: Alert 74-year-old female mildly confused HEENT: Head atraumatic,EOMI, pupils reactive, face symmetric, moist mucous membranes CARDIOVASCULAR: Regular rate and rhythm without murmurs, rubs or gallops. RESPIRATORY: Breath sounds equal bilaterally, no wheezes rales or rhonchi. ABDOMEN: Soft, nontender. Normoactive bowel sounds all 4 quadrants. No guarding or rebound. BACK: No vertebral tenderness no step-offs. She is having some tenderness in her buttock region no erythema EXTREMITIES: Normal range of motion, no clubbing or edema. Neurovascularly intact, pelvis is stable NEUROLOGICAL: Alert and oriented x4.Normal gait and speech. Cranial nerves II through XII grossly intact. Skin Lap [place] strength equal bilaterally able to move both lower extremities without difficulty SKIN: Warm, dry, no laceration, no petechiae, no rashes or lesions. Course Orders Ordered: ED Orders 12/05/20 12:35 Consult to Respiratory Therapy Evaluate & Treat EKG-12 Lead Stat 12/05/20 12:36 XR chest 1V Stat 12/05/20 12:38 XR sacrum coccyx min 2V Stat 12/05/20 13:05 D Dimer Stat 12/05/20 13:06 Ethanol (ETOH) Stat 12/05/20 13:09 COVID19 -Nasal swab/Pre-Proc Stat Complete Blood Count AUTO DIFF Stat Comprehensive Metabolic Panel Stat Lactate (Lactic Acid) Stat Magnesium Stat NT-proBNP (BNP-Adult 18+) Stat Troponin & CK Cardiac Panel Stat 12/05/20 13:35 [address] head/brain wo con Stat 12/05/20 13:41 Blood Culture Stat Vital Signs Vital signs: Vital Signs - 8 hr 12/05/20 12:25 12/05/20 12:38 12/05/20 13:00 Temperature 97.1 F L Pulse Rate 100 H 93 H 93 H Respiratory Rate 30 H 17 17 Blood Pressure 189/87 H Pulse Oximetry 94 96 97 12/05/20 13:03 12/05/20 13:30 12/05/20 13:36 Temperature Pulse Rate 91 H 92 H 94 H Respiratory Rate 17 17 18 Blood Pressure 200/111 H 175/83 H 175/83 H Pulse Oximetry 97 99 99 12/05/20 14:00 12/05/20 14:11 12/05/20 14:30 Temperature Pulse Rate 93 H 96 H 92 H Respiratory Rate 18 24 17 Blood Pressure 198/103 H 175/80 H Pulse Oximetry 99 99 98 12/05/20 15:00 12/05/20 15:30 Temperature Pulse Rate 93 H 92 H Respiratory Rate 18 21 Blood Pressure 179/82 H 164/79 H Pulse Oximetry 98 97 MDM - Back Pain/Injury Lab Data Result diagrams: 12/05/20 13:09 12/05/20 13:09 Labs: Lab Results 12/05/20 12/05/20 12/05/20 Range/Units 13:05 13:06 13:09 WBC 4.6 (4.5-11.0) X10^3/uL RBC 4.07 (4.0-5.2) X10^6/uL Hgb 13.7 (12.0-16.0) g/dL Hct 41.0 (36-46) % MCV 100.8 H (80-100) fL MCH 33.8 (26-34) PG MCHC 33.5 (30-36) % RDW 13.9 (11.6-14.8) % Plt Count 222 (150-400) X10^3/uL Neut % (Auto) 59.0 (50-75) % Lymph % (Auto) 28.5 (25-40) % [place] % (Auto) 9.9 (3-14) % Eos % (Auto) 2.2 (2-4) % Baso % (Auto) 0.4 (0-2) % Neut # (Auto) 2700 (0808-2168) /uL Lymph # (Auto) 1300 (6385-0167) /uL [place] # (Auto) 500 (0-900) /uL Eos # (Auto) 100 (0-450) /uL Baso # (Auto) 0 (0-100) /uL D-Dimer < 200 (<230) ng/mL Sodium (137-145) mmol/L Potassium (3.4-5.1) mmol/L Chloride (98-107) mmol/L Carbon Dioxide (22-32) mmol/L BUN (7-17) mg/dL Creatinine (0.52-1.04) mg/dL Estimated GFR (>60) mL/min BUN/Creatinine Ratio (6-22) Glucose (80-110) mg/dL Lactate (0.7-2.1) mmol/L Calcium (8.4-10.2) mg/dL Magnesium (1.6-2.3) mg/dL Total Bilirubin (0.2-1.3) mg/dL AST (14-36) IU/L ALT (<35) IU/L Alkaline Phosphatase (38-126) U/L Total Creatine Kinase (30-135) U/L CK-MB (CK-2) CK-MB (CK-2) Rel Index Troponin I (0.01-0.034) ng/mL NT-Pro-B Natriuret Pep (<450) pg/mL Total Protein (6.3-8.2) g/dL Albumin (3.5-5.0) g/dL Globulin (1.7-4.1) g/dL Albumin/Globulin Ratio (1.0-2.8) Ethyl Alcohol < 10 ( - 10) mg/dL SARS-CoV-2 (PCR) (Negative) 12/05/20 12/05/20 12/05/20 Range/Units 13:09 13:09 13:09 WBC (4.5-11.0) X10^3/uL RBC (4.0-5.2) X10^6/uL Hgb (12.0-16.0) g/dL Hct (36-46) % MCV (80-100) fL MCH (26-34) PG MCHC (30-36) % RDW (11.6-14.8) % Plt Count (150-400) X10^3/uL Neut % (Auto) (50-75) % Lymph % (Auto) (25-40) % [place] % (Auto) (3-14) % Eos % (Auto) (2-4) % Baso % (Auto) (0-2) % Neut # (Auto) (0200-1592) /uL Lymph # (Auto) (7325-6327) /uL [place] # (Auto) (0-900) /uL Eos # (Auto) (0-450) /uL Baso # (Auto) (0-100) /uL D-Dimer (<230) ng/mL Sodium 138 (137-145) mmol/L Potassium 5.3 H (3.4-5.1) mmol/L Chloride 102 (98-107) mmol/L Carbon Dioxide 31 (22-32) mmol/L BUN 15 (7-17) mg/dL Creatinine 0.68 (0.52-1.04) mg/dL Estimated GFR > 60.0 (>60) mL/min BUN/Creatinine Ratio 22.1 H (6-22) Glucose 101 (80-110) mg/dL Lactate 1.7 (0.7-2.1) mmol/L Calcium 8.9 (8.4-10.2) mg/dL Magnesium 2.4 H (1.6-2.3) mg/dL Total Bilirubin 0.6 (0.2-1.3) mg/dL AST 57 H (14-36) IU/L ALT 30 (<35) IU/L Alkaline Phosphatase 85 (38-126) U/L Total Creatine Kinase 89 (30-135) U/L CK-MB (CK-2) TNP CK-MB (CK-2) Rel Index TNP Troponin I < 0.012 (0.01-0.034) ng/mL NT-Pro-B Natriuret Pep 48 (<450) pg/mL Total Protein 7.2 (6.3-8.2) g/dL Albumin 4.3 (3.5-5.0) g/dL Globulin 2.9 (1.7-4.1) g/dL Albumin/Globulin Ratio 1.5 (1.0-2.8) Ethyl Alcohol ( - 10) mg/dL SARS-CoV-2 (PCR) (Negative) 12/05/20 Range/Units 13:09 WBC (4.5-11.0) X10^3/uL RBC (4.0-5.2) X10^6/uL Hgb (12.0-16.0) g/dL Hct (36-46) % MCV (80-100) fL MCH (26-34) PG MCHC (30-36) % RDW (11.6-14.8) % Plt Count (150-400) X10^3/uL Neut % (Auto) (50-75) % Lymph % (Auto) (25-40) % [place] % (Auto) (3-14) % Eos % (Auto) (2-4) % Baso % (Auto) (0-2) % Neut # (Auto) (4270-7623) /uL Lymph # (Auto) (2712-5295) /uL [place] # (Auto) (0-900) /uL Eos # (Auto) (0-450) /uL Baso # (Auto) (0-100) /uL D-Dimer (<230) ng/mL Sodium (137-145) mmol/L Potassium (3.4-5.1) mmol/L Chloride (98-107) mmol/L Carbon Dioxide (22-32) mmol/L BUN (7-17) mg/dL Creatinine (0.52-1.04) mg/dL Estimated GFR (>60) mL/min BUN/Creatinine Ratio (6-22) Glucose (80-110) mg/dL Lactate (0.7-2.1) mmol/L Calcium (8.4-10.2) mg/dL Magnesium (1.6-2.3) mg/dL Total Bilirubin (0.2-1.3) mg/dL AST (14-36) IU/L ALT (<35) IU/L Alkaline Phosphatase (38-126) U/L Total Creatine Kinase (30-135) U/L CK-MB (CK-2) CK-MB (CK-2) Rel Index Troponin I (0.01-0.034) ng/mL NT-Pro-B Natriuret Pep (<450) pg/mL Total Protein (6.3-8.2) g/dL Albumin (3.5-5.0) g/dL Globulin (1.7-4.1) g/dL Albumin/Globulin Ratio (1.0-2.8) Ethyl Alcohol ( - 10) mg/dL SARS-CoV-2 (PCR) Negative (Negative) Urine Dip Bedside Urine Glucose Negative Bedside Urine Bilirubin - Negative Bedside Urine Ketone - Negative Urine Specific [place] 1.020 Bedside Urine Occult Blood - Negative Bedside Urine pH 6.0 Bedside Urine Protein - Negative Bedside Urine Urobilinogen - Negative Bedside Urine Nitrite - Negative Bedside Urine Leukocytes - Negative Esterase Imaging Data CT scan - head: Radiologist's Impression: PROCEDURE:? CT HEAD/BRAIN WO CON ? INDICATIONS:? etoh forgetfull keeps falling ? TECHNIQUE:? Noncontrast 4.5 mm thick angled axial sections acquired from the foramen magnum to the vertex, with coronal and sagittal reformats.? For radiation dose reduction, the following was used:? automated exposure control, adjustment of mA and/or kV according to patient size.? ? COMPARISON:? [facility], CT, CT HEAD/BRAIN WO CON, 11/24/2019, 19:35. ? FINDINGS:? Image quality:? Excellent.? ? CSF spaces:? Basal cisterns are patent.? No extra-axial fluid collections.? The ventricles are symmetric in size and shape.? 5 mm left parietal sulcal calcification consistent with prior granulomatous disease. ? Brain:? No intracranial bleeds or masses.? There is cerebral volume loss for age, with resultant ventricular and sulcal prominence.? There are periventricular and deep white matter chronic small vessel ischemic changes.? There is intracranial internal carotid artery atherosclerosis.? ? Skull and face:? Calvarium and visualized facial bones appear intact, without suspicious lesions.? ? Sinuses:? Visualized sinuses and mastoids are clear.? ? IMPRESSION:? Moderate atrophy and chronic ischemic change without acute hemorrhage or mass effect. ? ? ? Approved by: Sharath Wilkins M.D. on 12/05/2020 at 13:06? Extremity x-ray #1: Radiologist's Impression: PROCEDURE:? XR SACRUM COCCYX MIN 2V ? INDICATIONS:? fall w/ coccyx pain ? TECHNIQUE:? 3 views of the sacrum and coccyx acquired.? ? COMPARISON:? None. ? FINDINGS:? ? Bones:? No fractures or dislocations.? No suspicious bony lesions.? ? Soft tissues:? Visualized bowel gas pattern is normal.? No suspicious soft tissue densities.? ? IMPRESSION:? Unremarkable sacrum and coccygeal radiographs ? ? ? Chest x-ray: Radiologist's Impression: PROCEDURE:? XR CHEST 1V ? INDICATIONS:? shortness of breath ? TECHNIQUE:? One view of the chest was acquired.? ? COMPARISON:? [facility], CR, XR CHEST 2V, 01/14/2020, 16:51. ? FINDINGS:? ? Surgical changes and devices:? None.? ? Lungs and pleura:? Lungs are clear.? No pleural effusions or pneumothorax.? ? Mediastinum:? Mediastinal contours appear normal.? Heart size is normal.? ? Bones and chest wall:? No suspicious bony lesions.? Overlying soft tissues appear unremarkable.? Lower cervical spine instrumentation noted, unchanged ? IMPRESSION:? No acute cardiopulmonary findings ? ? ? Approved by: Sharath Wilkins M.D. on 12/05/2020 at 13:35? ECG Data Interpretation: Normal sinus rhythm rate [address] changes no T-wave inversions p.r. interval 156 QRS 70 QTC 411 MDM Narrative Medical decision making narrative: Patient has some very mild intermittent bruising mostly on left side of her body. Head CT is negative without focal neurologic deficits. Blood work is overall reassuring. No evidence of fracture. at this time I do not feel that she needs any further imaging. She is moving her left arm very easily there is no evidence of bony deformity or fract ure. She has very mild bruising that seems to be healing. Her biggest complaint today was pain in her coccyx. X-ray is negative. She has had ongoing pain for a number of weeks do not feel that she needs CT even if there was mild fracture it is pain control only. She has no complaints of respiratory distress she was noted to be a little tachypneic by nursing the workup has been overall reassuring and negative. Discharge Plan Departure Patient Disposition: Home Clinical Impression: Contusion Qualifiers: Encounter type: initial encounter Contusion area: lower back Qualified Code(s): S30.0XXA - Contusion of lower back and pelvis, initial encounter Instructions: Contusion Activity Restrictions/Additional Instructions: *You have been diagnosed with sacral contusion *What to do: At this time you not have any broken bones. Blood work and x-rays were overall reassuring. This can take a long time to heal. *Continue to take medications as directed [place] 1 tablet every 6 hours only needed for severe pain--> SENT TO [facility] Tylenol 650 mg every 4-6 hours if needed for [id number] *Follow up with your primary care provider in 2-3 days *Return to ER if you should have increasing leg weakness numbness tingling changes in bowel or bladder habits or any new, worsening or concerning symptoms CONTROLLED SUBSTANCE DISCHARGE (Narcotoic/benzodiazepine/Flexeril/Phenergan) 1. You have been prescribed narcotic medications, it does have acetaminophen/Tylenol/paracetamol in it, DO NOT TAKE MORE THAN 4,00mg in 24 hours of Tylenol. TRAMADOL DOES NOT CONTAIN TYLENOL 2. Please understand that we cannot provide further refills of narcotics, benzodiazepines or controlled substances through the ED and her pain management will need to be through your provider. 3. While on these medications you cannot drive or operate heavy machinery. 4. You cannot sign legal documents or perform any duties such as this. 5. As long as you're taking opiate pain medications he should also be taking a stool softener such as Colace, Dulcolax, MiraLAX or prune juice, to help avoid constipation. Prescriptions: New hydrocodone-acetaminophen 5-325 mg tablet 1 tab PO Q6H PRN (Reason: pain) Qty: 10 RF: 0 No Action dexamethasone sodium phosphate 0.1 % drops 1 drp ophthalmic (eye) BID PRN (Reason: Allergy Symptoms) RF: 0 betamethasone valerate 0.1 % cream 1 applic Topical DIRECTED RF: 0 levothyroxine 125 mcg tablet 150 mcg PO DAILY RF: 0 zolpidem 5 mg tablet 5 mg PO QHS PRN (Reason: Sleep) RF: 0 fluticasone propionate 50 mcg/actuation spray,suspension 1 spray Intranasal BID RF: 0 metronidazole [Metrogel] 1 % Gel 1 applic Topical BID PRN (Reason: antibiotic) RF: 0 cetirizine 10 mg Tablet 10 mg PO DAILY PRN (Reason: Allergy Symptoms) RF: 0 [id number] 2-1-1 % Gel 1 applic Topical BID PRN (Reason: unknown) RF: 0 Celebrate Multi-Complex 45 3 cap PO DAILY RF: 0 Calcium Citrate + D 2 tab PO TID RF: 0 fexofenadine [[facility] Allergy] 180 mg Tablet 180 mg PO DAILY RF: 0 Referrals: Roberta Olea PA-C [Primary Care Provider] -
--- NOTE | 2020-12-05 13:35 | DI.CT.S_ITS ---
PROCEDURE: CT HEAD/BRAIN WO CON INDICATIONS: etoh forgetfull keeps falling TECHNIQUE: Noncontrast 4.5 mm thick angled axial sections acquired from the foramen magnum to the vertex, with coronal and sagittal reformats. For radiation dose reduction, the following was used: automated exposure control, adjustment of mA and/or kV according to patient size. COMPARISON: [facility], CT, CT HEAD/BRAIN WO CON, 11/24/2019, 19:35. FINDINGS: Image quality: Excellent. CSF spaces: Basal cisterns are patent. No extra-axial fluid collections. The ventricles are symmetric in size and shape. 5 mm left parietal sulcal calcification consistent with prior granulomatous disease. Brain: No intracranial bleeds or masses. There is cerebral volume loss for age, with resultant ventricular and sulcal prominence. There are periventricular and deep white matter chronic small vessel ischemic changes. There is intracranial internal carotid artery atherosclerosis. Skull and face: Calvarium and visualized facial bones appear intact, without suspicious lesions. Sinuses: Visualized sinuses and mastoids are clear. IMPRESSION: Moderate atrophy and chronic ischemic change without acute hemorrhage or mass effect. Approved by: Sharath Wilkins M.D. on 12/05/2020 at 13:06
[2020-12-05 13:45] LABS: NT-proBNP (BNP-Adult 18+) 48 pg/mL (<450); Troponin I < 0.012 ng/mL (0.01-0.034)
[2020-12-05 13:48] LABS: Alanine Aminotransferase 30 IU/L (<35); Albumin 4.3 g/dL (3.5-5.0); Albumin Globulin Ratio 1.5 (1.0-2.8); Alkaline Phosphatase 85 U/L (38-126); Aspartate Aminotransferase 57 IU/L (14-36); BUN Creatinine Ratio 22.1 (6-22); Bilirubin Total 0.6 mg/dL (0.2-1.3); Blood Urea Nitrogen 15 mg/dL (7-17); Calcium 8.9 mg/dL (8.4-10.2); Carbon Dioxide 31 mmol/L (22-32); Chloride 102 mmol/L (98-107); Estimated Glomerular Filt Rate > 60.0 mL/min (>60); Globulin 2.9 g/dL (1.7-4.1); Glucose 101 mg/dL (80-110); Sodium 138 mmol/L (137-145); Total Protein 7.2 g/dL (6.3-8.2)
[2020-12-05 13:54] LABS: HEMOLYSIS 75 (0-50); Potassium 5.3 mmol/L (3.4-5.1)
[2020-12-05 14:02] LABS: Ethanol (ETOH) < 10 mg/dL
[2020-12-05 14:19] LABS: D Dimer < 200 ng/mL (<230)
== END 2020-12-05 15:48 | disposition home or self-care (01) ==
PROVIDERS: Emergency Provider Emergency Medicine; PCP Physician Assistant
DX: S30.0XXA Contusion of lower back and pelvis, initial encounter (principal); R06.82 Tachypnea, not elsewhere classified; Z20.822 Contact with and (suspected) exposure to COVID-19; W01.0XXA Fall on same level from slipping, tripping and stumbling without subsequent striking against object, initial encounter; R41.3 Other amnesia
CPT/HCPCS: 36415; 70450; 71045; 72220; 80053; 80320; 81003; 82550; 83605; 83735; 83880; 84484; 85025; 85379; 87040; 87635; 93005; 99284; C9803

== ENCOUNTER 2021-01-26 22:56 | Emergency (ER) | payer MEDICARE, SELFPAY ==
[2019-10-23 15:16] VITALS: BMI 31.6
[2021-01-26 22:47] VITALS: BP 170/102; PULSE 98; RESP 20; TEMP 36.4; O2SAT 95
--- NOTE | 2021-01-26 22:50 | DI.RAD.S_ITS ---
PROCEDURE: XR WRIST LT MIN 3V INDICATIONS: glf with pain in wrist TECHNIQUE: 4 views of the wrist were acquired. COMPARISON: None. FINDINGS: Bones: Mildly comminuted, impacted fracture of the distal left radius with intra-articular extension. Distal radial ulnar joint appears intact. Degenerative changes of the 1st carpometacarpal joint Scaphoid view: Scaphoid appears intact. Scapholunate interval is maintained. Soft tissues: No suspicious soft tissue calcifications. Soft tissue swelling over the left wrist. IMPRESSION: Comminuted, mildly impacted fracture of the distal left radius with intra-articular extension. Dictated by: Jose Armando Santana M.D. on 01/26/2021 at 23:02 Approved by: Jose Armando Santana M.D. on 01/26/2021 at 23:04
[2021-01-26] MEDS: HYDROMORPHONE 2 MG INJ 1 MG SUBCUT (23:30)
--- NOTE | 2021-01-26 23:31 | ED_ITS ---
HPI - Extremity Injury (Upper) General Chief Complaint: Extremity Injury, Upper Stated Complaint: GLF Time Seen by Provider: 01/26/21 23:26 Source: patient Mode of arrival: Wheelchair Limitations: no limitations History of Present Illness HPI narrative: Patient is 5-year-old female who presents with left wrist pain after trip and fall. She did not hit her head or lose consciousness. She has no neck pain. She is unable to take most opiates and can only take Tylenol dilaudid. No numbness or tingling. Related Data Home Medications Medication Instructions Recorded Confirmed betamethasone valerate 0.1 % 1 applic TOPICAL DIRECTED 07/06/17 10/23/19 topical cream dexamethasone sodium phosphate 0.1 1 drp OPHTHALMIC (EYE) BID PRN 07/06/17 10/23/19 % eye drops fluticasone propionate 50 1 spray INTRANASAL BID 07/06/17 10/23/19 mcg/actuation nasal spray,suspension levothyroxine 125 mcg tablet 150 mcg PO DAILY 07/06/17 10/23/19 metronidazole 1 % topical gel 1 applic TOPICAL BID PRN 07/06/17 10/23/19 (Metrogel) zolpidem 5 mg tablet 5 mg PO QHS PRN 07/06/17 10/23/19 Calcium Citrate + D 2 tab PO TID 12/04/17 10/23/19 Celebrate Multi-Complex 45 3 cap PO DAILY 12/04/17 10/23/19 cetirizine 10 mg tablet 10 mg PO DAILY PRN 12/04/17 10/23/19 hydrocortisone 2 %-iodoquinol 1 1 applic TOPICAL BID PRN 12/04/17 10/23/19 %-aloe polysacch no.2 1 % topical gel fexofenadine 180 mg tablet 180 mg PO DAILY 10/23/19 10/23/19 ([facility]) Previous Rx's Medication Instructions Recorded hydrocodone 5 mg-acetaminophen 325 1 tab PO Q6H PRN #10 tab 12/05/20 mg tablet Allergies Allergy/AdvReac Type Severity Reaction Status Date / Time erythromycin base Allergy Intermediate HIVES Verified 12/05/20 12:29 adhesive Allergy Mild ALLERGIC Verified 12/05/20 12:29 TO TAPE epinephrine Allergy Mild TACHYCARDIA Verified 12/05/20 12:29 gentamicin [Gentamicin] Allergy Mild RASH Verified 12/05/20 12:29 NSAIDS (Non-Steroidal Allergy Mild GASTRITIS Verified 12/05/20 12:29 Anti-Inflamma Serotonin 5HT-3 Antagonists Allergy Mild GASTRITIS Verified 12/05/20 12:29 trazodone Allergy Mild LOSS OF Verified 12/05/20 12:29 BALANCE alprazolam Allergy Unknown LOSS OF Verified 12/05/20 12:29 ABILITY TO FOCUS amitriptyline Allergy Unknown IBS Verified 12/05/20 12:29 SYMPTOMS buspirone Allergy Unknown Verified 12/05/20 12:29 codeine Allergy Unknown IBS Verified 12/05/20 12:29 SYMPTOMS gabapentin Allergy Unknown SEVERE Verified 12/05/20 12:29 GASTRITIS Review of Systems Review of Systems Narrative: GENERAL: Denies chills,fever HEENT: Denies throat pain RESPIRATORY: Denies dyspnea, cough, wheezing CARDIOVASCULAR: Denies chest pain, palpitations GASTROINTESTINAL: Denies nausea, vomiting MUSCULOSKELETAL: See HPI SKIN: No rash, no laceration, no pruritus NEUROLOGIC: Denies weakness, dizziness, headache, numbness 8 point review of systems is negative except for those stated above and HPI Patient History Medical History (Updated 01/27/21 @ 00:04 by Valentina Hunt DO) Alcohol dependence Cervical vertebral fusion Hypothyroidism Insomnia Surgical History Gastric bypass status for obesity S/P cervical spinal fusion Family History Father MVA (motor vehicle accident) Mother Lung cancer Social History household members: none Smoking Status: Former smoker alcohol intake: current Smoking Status: Former smoker alcohol intake frequency: a few times a week Alcohol type: wine Substance Use Type: does not use Exam Initial Vital Signs Initial Vital Signs: Vital Signs Temperature 97.5 F L 01/26/21 22:47 Pulse Rate 98 H 01/26/21 22:47 Respiratory Rate 20 01/26/21 22:47 Blood Pressure 170/102 H 01/26/21 22:47 Pulse Oximetry 95 01/26/21 22:47 GENERAL: Alert well-appearing 75-year-old female sitting in wheelchair HEAD: Atraumatic no contusion EOMI NECK: No vertebral tenderness step-offs full range of motion CARDIOVASCULAR: peripheral pulses in tact, cap refill <2 sec RESPIRATORY: No respiratory distress, speaks in full sentences without difficulty EXTREMITIES: Normal range of motion, no clubbing or edema. Neurovascularly intact Left upper extremity ice his on left wrist no obvious deformity but quite tender to touch mild swelling distal radial pulse intact able to move fingers minimal left shoulder pain able to move it no clavicle step-off able to flex and extend elbow without difficulty NEUROLOGICAL: Cranial nerves II through XII grossly intact. Normal gait and speech. SKIN: Warm, dry, no petechiae, no rashes or lesions. Procedures Orthopedic Splinting/Casting Injury #1: Side: left Upper Extremity Injury Location: wrist Upper Extremity Immobilizer: sling/shoulder immobilizer and sugar tong splint Post splinting neuro exam: intact Post splinting vascular exam: intact Placed by: Nursing Course Orders Ordered: Discontinued Medications Hydromorphone HCl (Hydromorphone 2 Mg Inj) 1 mg SUBCUT Q4H PRN PRN Reason: Pain, Severe (7-10) Last Admin: 01/26/21 23:30 Dose: 1 mg Documented by: ALISON Vital Signs Vital signs: Vital Signs - 8 hr 01/26/21 22:47 01/27/21 00:02 Temperature 97.5 F L Pulse Rate 98 H 94 H Respiratory Rate 20 16 Blood Pressure 170/102 H 178/90 H Pulse Oximetry 95 96 MDM - Extremity Injury (Upper) Imaging Data Extremity x-ray #1: Radiologist's Impression: PROCEDURE:? XR WRIST LT MIN 3V ? INDICATIONS: glf with pain in wrist ? TECHNIQUE:? 4 views of the wrist were acquired.? ? COMPARISON:? None. ? FINDINGS:? ? Bones:? Mildly comminuted, impacted fracture of the distal left radius with intra-articular extension.? Distal radial ulnar joint appears intact.? Degenerative changes of the 1st carpometacarpal joint ? Scaphoid view:? Scaphoid appears intact. Scapholunate interval is maintained. ? Soft tissues:? No suspicious soft tissue calcifications.? Soft tissue swelling over the left wrist. ? IMPRESSION:? Comminuted, mildly impacted fracture of the distal left radius with intra-articular extension. ? ? Dictated by: Jose Armando Santana M.D. on 01/26/2021 at 23:02 ? ? Approved by: Jose Armando Santana M.D. on 01/26/2021 at 23:04 ? MDM Narrative Medical decision making narrative: Patient cannot take any narcotics except dilaudid. She is given ice I gave her 1 dose of Dilaudid and emergency department I recommend outpatient follow-up. Discharge Plan Departure Patient Disposition: Home Clinical Impression: Fracture of left wrist Instructions: DI for Wrist Fracture Activity Restrictions/Additional Instructions: *You have been diagnosed with left wrist fracture *What to do: Keep arm in splint at all times. May wear sling as needed. Elevate. Ice 20-30 minutes at a time. *Continue to take medications as directed Tylenol 1000 mg every 6 hours if needed for pain *Follow up with your primary care provider in 2-3 days Please call orthopedics tomorrow to schedule follow-up appointment in about 1 week you will likely need surgery. *Return to ER if you should have increasing pain, numbness, tingling, weakness in finger tips, inability to move fingers or new, worsening or concerning symptoms Prescriptions: No Action dexamethasone sodium phosphate 0.1 % drops 1 drp ophthalmic (eye) BID PRN (Reason: Allergy Symptoms) 0RF betamethasone valerate 0.1 % cream 1 applic Topical DIRECTED 0RF Label Comments: apply to affected area bid x 2 weeks then off 1 week. levothyroxine 125 mcg tablet 150 mcg PO DAILY 0RF zolpidem 5 mg tablet 5 mg PO QHS PRN (Reason: Sleep) 0RF fluticasone propionate 50 mcg/actuation spray,suspension 1 spray Intranasal BID 0RF metronidazole [Metrogel] 1 % Gel 1 applic Topical BID PRN (Reason: antibiotic) 0RF Rx Instructions: apply under right breast cetirizine 10 mg Tablet 10 mg PO DAILY PRN (Reason: Allergy Symptoms) 0RF [id number] 2-1-1 % Gel 1 applic Topical BID PRN (Reason: unknown) 0RF Rx Instructions: under right breast Celebrate Multi-Complex 45 3 cap PO DAILY 0RF Calcium Citrate + D 2 tab PO TID 0RF Label Comments: Calcium Citrate 1500 mg and Vitiamin D 2400 iu listed on patients home med l ist. Also lists daily totals as 1500 mg / 5400 mg fexofenadine [[facility]] 180 mg Tablet 180 mg PO DAILY 0RF hydrocodone-acetaminophen 5-325 mg tablet 1 tab PO Q6H PRN (Reason: pain) Qty: 10 0RF Referrals: [facility] [Provider Group] Roberta Olea PA-C [Primary Care Provider] -
[2021-01-27 00:02] VITALS: BP 178/90; PULSE 94; RESP 16; O2SAT 96
== END 2021-01-27 00:16 | disposition home or self-care (01) ==
PROVIDERS: Emergency Provider Emergency Medicine; PCP Physician Assistant
DX: S52.502A Unspecified fracture of the lower end of left radius, initial encounter for closed fracture (principal); W01.0XXA Fall on same level from slipping, tripping and stumbling without subsequent striking against object, initial encounter
CPT/HCPCS: 29125; 73110; 96372; 99282; 99283; J1170

== ENCOUNTER 2021-01-30 21:57 | Emergency (ER) | payer MEDICARE, SELFPAY ==
[2019-10-23 15:16] VITALS: BMI 31.6
--- NOTE | 2021-01-30 | DI.RAD.S_ITS ---
PROCEDURE: XR RIBS LT MIN 3V W CXR1V INDICATIONS: FALL/PAIN TECHNIQUE: 3 views of the left ribs were acquired, along with a single view chest. COMPARISON: [facility], CR, XR RIBS LT MIN 3V W CXR1V, 07/18/2019, 16:49. FINDINGS: Surgical changes and devices: None. Bones and chest wall: Slight nondisplaced irregularity of the lateral left 9th rib. No suspicious bony lesions. Overlying soft tissues appear unremarkable. Lungs and pleura: No pleural effusions or pneumothorax. Lungs appear clear. Mediastinum: Mediastinal contours appear normal. Heart size is normal. IMPRESSION: Slight irregularity the lateral left 9th rib suspicious for nondisplaced fracture. Dictated by: Nga Knowles M.D. on 01/30/2021 at 23:06 Approved by: Nga Knowles M.D. on 01/30/2021 at 23:07
[2021-01-30 22:00] VITALS: BP 175/94; PULSE 97; RESP 20; TEMP 36.6; O2SAT 97; BMI 32.3
--- NOTE | 2021-01-30 22:00 | DI.CT.S_ITS ---
PROCEDURE: CT HEAD/BRAIN WO CON INDICATIONS: fall, etoh, possible head injury TECHNIQUE: Noncontrast 4.5 mm thick angled axial sections acquired from the foramen magnum to the vertex, with coronal and sagittal reformats. For radiation dose reduction, the following was used: automated exposure control, adjustment of mA and/or kV according to patient size. COMPARISON: [facility], CT, CT HEAD/BRAIN WO CON, 12/05/2020, 13:50. FINDINGS: Image quality: Excellent. CSF spaces: Basal cisterns are patent. No extra-axial fluid collections. The ventricles are symmetric in size and shape. Brain: No intracranial bleeds or masses. There is cerebral volume loss for age, with resultant ventricular and sulcal prominence. There are periventricular and deep white matter chronic small vessel ischemic changes. There is intracranial internal carotid artery atherosclerosis. Skull and face: Calvarium and visualized facial bones appear intact, without suspicious lesions. Sinuses: Visualized sinuses and mastoids are clear. IMPRESSION: 1. No acute intracranial process. 2. Moderate atrophy and chronic microvascular ischemic changes. Dictated by: Nga Knowles M.D. on 01/30/2021 at 22:57 Approved by: Nga Knowles M.D. on 01/30/2021 at 22:57
--- NOTE | 2021-01-30 22:00 | DI.RAD.S_ITS ---
PROCEDURE: XR WRIST LT MIN 3V INDICATIONS: fall with injury TECHNIQUE: 4 views of the wrist were acquired. COMPARISON: [facility], , XR WRIST LT MIN 3V, 01/26/2021, 22:45. FINDINGS: Bones: Overlying cast material obscures fine detail evaluation. There is a comminuted distal radial fracture with intra-articular extension. Alignment is relatively stable compared to prior exam. Scaphoid view: No visualized scaphoid fracture. Soft tissues: No suspicious soft tissue calcifications. IMPRESSION: Stable appearance of previously comminuted distal radial fracture with intra-articular extension. Dictated by: Nga Knowles M.D. on 01/30/2021 at 22:36 Approved by: Nga Knowles M.D. on 01/30/2021 at 22:37
--- NOTE | 2021-01-30 22:00 | DI.CT.S_ITS ---
PROCEDURE: CT CERVICAL SPINE WO CON INDICATIONS: fall with head injury TECHNIQUE: Noncontrast 3 mm thick sections acquired from the skull base to the T4 level. Sagittal and coronal reformats were then constructed. For radiation dose reduction, the following was used: automated exposure control, adjustment of mA and/or kV according to patient size. COMPARISON: [facility], CT, CT CERVICAL SPINE WO CON, 11/24/2019, 19:35. FINDINGS: Image quality: Excellent. Bones: No fractures or dislocations. Visualized superior ribs are intact. Anterior fusion is present at C5-6. There is unchanged grade 1 retrolisthesis of C5-C6. Hardware appears and Multilevel degenerative changes. Soft tissues: Prevertebral soft tissues are normal in thickness. No paravertebral hematomas. No apical pneumothoraces. IMPRESSION: Multilevel degenerative postsurgical changes visualized acute fracture. Dictated by: Nga Knowles M.D. on 01/30/2021 at 23:02 Approved by: Nga Knowles M.D. on 01/30/2021 at 23:04
[2021-01-30 22:40] LABS: Add Manual Diff / Slide Review NO; Basophils Absolute Auto 0 /uL (0-100); Basophils Percent Auto 0.6 % (0-2); Eosinophils Absolute Auto 100 /uL (0-450); Eosinophils Percent Auto 1.4 % (2-4); Hematocrit 43.3 % (36-46); Hemoglobin 14.7 g/dL (12.0-16.0); Lymphocytes Absolute Auto 1300 /uL (1100-4500); Lymphocytes Percent Auto 23.3 % (25-40); Mean Corpuscular HGB Conc 33.9 % (30-36); Mean Corpuscular Hemoglobin 33.6 PG (26-34); Mean Corpuscular Volume 99.2 fL (80-100); Monocytes Absolute Auto 400 /uL (0-900); Neutrophils Absolute Auto 3700 /uL (1500-7000); Neutrophils Percent Auto 66.7 % (50-75); Platelet Count 210 X10^3/uL (150-400); Red Blood Cell Count 4.37 X10^6/uL (4.0-5.2); Red Cell Distribution Width 13.1 % (11.6-14.8); White Blood Cell Count 5.5 X10^3/uL (4.5-11.0)
[2021-01-30 22:45] LABS: Ethanol (ETOH) 189 mg/dL
[2021-01-30 22:48] LABS: Alanine Aminotransferase 35 IU/L (<35); Albumin 4.6 g/dL (3.5-5.0); Albumin Globulin Ratio 1.5 (1.0-2.8); Alkaline Phosphatase 78 U/L (38-126); Aspartate Aminotransferase 41 IU/L (14-36); BUN Creatinine Ratio 28.4 (6-22); Bilirubin Total 0.3 mg/dL (0.2-1.3); Blood Urea Nitrogen 19 mg/dL (7-17); Calcium 9.4 mg/dL (8.4-10.2); Carbon Dioxide 22 mmol/L (22-32); Chloride 109 mmol/L (98-107); Creatine Kinase 74 U/L (30-135); Estimated Glomerular Filt Rate > 60.0 mL/min (>60); Glucose 99 mg/dL (80-110); HEMOLYSIS 32 (0-50); Potassium 4.2 mmol/L (3.4-5.1); Sodium 146 mmol/L (137-145); Total Protein 7.6 g/dL (6.3-8.2)
[2021-01-30 22:59] LABS: Troponin I < 0.012 ng/mL (0.01-0.034)
[2021-01-30 23:23] LABS: COVID19 - ADMIT (NP swab/PCR) Negative (Negative)
--- NOTE | 2021-01-30 23:42 | ED.FALL ---
HPI - Fall General Chief Complaint: Fall Stated Complaint: ETOH/Fall Time Seen by Provider: 01/30/21 22:00 Source: patient and EMS Mode of arrival: EMS History of Present Illness HPI Narrative: 75-year-old female former smoker infrequent drinker presents by EMS for evaluation of a fall just prior to arrival. She states that she is unclear how she fell, but very firmly denies any alcohol abuse. She states that she felt too weak to get up off the ground and therefore had to call EMS for assistance. She was seen a few days ago after falling and breaking her left wrist. She is currently in a splint. She denies any head neck or back pain. She denies any chest pain or shortness of breath. She denies any nausea, vomiting or diarrhea. Related Data Home Medications Medication Instructions Recorded Confirmed betamethasone valerate 0.1 % 1 applic TOPICAL DIRECTED 07/06/17 10/23/19 topical cream dexamethasone sodium phosphate 0.1 1 drp OPHTHALMIC (EYE) BID PRN 07/06/17 10/23/19 % eye drops fluticasone propionate 50 1 spray INTRANASAL BID 07/06/17 10/23/19 mcg/actuation nasal spray,suspension levothyroxine 125 mcg tablet 150 mcg PO DAILY 07/06/17 10/23/19 metronidazole 1 % topical gel 1 applic TOPICAL BID PRN 07/06/17 10/23/19 (Metrogel) zolpidem 5 mg tablet 5 mg PO QHS PRN 07/06/17 10/23/19 Calcium Citrate + D 2 tab PO TID 12/04/17 10/23/19 Celebrate Multi-Complex 45 3 cap PO DAILY 12/04/17 10/23/19 cetirizine 10 mg tablet 10 mg PO DAILY PRN 12/04/17 10/23/19 hydrocortisone 2 %-iodoquinol 1 1 applic TOPICAL BID PRN 12/04/17 10/23/19 %-aloe polysacch no.2 1 % topical gel fexofenadine 180 mg tablet 180 mg PO DAILY 10/23/19 10/23/19 ([facility]) Previous Rx's Medication Instructions Recorded hydrocodone 5 mg-acetaminophen 325 1 tab PO Q6H PRN #10 tab 12/05/20 mg tablet Allergies Allergy/AdvReac Type Severity Reaction Status Date / Time erythromycin base Allergy Intermediate HIVES Verified 12/05/20 12:29 adhesive Allergy Mild ALLERGIC Verified 12/05/20 12:29 TO TAPE epinephrine Allergy Mild TACHYCARDIA Verified 12/05/20 12:29 gentamicin [Gentamicin] Allergy Mild RASH Verified 12/05/20 12:29 NSAIDS (Non-Steroidal Allergy Mild GASTRITIS Verified 12/05/20 12:29 Anti-Inflamma Serotonin 5HT-3 Antagonists Allergy Mild GASTRITIS Verified 12/05/20 12:29 trazodone Allergy Mild LOSS OF Verified 12/05/20 12:29 BALANCE alprazolam Allergy Unknown LOSS OF Verified 12/05/20 12:29 ABILITY TO FOCUS amitriptyline Allergy Unknown IBS Verified 12/05/20 12:29 SYMPTOMS buspirone Allergy Unknown Verified 12/05/20 12:29 codeine Allergy Unknown IBS Verified 12/05/20 12:29 SYMPTOMS gabapentin Allergy Unknown SEVERE Verified 12/05/20 12:29 GASTRITIS Review of Systems Review of Systems Narrative: GENERAL: See HP. HEENT: Denies sinus pain, ear pain, sore throat, difficulty swallowing, dizziness. RESPIRATORY: Denies dyspnea, cough, wheezing, hemoptysis, sputum. CARDIOVASCULAR: Denies chest pain, palpitations, orthopnea, edema, GASTROINTESTINAL: Denies nausea, vomiting, abdominal pain, diarrhea, constipation, melena. : Denies dysuria, frequency, incontinence, hematuria, urinary retention. MUSCULOSKELETAL: See HPI SKIN: Denies rash, skin lesions, or other NEUROLOGIC: Denies weakness, headache, numbness, change in speech, confusion, seizures, incoordination. PSYCHIATRIC: No concerning psychosocial issues. 12 point review of systems is negative except for those stated above Patient History Medical History (Updated 01/31/21 @ 00:42 by Hiram Shaw DO) Alcohol dependence Cervical vertebral fusion Hypothyroidism Insomnia Surgical History Gastric bypass status for obesity S/P cervical spinal fusion Family History Father MVA (motor vehicle accident) Mother Lung cancer Social History household members: none Smoking Status: Former smoker alcohol intake: current Smoking Status: Former smoker alcohol intake frequency: a few times a week Alcohol type: wine Substance Use Type: does not use Exam Narrative Exam Narrative: GENERAL: [75 year old patient appears stated age. Well-developed patient, in mild distress. GCS 14, confused, tearful HEAD: Atraumatic. Normocephalic. EYES: Pupils equal round and reactive. Extraocular motions intact. No scleral icterus. No injection or drainage. ENT: Nose without bleeding, purulent drainage. Throat without erythema, tonsillar hypertrophy or exudate. Airway patent. NECK: Trachea midline. Non tender CARDIOVASCULAR: Regular rate and rhythm without murmurs, gallops, or rubs. RESPIRATORY: Clear to auscultation. Breath sounds equal bilaterally. No wheezes, rales, or rhonchi. GASTROINTESTINAL: Abdomen soft, non-tender, nondistended. EXTREMITIES: Left wrist in OCL splint, patient complaining of pain, closed, isolated neurovascularly intact BACK: Nontender without deformity or crepitance. No flank tenderness. NEURO: AOx3. SKIN: No rash or erythema of visible areas Initial Vital Signs Initial Vital Signs: Vital Signs Temperature 97.8 F 01/30/21 22:00 Pulse Rate 97 H 01/30/21 22:00 Respiratory Rate 20 01/30/21 22:00 Blood Pressure 175/94 H 01/30/21 22:00 Pulse Oximetry 97 01/30/21 22:00 Course Orders Ordered: ED Orders 01/30/21 22:00 CT cervical spine wo con Stat CT head/brain wo con Stat XR wrist LT min 3V Stat 01/30/21 22:25 COVID19 - ADMIT (SOFTWARE QUALITY MANAGER swab/PCR) Stat Complete Blood Count AUTO DIFF Stat Comprehensive Metabolic Panel Stat Ethanol (ETOH) Stat Troponin & CK Cardiac Panel Stat Vital Signs Vital signs: Vital Signs - 8 hr 01/30/21 22:00 Temperature 97.8 F Pulse Rate 97 H Respiratory Rate 20 Blood Pressure 175/94 H Pulse Oximetry 97 MDM - Fall Lab Data Result diagrams: 01/30/21 22:25 01/30/21 22:25 Labs: Lab Results 01/30/21 01/30/21 01/30/21 Range/Units 22:25 22:25 22:25 WBC 5.5 (4.5-11.0) X10^3/uL RBC 4.37 (4.0-5.2) X10^6/uL Hgb 14.7 (12.0-16.0) g/dL Hct 43.3 (36-46) % MCV 99.2 (80-100) fL MCH 33.6 (26-34) PG MCHC 33.9 (30-36) % RDW 13.1 (11.6-14.8) % Plt Count 210 (150-400) X10^3/uL Neut % (Auto) 66.7 (50-75) % Lymph % (Auto) 23.3 L (25-40) % [place] % (Auto) 8.0 (3-14) % Eos % (Auto) 1.4 L (2-4) % Baso % (Auto) 0.6 (0-2) % Neut # (Auto) 3700 (6960-3580) /uL Lymph # (Auto) 1300 (3560-9215) /uL [place] # (Auto) 400 (0-900) /uL Eos # (Auto) 100 (0-450) /uL Baso # (Auto) 0 (0-100) /uL Sodium 146 H (137-145) mmol/L Potassium 4.2 (3.4-5.1) mmol/L Chloride 109 H (98-107) mmol/L Carbon Dioxide 22 (22-32) mmol/L BUN 19 H (7-17) mg/dL Creatinine 0.67 (0.52-1.04) mg/dL Estimated GFR > 60.0 (>60) mL/min BUN/Creatinine Ratio 28.4 H (6-22) Glucose 99 (80-110) mg/dL Calcium 9.4 (8.4-10.2) mg/dL Total Bilirubin 0.3 (0.2-1.3) mg/dL AST 41 H (14-36) IU/L ALT 35 H (<35) IU/L Alkaline Phosphatase 78 (38-126) U/L Total Creatine Kinase (30-135) U/L CK-MB (CK-2) CK-MB (CK-2) Rel Index Troponin I (0.01-0.034) ng/mL Total Protein 7.6 (6.3-8.2) g/dL Albumin 4.6 (3.5-5.0) g/dL Globulin 3.0 (1.7-4.1) g/dL Albumin/Globulin Ratio 1.5 (1.0-2.8) Ethyl Alcohol 189 H ( - 10) mg/dL SARS-CoV-2 (PCR) (Negative) 01/30/21 01/30/21 Range/Units 22:25 22:25 WBC (4.5-11.0) X10^3/uL RBC (4.0-5.2) X10^6/uL Hgb (12.0-16.0) g/dL Hct (36-46) % MCV (80-100) fL MCH (26-34) PG MCHC (30-36) % RDW (11.6-14.8) % Plt Count (150-400) X10^3/uL Neut % (Auto) (50-75) % Lymph % (Auto) (25-40) % [place] % (Auto) (3-14) % Eos % (Auto) (2-4) % Baso % (Auto) (0-2) % Neut # (Auto) (7686-8233) /uL Lymph # (Auto) (0300-3336) /uL [place] # (Auto) (0-900) /uL Eos # (Auto) (0-450) /uL Baso # (Auto) (0-100) /uL Sodium (137-145) mmol/L Potassium (3.4-5.1) mmol/L Chloride (98-107) mmol/L Carbon Dioxide (22-32) mmol/L BUN (7-17) mg/dL Creatinine (0.52-1.04) mg/dL Estimated GFR (>60) mL/min BUN/Creatinine Ratio (6-22) Glucose (80-110) mg/dL Calcium (8.4-10.2) mg/dL Total Bilirubin (0.2-1.3) mg/dL AST (14-36) IU/L ALT (<35) IU/L Alkaline Phosphatase (38-126) U/L Total Creatine Kinase 74 (30-135) U/L CK-MB (CK-2) TNP CK-MB (CK-2) Rel Index TNP Troponin I < 0.012 (0.01-0.034) ng/mL Total Protein (6.3-8.2) g/dL Albumin (3.5-5.0) g/dL Globulin (1.7-4.1) g/dL Albumin/Globulin Ratio (1.0-2.8) Ethyl Alcohol ( - 10) mg/dL SARS-CoV-2 (PCR) Negative (Negative) Imaging Data CT scan - head: Radiologist's Impression: [address] [address] [address] Scan Report Signed Patient: Mckay Costa MR#: [id number] : 1945 Acct:[id number] Age/Sex: 75 / F Date of Service: 01/30/21 Loc: ED Accession Number: [id number] ?? Procedure: CT head/brain wo con Ordering Provider: Hiram Shaw D.O. PROCEDURE:? CT HEAD/BRAIN WO CON ? INDICATIONS:? fall, etoh, possible head injury ? TECHNIQUE:? Noncontrast 4.5 mm thick angled axial sections acquired from the foramen magnum to the vertex, with coronal and sagittal reformats.? For radiation dose reduction, the following was used:? automated exposure control, adjustment of mA and/or kV according to patient size.? ? COMPARISON:? [facility], CT, CT HEAD/BRAIN WO CON, 12/05/2020, 13:50. ? FINDINGS:? Image quality:? Excellent.? ? CSF spaces:? Basal cisterns are patent.? No extra-axial fluid collections.? The ventricles are symmetric in size and shape.? ? Brain:? No intracranial bleeds or masses.? There is cerebral volume loss for age, with resultant ventricular and sulcal prominence.? There are periventricular and deep white matter chronic small vessel ischemic changes.? There is intracranial internal carotid artery atherosclerosis.? ? Skull and face:? Calvarium and visualized facial bones appear intact, without suspicious lesions.? ? Sinuses:? Visualized sinuses and mastoids are clear.? ? IMPRESSION:? ? 1. No acute intracranial process. ? 2. Moderate atrophy and chronic microvascular ischemic changes. ? ? ? Dictated by: Nga Knowles M.D. on 01/30/2021 at 22:57 ? ? Approved by: Nga Knowles M.D. on 01/30/2021 at 22:57 ? CT - cervical spine: Radiologist's Impression: [address] [address] [address] Scan Report Signed Patient: Mckay Costa MR#: [id number] : 1945 Acct:[id number] Age/Sex: 75 / F Date of Service: 01/30/21 Loc: ED Accession Number: [id number] ?? Procedure: CT cervical spine wo con Ordering Provider: Hiram Shaw D.O. PROCEDURE:? CT CERVICAL SPINE WO CON ? INDICATIONS:? fall with head injury ? TECHNIQUE:? Noncontrast 3 mm thick sections acquired from the skull base to the T4 level.? Sagittal and coronal reformats were then constructed.? For radiation dose reduction, the following was used:? automated exposure control, adjustment of mA and/or kV according to patient size.? ? COMPARISON:? [facility], CT, CT CERVICAL SPINE WO CON, 11/24/2019, 19:35. ? FINDINGS:? Image quality:? Excellent.? ? Bones:? No fractures or dislocations.? Visualized superior ribs are intact.? Anterior fusion is present at C5-6.? There is unchanged grade 1 retrolisthesis of C5-C6.? Hardware appears and Multilevel degenerative changes. ? Soft tissues:? Prevertebral soft tissues are normal in thickness.? No paravertebral hematomas.? No apical pneumothoraces.? ? ? IMPRESSION:? ? Multilevel degenerative postsurgical changes visualized acute fracture. ? Dictated by: Nga Knowles M.D. on 01/30/2021 at 23:02 ? ? Approved by: Nga Knowles M.D. on 01/30/2021 at 23:04 ? Chest x-ray: Radiologist's Impression: Mckay Costa??75??F??1945 ? Allergy/Adv: erythromycin base, adhesive, epinephrine, gentamicin, NSAIDS (Non-Steroidal Anti-Inflamma, Serotonin 5HT-3 Antagonists, trazodone, alprazolam, amitriptyline, buspirone, codeine, gabapentin (More??) Close Wrist X-Ray (Signed) Nga Knowles - 01/30/[address] (Signed) Nga Knowles 01/30/[address] (Signed) Nga Knowles 01/30/21 Ribs X-Ray (Signed) Nga Knowles - 01/30/21 Wrist X-Ray (Signed) EstherJose Armando - 01/26/[address] (Signed) WilkinsSharath - 12/05/20 Sacrum and Coccyx X-Ray (Signed) Wilkins,Sharath - 12/05/20 Chest X-Ray (Signed) Wilkins,Sharath - 12/05/20 Mammogram Screening (Signed) VelardeLuis Alberto - 10/14/20 Foot X-Ray (Signed) CheyenneDeseanlaura - 07/03/20 Chest/Abdomen/Pelvis CT (Signed) Gabbie Quinn - 07/03/[address] (Signed) Nga Knowles - 01/14/20 Chest X-Ray (Signed) Traci Sanders - 01/14/20 Chest X-Ray (Signed) Traci Sanders - 01/14/20 Humerus X-Ray (Signed) Delroy Main - 11/24/[address] (Signed) Delroy Main - 11/24/[address] (Signed) Delroy Main - 11/24/19 Telemetry Strips 10/25/[address] (Addendum) Nga Knowles - 10/23/[address] (Signed) Arthur Wagner - 10/23/[address] (Signed) Yehuda Ledbetter - 10/23/[address] (Signed) Yehuda Ledbetter - 10/23/19 Ribs X-Ray (Signed) Frank Renee - 07/18/19 Ribs X-Ray (Signed) Peter Cruz - 03/31/19 Telemetry Strips 01/16/19 Chest X-Ray (Signed) Jody Phelps - 11/28/18 Mammogram Screening (Signed) Goldie Pierce - 10/17/18 Foot X-Ray (Signed) Gabbie Quinn - 09/21/18 Knee MRI (Signed) Jeronimo Bowling - 05/30/18 Knee X-Ray (Signed) Goldie Pierce - 05/21/[address] [address] XRay Report Signed Patient: Mckay Costa MR#: [id number] : 1945 Acct:[id number] Age/Sex: 75 / F Date of Service: 01/30/21 Loc: ED Accession Number: [id number] ?? Procedure: XR ribs LT min 3V w CXR1V Ordering Provider: Hiram Shaw D.O. PROCEDURE:? XR RIBS LT MIN 3V W CXR1V ? INDICATIONS:? FALL/PAIN ? TECHNIQUE:? 3 views of the left ribs were acquired, along with a single view chest.? ? COMPARISON:? [facility], , XR RIBS LT MIN 3V W CXR1V, 07/18/2019, 16:49. ? FINDINGS:? ? Surgical changes and devices:? None.? ? Bones and chest wall:? Slight nondisplaced irregularity of the lateral left 9th rib.? No suspicious bony lesions.? Overlying soft tissues appear unremarkable.? ? Lungs and pleura:? No pleural effusions or pneumothorax.? Lungs appear clear.? ? Mediastinum:? Mediastinal contours appear normal.? Heart size is normal.? ? IMPRESSION:? Slight irregularity the lateral left 9th rib suspicious for nondisplaced fracture.? ? ? Dictated by: Nga Knowles M.D. on 01/30/2021 at 23:06 ? ? Approved by: Nga Knowles M.D. on 01/30/2021 at 23:07 ? Extremity x-ray #1: Radiologist's Impression: [place] [address] XRay Report Signed Patient: Mckay Costa MR#: [id number] : 1945 Acct:[id number] Age/Sex: 75 / F Date of Service: 01/30/21 Loc: ED Accession Number: [id number] ?? Procedure: XR wrist LT min 3V Ordering Provider: Hiram Shaw D.O. PROCEDURE:? XR WRIST LT MIN 3V ? INDICATIONS: fall with injury ? TECHNIQUE:? 4 views of the wrist were acquired.? ? COMPARISON:? [facility], , XR WRIST LT MIN 3V, 01/26/2021, 22:45. ? FINDINGS:? ? Bones:? Overlying cast material obscures fine detail evaluation.? There is a comminuted distal radial fracture with intra-articular extension.? Alignment is relatively stable compared to prior exam. ? Scaphoid view:? No visualized scaphoid fracture. ? Soft tissues:? No suspicious soft tissue calcifications.? ? IMPRESSION:? Stable appearance of previously comminuted distal radial fracture with intra-articular extension. ? ? Dictated by: Nga Knowles M.D. on 01/30/2021 at 22:36 ? ? Approved by: Nga Knowles M.D. on 01/30/2021 at 22:37 ? MDM Narrative Medical decision making narrative: Patient has a very reassuring physical exam, labs and imaging. She suffered what is likely a small rib fracture but otherwise there are no significant findings. She is speaking clearly and demonstrates appropriate capacity for discharge. She is ambulating without assistance. She has been given return precautions and questions have been answered to her apparent satisfaction Discharge Plan Departure Patient Disposition: Home Clinical Impression: Closed rib fracture Instructions: How to Prevent Falls Activity Restrictions/Additional Instructions: *You have been diagnosed with [alcohol intoxication and fall resulting in a small, nondisplaced fracture of your left 9th rib. Otherwise your physical exam, images and labs *What to do: *Please continue to take your regular medications as directed. [ ] New medication prescriptions sent to your pharmacy: [ ] [ ] New medication written as a paper prescription [x ] No new medications given *Please follow up with your primary care provider in 2-3 days, call for an appointment. Let them know you were seen in the Emergency Department and that we ask that you be seen in follow up. We will electronically transmit a record of today's note if your PCP is in our system *If you do not have a primary care provider please contact the [facility] Resource line at [phone]. They will ask some questions about your medical history and help get you set up with a doctor in the community. *Return to Emergency Department if you should have any new, worsening or concerning symptoms, such as [fever greater than 101 F, shaking chills, worsening pain, persistent vomiting or other bothersome symptoms] Prescriptions: No Action dexamethasone sodium phosphate 0.1 % drops 1 drp ophthalmic (eye) BID PRN (Reason: Allergy Symptoms) 0RF betamethasone valerate 0.1 % cream 1 applic Topical DIRECTED 0RF Label Comments: apply to affected area bid x 2 weeks then off 1 week. levothyroxine 125 mcg tablet 150 mcg PO DAILY 0RF zolpidem 5 mg tablet 5 mg PO QHS PRN (Reason: Sleep) 0RF fluticasone propionate 50 mcg/actuation spray,suspension 1 spray Intranasal BID 0RF metronidazole [Metrogel] 1 % Gel 1 applic Topical BID PRN (Reason: antibiotic) 0RF Rx Instructions: apply under right breast cetirizine 10 mg Tablet 10 mg PO DAILY PRN (Reason: Allergy Symptoms) 0RF [id number] 2-1-1 % Gel 1 applic Topical BID PRN (Reason: unknown) 0RF Rx Instructions: under right breast Celebrate Multi-Complex 45 3 cap PO DAILY 0RF Calcium Citrate + D 2 tab PO TID 0RF Label Comments: Calcium Citrate 1500 mg and Vitiamin D 2400 iu listed on patients home med list. Also lists daily totals as 1500 mg / 5400 mg fexofenadine [[facility] All[facility]] 180 mg Tablet 180 mg PO DAILY 0RF hydrocodone-acetaminophen 5-325 mg tablet 1 tab PO Q6H PRN (Reason: pain) Qty: 10 0RF Referrals: Roberta Olea PA-C [Primary Care Provider] -
[2021-01-31 01:05] VITALS: BP 171/77; PULSE 97; RESP 18; TEMP 36.5; O2SAT 97
== END 2021-01-31 01:00 | disposition home or self-care (01) ==
PROVIDERS: Emergency Provider Emergency Medicine; PCP Physician Assistant
DX: S22.32XA Fracture of one rib, left side, initial encounter for closed fracture (principal); S52.502D Unspecified fracture of the lower end of left radius, subsequent encounter for closed fracture with routine healing; R53.1 Weakness; R41.0 Disorientation, unspecified; F10.929 Alcohol use, unspecified with intoxication, unspecified; Y90.6 Blood alcohol level of 120-199 mg/100 ml; W18.30XA Fall on same level, unspecified, initial encounter; Z20.822 Contact with and (suspected) exposure to COVID-19
CPT/HCPCS: 36415; 70450; 71101; 72125; 73110; 80053; 80320; 82550; 84484; 85025; 87635; 99284; C9803

== ENCOUNTER 2021-03-11 23:48 | Emergency (ER) | payer MEDICARE, SELFPAY ==
[2019-10-23 15:16] VITALS: BMI 31.6
[2021-03-11 23:51] VITALS: BP 167/82; PULSE 81; TEMP 36.1; O2SAT 96
[2021-03-11 23:57] VITALS: BP 166/82; PULSE 82; RESP 18; TEMP 36.1; O2SAT 95
--- NOTE | 2021-03-12 01:21 | ED_ITS ---
HPI - Fall General Chief Complaint: Fall Stated Complaint: Back pain Time Seen by Provider: 03/12/21 01:21 Source: patient and EMS Mode of arrival: EMS History of Present Illness HPI Narrative: The patient is 75-year-old female who does have history of alcohol use presenting after fall. She states that she rolled off her couch. His EMS arrived no obvious injury. Patient is awake alert. She is complaining of pain in her left shoulder right shoulder left wrist but mostly back. No sign of head injury she is not on blood thinners. Which moving all extremities equally. She actually broke her left wrist a few months ago she is usually wears a splint on it but currently not wearing 1. She is having both right and left shoulder pains. Ongoing back pain as well. No changes in bowel bladder habits although is going to the restroom frequently in the ER. Related Data Home Medications Medication Instructions Recorded Confirmed betamethasone valerate 0.1 % 1 applic TOPICAL DIRECTED 07/06/17 10/23/19 topical cream dexamethasone sodium phosphate 0.1 1 drp OPHTHALMIC (EYE) BID PRN 07/06/17 10/23/19 % eye drops fluticasone propionate 50 1 spray INTRANASAL BID 07/06/17 10/23/19 mcg/actuation nasal spray,suspension levothyroxine 125 mcg tablet 150 mcg PO DAILY 07/06/17 10/23/19 metronidazole 1 % topical gel 1 applic TOPICAL BID PRN 07/06/17 10/23/19 (Metrogel) zolpidem 5 mg tablet 5 mg PO QHS PRN 07/06/17 10/23/19 Calcium Citrate + D 2 tab PO TID 12/04/17 10/23/19 Celebrate Multi-Complex 45 3 cap PO DAILY 12/04/17 10/23/19 cetirizine 10 mg tablet 10 mg PO DAILY PRN 12/04/17 10/23/19 hydrocortisone 2 %-iodoquinol 1 1 applic TOPICAL BID PRN 12/04/17 10/23/19 %-aloe polysacch no.2 1 % topical gel fexofenadine 180 mg tablet 180 mg PO DAILY 10/23/19 10/23/19 ([facility]) Previous Rx's Medication Instructions Recorded hydrocodone 5 mg-acetaminophen 325 1 tab PO Q6H PRN #10 tab 12/05/20 mg tablet Allergies Allergy/AdvReac Type Severity Reaction Status Date / Time erythromycin base Allergy Intermediate HIVES Verified 12/05/20 12:29 adhesive Allergy Mild ALLERGIC Verified 12/05/20 12:29 TO TAPE epinephrine Allergy Mild TACHYCARDIA Verified 12/05/20 12:29 gentamicin [Gentamicin] Allergy Mild RASH Verified 12/05/20 12:29 NSAIDS (Non-Steroidal Allergy Mild GASTRITIS Verified 12/05/20 12:29 Anti-Inflamma Serotonin 5HT-3 Antagonists Allergy Mild GASTRITIS Verified 12/05/20 12:29 trazodone Allergy Mild LOSS OF Verified 12/05/20 12:29 BALANCE alprazolam Allergy Unknown LOSS OF Verified 12/05/20 12:29 ABILITY TO FOCUS amitriptyline Allergy Unknown IBS Verified 12/05/20 12:29 SYMPTOMS buspirone Allergy Unknown Verified 12/05/20 12:29 codeine Allergy Unknown IBS Verified 12/05/20 12:29 SYMPTOMS gabapentin Allergy Unknown SEVERE Verified 12/05/20 12:29 GASTRITIS Review of Systems Review of Systems Narrative: GENERAL: Denies chills, fatigue, malaise, fever, sweats, travel HEENT: Denies sinus pain, ear pain, sore throat, difficulty swallowing, neck pain RESPIRATORY: Denies dyspnea, cough, wheezing, hemoptysis, sputum. CARDIOVASCULAR: Denies chest pain, palpitations, orthopnea, edema GASTROINTESTINAL: Denies nausea, vomiting, abdominal pain, diarrhea, constipation, melena. : Denies dysuria, frequency, incontinence, hematuria, urinary retention, flank pain. MUSCULOSKELETAL: See HPI SKIN: No rash, no erythema, no pruritus NEUROLOGIC: Denies weakness, dizziness, headache, numbness, change in speech, confusion PSYCHIATRIC: No concerning psychosocial issues. 12 point review of systems is negative except for those stated above and HPI Patient History Medical History (Updated 03/12/21 @ 05:42 by Valentina Hunt DO) Alcohol dependence Cervical vertebral fusion Hypothyroidism Insomnia Surgical History Gastric bypass status for obesity S/P cervical spinal fusion Family History Father MVA (motor vehicle accident) Mother Lung cancer Social History household members: none Smoking Status: Former smoker alcohol intake: current Smoking Status: Former smoker alcohol intake frequency: a few times a week Alcohol type: wine Substance Use Type: does not use Exam Initial Vital Signs Initial Vital Signs: Vital Signs Temperature 96.9 F L 03/11/21 23:51 Pulse Rate 81 03/11/21 23:51 Blood Pressure 167/82 H 03/11/21 23:51 Pulse Oximetry 96 03/11/21 23:51 GENERAL: Alert wrist 75-year-old female HEENT: Head atraumatic,EOMI, pupils reactive, face symmetric, moist mucous membranes CARDIOVASCULAR: Regular rate and rhythm without murmurs, rubs or gallops. RESPIRATORY: Breath sounds equal bilaterally, no wheezes rales or rhonchi. ABDOMEN: Soft, nontender. Normoactive bowel sounds all 4 quadrants. No guarding or rebound. BACK: Mild upper thoracic pain no sign of trauma EXTREMITIES: Normal range of motion, no clubbing or edema. Neurovascularly intact. Patient complaining of left wrist pain but moving at ease there is no significant swelling she a prior fracture she is asking for her brace. Point to both shoulders saying that they hurt however no sign of trauma she has full range of motion of both shoulders. NEUROLOGICAL: Moving all extremities following commands SKIN: Warm, dry, no laceration, no petechiae, no rashes or lesions. Course Orders Ordered: ED Orders 03/12/21 01:50 XR thoracic spine 3V Stat Discontinued Medications Acetaminophen (Acetaminophen 325 Mg Tablet) 975 mg PO NOW ONE Stop: 03/12/21 01:51 Last Admin: 03/12/21 02:12 Dose: 975 mg Documented by: DANILO Vital Signs Vital signs: Vital Signs - 8 hr 03/11/21 23:51 03/11/21 23:57 03/12/21 06:08 Temperature 96.9 F L 97 F L Pulse Rate 81 82 93 H Respiratory Rate 18 16 Blood Pressure 167/82 H 166/82 H 175/81 H Pulse Oximetry 96 95 96 MDM - Fall Lab Data Labs: Urine Dip Bedside Urine Glucose Negative Bedside Urine Bilirubin - Negative Bedside Urine Ketone - Negative Urine Specific [place] 1.010 Bedside Urine Occult Blood - Negative Bedside Urine pH 6.0 Bedside Urine Protein - Negative Bedside Urine Urobilinogen - Negative Bedside Urine Nitrite - Negative Bedside Urine Leukocytes - Negative Esterase Imaging Data XR thoracic: Radiologist's Impression: No acute fracture MDM Narrative Medical decision making narrative: Patient has been up and ambulatory in the ED without difficulty. She has gotten herself up to the commode multiple times. There is no sign of UTI. No evidence of trauma patient was complaining that her shirt was wet. She is able to answer questions and moves all extremities although is overall a very poor historian, she can answer questions correctly. Complaining of joint pain although moving all joints and extremities at ease. Discharge Plan Departure Patient Disposition: Home Clinical Impression: Back pain Instructions: Low Back Pain, How to Prevent Falls Activity Restrictions/Additional Instructions: *You have been diagnosed with back pain fall *What to do: At this time no injury is identified. *Continue to take medications as directed *Follow up with your primary care provider in 2-3 days or call [phone] *Return to ER if you should have increasing falls, confusion or any new, worsening or concerning symptoms Prescriptions: No Action dexamethasone sodium phosphate 0.1 % drops 1 drp ophthalmic (eye) BID PRN (Reason: Allergy Symptoms) 0RF betamethasone valerate 0.1 % cream 1 applic Topical DIRECTED 0RF Label Comments: apply to affected area bid x 2 weeks then off 1 week. levothyroxine 125 mcg tablet 150 mcg PO DAILY 0RF zolpidem 5 mg tablet 5 mg PO QHS PRN (Reason: Sleep) 0RF fluticasone propionate 50 mcg/actuation spray,suspension 1 spray Intranasal BID 0RF metronidazole [Metrogel] 1 % Gel 1 applic Topical BID PRN (Reason: antibiotic) 0RF Rx Instructions: apply under right breast cetirizine 10 mg Tablet 10 mg PO DAILY PRN (Reason: Allergy Symptoms) 0RF [id number] 2-1-1 % Gel 1 applic Topical BID PRN (Reason: unknown) 0RF Rx Instructions: under right breast Celebrate Multi-Complex 45 3 cap PO DAILY 0RF Calcium Citrate + D 2 tab PO TID 0RF Label Comments: Calcium Citrate 1500 mg and Vitiamin D 2400 iu listed on patients home med list. Also lists daily totals as 1500 mg / 5400 mg fexofenadine [[facility]] 180 mg Tablet 180 mg PO DAILY 0RF hydrocodone-acetaminophen 5-325 mg tablet 1 tab PO Q6H PRN (Reason: pain) Qty: 10 0RF Referrals: Roberta Olea PA-C [Primary Care Provider] -
--- NOTE | 2021-03-12 01:50 | DI.RAD.S_ITS ---
PROCEDURE: XR THORACIC SPINE 3V INDICATIONS: pain after fall TECHNIQUE: 3 views of the thoracic spine were acquired. COMPARISON: None. FINDINGS: Bones: No fractures or dislocations. Fixation hardware noted in the lower cervical spine. No suspicious bony lesions. 12 pairs of ribs are noted, and appear intact where visualized. Mild degenerative disc changes noted throughout the thoracic spine. Soft tissues: No paravertebral stripe thickening. Surgical clips at the gastroesophageal junction. IMPRESSION: No fracture. No acute osseous lesion. If symptoms and/or clinical suspicion for pathology persists, evaluation with MRI should be considered for further assessment. Dictated by: Traci Sanders MD, PhD on 03/12/2021 at 7:38 Approved by: Traci Sanders MD, PhD on 03/12/2021 at 7:39
[2021-03-12] MEDS: ACETAMINOPHEN 325 MG TABLET 975 MG PO (02:12)
[2021-03-12 06:08] VITALS: BP 175/81; PULSE 93; RESP 16; O2SAT 96
== END 2021-03-12 06:11 | disposition home or self-care (01) ==
PROVIDERS: Emergency Provider Emergency Medicine; PCP Physician Assistant
DX: M54.6 Pain in thoracic spine (principal); Z87.891 Personal history of nicotine dependence; Z79.1 Long term (current) use of non-steroidal anti-inflammatories (NSAID)
CPT/HCPCS: 72072; 81003; 99283

== ENCOUNTER 2021-03-20 23:47 | Emergency (ER) | payer MEDICARE, SELFPAY ==
[2019-10-23 15:16] VITALS: BMI 31.6
--- NOTE | 2021-03-20 23:47 | DI.CT.S_ITS ---
PROCEDURE: CT HEAD/BRAIN WO CON INDICATIONS: unwitnessed fall, intoxicated TECHNIQUE: Noncontrast 4.5 mm thick angled axial sections acquired from the foramen magnum to the vertex, with coronal and sagittal reformats. For radiation dose reduction, the following was used: automated exposure control, adjustment of mA and/or kV according to patient size. COMPARISON: [facility], CT, CT HEAD/BRAIN WO CON, 01/30/2021, 22:31. [facility], CT, CT HEAD/BRAIN WO CON, 12/05/2020, 13:50. FINDINGS: Image quality: Excellent. CSF spaces: Basal cisterns are patent. No extra-axial fluid collections. The ventricles are symmetric in size and shape. Brain: No intracranial bleeds or masses. There is cerebral volume loss for age, with resultant ventricular and sulcal prominence. There are periventricular and deep white matter chronic small vessel ischemic changes. There is intracranial internal carotid artery atherosclerosis. Stable intracranial calcifications. Skull and face: Calvarium and visualized facial bones appear intact, without suspicious lesions. Sinuses: Visualized sinuses and mastoids are clear. IMPRESSION: 1. CT head without acute intracranial abnormalities or acute calvarial fractures. 2. Age-related senescent changes and sequela of chronic small vessel ischemic disease. Dictated by: Jose Armando Santana M.D. on 03/21/2021 at 1:05 Approved by: Jose Armando Santana M.D. on 03/21/2021 at 1:09
--- NOTE | 2021-03-20 23:48 | DI.CT.S_ITS ---
PROCEDURE: CT CERVICAL SPINE WO CON INDICATIONS: unwitnessed fall, intoxicated TECHNIQUE: Noncontrast 3 mm thick sections acquired from the skull base to the T4 level. Sagittal and coronal reformats were then constructed. For radiation dose reduction, the following was used: automated exposure control, adjustment of mA and/or kV according to patient size. COMPARISON: [facility], CT, CT CERVICAL SPINE WO CON, 01/30/2021, 22:31. [facility], CT, CT CERVICAL SPINE WO CON, 11/24/2019, 19:35. FINDINGS: Image quality: Excellent. Bones: No acute fractures or dislocations. No acute compression fractures of the vertebral bodies. Craniocervical junction is intact. C1-C2 relationship is preserved. Visualized superior ribs are intact. Stable appearance of postsurgical changes of anterior cervical discectomy fusion from C5 through C7. No gross hardware complication identified. Stable retrolisthesis of C5 on C6. Straightening of a positioning and/or concurrent muscle spasms. Multilevel spondylosis seen. Soft tissues: Prevertebral soft tissues are normal in thickness. No paravertebral hematomas. No apical pneumothoraces. IMPRESSION: CT cervical spine without acute fracture or traumatic malalignment. Stable postsurgical changes from prior anterior cervical fusion. Stable retrolisthesis of C5 on C6. Multilevel spondylosis. Dictated by: Jose Armando Santana M.D. on 03/21/2021 at 1:09 Approved by: Jose Armando Santana M.D. on 03/21/2021 at 1:14
--- NOTE | 2021-03-20 23:51 | DI.CT.S_ITS ---
PROCEDURE: CT CHEST ABD PEL W CON INDICATIONS: trauma, pain everywhere TECHNIQUE: After the administration of intravenous contrast, 5 mm thick sections acquired from the lung apices to the symphysis. 2.5 mm thick coronal and sagittal reformats were acquired. Additional 7 mm thick coronal maximum intensity projection (MIP) reformats acquired through the lungs. Optional 10-minute delayed imaging may be performed from the kidneys to the bladder. For radiation dose reduction, the following was used: automated exposure control, adjustment of mA and/or kV according to patient size. COMPARISON: [facility], CT, CT CHEST ABD PEL W CON, 07/03/2020, 18:17. FINDINGS: Image quality: Diagnostic CHEST: Lungs and pleura: No acute airspace opacities. Mild bibasilar atelectasis. No suspicious pulmonary nodules or masses. No evidence for pulmonary contusion or laceration. No pleural effusions or pneumothorax. Central and peripheral airways appear patent and normal in caliber. Mediastinum: Heart size is normal. No pericardial effusion. No mediastinal or hilar adenopathy by size criteria. Thoracic aorta and central pulmonary arteries are normal in size. Dense coronary atherosclerosis. Esophagus is normal in caliber. Small hiatal hernia. Stable postsurgical changes at the gastroesophageal junction and proximal stomach. Chest wall: No axillary or supraclavicular adenopathy by size criteria. Thyroid gland unremarkable. Osseous structures of the chest appear unremarkable. Healed rib fracture deformities of the posterior 9th right rib. ABDOMEN: Solid organs: Moderate hepatomegaly with diffuse hepatic steatosis. Gallbladder is unremarkable. Biliary system is non dilated. Pancreas is unremarkable. Spleen is normal in size. No adrenal nodules. Kidneys demonstrate normal size, without hydronephrosis. Ureters are normal in course and caliber. Peritoneum and bowel: Bowel loops demonstrate normal wall thickness and caliber. No free fluid No free air. Stable postsurgical changes in the lower left abdomen. Nodes and vessels: No retroperitoneal or mesenteric adenopathy by size criteria. Scattered atherosclerotic calcifications of the abdominal aorta and iliac vessels without aneurysmal dilatation. The inferior vena cava appears patent. Miscellaneous: No ventral hernias. PELVIS: Genitourinary: Bladder wall thickness appears normal for degree of distention. Miscellaneous: No inguinal hernias. No pelvic adenopathy. Bones: No suspicious bony lesions. No acute vertebral body compression fractures. Multilevel spondylosis of the imaged spine. IMPRESSION: 1. CT chest, abdomen, and pelvis without acute traumatic injuries to the hollow or solid organs. No evidence for vascular injury. No acute fracture seen. 2. Atherosclerotic vascular disease. 3. Moderate hepatomegaly with diffuse hepatic steatosis. Other chronic findings as above. Dictated by: Jose Armando Santana M.D. on 03/21/2021 at 1:14 Approved by: Jose Armando Santana M.D. on 03/21/2021 at 1:24
[2021-03-20 23:55] VITALS: BP 129/85; PULSE 111; RESP 17; O2SAT 94; BMI 38.3
[2021-03-21] VITALS (9 sets, daily range): BP systolic 135–183; BP diastolic 78–83; PULSE 100–107; RESP 17–20; O2SAT 93–98
[2021-03-21] MEDS: SODIUM CHLORIDE 0.9% 1,000 ML 1000 ML IV ×2 (00:01→04:42)
--- NOTE | 2021-03-21 00:09 | ED_ITS ---
HPI - Trauma General Stated Complaint: GLF Time Seen by Provider: 03/21/21 00:00 Source: patient and EMS Mode of arrival: EMS History of Present Illness HPI narrative: 75-year-old female former smoker, frequent drinker with a history of back pain, multiple fractures and gastric bypass presents by EMS with a chief complaint of all over pain and inability to get up off the ground. She admits to consuming a fair amount of white wine tonight and went to sleep on the couch, she states that she rolled off and laid on the ground and was unable to get up, she called EMS for help and requested transport here for evaluation. She denies any head, neck or back pain but states she hurts all over. She is very nonspecific about where she hurts. She takes no blood thinners. She is not dizzy nor weak or lightheaded. She denies any chest pain or shortness of breath. She has had no nausea or vomiting. Related Data Home Medications Medication Instructions Recorded Confirmed betamethasone valerate 0.1 % 1 applic TOPICAL DIRECTED 07/06/17 10/23/19 topical cream dexamethasone sodium phosphate 0.1 1 drp OPHTHALMIC (EYE) BID PRN 07/06/17 10/23/19 % eye drops fluticasone propionate 50 1 spray INTRANASAL BID 07/06/17 10/23/19 mcg/actuation nasal spray,suspension levothyroxine 125 mcg tablet 150 mcg PO DAILY 07/06/17 10/23/19 metronidazole 1 % topical gel 1 applic TOPICAL BID PRN 07/06/17 10/23/19 (Metrogel) zolpidem 5 mg tablet 5 mg PO QHS PRN 07/06/17 10/23/19 Calcium Citrate + D 2 tab PO TID 12/04/17 10/23/19 Celebrate Multi-Complex 45 3 cap PO DAILY 12/04/17 10/23/19 cetirizine 10 mg tablet 10 mg PO DAILY PRN 12/04/17 10/23/19 hydrocortisone 2 %-iodoquinol 1 1 applic TOPICAL BID PRN 12/04/17 10/23/19 %-aloe polysacch no.2 1 % topical gel fexofenadine 180 mg tablet 180 mg PO DAILY 10/23/19 10/23/19 ([facility]) Previous Rx's Medication Instructions Recorded hydrocodone 5 mg-acetaminophen 325 1 tab PO Q6H PRN #10 tab 12/05/20 mg tablet Allergies Allergy/AdvReac Type Severity Reaction Status Date / Time erythromycin base Allergy Intermediate HIVES Verified 12/05/20 12:29 adhesive Allergy Mild ALLERGIC Verified 12/05/20 12:29 TO TAPE epinephrine Allergy Mild TACHYCARDIA Verified 12/05/20 12:29 gentamicin [Gentamicin] Allergy Mild RASH Verified 12/05/20 12:29 NSAIDS (Non-Steroidal Allergy Mild GASTRITIS Verified 12/05/20 12:29 Anti-Inflamma Serotonin 5HT-3 Antagonists Allergy Mild GASTRITIS Verified 12/05/20 12:29 trazodone Allergy Mild LOSS OF Verified 12/05/20 12:29 BALANCE alprazolam Allergy Unknown LOSS OF Verified 12/05/20 12:29 ABILITY TO FOCUS amitriptyline Allergy Unknown IBS Verified 12/05/20 12:29 SYMPTOMS buspirone Allergy Unknown Verified 12/05/20 12:29 codeine Allergy Unknown IBS Verified 12/05/20 12:29 SYMPTOMS gabapentin Allergy Unknown SEVERE Verified 12/05/20 12:29 GASTRITIS Review of Systems Review of Systems Narrative: GENERAL: Denies chills, fatigue, malaise, fever, sweats. HEENT: Denies sinus pain, ear pain, sore throat, difficulty swallowing, dizziness. RESPIRATORY: Denies dyspnea, cough, wheezing, hemoptysis, sputum. CARDIOVASCULAR: Denies chest pain, palpitations, orthopnea, edema, GASTROINTESTINAL: Denies nausea, vomiting, abdominal pain, diarrhea, constipation, melena. : Denies dysuria, frequency, incontinence, hematuria, urinary retention. MUSCULOSKELETAL: denies weakness, joint pain, or bony pain SKIN: Denies rash, skin lesions, or other NEUROLOGIC: Denies weakness, headache, numbness, change in speech, confusion, seizures, incoordination. PSYCHIATRIC: No concerning psychosocial issues. 12 point review of systems is negative except for those stated above Patient History Medical History (Updated 03/21/21 @ 04:54 by Hiram Shaw DO) Alcohol dependence Cervical vertebral fusion Hypothyroidism Insomnia Surgical History Gastric bypass status for obesity S/P cervical spinal fusion Family History Father MVA (motor vehicle accident) Mother Lung cancer Social History household members: none Smoking Status: Former smoker alcohol intake: current Smoking Status: Former smoker alcohol intake frequency: a few times a week Alcohol type: wine Substance Use Type: does not use Exam Narrative Exam Narrative: GENERAL: [75 year old patient appears stated age. Well-developed patient, in mild distress. Smells of alcohol, GCS 14 with some mild confusion and slurring of words. HEAD: Atraumatic. Normocephalic. No obvious contusion, laceration or evidence of depressed skull fracture EYES: Pupils equal round and reactive. No hyphema Extraocular motions intact. No scleral icterus. No injection or drainage. ENT: Nose without bleeding, purulent drainage. Throat without erythema, tonsillar hypertrophy or exudate. Airway patent. NECK: Trachea midline. Non tender, no midline tenderness, step-offs or crepitance CARDIOVASCULAR: Regular rate and rhythm without murmurs, gallops, or rubs. RESPIRATORY: Clear to auscultation. Breath sounds equal bilaterally. No wheezes, rales, or rhonchi. Chest wall tender to palpation GASTROINTESTINAL: Abdomen soft, non-tender, nondistended. EXTREMITIES: No edema or joint tenderness. BACK: No obvious deformity, bruising, abrasions, no step-offs, tender to palpation left upper back NEURO: AOx3. SKIN: No rash or erythema of visible areas Initial Vital Signs Initial Vital Signs: Vital Signs Pulse Rate 111 H 03/20/21 23:55 Respiratory Rate 17 03/20/21 23:55 Blood Pressure 129/85 03/20/21 23:55 Pulse Oximetry 94 03/20/21 23:55 Course Orders Ordered: ED Orders 03/20/21 23:47 CT head/brain wo con Stat EKG-12 Lead Stat 03/20/21 23:48 CT cervical spine wo con Stat 03/20/21 23:50 Complete Blood Count AUTO DIFF Stat Comprehensive Metabolic Panel Stat Magnesium Stat Troponin & CK Cardiac Panel Stat 03/20/21 23:51 CT chest abd pel w con Stat 03/21/21 00:01 Ethanol (ETOH) Stat Sodium Chloride (Normal Saline 0.9%) 1,000 mls @ 1,000 mls/hr IV BOLUS ONE Stop: 03/21/21 05:36 Last Admin: 03/21/21 04:42 Dose: 1,000 mls/hr Documented by: BILLIE Sodium Chloride (Normal Saline 0.9%) 1,000 mls @ 1,000 mls/hr IV BOLUS ONE Stop: 03/21/21 05:35 Discontinued Medications Acetaminophen (Acetaminophen 325 Mg Tablet) 650 mg PO NOW ONE Stop: 03/21/21 04:11 Last Admin: 03/21/21 04:28 Dose: 650 mg Documented by: ELTON Sodium Chloride (Normal Saline 0.9%) 1,000 mls @ 1,000 mls/hr IV BOLUS ONE Stop: 03/21/21 00:45 Last Infusion: 03/21/21 01:52 Dose: 0 mls/hr Documented by: Admin: 03/21/21 00:01 Dose: 1,000 mls/hr Documented by: BILLIE Vital Signs Vital signs: Vital Signs - 8 hr 03/20/21 23:55 03/21/21 00:57 03/21/21 01:00 Pulse Rate 111 H 102 H 100 H Respiratory Rate 17 17 19 Blood Pressure 129/85 Pulse Oximetry 94 95 94 03/21/21 01:30 03/21/21 02:00 03/21/21 02:07 Pulse Rate 101 H 107 H 107 H Respiratory Rate 18 18 19 Blood Pressure 183/83 H Pulse Oximetry 93 93 93 03/21/21 02:09 03/21/21 02:30 03/21/21 03:00 Pulse Rate 105 H 104 H 103 H Respiratory Rate 18 18 18 Blood Pressure 170/78 H Pulse Oximetry 94 94 94 MDM - Trauma Lab Data Result diagrams: 03/20/21 23:50 03/20/21 23:50 Labs: Lab Results 03/20/21 03/20/21 03/20/21 Range/Units 23:50 23:50 23:50 WBC 8.0 (4.5-11.0) X10^3/uL RBC 4.22 (4.0-5.2) X10^6/uL Hgb 14.1 (12.0-16.0) g/dL Hct 41.8 (36-46) % MCV 98.9 (80-100) fL MCH 33.3 (26-34) PG MCHC 33.7 (30-36) % RDW 13.6 (11.6-14.8) % Plt Count 236 (150-400) X10^3/uL Neut % (Auto) 69.4 (50-75) % Lymph % (Auto) 22.7 L (25-40) % Davison % (Auto) 6.6 (3-14) % Eos % (Auto) 0.9 L (2-4) % Baso % (Auto) 0.4 (0-2) % Neut # (Auto) 5600 (5534-5196) /uL Lymph # (Auto) 1800 (1582-2569) /uL Davison # (Auto) 500 (0-900) /uL Eos # (Auto) 100 (0-450) /uL Baso # (Auto) 0 (0-100) /uL Sodium 144 (137-145) mmol/L Potassium 4.3 (3.4-5.1) mmol/L Chloride 108 H (98-107) mmol/L Carbon Dioxide 24 (22-32) mmol/L BUN 18 H (7-17) mg/dL Creatinine 0.71 (0.52-1.04) mg/dL Estimated GFR > 60.0 (>60) mL/min BUN/Creatinine Ratio 25.4 H (6-22) Glucose 107 (80-110) mg/dL Calcium 9.7 (8.4-10.2) mg/dL Magnesium 2.1 (1.6-2.3) mg/dL Total Bilirubin 0.3 (0.2-1.3) mg/dL AST 38 H (14-36) IU/L ALT 25 (<35) IU/L Alkaline Phosphatase 74 (38-126) U/L Total Creatine Kinase 49 (30-135) U/L CK-MB (CK-2) TNP CK-MB (CK-2) Rel Index TNP Troponin I < 0.012 (0.01-0.034) ng/mL Total Protein 7.3 (6.3-8.2) g/dL Albumin 4.5 (3.5-5.0) g/dL Globulin 2.8 (1.7-4.1) g/dL Albumin/Globulin Ratio 1.6 (1.0-2.8) Ethyl Alcohol 217 H ( - 10) mg/dL Imaging Data CT scan - head: Radiologist's Impression: Mckay Costa??75??F??1945 ? Allergy/Adv: erythromycin base, adhesive, epinephrine, gentamicin, NSAIDS (Non- Steroidal Anti-Inflamma, Serotonin 5HT-3 Antagonists, trazodone, alprazolam, amitriptyline, buspirone, codeine, gabapentin (More??) Close Chest/Abdomen/Pelvis CT 03/20/[address] (Signed) Jose Armando Santana - 03/20/[address] (Signed) Jose Armando Santana - 03/20/21 Thoracic Spine X-Ray (Signed) Traci Sanders - 03/12/21 Wrist X-Ray (Signed) Nga Knowles - 01/30/[address] (Signed) Nga Knowles - 01/30/[address] (Signed) Nga Knowles - 01/30/21 Ribs X-Ray (Signed) Nga Knowles - 01/30/21 Wrist X-Ray (Signed) Jose Armando Santana - 01/26/[address] (Signed) Wilkins,Sharath - 12/05/20 Sacrum and Coccyx X-Ray (Signed) Wilkins,Sharath - 12/05/20 Chest X-Ray (Signed) Wilkins,Sharath - 12/05/20 Mammogram Screening (Signed) Luis Alberto Velarde - 10/14/20 Foot X-Ray (Signed) Gabbie Quinn - 07/03/20 Chest/Abdomen/Pelvis CT (Signed) Desean Quinneyu - 07/03/[address] (Signed) Nga Knowles - 01/14/20 Chest X-Ray (Signed) Traci Sanders - 01/14/20 Chest X-Ray (Signed) Traci Sanders - 01/14/20 Humerus X-Ray (Signed) Delroy Main - 11/24/[address] (Signed) Delroy Main - 11/24/[address] (Signed) Delroy Main - 11/24/19 Telemetry Strips 10/25/[address] (Addendum) Nga Knowles - 10/23/[address] (Signed) Arthur Wagner - 10/23/[address] (Signed) Yehuda Ledbetter - 10/23/[address] (Signed) Yehuda Ledbetter - 10/23/19 Ribs X-Ray (Signed) Frank Renee - 07/18/19 Ribs X-Ray (Signed) James Cruzdiah - 03/31/19 Telemetry Strips 01/16/19 Chest X-Ray (Signed) Jody Phelps - 11/28/18 Launch?[place] [address] CT Scan Report Signed Patient: Mckay Costa MR#: [id number] : 1945 Acct:[id number] Age/Sex: 75 / F Date of Service: 03/20/21 Loc: ED Accession Number: [id number] ?? Procedure: CT head/brain wo con Ordering Provider: Hiram Shaw D.O. PROCEDURE:? CT HEAD/BRAIN WO CON ? INDICATIONS:? unwitnessed fall, intoxicated ? TECHNIQUE:? Noncontrast 4.5 mm thick angled axial sections acquired from the foramen magnum to the vertex, with coronal and sagittal reformats.? For radiation dose reduction, the following was used:? automated exposure control, adjustment of mA and/or kV according to patient size.? ? COMPARISON:? [facility], CT, CT HEAD/BRAIN WO CON, 01/30/2021, 22:31.? [facility], CT, CT HEAD/BRAIN WO CON, 12/05/2020, 13:50. ? FINDINGS:? Image quality:? Excellent.? ? CSF spaces:? Basal cisterns are patent.? No extra-axial fluid collections.? The ventricles are symmetric in size and shape.? ? Brain:? No intracranial bleeds or masses.? There is cerebral volume loss for age, with resultant ventricular and sulcal prominence.? There are periventricular and deep white matter chronic small vessel ischemic changes.? There is intracranial internal carotid artery atherosclerosis.? Stable intracranial calcifications.? ? Skull and face:? Calvarium and visualized facial bones appear intact, without suspicious lesions.? ? Sinuses:? Visualized sinuses and mastoids are clear.? ? IMPRESSION:? 1. CT head without acute intracranial abnormalities or acute calvarial fractures. ? 2. Age-related senescent changes and sequela of chronic small vessel ischemic disease. ? ? ? Dictated by: Jose Armando Santana M.D. on 03/21/2021 at 1:05 ? ? Approved by: Jose Armando Santana M.D. on 03/21/2021 at 1:09 ? CT - cervical spine: Radiologist's Impression: Mckay Costa??75??F??1945 ? Allergy/Adv: erythromycin base, adhesive, epinephrine, gentamicin, NSAIDS (Non- Steroidal Anti-Inflamma, Serotonin 5HT-3 Antagonists, trazodone, alprazolam, amitriptyline, buspirone, codeine, gabapentin (More??) Close Chest/Abdomen/Pelvis CT 03/20/[address] (Signed) Jose Armando Santana - 03/20/[address] (Signed) Jose Armando Santana - 03/20/21 Thoracic Spine X-Ray (Signed) Traci Sanders - 03/12/21 Wrist X-Ray (Signed) Nga Knowles - 01/30/[address] (Signed) Nag Knowles - 01/30/[address] (Signed) KnowlesNga lundy - 01/30/21 Ribs X-Ray (Signed) Knowles,Nga - 01/30/21 Wrist X-Ray (Signed) SantanaJose Armando - 01/26/[address] (Signed) Wilkins,Sharath - 12/05/20 Sacrum and Coccyx X-Ray (Signed) Wilkins,Sharath - 12/05/20 Chest X-Ray (Signed) Wilkins,Sharath - 12/05/20 Mammogram Screening (Signed) Luis Alberto Velarde - 10/14/20 Foot X-Ray (Signed) Gabbie Quinn - 07/03/20 Chest/Abdomen/Pelvis CT (Signed) Cheyenne,Fieyu - 07/03/[address] (Signed) KnowlesNga lundy - 01/14/20 Chest X-Ray (Signed) Traci Sanders - 01/14/20 Chest X-Ray (Signed) Traci Sanders - 01/14/20 Humerus X-Ray (Signed) Delroy Main - 11/24/[address] (Signed) Delroy Main - 11/24/[address] (Signed) Delroy Main - 11/24/19 Telemetry Strips 10/25/[address] (Addendum) KnowlesNga - 10/23/[address] (Signed) Arthur Wagner - 10/23/[address] (Signed) Yehuda Ledbetter - 10/23/[address] (Signed) Barbara Ledbettere - 10/23/19 Ribs X-Ray (Signed) Frank Renee - 07/18/19 Ribs X-Ray (Signed) Peter Cruz - 03/31/19 Telemetry Strips 01/16/19 Chest X-Ray (Signed) Jody Phelps - 11/28/18 Launch?[place] [address] CT Scan Report Signed Patient: Mckay Costa MR#: [id number] : 1945 Acct:[id number] Age/Sex: 75 / F Date of Service: 03/20/21 Loc: ED Accession Number: [id number] ?? Procedure: CT cervical spine wo con Ordering Provider: Hiram Shaw D.O. PROCEDURE:? CT CERVICAL SPINE WO CON ? INDICATIONS:? unwitnessed fall, intoxicated ? TECHNIQUE:? Noncontrast 3 mm thick sections acquired from the skull base to the T4 level.? Sagittal and coronal reformats were then constructed.? For radiation dose reduction, the following was used:? automated exposure control, adjustment of mA and/or kV according to patient size.? ? COMPARISON:? [facility], CT, CT CERVICAL SPINE WO CON, 01/30/2021, 22:31.? [facility], CT, CT CERVICAL SPINE WO CON, 11/24/2019, 19:35. ? FINDINGS:? Image quality:? Excellent.? ? Bones:? No acute fractures or dislocations.? No acute compression fractures of the vertebral bodies. Craniocervical junction is intact. C1-C2 relationship is preserved. Visualized superior ribs are intact.? Stable appearance of postsurgical changes of anterior cervical discectomy fusion from C5 through C7.? No gross hardware complication identified.? Stable retrolisthesis of C5 on C6.? Straightening of a positioning and/or concurrent muscle spasms.? Multilevel spondylosis seen. ? Soft tissues:? Prevertebral soft tissues are normal in thickness.? No paravertebral hematomas.? No apical pneumothoraces.? ? ? IMPRESSION:? CT cervical spine without acute fracture or traumatic malalignment. ? Stable postsurgical changes from prior anterior cervical fusion.? Stable retrolisthesis of C5 on C6.? Multilevel spondylosis. ? Dictated by: Jose Armando Santana M.D. on 03/21/2021 at 1:09 ? ? Approved by: Jose Armando Santana M.D. on 03/21/2021 at 1:14 ? [facility] Narrative Medical decision making narrative: 75-year-old female presents intoxicated with complaint of unwitnessed fall and pain all over. She has an extensive workup and evaluation [facility] imaging to include head, C-spine, chest, abdomen, pelvis. She was observed for many hours and at time of discharge is clinically sober and able to demonstrate capacity to make her own decisions. She has had a very reassuring evaluation and there is no indication of any significant traumatic injury or metabolic disturbance. Patient is awake, alert oriented she understands and agrees with the diagnosis and plan. Return precautions have been given and questions have been answered to her apparent satisfaction Discharge Plan Departure Patient Disposition: Home Clinical Impression: Alcohol intoxication, Back pain Activity Restrictions/Additional Instructions: *You have been diagnosed with [alcohol intoxication, fall and minor injuries associated with this fall *What to do: *Please continue to take your regular medications as directed. [ ] New medication prescriptions sent to your pharmacy: [ ] [ ] New medication written as a paper prescription [x ] No new medications given *Please follow up with your primary care provider in 2-3 days, call for an appointment. Let them know you were seen in the Emergency Department and that we ask that you be seen in follow up. We will electronically transmit a record of today's note if your PCP is in our system *If you do not have a primary care provider please contact the [facility] Resource line at [phone]. They will ask some questions about your medical history and help get you set up with a doctor in the community. *Return to Emergency Department if you should have any new, worsening or concerning symptoms, such as [fever greater than 101 F, shaking chills, worsening pain, persistent vomiting or other bothersome symptoms] Prescriptions: No Action dexamethasone sodium phosphate 0.1 % drops 1 drp ophthalmic (eye) BID PRN (Reason: Allergy Symptoms) 0RF betamethasone valerate 0.1 % cream 1 applic Topical DIRECTED 0RF Label Comments: apply to affected area bid x 2 weeks then off 1 week. levothyroxine 125 mcg tablet 150 mcg PO DAILY 0RF zolpidem 5 mg tablet 5 mg PO QHS PRN (Reason: Sleep) 0RF fluticasone propionate 50 mcg/actuation spray,suspension 1 spray Intranasal BID 0RF metronidazole [Metrogel] 1 % Gel 1 applic Topical BID PRN (Reason: antibiotic) 0RF Rx Instructions: apply under right breast cetirizine 10 mg Tablet 10 mg PO DAILY PRN (Reason: Allergy Symptoms) 0RF [id number] 2-1-1 % Gel 1 applic Topical BID PRN (Reason: unknown) 0RF Rx Instructions: under right breast Celebrate Multi-Complex 45 3 cap PO DAILY 0RF Calcium Citrate + D 2 tab PO TID 0RF Label Comments: Calcium Citrate 1500 mg and Vitiamin D 2400 iu listed on patients home med list. Also lists daily totals as 1500 mg / 5400 mg fexofenadine [[facility] Allergy] 180 mg Tablet 180 mg PO DAILY 0RF hydrocodone-acetaminophen 5-325 mg tablet 1 tab PO Q6H PRN (Reason: pain) Qty: 10 0RF Referrals: Roberta Olea PA-C [Primary Care Provider] -
[2021-03-21 00:13] LABS: Add Manual Diff / Slide Review NO; Basophils Absolute Auto 0 /uL (0-100); Basophils Percent Auto 0.4 % (0-2); Eosinophils Absolute Auto 100 /uL (0-450); Eosinophils Percent Auto 0.9 % (2-4); Hematocrit 41.8 % (36-46); Hemoglobin 14.1 g/dL (12.0-16.0); Lymphocytes Absolute Auto 1800 /uL (1100-4500); Lymphocytes Percent Auto 22.7 % (25-40); Mean Corpuscular HGB Conc 33.7 % (30-36); Mean Corpuscular Hemoglobin 33.3 PG (26-34); Mean Corpuscular Volume 98.9 fL (80-100); Monocytes Absolute Auto 500 /uL (0-900); Monocytes Percent Auto 6.6 % (3-14); Neutrophils Absolute Auto 5600 /uL (1500-7000); Neutrophils Percent Auto 69.4 % (50-75); Platelet Count 236 X10^3/uL (150-400); Red Blood Cell Count 4.22 X10^6/uL (4.0-5.2); Red Cell Distribution Width 13.6 % (11.6-14.8)
[2021-03-21 00:18] LABS: Alanine Aminotransferase 25 IU/L (<35); Albumin 4.5 g/dL (3.5-5.0); Albumin Globulin Ratio 1.6 (1.0-2.8); Alkaline Phosphatase 74 U/L (38-126); Aspartate Aminotransferase 38 IU/L (14-36); BUN Creatinine Ratio 25.4 (6-22); Bilirubin Total 0.3 mg/dL (0.2-1.3); Blood Urea Nitrogen 18 mg/dL (7-17); Calcium 9.7 mg/dL (8.4-10.2); Carbon Dioxide 24 mmol/L (22-32); Chloride 108 mmol/L (98-107); Creatine Kinase 49 U/L (30-135); Estimated Glomerular Filt Rate > 60.0 mL/min (>60); Globulin 2.8 g/dL (1.7-4.1); Glucose 107 mg/dL (80-110); HEMOLYSIS < 15 (0-50); Magnesium 2.1 mg/dL (1.6-2.3); Potassium 4.3 mmol/L (3.4-5.1); Sodium 144 mmol/L (137-145); Total Protein 7.3 g/dL (6.3-8.2)
[2021-03-21 00:30] LABS: Troponin I < 0.012 ng/mL (0.01-0.034)
[2021-03-21 00:47] LABS: Ethanol (ETOH) 217 mg/dL
[2021-03-21] MEDS: ACETAMINOPHEN 325 MG TABLET 650 MG PO (04:28)
== END 2021-03-21 06:16 | disposition home or self-care (01) ==
PROVIDERS: Emergency Provider Emergency Medicine; PCP Physician Assistant
DX: F10.129 Alcohol abuse with intoxication, unspecified (principal); M54.6 Pain in thoracic spine; Y90.7 Blood alcohol level of 200-239 mg/100 ml; Z87.891 Personal history of nicotine dependence; W08.XXXA Fall from other furniture, initial encounter
CPT/HCPCS: 36415; 70450; 71260; 72125; 74177; 80053; 80320; 82550; 82553; 83735; 84484; 85025; 96360; 96361; 99284; Q9967

== ENCOUNTER → 2021-06-14 14:02 | Outpatient (CLI) | payer MEDICARE, SELFPAY ==
[2019-10-23 15:16] VITALS: BMI 31.6
== END ==
PROVIDERS: Referring Provider Physician Assistant; Visit Provider Physician Assistant
DX: Z78.0 Asymptomatic menopausal state (principal); Z13.820 Encounter for screening for osteoporosis; M85.89 Other specified disorders of bone density and structure, multiple sites
CPT/HCPCS: 77080

== ENCOUNTER 2021-07-17 09:55 | Emergency (ER) | payer MEDICARE, SELFPAY ==
[2019-10-23 15:16] VITALS: BMI 31.6
[2021-07-17 09:59] VITALS: BP 141/90; PULSE 101; RESP 16; TEMP 35.9; O2SAT 96; BMI 33.9
--- NOTE | 2021-07-17 10:02 | DI.RAD.S_ITS ---
PROCEDURE: XR KNEE RT 3V INDICATIONS: knee pain TECHNIQUE: 3 views of the knee were acquired. COMPARISON: [facility], CR, XR KNEE RT 3V, 05/21/2018, 17:21. FINDINGS: Bones: No fractures or dislocations. No suspicious bony lesions. Mild tricompartmental periarticular osteophyte formation. Soft tissues: No joint effusion. No suspicious soft tissue calcifications. IMPRESSION: Osteoarthritis. No acute fracture. No osseous lesion. If symptoms and/or clinical suspicion for pathology persist, further assessment with repeat, or advanced imaging (e.g., CT, MRI, or bone scan) may be helpful for further assessment. Dictated by: Arben Garcia M.D. on 07/17/2021 at 10:20 Approved by: Arben Garcia M.D. on 07/17/2021 at 10:21
--- NOTE | 2021-07-17 11:42 | ED.LOWEXIN ---
HPI - Extremity Injury (Lower) General Chief Complaint: Extremity Injury, Lower Stated Complaint: right knee pain Time Seen by Provider: 07/17/21 11:40 Source: patient and EMS Mode of arrival: EMS History of Present Illness HPI Narrative: Patient is a 75-year-old female here for evaluation of right knee pain. She states she had a twisting injury to her right knee when she got her toe caught in some blankets while she is in bed. She has been ambulatory with a walker. She states the pain is in the back of her leg. No ankle pain. Has not tried any for the symptoms prior to arrival. Related Data Home Medications Medication Instructions Recorded Confirmed betamethasone valerate 0.1 % 1 applic TOPICAL DIRECTED 07/06/17 10/23/19 topical cream dexamethasone sodium phosphate 0.1 1 drp OPHTHALMIC (EYE) BID PRN 07/06/17 10/23/19 % eye drops fluticasone propionate 50 1 spray INTRANASAL BID 07/06/17 10/23/19 mcg/actuation nasal spray,suspension levothyroxine 125 mcg tablet 150 mcg PO DAILY 07/06/17 10/23/19 metronidazole 1 % topical gel 1 applic TOPICAL BID PRN 07/06/17 10/23/19 (Metrogel) zolpidem 5 mg tablet 5 mg PO QHS PRN 07/06/17 10/23/19 Calcium Citrate + D 2 tab PO TID 12/04/17 10/23/19 Celebrate Multi-Complex 45 3 cap PO DAILY 12/04/17 10/23/19 cetirizine 10 mg tablet 10 mg PO DAILY PRN 12/04/17 10/23/19 hydrocortisone 2 %-iodoquinol 1 1 applic TOPICAL BID PRN 12/04/17 10/23/19 %-aloe polysacch no.2 1 % topical gel fexofenadine 180 mg tablet 180 mg PO DAILY 10/23/19 10/23/19 ([facility]) Previous Rx's Medication Instructions Recorded hydrocodone 5 mg-acetaminophen 325 1 tab PO Q6H PRN #10 tab 12/05/20 mg tablet Allergies Allergy/AdvReac Type Severity Reaction Status Date / Time erythromycin base Allergy Intermediate HIVES Verified 07/17/21 09:59 adhesive Allergy Mild ALLERGIC Verified 07/17/21 09:59 TO TAPE epinephrine Allergy Mild TACHYCARDIA Verified 07/17/21 09:59 gentamicin [Gentamicin] Allergy Mild RASH Verified 07/17/21 09:59 NSAIDS (Non-Steroidal Allergy Mild GASTRITIS Verified 07/17/21 09:59 Anti-Inflamma Serotonin 5HT-3 Antagonists Allergy Mild GASTRITIS Verified 07/17/21 09:59 trazodone Allergy Mild LOSS OF Verified 07/17/21 09:59 BALANCE alprazolam Allergy Unknown LOSS OF Verified 07/17/21 09:59 ABILITY TO FOCUS amitriptyline Allergy Unknown IBS Verified 07/17/21 09:59 SYMPTOMS buspirone Allergy Unknown Verified 07/17/21 09:59 codeine Allergy Unknown IBS Verified 07/17/21 09:59 SYMPTOMS gabapentin Allergy Unknown SEVERE Verified 07/17/21 09:59 GASTRITIS Review of Systems Constitutional Constitutional: Reports system reviewed and no additional complaints, except as documented Musculoskeletal Musculoskeletal: Reports system reviewed and no additional complaints, except as documented Integumentary/Breasts Skin/Breast: Reports system reviewed and no additional complaints, except as documented Neurologic Neurologic: Reports system reviewed and no additional complaints, except as documented Hematologic/Lymphatic On Anticoagulants: No Patient History Medical History Alcohol dependence Cervical vertebral fusion Hypothyroidism Insomnia Surgical History Gastric bypass status for obesity S/P cervical spinal fusion Family History Father MVA (motor vehicle accident) Mother Lung cancer Social History household members: none Smoking Status: Former smoker alcohol intake: current Smoking Status: Former smoker alcohol intake frequency: 0-2 drinks per day Alcohol type: wine Substance Use Type: does not use Exam Initial Vital Signs Initial Vital Signs: Vital Signs Temperature 96.6 F L 07/17/21 09:59 Pulse Rate 101 H 07/17/21 09:59 Respiratory Rate 16 07/17/21 09:59 Blood Pressure 141/90 H 07/17/21 09:59 Pulse Oximetry 96 07/17/21 09:59 Const General: cooperative and healthy appearing [facility] Head: normal to inspection and normocephalic Skin General: no rashes or lesions noted Neuro General: patient alert and patient awake Sensory Exam: no sensory deficits noted Extrem Other: No tenderness along the anterior portion of the knee. No tenderness along the quadriceps or patellar tendon. No tenderness along the kneecap. No tenderness along the mediolateral joint line. She does have tenderness in the posterior portion the knee specifically on the medial hamstring. Some tenderness along the lateral hamstring. Also tenderness along the bellies of the hamstring and also the insertion point on the upper tibia. Psych Appearance: grossly normal and well kempt Procedures Orthopedic Splinting/Casting Injury #1: Side: right Lower Extremity Injury Location: knee Lower Extremity Immobilizer: Tim wrap Post splinting neuro exam: intact Post splinting vascular exam: intact Placed by: Nursing Course Orders Ordered: ED Orders 07/17/21 10:02 XR knee RT 3V Stat Vital Signs Vital signs: Vital Signs - 8 hr 07/17/21 11:51 07/17/21 12:14 Pulse Rate 87 80 Respiratory Rate 16 20 Blood Pressure 181/79 H 135/78 Pulse Oximetry 97 98 MDM - Extremity Injury (Lower) Imaging Data Extremity x-ray #1: Radiologist's Impression: [address] [address] XRay Report Signed Patient: Mckay Costa MR#: [id number] : 1945 Acct:[id number] Age/Sex: 75 / F Date of Service: 07/17/21 Loc: ED Accession Number: [id number] ?? Procedure: XR knee RT 3V Ordering Provider: Tor Oliver D.O. PROCEDURE:? XR KNEE RT 3V ? INDICATIONS:? knee pain ? TECHNIQUE:? 3 views of the knee were acquired.? ? COMPARISON:? [facility], , XR KNEE RT 3V, 05/21/2018, 17:21. ? FINDINGS:? ? Bones:? No fractures or dislocations.? No suspicious bony lesions.? Mild tricompartmental periarticular osteophyte formation. ? Soft tissues:? No joint effusion.? No suspicious soft tissue calcifications.? ? ? IMPRESSION:? Osteoarthritis. No acute fracture. No osseous lesion. If symptoms and/or clinical suspicion for pathology persist, further assessment with repeat, or advanced imaging (e.g., CT, MRI, or bone scan) may be helpful for further assessment. ? ? Dictated by: Arben Garcia M.D. on 07/17/2021 at 10:20 ? ? Approved by: Arben Garcia M.D. on 07/17/2021 at 10:21 MDM Narrative Medical decision making narrative: Patient is neurovascularly intact. X-ray shows no acute findings. She is tender along the hamstring specifically the medial hamstring and she has discomfort in this area when she flexes her knee past approximately 30?. I do suspect a hamstring injury based on her presentation today. Will provided an Tim bandage for comfort. She has a walker already at home. She was given return precautions. She expressed understanding and agreement. Discharge Plan Departure Patient Disposition: Home Clinical Impression: Acute knee pain, Right hamstring injury Instructions: Hamstrings Strain, How To Perform RICE (Rest, Ice, Compress, Elevate), How to Apply an Elastic Wrap on Knee Activity Restrictions/Additional Instructions: He has the elastic bandage as needed. Continue to use your walker at home. Also recommend icing your knee. Contact your primary provider for a follow-up. Return to the emergency department for any new or worsening symptoms. Prescriptions: No Action dexamethasone sodium phosphate 0.1 % drops 1 drp ophthalmic (eye) BID PRN (Reason: Allergy Symptoms) 0RF betamethasone valerate 0.1 % cream 1 applic Topical DIRECTED 0RF Label Comments: apply to affected area bid x 2 weeks then off 1 week. levothyroxine 125 mcg tablet 150 mcg PO DAILY 0RF zolpidem 5 mg tablet 5 mg PO QHS PRN (Reason: Sleep) 0RF fluticasone propionate 50 mcg/actuation spray,suspension 1 spray Intranasal BID 0RF metronidazole [Metrogel] 1 % Gel 1 applic Topical BID PRN (Reason: antibiotic) 0RF Rx Instructions: apply under right breast cetirizine 10 mg Tablet 10 mg PO DAILY PRN (Reason: Allergy Symptoms) 0RF [id number] 2-1-1 % Gel 1 applic Topical BID PRN (Reason: unknown) 0RF Rx Instructions: under right breast Celebrate Multi-Complex 45 3 cap PO DAILY 0RF Calcium Citrate + D 2 tab PO TID 0RF Label Comments: Calcium Citrate 1500 mg and Vitiamin D 2400 iu listed on patients home med list. Also lists daily totals as 1500 mg / 5400 mg fexofenadine [[facility]] 180 mg Tablet 180 mg PO DAILY 0RF hydrocodone-acetaminophen 5-325 mg tablet 1 tab PO Q6H PRN (Reason: pain) Qty: 10 0RF
[2021-07-17 11:51] VITALS: BP 181/79; PULSE 87; RESP 16; O2SAT 97
[2021-07-17 12:14] VITALS: BP 135/78; PULSE 80; RESP 20; O2SAT 98
== END 2021-07-17 12:15 | disposition home or self-care (01) ==
PROVIDERS: Emergency Provider Emergency Medicine
DX: S76.301A Unspecified injury of muscle, fascia and tendon of the posterior muscle group at thigh level, right thigh, initial encounter (principal); M25.561 Pain in right knee; X50.1XXA Overexertion from prolonged static or awkward postures, initial encounter
CPT/HCPCS: 73562; 99282; 99283

== ENCOUNTER 2021-11-28 18:22 | Inpatient (IN) | payer MEDICARE, SELFPAY ==
[2019-10-23 15:16] VITALS: BMI 31.6
[2021-11-28] VITALS (12 sets, daily range): BP systolic 136–175; BP diastolic 66–89; PULSE 76–82; RESP 16; TEMP 36.4; O2SAT 95–99; BMI 35.7
[2021-11-28 19:12] LABS: Add Manual Diff / Slide Review NO; Basophils Absolute Auto 0 /uL (0-100); Basophils Percent Auto 0.4 % (0-2); Eosinophils Absolute Auto 0 /uL (0-450); Eosinophils Percent Auto 0.5 % (2-4); Hematocrit 25.6 % (36-46); Hemoglobin 8.9 g/dL (12.0-16.0); Lymphocytes Absolute Auto 1400 /uL (1100-4500); Lymphocytes Percent Auto 29.7 % (25-40); Mean Corpuscular HGB Conc 34.8 % (30-36); Mean Corpuscular Hemoglobin 34.8 PG (26-34); Mean Corpuscular Volume 100.1 fL (80-100); Monocytes Absolute Auto 300 /uL (0-900); Monocytes Percent Auto 6.1 % (3-14); Neutrophils Absolute Auto 3100 /uL (1500-7000); Neutrophils Percent Auto 63.3 % (50-75); PTT Partial Thromboplastin Tim 27 SECONDS (26-36); Platelet Count 189 X10^3/uL (150-400); Red Blood Cell Count 2.56 X10^6/uL (4.0-5.2); Red Cell Distribution Width 15.9 % (11.6-14.8); White Blood Cell Count 4.9 X10^3/uL (4.5-11.0)
[2021-11-28 19:13] LABS: Alanine Aminotransferase 38 IU/L (<35); Albumin 4.6 g/dL (3.5-5.0); Albumin Globulin Ratio 1.8 (1.0-2.8); Alkaline Phosphatase 91 U/L (38-126); Aspartate Aminotransferase 82 IU/L (14-36); BUN Creatinine Ratio 28.3 (6-22); Bilirubin Total 0.8 mg/dL (0.2-1.3); Blood Urea Nitrogen 32 mg/dL (7-17); Carbon Dioxide 25 mmol/L (22-32); Chloride 98 mmol/L (98-107); Estimated Glomerular Filt Rate 50 mL/min (>60); Globulin 2.6 g/dL (1.7-4.1); Glucose 109 mg/dL (80-110); HEMOLYSIS < 15 (0-50); Lipase 268 U/L (23-300); Potassium 3.9 mmol/L (3.4-5.1); Sodium 136 mmol/L (137-145); Total Protein 7.2 g/dL (6.3-8.2)
--- NOTE | 2021-11-28 21:23 | ED.ABDPAIN ---
HPI - Abdominal Pain General Chief Complaint: Abdominal Pain Stated Complaint: GI issues, weakness Time Seen by Provider: 11/28/21 21:22 Source: patient and EMS Mode of arrival: EMS History of Present Illness HPI narrative: This is a 75-year-old female who presents with complaint of abdominal discomfort and nausea for the past 4 weeks she states food and certainly seems to bother her quite a bit she describes more lower abdominal pain and discomfort but not active pain right now. She denies flank or back pain. She states her stools have been small amounts but not watery but not regular formed large stools, no bright red blood or black stools. She is had persistent nausea she denies any vomiting. Denies chest pain or shortness of breath she is had decreased appetite but has been drinking liquids. No known ulcers or GI bleed. She is felt generally weak and using her walker more and more but no falls. No syncope but some lightheadedness. She was drinking several glasses of alcohol daily but has not for the past couple weeks. Patient is unsure of all her home medications but states she ran out of them and has not been taking them regularly. She states no aspirin or daily thinners. She denies surgery but appears she is had surgeries in the past according to her chart. No tobacco, no illicit. Her primary care is Dr. Avila to [place] Related Data Home Medications Medication Instructions Recorded Confirmed betamethasone valerate 0.1 % 1 applic topical DIRECTED 07/06/17 11/29/21 topical cream dexamethasone sodium phosphate 0.1 1 drp ophthalmic (eye) BID PRN 07/06/17 11/29/21 % eye drops Allergy Symptoms fluticasone propionate 50 1 spray intranasal BID 07/06/17 11/29/21 mcg/actuation nasal spray,suspension levothyroxine 125 mcg tablet 150 mcg PO DAILY 07/06/17 11/29/21 metronidazole 1 % topical gel 1 applic topical BID PRN antibiotic 07/06/17 11/29/21 (Metrogel) zolpidem 5 mg tablet 5 mg PO QHS PRN Sleep 07/06/17 11/29/21 Calcium Citrate + D 2 tab PO TID 12/04/17 11/29/21 Celebrate Multi-Complex 45 2 cap PO DAILY 12/04/17 11/29/21 cetirizine 10 mg tablet 10 mg PO DAILY PRN Allergy Symptoms 12/04/17 11/29/21 hydrocortisone 2 %-iodoquinol 1 1 applic topical BID PRN unknown 12/04/17 11/29/21 %-aloe polysacch no.2 1 % topical gel fexofenadine 180 mg tablet 180 mg PO DAILY 10/23/19 11/29/21 ([facility] Allergy) diazepam 5 mg tablet 5 mg PO BID PRN Muscle Spasm 11/29/21 11/29/21 Allergies Allergy/AdvReac Type Severity Reaction Status Date / Time erythromycin base Allergy Intermediate HIVES Verified 07/17/21 09:59 adhesive Allergy Mild ALLERGIC Verified 07/17/21 09:59 TO TAPE epinephrine Allergy Mild TACHYCARDIA Verified 07/17/21 09:59 gentamicin [Gentamicin] Allergy Mild RASH Verified 07/17/21 09:59 NSAIDS (Non-Steroidal Allergy Mild GASTRITIS Verified 07/17/21 09:59 Anti-Inflamma Serotonin 5HT-3 Antagonists Allergy Mild GASTRITIS Verified 07/17/21 09:59 trazodone Allergy Mild LOSS OF Verified 07/17/21 09:59 BALANCE alprazolam Allergy Unknown LOSS OF Verified 07/17/21 09:59 ABILITY TO FOCUS amitriptyline Allergy Unknown IBS Verified 07/17/21 09:59 SYMPTOMS buspirone Allergy Unknown Verified 07/17/21 09:59 codeine Allergy Unknown IBS Verified 07/17/21 09:59 SYMPTOMS gabapentin Allergy Unknown SEVERE Verified 07/17/21 09:59 GASTRITIS Review of Systems Review of Systems ROS Unobtainable: All systems reviewed & are unremarkable except as noted in HPI and below Patient History Medical History Alcohol dependence Cervical vertebral fusion Hypothyroidism Insomnia Surgical History Gastric bypass status for obesity S/P cervical spinal fusion Family History Father MVA (motor vehicle accident) Mother Lung cancer Social History household members: none Smoking Status: Former smoker alcohol intake: current Smoking Status: Former smoker alcohol intake frequency: 0-2 drinks per day Alcohol type: wine Substance Use Type: does not use Exam Narrative Exam Narrative: GENERAL: Alert and oriented x three, female with BMI of 35 in mild distress. HEENT: Head normocephalic, atraumatic, EOMI, pupils reactive, face symmetric, moist mucous membranes NECK: Supple, full range of motion CARDIOVASCULAR: Regular rate and rhythm without murmurs, rubs or gallops. RESPIRATORY: Breath sounds equal bilaterally, no wheezes rales or rhonchi. ABDOMEN: Soft, generalized discomfort but not acutely tender. Normoactive bowel sounds all 4 quadrants. No guarding or rebound, rigidity, no mass, patient has brown stool on digital rectal exam positive for stool occult no obvious mass. : No CVA tenderness EXTREMITIES: Normal range of motion, no clubbing or edema. Neurovascularly intact NEUROLOGICAL: Cranial nerves II through XII grossly intact. Moving all extremities SKIN: Warm, dry, no petechiae, no rashes or lesions. Initial Vital Signs Initial Vital Signs: Vital Signs Pulse Rate 80 11/28/21 18:21 Pulse Oximetry 98 11/28/21 18:21 Course Orders Ordered: ED Orders 11/28/21 21:37 CT abdomen pelvis w con Stat 11/28/21 21:59 COVID19 -Nasal RAPID/Pre-Proc Stat 11/28/21 22:10 Type and Screen Stat Acetaminophen (Acetaminophen 650 Mg Supp) 650 mg FL Q4HR PRN PRN Reason: Fever/Mild Pain (1-3) Folic Acid (Folic Acid 1 Mg Tablet) 1 mg PO DAILY SIDRA Sodium Chloride (Normal Saline 0.9%) 1,000 mls @ 80 mls/hr IV CONT SIDRA Last Admin: 11/29/21 01:06 Dose: 80 mls/hr Documented By: Ceftriaxone Sodium 1,000 mg/ (Sodium Chloride) 100 mls @ 200 mls/hr IV Q24H SIDRA Levothyroxine Sodium (Levothyroxine 150 Mcg Tablet) 150 mcg PO 0600 SIDRA Last Admin: 11/29/21 05:45 Dose: 150 mcg Documented By: Lorazepam (Lorazepam 2 Mg/Ml Inj) 0 mg IV CIWAPRN PRN; Protocol PRN Reason: Alcohol Withdrawal Multivitamins (Multivitamin 1 Tablet) 1 tab PO DAILY SIDRA Ondansetron HCl (Ondansetron 4 Mg/2 Ml Inj) 4 mg IV Q4HR PRN PRN Reason: Nausea And Vomiting Pantoprazole Sodium (Pantoprazole 40 Mg Vial) 40 mg IV BID SIDRA Thiamine HCl (Thiamine 100 Mg Tablet) 100 mg PO DAILY SIDRA Stop: 12/03/21 09:01 Zolpidem Tartrate (Zolpidem 5 Mg Tablet) 5 mg PO BEDTIME PRN PRN Reason: Sleep Discontinued Medications Ceftriaxone Sodium 2,000 mg/ (Sodium Chloride) 100 mls @ 200 mls/hr IV NOW ONE Stop: 11/28/21 22:34 Last Infusion: 11/28/21 23:52 Dose: 0 mls/hr Documented By: Admin: 11/28/21 23:17 Dose: 200 mls/hr Documented By: PEDRITO Ondansetron HCl (Ondansetron 4 Mg/2 Ml Inj) 4 mg IV NOW ONE Stop: 11/28/21 21:38 Last Admin: 11/28/21 22:12 Dose: 4 mg Documented By: PEDRITO Pantoprazole Sodium (Pantoprazole 40 Mg Vial) 80 mg IV NOW ONE Stop: 11/28/21 21:52 Last Admin: 11/28/21 22:12 Dose: 80 mg Documented By: PEDRITO Consultations Consultation #1: Hospitalist, HR ADMINISTRATIVE ASSISTANT Brady accepts. Discussed likely upper GI bleed was given Protonix, acute kidney injury with elevation in BUN as and positive urine. CT abdomen does not show clear cause or source of bleeding. Will consult with General surgery for potential EGD/colonoscopy in the next day or so. Time: 23:10 Consultation #2: Dr. Chinchilla, reviewed patient's findings and history. They are happy to see the patient will likely see her in the morning. Time: 23:51 Vital Signs Vital signs: Vital Signs - 8 hr 11/28/21 22:30 11/28/21 22:30 Pulse Rate 78 Blood Pressure 175/81 H Pulse Oximetry 95 MDM - Abdominal Pain Lab Data Result diagrams: 11/28/21 18:21 11/28/21 18:21 Labs: Lab Results 11/28/21 11/28/21 11/28/21 Range/Units 18:20 18:21 18:21 WBC 4.9 (4.5-11.0) X10^3/uL RBC 2.56 L (4.0-5.2) X10^6/uL Hgb 8.9 L (12.0-16.0) g/dL Hct 25.6 L (36-46) % MCV 100.1 H (80-100) fL MCH 34.8 H (26-34) PG MCHC 34.8 (30-36) % RDW 15.9 H (11.6-14.8) % Plt Count 189 (150-400) X10^3/uL Neut % (Auto) 63.3 (50-75) % Lymph % (Auto) 29.7 (25-40) % [place] % (Auto) 6.1 (3-14) % Eos % (Auto) 0.5 L (2-4) % Baso % (Auto) 0.4 (0-2) % Neut # (Auto) 3100 (7287-7485) /uL Lymph # (Auto) 1400 (2134-1451) /uL [place] # (Auto) 300 (0-900) /uL Eos # (Auto) 0 (0-450) /uL Baso # (Auto) 0 (0-100) /uL PT 12.0 (10.1-12.7) SECONDS INR 1.0 (0.9-1.3) APTT 27 (26-36) SECONDS Sodium (137-145) mmol/L Potassium (3.4-5.1) mmol/L Chloride (98-107) mmol/L Carbon Dioxide (22-32) mmol/L BUN (7-17) mg/dL Creatinine (0.52-1.04) mg/dL Estimated GFR (>60) mL/min BUN/Creatinine Ratio (6-22) Glucose (80-110) mg/dL Calcium (8.4-10.2) mg/dL Magnesium (1.6-2.3) mg/dL Total Bilirubin (0.2-1.3) mg/dL AST (14-36) IU/L ALT (<35) IU/L Alkaline Phosphatase (38-126) U/L NT-Pro-B Natriuret Pep (<450) pg/mL Total Protein (6.3-8.2) g/dL Albumin (3.5-5.0) g/dL Globulin (1.7-4.1) g/dL Albumin/Globulin Ratio (1.0-2.8) Lipase (23-300) U/L Urine Color Urine Appearance Urine pH (4.5-8.0) Ur Specific [place] (1.000-1.035) Urine Protein (Negative) Urine Glucose (UA) (Negative) g/dL Urine Ketones (NEGATIVE) Urine Occult Blood (Negative) Urine Nitrate (Negative) Urine Bilirubin (NEGATIVE) Urine Urobilinogen (0.2) E.U./dL Ur Leukocyte Esterase (NEGATIVE) Urine RBC (0-5/HPF) Urine WBC (0-5/HPF) Urine Bacteria (None) Ur Culture Indicated? Ethyl Alcohol < 10 ( - 10) mg/dL SARS-CoV-2 (PCR) (Negative) Blood Type Antibody Screen 11/28/21 11/28/21 11/28/21 Range/Units 18:21 18:21 18:21 WBC (4.5-11.0) X10^3/uL RBC (4.0-5.2) X10^6/uL Hgb (12.0-16.0) g/dL Hct (36-46) % MCV (80-100) fL MCH (26-34) PG MCHC (30-36) % RDW (11.6-14.8) % Plt Count (150-400) X10^3/uL Neut % (Auto) (50-75) % Lymph % (Auto) (25-40) % [place] % (Auto) (3-14) % Eos % (Auto) (2-4) % Baso % (Auto) (0-2) % Neut # (Auto) (4141-4133) /uL Lymph # (Auto) (9147-6341) /uL [place] # (Auto) (0-900) /uL Eos # (Auto) (0-450) /uL Baso # (Auto) (0-100) /uL PT (10.1-12.7) SECONDS INR (0.9-1.3) APTT (26-36) SECONDS Sodium 136 L (137-145) mmol/L Potassium 3.9 (3.4-5.1) mmol/L Chloride 98 (98-107) mmol/L Carbon Dioxide 25 (22-32) mmol/L BUN 32 H (7-17) mg/dL Creatinine 1.13 H (0.52-1.04) mg/dL Estimated GFR 50 L (>60) mL/min BUN/Creatinine Ratio 28.3 H (6-22) Glucose 109 (80-110) mg/dL Calcium 9.0 (8.4-10.2) mg/dL Magnesium 2.5 H (1.6-2.3) mg/dL Total Bilirubin 0.8 (0.2-1.3) mg/dL AST 82 H (14-36) IU/L ALT 38 H (<35) IU/L Alkaline Phosphatase 91 (38-126) U/L NT-Pro-B Natriuret Pep 55 (<450) pg/mL Total Protein 7.2 (6.3-8.2) g/dL Albumin 4.6 (3.5-5.0) g/dL Globulin 2.6 (1.7-4.1) g/dL Albumin/Globulin Ratio 1.8 (1.0-2.8) Lipase 268 (23-300) U/L Urine Color Urine Appearance Urine pH (4.5-8.0) Ur Specific [place] (1.000-1.035) Urine Protein (Negative) Urine Glucose (UA) (Negative) g/dL Urine Ketones (NEGATIVE) Urine Occult Blood (Negative) Urine Nitrate (Negative) Urine Bilirubin (NEGATIVE) Urine Urobilinogen (0.2) E.U./dL Ur Leukocyte Esterase (NEGATIVE) Urine RBC (0-5/HPF) Urine WBC (0-5/HPF) Urine Bacteria (None) Ur Culture Indicated? Ethyl Alcohol ( - 10) mg/dL SARS-CoV-2 (PCR) (Negative) Blood Type Antibody Screen 11/28/21 11/28/21 11/28/21 Range/Units 20:52 21:59 22:10 WBC (4.5-11.0) X10^3/uL RBC (4.0-5.2) X10^6/uL Hgb (12.0-16.0) g/dL Hct (36-46) % MCV (80-100) fL MCH (26-34) PG MCHC (30-36) % RDW (11.6-14.8) % Plt Count (150-400) X10^3/uL Neut % (Auto) (50-75) % Lymph % (Auto) (25-40) % [place] % (Auto) (3-14) % Eos % (Auto) (2-4) % Baso % (Auto) (0-2) % Neut # (Auto) (5005-1759) /uL Lymph # (Auto) (5556-0789) /uL [place] # (Auto) (0-900) /uL Eos # (Auto) (0-450) /uL Baso # (Auto) (0-100) /uL PT (10.1-12.7) SECONDS INR (0.9-1.3) APTT (26-36) SECONDS Sodium (137-145) mmol/L Potassium (3.4-5.1) mmol/L Chloride (98-107) mmol/L Carbon Dioxide (22-32) mmol/L BUN (7-17) mg/dL Creatinine (0.52-1.04) mg/dL Estimated GFR (>60) mL/min BUN/Creatinine Ratio (6-22) Glucose (80-110) mg/dL Calcium (8.4-10.2) mg/dL Magnesium (1.6-2.3) mg/dL Total Bilirubin (0.2-1.3) mg/dL AST (14-36) IU/L ALT (<35) IU/L Alkaline Phosphatase (38-126) U/L NT-Pro-B Natriuret Pep (<450) pg/mL Total Protein (6.3-8.2) g/dL Albumin (3.5-5.0) g/dL Globulin (1.7-4.1) g/dL Albumin/Globulin Ratio (1.0-2.8) Lipase (23-300) U/L Urine Color Yellow Urine Appearance Clear Urine pH 5.0 (4.5-8.0) Ur Specific [place] 1.015 (1.000-1.035) Urine Protein Trace H (Negative) Urine Glucose (UA) Negative (Negative) g/dL Urine Ketones Trace H (NEGATIVE) Urine Occult Blood Negative (Negative) Urine Nitrate Positive H (Negative) Urine Bilirubin Negative (NEGATIVE) Urine Urobilinogen 0.2 (0.2) E.U./dL Ur Leukocyte Esterase Trace H (NEGATIVE) Urine RBC None seen (0-5/HPF) Urine WBC 10-30/hpf H (0-5/HPF) Urine Bacteria Many (>30) H (None) Ur Culture Indicated? Specimen cultured Ethyl Alcohol ( - 10) mg/dL SARS-CoV-2 (PCR) Negative (Negative) Blood Type O Positive Antibody Screen Negative Point of care testing: Point of Care Testing Stool Occult Blood Positive Imaging Data CT scan - abdomen/pelvis: Radiologist's Impression: Close Abdomen/Pelvis CT (Signed) PmopaHunter cristina - 11/28/21 Launch?Image [address] [address] [address] Scan Report Signed Patient: Mckay Costa MR#: [id number] : 1945 Acct:[id number] Age/Sex: 75 / F Date of Service: 11/28/21 Loc: ED Accession Number: [id number] ?? Procedure: CT abdomen pelvis w con Ordering Provider: Hoa Enriquez D.O. PROCEDURE:? CT ABDOMEN PELVIS W CON ? INDICATIONS:? abdominal pain,n x 1 month low hemoglobin ? TECHNIQUE:? After the administration of IV contrast, axial sections were acquired from the lung bases to the pubic symphysis.? Coronal and sagittal reformats were performed.? For radiation dose reduction, the following was used:? automated exposure control, adjustment of mA and/or kV according to patient size. ? COMPARISON:? [facility], CT, CT CHEST ABD PEL W CON, 03/21/2021, 0:08. ? FINDINGS:? Image quality:? Excellent.? ? Lung bases:? There is mild dependent atelectasis and scarring in the lung bases.? ? Heart:? Heart is normal in size.? There is a small hiatal hernia. ? ? ABDOMEN: Liver:? No mass lesion.? There is diffuse hypoattenuation of the liver consistent with fatty infiltration with relative sparing along the gallbladder fossa. Gallbladder:? Within normal limits without calcified gallstones.? ? Biliary ducts:? No biliary ductal dilatation.? ? Pancreas:? Unremarkable.? ? Spleen:? Normal in size.? ? Adrenal Glands:? No adrenal nodules.? ? Kidneys and Ureters:? No hydronephrosis.? ? ? Stomach and Bowel:? Stomach, small bowel loops, and colon are normal in caliber and wall thickness.? There are postsurgical changes along the stomach and small bowel consistent with prior gastric bypass.? No pericecal inflammatory changes to suggest appendicitis.? Peritoneum:? No abnormal intraperitoneal fluid.? No fluid collections.? No free air.? ? Ventral Wall: ? No hernia.? Abdominal Nodes:? No retroperitoneal or mesenteric adenopathy by size criteria.? Vessels:? Aorta and inferior vena cava are normal in size.? ? PELVIS: Pelvic Organs:? Unremarkable.? ? Bladder:? Unremarkable.? ? Pelvic Nodes: No enlarged lymph nodes.? Miscellaneous: No inguinal hernias.? No retroperitoneal fluid collections.? ? ? Bones:? There is moderate to severe degenerative disc disease at L2-L3.? Visualized osseous structures demonstrate no suspicious focal lesions. ? IMPRESSION:? ? 1. No definite acute intra-abdominal abnormality. ? 2. No hematoma collections within the abdomen or pelvis. ? 3. Postsurgical changes consistent with prior gastric bypass redemonstrated without evidence of bowel obstruction.? No definite mass lesion identified. ? 4.? Hepatic steatosis.? ? ? Dictated by: Hunter Pompa M.D. on 11/28/2021 at 22:55 ? ? Approved by: Hunter Pompa M.D. on 11/28/2021 at 23:00?? ECG Data Attestation: I personally reviewed and interpreted this ECG as follows: Interpretation: Sinus rhythm with premature atrial complexes, rate 80 FL 150 QRS is 76 and QT than at 392 patient has prior from 12/05/2020 which appears similar. MDM Narrative Medical decision making narrative: This is a 75-year-old with a month of nausea abdominal discomfort and generally feeling unwell with increasing weakness. Patient states food seems to make her symptoms worse. She describes lower abdominal discomfort but states no significant pain she is mostly nauseated right now. She presents today because of increasing weakness and having to use her walker more. Her hemoglobin sound to be 8.9 today was 14 in March of 2021 platelets and CBC are otherwise appropriate coags are negative, patient has slightly elevated BUN at 32 with a creatinine of 1.13 AST ALT are 82 and 38 with a negative lipase. Patient's does have a positive stool occult suspect she has either ulcer or other potential source of bleeding she was drinking quite a bit alcohol until recently but states she has not had any for at least a week. She does not appear to be in active withdrawals at this time. She does have a bump in her creatinine. CT abdomen pelvis was obtained based on her generalized discomfort for the past month to evaluate for other causes but suspect she will need to come in for endoscopy. Patient's CT does not show acute intra-abdominal changes does have some hepatic steatosis. Patient was given Protonix for possible upper GI bleed with her alcohol history seems likely. Spoke with hospitalist accepts. General surgery also consulted. Discharge Plan Departure Patient Disposition: Admitted as Observation Clinical Impression: Symptomatic anemia, GI bleed, Acute UTI, DOTTIE (acute kidney injury) Admit Date/Time: 11/28/21 23:44 Admit Provider: Diya Abreu
--- NOTE | 2021-11-28 21:37 | DI.CT.S_ITS ---
PROCEDURE: CT ABDOMEN PELVIS W CON INDICATIONS: abdominal pain,n x 1 month low hemoglobin TECHNIQUE: After the administration of IV contrast, axial sections were acquired from the lung bases to the pubic symphysis. Coronal and sagittal reformats were performed. For radiation dose reduction, the following was used: automated exposure control, adjustment of mA and/or kV according to patient size. COMPARISON: [facility], CT, CT CHEST ABD PEL W CON, 03/21/2021, 0:08. FINDINGS: Image quality: Excellent. Lung bases: There is mild dependent atelectasis and scarring in the lung bases. Heart: Heart is normal in size. There is a small hiatal hernia. ABDOMEN: Liver: No mass lesion. There is diffuse hypoattenuation of the liver consistent with fatty infiltration with relative sparing along the gallbladder fossa. Gallbladder: Within normal limits without calcified gallstones. Biliary ducts: No biliary ductal dilatation. Pancreas: Unremarkable. Spleen: Normal in size. Adrenal Glands: No adrenal nodules. Kidneys and Ureters: No hydronephrosis. Stomach and Bowel: Stomach, small bowel loops, and colon are normal in caliber and wall thickness. There are postsurgical changes along the stomach and small bowel consistent with prior gastric bypass. No pericecal inflammatory changes to suggest appendicitis. Peritoneum: No abnormal intraperitoneal fluid. No fluid collections. No free air. Ventral Wall: No hernia. Abdominal Nodes: No retroperitoneal or mesenteric adenopathy by size criteria. Vessels: Aorta and inferior vena cava are normal in size. PELVIS: Pelvic Organs: Unremarkable. Bladder: Unremarkable. Pelvic Nodes: No enlarged lymph nodes. Miscellaneous: No inguinal hernias. No retroperitoneal fluid collections. Bones: There is moderate to severe degenerative disc disease at L2-L3. Visualized osseous structures demonstrate no suspicious focal lesions. IMPRESSION: 1. No definite acute intra-abdominal abnormality. 2. No hematoma collections within the abdomen or pelvis. 3. Postsurgical changes consistent with prior gastric bypass redemonstrated without evidence of bowel obstruction. No definite mass lesion identified. 4. Hepatic steatosis. Dictated by: Hunter Pompa M.D. on 11/28/2021 at 22:55 Approved by: Hunter Pompa M.D. on 11/28/2021 at 23:00
[2021-11-28 21:55] LABS: Appearance Urine UA CLEAR; Bilirubin Urine UA NEGATIVE (NEGATIVE); Color Urine UA YELLOW; Glucose Urine UA NEGATIVE (Negative); Ketones Urine UA TRACE (NEGATIVE); Leukocyte Esterase Urine UA TRACE (NEGATIVE); Nitrite Urine UA POSITIVE (Negative); Occult Blood Urine UA NEGATIVE (Negative); Protein Urine UA TRACE (Negative); Specific Gravity Urine UA 1.015 (1.000-1.035); Urobilinogen Urine UA 0.2 E.U./dL (0.2)
[2021-11-28 22:05] LABS: Bacteria Urine Many (>30); Culture Indicated Urine Specimen Cultured; RBC Urine None Seen (0-5/HPF); WBC Urine 10-30/HPF (0-5/HPF)
[2021-11-28 22:06] LABS: Ethanol (ETOH) < 10 mg/dL
[2021-11-28] MEDS: ONDANSETRON 4 MG/2 ML INJ IV (22:12)
[2021-11-28] MEDS: PANTOPRAZOLE 40 MG VIAL 80 MG IV (22:12)
[2021-11-28 22:16] LABS: COVID19 -Nasal RAPID Negative (Negative)
[2021-11-28] MEDS: cefTRIAXone 2,000 MG in SODIUM CHLORIDE 0.9% 100 ML 200 MG IV (23:17)
[2021-11-29] VITALS (10 sets, daily range): BP systolic 119–149; BP diastolic 62–91; PULSE 74–80; RESP 14–20; TEMP 35.6–36.4; O2SAT 92–97; BMI 35.0
[2021-11-29 00:43] LABS: Magnesium 2.5 mg/dL (1.6-2.3)
[2021-11-29 00:52] LABS: NT-proBNP (BNP-Adult 18+) 55 pg/mL (<450)
[2021-11-29] MEDS: SODIUM CHLORIDE 0.9% 1,000 ML 80 ML IV ×2 (01:06→14:41)
--- NOTE | 2021-11-29 05:38 | P.HP_ITS ---
History of Present Illness History of Present Illness Date Patient Seen: 11/29/21 Time Patient Seen: 00:02 Chief complaint: GI issues, weakness Narrative: Mckay Costa is a 75-year-old female with a past medical history significant for hypothyroidism, seasonal allergies, alcohol dependence, previous opiate dependence in remission, insomnia on Ambien and Benadryl who presented to the ED with complaint of abdominal discomfort and nausea for the past [address] ates food and certainly seems to bother her quite a bit she describes more lower abdominal pain and discomfort but not active pain right now.? Patient denies flank or back pain, diarrhea, no bright red blood or black stools, chest pain, shortness of breath, vomiting, fever, body aches, chills, No known ulcers or GI bleed, denies any anticoagulation or blood thinners, denies syncope or head injury, recent illness injury or trauma. She endorses persistent nausea, decreased appetite but has been drinking liquids.? She feels generally weak and using her walker more and more but no falls.? Occasional lightheadedness.? She was drinking several glasses of alcohol daily but has not for the past couple weeks.? Patient is unsure of all her home medications but states she ran out of them and has not been taking them regularly.? She denies surgery but appears she is had surgeries in the past according to her chart.? Patient is an extremely poor historian and confused. No tobacco, no illicit.? Her primary care is Dr. Avila to [place]. Patient's vitals are stable upon admit slightly hypertensive, temp 97.6?, BP 175/81, HR 78, R 16, O2 saturation 95% on room air. Patient presents with a nemia, previous labs demonstrate no prior anemia in chart. RBC 2.56, HGB 8.9, HCT 25.6, MCV 100.1, MCH 34.8. Patient also has DOTTIE which is absent from previous labs BUN 32, creatinine 1.13, GFR 50, AST 82, ALT 38, lipase normal, ETOH is negative, patient's urine is positive for nitrates and cultures pending, positive Hemoccult in ED. Patient's abdomen pelvis CT was negative for any intra-abdominal abnormalities, positive hepatic steatosis. EKG sinus rhythm with premature atrial complex rate of [address] or T-wave changes, no notable changes from comparison EKG on 12/05/2020 I personally reviewed. Patient admitted for symptomatic blood loss anemia secondary to GI bleed, DOTTIE secondary to UTI. Patient History Medical History Alcohol dependence Cervical vertebral fusion Hypothyroidism Insomnia Surgical History Gastric bypass status for obesity S/P cervical spinal fusion Family & Social History Family History Father MVA (motor vehicle accident) Mother Lung cancer Social History: household members none Prior Living Arrangements House Safety & Behavioral: Feels Safe in Current Yes Environment Been Physically Hurt or No Threatened By a Person Tobacco & Substance use: Smoking Status Former smoker alcohol intake current alcohol intake frequency 3 or more drinks per day Substance Use Type does not use Meds Home Medications and Allergies Home Medications Medication Instructions Recorded Confirmed Type betamethasone valerate 0.1 % 1 applic topical DIRECTED 07/06/17 11/29/21 History topical cream dexamethasone sodium phosphate 0.1 1 drp ophthalmic (eye) BID PRN 07/06/17 11/29/21 History % eye drops Allergy Symptoms fluticasone propionate 50 1 spray intranasal BID 07/06/17 11/29/21 History mcg/actuation nasal spray,suspension levothyroxine 125 mcg tablet 150 mcg PO DAILY 07/06/17 11/29/21 History metronidazole 1 % topical gel 1 applic topical BID PRN antibiotic 07/06/17 11/29/21 History (Metrogel) zolpidem 5 mg tablet 5 mg PO QHS PRN Sleep 07/06/17 11/29/21 History Calcium Citrate + D 2 tab PO TID 12/04/17 11/29/21 History Celebrate Multi-Complex 45 2 cap PO DAILY 12/04/17 11/29/21 History cetirizine 10 mg tablet 10 mg PO DAILY PRN Allergy Symptoms 12/04/17 11/29/21 History hydrocortisone 2 %-iodoquinol 1 1 applic topical BID PRN unknown 12/04/17 11/29/21 History %-aloe polysacch no.2 1 % topical gel fexofenadine 180 mg tablet 180 mg PO DAILY 10/23/19 11/29/21 History (Madelyn Allergy) diazepam 5 mg tablet 5 mg PO BID PRN Muscle Spasm 11/29/21 11/29/21 History Allergies Allergy/AdvReac Type Severity Reaction Status Date / Time erythromycin base Allergy Intermediate HIVES Verified 07/17/21 09:59 adhesive Allergy Mild ALLERGIC Verified 07/17/21 09:59 TO TAPE epinephrine Allergy Mild TACHYCARDIA Verified 07/17/21 09:59 gentamicin [Gentamicin] Allergy Mild RASH Verified 07/17/21 09:59 NSAIDS (Non-Steroidal Allergy Mild GASTRITIS Verified 07/17/21 09:59 Anti-Inflamma Serotonin 5HT-3 Antagonists Allergy Mild GASTRITIS Verified 07/17/21 09:59 trazodone Allergy Mild LOSS OF Verified 07/17/21 09:59 BALANCE alprazolam Allergy Unknown LOSS OF Verified 07/17/21 09:59 ABILITY TO FOCUS amitriptyline Allergy Unknown IBS Verified 07/17/21 09:59 SYMPTOMS buspirone Allergy Unknown Verified 07/17/21 09:59 codeine Allergy Unknown IBS Verified 07/17/21 09:59 SYMPTOMS gabapentin Allergy Unknown SEVERE Verified 07/17/21 09:59 GASTRITIS Review of Systems Review of Systems Narrative: All 12 point systems reviewed with the patient and are negative except otherwise documented. Though it should be noted that patient is confused and in extremely poor historian accuracy is questionable. Exam Vital Signs (past 8 hours): - 11/28/21 22:01 11/28/21 22:30 11/28/21 22:30 Temperature Pulse Rate 82 78 Respiratory Rate Blood Pressure 175/81 H Pulse Oximetry 99 95 Oxygen Delivery Method Room Air Oxygen Flow Rate 11/29/21 00:00 Temperature 97.1 F L Pulse Rate 77 Respiratory Rate 14 Blood Pressure 129/68 Pulse Oximetry 97 Oxygen Delivery Method Oxygen Flow Rate 0 Oxygen Delivery Method Room Air Oxygen Flow Rate 0 Narrative Exam Narrative: GENERAL: Alert and oriented x three, female with BMI of 35 in mild distress. HEENT: Head normocephalic, atraumatic, EOMI, pupils reactive, face symmetric, moist mucous membranes NECK: Supple, full range of motion CARDIOVASCULAR: Regular rate and rhythm without murmurs, rubs or gallops. RESPIRATORY: Breath sounds equal bilaterally, no wheezes rales or rhonchi. ABDOMEN: Soft, generalized discomfort but not acutely tender.? Normoactive bowel sounds all 4 quadrants.? No guarding or rebound, rigidity, no mass, patient has brown stool on digital rectal exam positive for stool occult no obvious mass. : No CVA tenderness EXTREMITIES: Normal range of motion, no clubbing or edema.? Neurovascularly intact NEUROLOGICAL: Cranial nerves II through XII grossly intact.? Moving all extremities SKIN: Warm, dry, no petechiae, no rashes or lesions. Objective Labs Result Diagrams: 11/28/21 18:21 11/28/21 18:21 Labs: Laboratory Results - last 24 hr 11/28/21 11/28/21 11/28/21 18:20 18:21 18:21 WBC 4.9 RBC 2.56 L Hgb 8.9 L Hct 25.6 L MCV 100.1 H MCH 34.8 H MCHC 34.8 RDW 15.9 H Plt Count 189 Neut % (Auto) 63.3 Lymph % (Auto) 29.7 [place] % (Auto) 6.1 Eos % (Auto) 0.5 L Baso % (Auto) 0.4 Neut # (Auto) 3100 Lymph # (Auto) 1400 [place] # (Auto) 300 Eos # (Auto) 0 Baso # (Auto) 0 PT 12.0 INR 1.0 APTT 27 Sodium Potassium Chloride Carbon Dioxide BUN Creatinine Estimated GFR BUN/Creatinine Ratio Glucose Calcium Magnesium Total Bilirubin AST ALT Alkaline Phosphatase NT-Pro-B Natriuret Pep Total Protein Albumin Globulin Albumin/Globulin Ratio Lipase Urine Color Urine Appearance Urine pH Ur Specific [place] Urine Protein Urine Glucose (UA) Urine Ketones Urine Occult Blood Urine Nitrate Urine Bilirubin Urine Urobilinogen Ur Leukocyte Esterase Urine RBC Urine WBC Urine Bacteria Ur Culture Indicated? Ethyl Alcohol < 10 SARS-CoV-2 (PCR) Blood Type Antibody Screen 11/28/21 11/28/21 11/28/21 18:21 18:21 18:21 WBC RBC Hgb Hct MCV MCH MCHC RDW Plt Count Neut % (Auto) Lymph % (Auto) [place] % (Auto) Eos % (Auto) Baso % (Auto) Neut # (Auto) Lymph # (Auto) [place] # (Auto) Eos # (Auto) Baso # (Auto) PT INR APTT Sodium 136 L Potassium 3.9 Chloride 98 Carbon Dioxide 25 BUN 32 H Creatinine 1.13 H Estimated GFR 50 L BUN/Creatinine Ratio 28.3 H Glucose 109 Calcium 9.0 Magnesium 2.5 H Total Bilirubin 0.8 AST 82 H ALT 38 H Alkaline Phosphatase 91 NT-Pro-B Natriuret Pep 55 Total Protein 7.2 Albumin 4.6 Globulin 2.6 Albumin/Globulin Ratio 1.8 Lipase 268 Urine Color Urine Appearance Urine pH Ur Specific [place] Urine Protein Urine Glucose (UA) Urine Ketones Urine Occult Blood Urine Nitrate Urine Bilirubin Urine Urobilinogen Ur Leukocyte Esterase Urine RBC Urine WBC Urine Bacteria Ur Culture Indicated? Ethyl Alcohol SARS-CoV-2 (PCR) Blood Type Antibody Screen 11/28/21 11/28/21 11/28/21 20:52 21:59 22:10 WBC RBC Hgb Hct MCV MCH MCHC RDW Plt Count Neut % (Auto) Lymph % (Auto) [place] % (Auto) Eos % (Auto) Baso % (Auto) Neut # (Auto) Lymph # (Auto) [place] # (Auto) Eos # (Auto) Baso # (Auto) PT INR APTT Sodium Potassium Chloride Carbon Dioxide BUN Creatinine Estimated GFR BUN/Creatinine Ratio Glucose Calcium Magnesium Total Bilirubin AST ALT Alkaline Phosphatase NT-Pro-B Natriuret Pep Total Protein Albumin Globulin Albumin/Globulin Ratio Lipase Urine Color Yellow Urine Appearance Clear Urine pH 5.0 Ur Specific [place] 1.015 Urine Protein Trace H Urine Glucose (UA) Negative Urine Ketones Trace H Urine Occult Blood Negative Urine Nitrate Positive H Urine Bilirubin Negative Urine Urobilinogen 0.2 Ur Leukocyte Esterase Trace H Urine RBC None seen Urine WBC 10-30/hpf H Urine Bacteria Many (>30) H Ur Culture Indicated? Specimen cultured Ethyl Alcohol SARS-CoV-2 (PCR) Negative Blood Type O Positive Antibody Screen Negative Assessment & Plan Assessment & Plan narrative: Mckay Costa is a 75-year-old female with a past medical history significant for hypothyroidism, seasonal allergies, alcohol dependence, previous opiate dependence in remission, insomnia on Ambien and Benadryl who presented to the ED with complaint of abdominal discomfort and nausea for the past 4 weeks, admitted for symptomatic blood loss anemia secondary to GI bleed, DOTTIE secondary to UTI. 1. Blood anemia secondary to GI bleed, acute, present on admission -previous labs demonstrate no prior anemia in chart. RBC 2.56, HGB 8.9, HCT 25.6, MCV 100.1, MCH 34.8. positive Hemoccult -abdomen pelvis CT was negative for any intra-abdominal abnormalities, positive hepatic steatosis. -NPO -NS at 80 cc/HR -BS q.6 while NPO -Protonix 40 mg IV b.i.d. -consult general surgery Dr. Chinchilla tomorrow notified in ED -Monitor for bleeding- if pt has bloody BM -stat H&H to be ordered 2. DOTTIE, likely pre renal, secondary to UTI, acute, present on admission -BUN 32, creatinine 1.13, GFR 50, AST 82, ALT 38, -urine is positive for nitrates and cultures pending, positive -to g Rocephin initiated in ED, continue 1 g Q 24 hours -NS at 80 cc/HR -monitor chemistry panel 3. Alcohol dependence, chronic, present on admission.? -ETOH negative -Patient reported a Hx of consumes 2-3 glasses of wine most nights and reports she will finish a bottle of wine in approximately 2 days.? reportes she has not had anything to drink in several weeks -denies history of alcohol withdrawal, alcohol seizures or DTs.? -patient admitted alcohol withdrawal and CIWA protocol. -NPO :will initiate vitamin a, folic acid and thiamine after procedure 4. Hypothyroidism, acquired, chronic, present on admission.? -TSH ordered -NPO: Continue levothyroxine 150 mcg daily, after procedure. 5.. Insomnia, chronic, present on admission.? Stable. -NPO: Continued Ambien 5 mg daily at bedtime and Benadryl 25 mg daily at bedtime as needed for insomnia after procedure.? 6. Chronic neck pain with benzodiazepine dependence and opiate dependence in remission, present on admission.? Stable. -NPO:Continue diazepam 5 mg after procedure Code status:? Full code Surrogate decision maker: Ger GRIGGS PCR:Negative DVT/VTE prophylaxis:Hold medication SCD's only Disposition: Patient admitted for observation for evaluation of symptomatic anemia due to the lower GI bleed and resolution DOTTIE through treatment of UTI expected length of stay less than 2 midnights. I have utilized all available immediate resources to obtain, update, or review the patient's current medications. I confirmed that the patient's advanced care plan is present, Code status is documented and/or surrogate decision maker is listed in the patient's medical record. Time Spent With Patient Critical Care time: I spent a total of [] minutes of critical care time on this patient's care today; this time is exclusive of procedural time. Scores [facility] [place] coma scale eye opening: Spontaneous [place] coma scale verbal response: Confused [place] coma scale motor response: Obey commands Sarahy coma scale total score: 14 Quality VTE Deep Vein Thrombosis/Pulmonary Embolism Present on Admission: No
[2021-11-29] MEDS: LEVOTHYROXINE 150 MCG TABLET PO (05:45)
[2021-11-29 07:43] LABS: Add Manual Diff / Slide Review NO; Basophils Absolute Auto 0 /uL (0-100); Basophils Percent Auto 0.5 % (0-2); Eosinophils Absolute Auto 0 /uL (0-450); Eosinophils Percent Auto 0.8 % (2-4); Hematocrit 24.8 % (36-46); Hemoglobin 8.6 g/dL (12.0-16.0); Lymphocytes Absolute Auto 1400 /uL (1100-4500); Lymphocytes Percent Auto 31.1 % (25-40); Mean Corpuscular HGB Conc 34.8 % (30-36); Mean Corpuscular Hemoglobin 35.1 PG (26-34); Mean Corpuscular Volume 100.8 fL (80-100); Monocytes Absolute Auto 300 /uL (0-900); Monocytes Percent Auto 6.7 % (3-14); Neutrophils Absolute Auto 2700 /uL (1500-7000); Neutrophils Percent Auto 60.9 % (50-75); Platelet Count 183 X10^3/uL (150-400); Red Blood Cell Count 2.46 X10^6/uL (4.0-5.2); Red Cell Distribution Width 15.9 % (11.6-14.8); White Blood Cell Count 4.4 X10^3/uL (4.5-11.0)
[2021-11-29 07:55] LABS: PTT Partial Thromboplastin Tim 28 SECONDS (26-36)
[2021-11-29 08:01] LABS: Alanine Aminotransferase 37 IU/L (<35); Albumin 4.3 g/dL (3.5-5.0); Albumin Globulin Ratio 1.7 (1.0-2.8); Alkaline Phosphatase 88 U/L (38-126); Aspartate Aminotransferase 71 IU/L (14-36); BUN Creatinine Ratio 22.2 (6-22); Bilirubin Total 0.5 mg/dL (0.2-1.3); Blood Urea Nitrogen 24 mg/dL (7-17); Calcium 8.7 mg/dL (8.4-10.2); Carbon Dioxide 28 mmol/L (22-32); Chloride 101 mmol/L (98-107); Estimated Glomerular Filt Rate 53 mL/min (>60); Globulin 2.5 g/dL (1.7-4.1); Glucose 97 mg/dL (80-110); HEMOLYSIS < 15 (0-50); Potassium 3.6 mmol/L (3.4-5.1); Sodium 136 mmol/L (137-145); Total Protein 6.8 g/dL (6.3-8.2)
[2021-11-29] MEDS: PANTOPRAZOLE 40 MG VIAL IV ×2 (09:24→21:18)
--- NOTE | 2021-11-29 11:01 | P.HP_ITS ---
History of Present Illness History of Present Illness Date Patient Seen: 11/29/21 Time Patient Seen: 09:00 Chief complaint: GI issues, weakness Narrative: Ms. Costa endorses a 4 week history of feeling sick. She lives alone and has a history of gastric bypass, but right now, she can't remember when that was. She recalls her surgeon was Dr. Barker and it was done at a [facility] in [place]. She says, I am just not ready for this conversation, explaining that she has been tired and confused since coming to the hospital yesterday. She hasn't slept much and generally doesn't sleep well. With further questioning, it seems that by sick she means nauseated and weak and tired. She needed to use her walker more often than usual. At first she said she has not been having stomach pains but then later she did endorse a crampy type of abdominal pain, and indicated her low mid abdomen/suprapubic area for the location. She says that these symptoms have been going on for 4 weeks and seem to be getting progressively and steadily worse day by day. She thought she might have some type of infection. She has had no sick contacts. She cannot identify any alleviating or aggravating factors. Her appetite has been low. She denies diarrhea or constipation. She says that she has been having smallskinny bowl movements less frequently than normal, and she attributes this to not eating much food. She also hasn't been urinating as much as usual, but denies dysurea. She denies emesis. She has never had symptoms like this before in the past. I asked about feeing bloated or distended and she denied it, but then as I was leaving she said she did feel nauseated and bloated currently. She did remember having a colonoscopy in the past but was unsure of the details. I see a c scope report in the medical record from 01/[address] Yamil Fraser. He visualized a small vascular cecal ectasia and biopsied 4 polyps and saw grade 1 internal hemorrhoids. He recommended 3-5 year follow up depending on pathology, but I am not seeing a pathology report in [facility] today. She says she has not been drinking, understands the harm of alcohol and doesn't want to end up like her mother. Her etOH level was negative. Patient History Medical History Alcohol dependence Cervical vertebral fusion Hypothyroidism Insomnia Surgical History Gastric bypass status for obesity S/P cervical spinal fusion Family & Social History Family History Father MVA (motor vehicle accident) Mother Lung cancer Social History: household members none Prior Living Arrangements House Safety & Behavioral: Feels Safe in Current Yes Environment Been Physically Hurt or No Threatened By a Person Tobacco & Substance use: Smoking Status Former smoker alcohol intake current alcohol intake frequency 3 or more drinks per day Substance Use Type does not use Meds Home Medications and Allergies Home Medications Medication Instructions Recorded Confirmed Type betamethasone valerate 0.1 % 1 applic topical DIRECTED 07/06/17 11/29/21 History topical cream dexamethasone sodium phosphate 0.1 1 drp ophthalmic (eye) BID PRN 07/06/17 11/29/21 History % eye drops Allergy Symptoms fluticasone propionate 50 1 spray intranasal BID 07/06/17 11/29/21 History mcg/actuation nasal spray,suspension levothyroxine 125 mcg tablet 150 mcg PO DAILY 07/06/17 11/29/21 History metronidazole 1 % topical gel 1 applic topical BID PRN antibiotic 07/06/17 11/29/21 History (Metrogel) zolpidem 5 mg tablet 5 mg PO QHS PRN Sleep 07/06/17 11/29/21 History Calcium Citrate + D 2 tab PO TID 12/04/17 11/29/21 History Celebrate Multi-Complex 45 2 cap PO DAILY 12/04/17 11/29/21 History cetirizine 10 mg tablet 10 mg PO DAILY PRN Allergy Symptoms 12/04/17 11/29/21 History hydrocortisone 2 %-iodoquinol 1 1 applic topical BID PRN unknown 12/04/17 11/29/21 History %-aloe polysacch no.2 1 % topical gel fexofenadine 180 mg tablet 180 mg PO DAILY 10/23/19 11/29/21 History (Madelyn Allergy) diazepam 5 mg tablet 5 mg PO BID PRN Muscle Spasm 11/29/21 11/29/21 History Allergies Allergy/AdvReac Type Severity Reaction Status Date / Time erythromycin base Allergy Intermediate HIVES Verified 07/17/21 09:59 adhesive Allergy Mild ALLERGIC Verified 07/17/21 09:59 TO TAPE epinephrine Allergy Mild TACHYCARDIA Verified 07/17/21 09:59 gentamicin [Gentamicin] Allergy Mild RASH Verified 07/17/21 09:59 NSAIDS (Non-Steroidal Allergy Mild GASTRITIS Verified 07/17/21 09:59 Anti-Inflamma Serotonin 5HT-3 Antagonists Allergy Mild GASTRITIS Verified 07/17/21 09:59 trazodone Allergy Mild LOSS OF Verified 07/17/21 09:59 BALANCE alprazolam Allergy Unknown LOSS OF Verified 07/17/21 09:59 ABILITY TO FOCUS amitriptyline Allergy Unknown IBS Verified 07/17/21 09:59 SYMPTOMS buspirone Allergy Unknown Verified 07/17/21 09:59 codeine Allergy Unknown IBS Verified 07/17/21 09:59 SYMPTOMS gabapentin Allergy Unknown SEVERE Verified 07/17/21 09:59 GASTRITIS Review of Systems Review of Systems Narrative: Endorses headaches and back pain specifically sacroiliac. but otherwise denies any other symptoms head to toe. Exam Vital Signs (past 8 hours): - 11/29/21 06:00 11/29/21 03:53 11/29/21 08:11 Temperature 97.1 F L 96.1 F L Pulse Rate 77 76 Respiratory Rate 14 16 Blood Pressure 149/91 H 119/62 Pulse Oximetry 97 97 92 Oxygen Delivery Method Room Air Oxygen Flow Rate 0 0 Oxygen Delivery Method Room Air Oxygen Flow Rate 0 Narrative Exam Narrative: Gen: she is groggy and confused. She is a bit difficult historian. But she is in no acute distress and was sleeping deeply when I came in. HEENT: oral mucous membranes are dry Resp: breathing is non labored on room air. Abdomen: obese. there are small laparoscopic incisions. no hernias appreciated. She might be slightly distended but difficult to tell due to habitus. She is mildly tender in the suprapubic area. Digital rectal exam: small non bleeding external hemorrhoids seen. No gross blood. No masses or stricture in the rectal vault. Stool on finger has a normal appearance but is strongly heme positive. Objective Labs Result Diagrams: 11/29/21 07:07 11/29/21 07:07 Labs: Laboratory Results - last 24 hr 11/28/21 11/28/21 11/28/21 18:20 18:21 18:21 WBC 4.9 RBC 2.56 L Hgb 8.9 L Hct 25.6 L MCV 100.1 H MCH 34.8 H MCHC 34.8 RDW 15.9 H Plt Count 189 Neut % (Auto) 63.3 Lymph % (Auto) 29.7 Gregory % (Auto) 6.1 Eos % (Auto) 0.5 L Baso % (Auto) 0.4 Neut # (Auto) 3100 Lymph # (Auto) 1400 Gregory # (Auto) 300 Eos # (Auto) 0 Baso # (Auto) 0 PT 12.0 INR 1.0 APTT 27 Sodium Potassium Chloride Carbon Dioxide BUN Creatinine Estimated GFR BUN/Creatinine Ratio Glucose Calcium Magnesium Total Bilirubin AST ALT Alkaline Phosphatase NT-Pro-B Natriuret Pep Total Protein Albumin Globulin Albumin/Globulin Ratio Lipase TSH Urine Color Urine Appearance Urine pH Ur Specific [place] Urine Protein Urine Glucose (UA) Urine Ketones Urine Occult Blood Urine Nitrate Urine Bilirubin Urine Urobilinogen Ur Leukocyte Esterase Urine RBC Urine WBC Urine Bacteria Ur Culture Indicated? Ethyl Alcohol < 10 SARS-CoV-2 (PCR) Blood Type Antibody Screen 11/28/21 11/28/21 11/28/21 18:21 18:21 18:21 WBC RBC Hgb Hct MCV MCH MCHC RDW Plt Count Neut % (Auto) Lymph % (Auto) Gregory % (Auto) Eos % (Auto) Baso % (Auto) Neut # (Auto) Lymph # (Auto) Gregory # (Auto) Eos # (Auto) Baso # (Auto) PT INR APTT Sodium 136 L Potassium 3.9 Chloride 98 Carbon Dioxide 25 BUN 32 H Creatinine 1.13 H Estimated GFR 50 L BUN/Creatinine Ratio 28.3 H Glucose 109 Calcium 9.0 Magnesium 2.5 H Total Bilirubin 0.8 AST 82 H ALT 38 H Alkaline Phosphatase 91 NT-Pro-B Natriuret Pep 55 Total Protein 7.2 Albumin 4.6 Globulin 2.6 Albumin/Globulin Ratio 1.8 Lipase 268 TSH Urine Color Urine Appearance Urine pH Ur Specific [place] Urine Protein Urine Glucose (UA) Urine Ketones Urine Occult Blood Urine Nitrate Urine Bilirubin Urine Urobilinogen Ur Leukocyte Esterase Urine RBC Urine WBC Urine Bacteria Ur Culture Indicated? Ethyl Alcohol SARS-CoV-2 (PCR) Blood Type Antibody Screen 09/25/22 09/25/22 09/25/22 20:52 21:59 22:10 WBC RBC Hgb Hct MCV MCH MCHC RDW Plt Count Neut % (Auto) Lymph % (Auto) Gregory % (Auto) Eos % (Auto) Baso % (Auto) Neut # (Auto) Lymph # (Auto) Gregory # (Auto) Eos # (Auto) Baso # (Auto) PT INR APTT Sodium Potassium Chloride Carbon Dioxide BUN Creatinine Estimated GFR BUN/Creatinine Ratio Glucose Calcium Magnesium Total Bilirubin AST ALT Alkaline Phosphatase NT-Pro-B Natriuret Pep Total Protein Albumin Globulin Albumin/Globulin Ratio Lipase TSH Urine Color Yellow Urine Appearance Clear Urine pH 5.0 Ur Specific [place] 1.015 Urine Protein Trace H Urine Glucose (UA) Negative Urine Ketones Trace H Urine Occult Blood Negative Urine Nitrate Positive H Urine Bilirubin Negative Urine Urobilinogen 0.2 Ur Leukocyte Esterase Trace H Urine RBC None seen Urine WBC 10-30/hpf H Urine Bacteria Many (>30) H Ur Culture Indicated? Specimen cultured Ethyl Alcohol SARS-CoV-2 (PCR) Negative Blood Type O Positive Antibody Screen Negative 11/29/21 11/29/21 11/29/21 05:00 07:07 07:07 WBC 4.4 L RBC 2.46 L Hgb 8.6 L Hct 24.8 L MCV 100.8 H MCH 35.1 H MCHC 34.8 RDW 15.9 H Plt Count 183 Neut % (Auto) 60.9 Lymph % (Auto) 31.1 Gregory % (Auto) 6.7 Eos % (Auto) 0.8 L Baso % (Auto) 0.5 Neut # (Auto) 2700 Lymph # (Auto) 1400 Gregory # (Auto) 300 Eos # (Auto) 0 Baso # (Auto) 0 PT 12.0 INR 1.0 APTT 28 Sodium 136 L Potassium 3.6 Chloride 101 Carbon Dioxide 28 BUN 24 H Creatinine 1.08 H Estimated GFR 53 L BUN/Creatinine Ratio 22.2 H Glucose 97 Calcium 8.7 Magnesium Total Bilirubin 0.5 AST 71 H ALT 37 H Alkaline Phosphatase 88 NT-Pro-B Natriuret Pep Total Protein 6.8 Albumin 4.3 Globulin 2.5 Albumin/Globulin Ratio 1.7 Lipase TSH Urine Color Urine Appearance Urine pH Ur Specific [place] Urine Protein Urine Glucose (UA) Urine Ketones Urine Occult Blood Urine Nitrate Urine Bilirubin Urine Urobilinogen Ur Leukocyte Esterase Urine RBC Urine WBC Urine Bacteria Ur Culture Indicated? Ethyl Alcohol SARS-CoV-2 (PCR) Blood Type Antibody Screen 11/29/21 07:07 WBC RBC Hgb Hct MCV MCH MCHC RDW Plt Count Neut % (Auto) Lymph % (Auto) Gregory % (Auto) Eos % (Auto) Baso % (Auto) Neut # (Auto) Lymph # (Auto) Gregory # (Auto) Eos # (Auto) Baso # (Auto) PT INR APTT Sodium Potassium Chloride Carbon Dioxide BUN Creatinine Estimated GFR BUN/Creatinine Ratio Glucose Calcium Magnesium Total Bilirubin AST ALT Alkaline Phosphatase NT-Pro-B Natriuret Pep Total Protein Albumin Globulin Albumin/Globulin Ratio Lipase TSH 90.20 H Urine Color Urine Appearance Urine pH Ur Specific [place] Urine Protein Urine Glucose (UA) Urine Ketones Urine Occult Blood Urine Nitrate Urine Bilirubin Urine Urobilinogen Ur Leukocyte Esterase Urine RBC Urine WBC Urine Bacteria Ur Culture Indicated? Ethyl Alcohol SARS-CoV-2 (PCR) Blood Type Antibody Screen Assessment & Plan Assessment and plan (1) GI bleed: Status: Acute (2) Acute UTI: Status: Acute (3) DOTTIE (acute kidney injury): Status: Acute Plan Her hemaglobin was 14.1 in March and is 8.9 on admission and 8.6 this AM, so we see a significant drop in the last several months, but stable since hospitalization. I do think this warrants further investigation with and EGD (t jim this is problematic in patients with gastric bypass since you cannot evaluate the excluded portions of stomach and duodenum) and C-scope. However, I am not convinced that she has symptomatic anemia and I can't say at this time how chronic vs acute this bleed is. I do know that she is dehydrated with DOTTIE and right now needs IVF resuscitation. I think that a UTI alone can explain her presenting symptoms, and agree with continuing IV abtx for treatment. She denies emesis, dark or bloody stools. Assessment & Plan narrative: Discussed with the hospitalist. At this time I think she needs further resuscitation we will trend her hemoglobins. She is hemodynamically stable. I would guess this is likely a slow bleed rather than an active acute bleed, but time will tell. I think that her presenting symptoms are caused are more likely related to her UTI than a GI bleed, however we will continue to monitor. And I do think that she should have an EGD and colonoscopy once she is resuscitated and can tolerate a prep. Excluded portion of stomach/duodenum cannot be evaluated with standard EGD. If she is doing really well and her hemoglobin is stable we may be able to arrange this as an outpatient versus as an inpatient procedure. But we will follow and make that determination based on how she does. Please call me at [phone] with any questions or concerns. Time Spent With Patient Time with patient: 30 to 49 minutes with 50% spent counseling/coordinating care Critical Care time: I spent a total of [] minutes of critical care time on this patient's care today; this time is exclusive of procedural time. Quality VTE Deep Vein Thrombosis/Pulmonary Embolism Present on Admission: No
[2021-11-29 11:13] LABS: Free T4, Direct Thyroxine 0.17 ng/dL (0.78-2.19)
--- NOTE | 2021-11-29 11:51 | DIET.CONS ---
Dietary Consultation Note Admission Date: 11/28/2021 23:44 Assessment: 75y F admitted for GI issues and weakness referred to nutrition for BMI 35.1, etoh abuse, decreased appetite and malaise. RD met c pt at bedside, pt with some confusion regarding chronological thinking, but able to give adequate detail of past for nutrition consultation (pt with UTI). Pt had gastric bypass surgery in [address] [facility] in [place]. Pt states she enjoyed her physician there and went back for annual check ups until he left the practice. Pt has not f/u since. Pt had lowest weight of 69.4kg after her surgery, she was following [facility] for eating and vitamin/mineral supplementation and exercising regularly. At some point pt started drinking wine daily and fell off her healthy habits. Despite this, pt has continued to take her MVI and calcium supps up until only 1w ago which is important as pt is high risk for thiamine deficiency which can manifest as N/V. Pt has gained significant weight in the past 3y (20kg) and would like to turn this around so she can gain strength. Usual Day: B: [employer]- 2 servings eggs c sausage shay and two hashed browns, 16oz coffee c half and half D: [employer] japanese food (noodles or rice with deep fried chicken and sweet sauce) or chicken fried rice take out or chicken noodle soup Elaine: 2+ glasses wine daily Pt with positive hemoccult sample awaiting scope by surgery to identify source of bleeding. Ht: 168.91 cm Wt: 100 kg (+20kg in 3y) BMI: 35.0 UBW: 69.4kg in 2018 Last BM: 11/28/21 (11/29/21 00:00) MNA: 11 Angel Score: 20 Diet: 11/29/21 Lunch Clear Liquid Diet Diet Modifications: Labs: RBC 2.46 X10^6/uL (4.0-5.2) L 11/29/21 07:07 Hgb 8.6 g/dL (12.0-16.0) L 11/29/21 07:07 Hct 24.8 % (36-46) L 11/29/21 07:07 Creatinine 1.08 mg/dL (0.52-1.04) H 11/29/21 07:07 NT-Pro-B Natriuret Pep 55 pg/mL (<450) 11/28/21 18:21 Nutrition Diagnosis: morbid obesity r/t undesirable food choices to support post-bariatric GI fxn aeb pt 5y s/p gastric bypass, pt +20kg in 3y, pt food recall shows reliance on take out processed foods high in refined carbohydrates and low in quality protein sources. Interventions: 1. Encouraged pt to reeestablish with bariatric center for ongoing support. 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 2. Educated pt on possible transfer of discretionary eating habits to etoh use. Encouraged pt to seek etoh resources if she is unable to quit drinking. 3. Reinforced pts continued use of nutrition supps (MVI, calcium) despite slips in other areas of self-management. Electronically Signed by: Anna Leblanc 11/29/21 11:51 Clinical Diet[address] [address]
--- NOTE | 2021-11-29 13:04 | CM.DANOTE ---
Patient is a 75 yo female who was admitted on 11/28/21 for GI Issues. Pt has MCR and [employer] for insurance and her PCP was Roberta Olea. EMR was reviewed. Per MD, pt with hx of ETOH and opioid dependence in remission and a poor historian and admitted for GI Bleed, DOTTIE, and UTI. Pt currently OBS Status. Per Surgeon Consult, currently recommend conservative tx and likely does not appear to be an active bleed but will reassess tomorrow to determine if scope needs to be Inpt vs outpt procedure. SW met bedside with pt and explained role and pt confirms that she lives alone in [place] near the hospital and is independent with ADL's at baseline and drives and does her own grocery shopping. Pt has no local family but has supportive neighbors/friends. Pt's son Kahlil is her DPOA and he lives in [place] near [place]. Pt denies any ETOH treatment or need for treatment as she only drinks a glass or two of wine a night at the most and has not had any alcohol for a couple weeks now and no hx of withdrawal. Pt was last admitted in Oct 2019 and went to [facility] rehab under her Medicare before safe return home. Currently no PT/OT orders and unclear if needed prior to discharge. Plan: SW to follow closely for likely d/c to home pending progress and possible need for PT eval to help r/o HH vs SNF. DREA Lpoez Discharge Planning/Care Management Advanced directive, confirm from FAMILY Start: 11/29/21 00:56 Freq: Q24H Status: Active Protocol: Document 11/29/21 00:56 MW (Rec: 11/29/21 01:05 MW [id number]) Advance Directive, confirm on record Time 00:50 Person contacted pt Copy received No CM Discharge Assessment Start: 11/29/21 13:02 Freq: Status: Active Protocol: Document 11/29/21 13:02 BF (Rec: 11/29/21 13:03 BF [id number]) Discharge Planning Assessment Assigned [employer] DREA Naik DPOA/Assigned Designee Name son Kahlil Kline Contact Information [phone] Advance Directives? Yes Advance Directives on File No History Provided By Patient,Medical Record Has Patient been admitted in last 30 No days? Prior Living Arrangements House Household Members none Type of transporation used prior to Drives own vehicle admit Independent with ADL's Yes Is patient alert and oriented? Yes Caregiver for Another No DME Already Rented / Owned FWW / Walker Patient/Family Preference Home with Home Health Barriers to Discharge Yes Comment OBS Status Discharge Plan Home with Home Health Community Services Physical Therapy,Occupational Therapy,Home Health Nurse Transportation Arrangement local neighbor/friend support for transport Referrals Initiated Home Health Additional Comment Pending PT/OT eval and recommendations Whiteboard Updated in Patient Room with Yes name and ext. # of [employer] Review Status In Process Please Provide Date Initial DC 11/29/21 Assessment Was Performed Next Review Type Continued Stay Review
[2021-11-29 18:13] LABS: Hematocrit 24.2 % (36-46); Hemoglobin 8.3 g/dL (12.0-16.0)
--- NOTE | 2021-11-29 18:59 | PM.PN.1 ---
Subjective Subjective Date Patient Seen: 11/29/21 Interval history: She remains weak. No obvious melena or hematochezia today. General surgery would like to perform EGD and colonoscopy when able to be prepped, slight concern given her DOTTIE at this time about ability to tolerate a prep. Will continue IV fluids today, h/h continues to trend down slightly today. Exam Vital Signs (past 8 hours): - 11/29/21 12:00 11/29/21 13:00 11/29/21 15:42 Temperature 96.5 F L 96.4 F L Pulse Rate 80 78 Respiratory Rate 20 18 Blood Pressure 132/67 121/71 Pulse Oximetry 93 93 93 Oxygen Delivery Method Room Air Oxygen Flow Rate 0 0 0 11/29/21 17:00 Temperature Pulse Rate Respiratory Rate Blood Pressure Pulse Oximetry 93 Oxygen Delivery Method Room Air Oxygen Flow Rate 0 Oxygen Delivery Method Room Air Oxygen Flow Rate 0 Narrative Exam Narrative: GENERAL: Alert and oriented x three, female with BMI of 35 in mild distress. HEENT: Head normocephalic, atraumatic, EOMI, pupils reactive, face symmetric, moist mucous membranes NECK: Supple, full range of motion CARDIOVASCULAR: Regular rate and rhythm without murmurs, rubs or gallops. RESPIRATORY: Breath sounds equal bilaterally, no wheezes rales or rhonchi. ABDOMEN: Soft, NT, ND EXTREMITIES: Normal range of motion, no clubbing or edema.? Neurovascularly intact NEUROLOGICAL: Cranial nerves II through XII grossly intact.? Moving all extremities SKIN: Warm, dry, no petechiae, no rashes or lesions. Objective Labs Result Diagrams: 11/29/21 18:05 11/29/21 07:07 Labs: Laboratory Results - last 24 hr 11/28/21 11/28/21 11/28/21 18:20 18:21 18:21 WBC 4.9 RBC 2.56 L Hgb 8.9 L Hct 25.6 L MCV 100.1 H MCH 34.8 H MCHC 34.8 RDW 15.9 H Plt Count 189 Neut % (Auto) 63.3 Lymph % (Auto) 29.7 [place] % (Auto) 6.1 Eos % (Auto) 0.5 L Baso % (Auto) 0.4 Neut # (Auto) 3100 Lymph # (Auto) 1400 [place] # (Auto) 300 Eos # (Auto) 0 Baso # (Auto) 0 PT 12.0 INR 1.0 APTT 27 Sodium Potassium Chloride Carbon Dioxide BUN Creatinine Estimated GFR BUN/Creatinine Ratio Glucose Calcium Magnesium Total Bilirubin AST ALT Alkaline Phosphatase NT-Pro-B Natriuret Pep Total Protein Albumin Globulin Albumin/Globulin Ratio Lipase TSH Free T4 Urine Color Urine Appearance Urine pH Ur Specific [place] Urine Protein Urine Glucose (UA) Urine Ketones Urine Occult Blood Urine Nitrate Urine Bilirubin Urine Urobilinogen Ur Leukocyte Esterase Urine RBC Urine WBC Urine Bacteria Ur Culture Indicated? Ethyl Alcohol < 10 SARS-CoV-2 (PCR) Blood Type Antibody Screen 11/28/21 11/28/21 11/28/21 18:21 18:21 18:21 WBC RBC Hgb Hct MCV MCH MCHC RDW Plt Count Neut % (Auto) Lymph % (Auto) [place] % (Auto) Eos % (Auto) Baso % (Auto) Neut # (Auto) Lymph # (Auto) [place] # (Auto) Eos # (Auto) Baso # (Auto) PT INR APTT Sodium 136 L Potassium 3.9 Chloride 98 Carbon Dioxide 25 BUN 32 H Creatinine 1.13 H Estimated GFR 50 L BUN/Creatinine Ratio 28.3 H Glucose 109 Calcium 9.0 Magnesium 2.5 H Total Bilirubin 0.8 AST 82 H ALT 38 H Alkaline Phosphatase 91 NT-Pro-B Natriuret Pep 55 Total Protein 7.2 Albumin 4.6 Globulin 2.6 Albumin/Globulin Ratio 1.8 Lipase 268 TSH Free T4 Urine Color Urine Appearance Urine pH Ur Specific [place] Urine Protein Urine Glucose (UA) Urine Ketones Urine Occult Blood Urine Nitrate Urine Bilirubin Urine Urobilinogen Ur Leukocyte Esterase Urine RBC Urine WBC Urine Bacteria Ur Culture Indicated? Ethyl Alcohol SARS-CoV-2 (PCR) Blood Type Antibody Screen 11/28/21 11/28/21 11/28/21 20:52 21:59 22:10 WBC RBC Hgb Hct MCV MCH MCHC RDW Plt Count Neut % (Auto) Lymph % (Auto) [place] % (Auto) Eos % (Auto) Baso % (Auto) Neut # (Auto) Lymph # (Auto) [place] # (Auto) Eos # (Auto) Baso # (Auto) PT INR APTT Sodium Potassium Chloride Carbon Dioxide BUN Creatinine Estimated GFR BUN/Creatinine Ratio Glucose Calcium Magnesium Total Bilirubin AST ALT Alkaline Phosphatase NT-Pro-B Natriuret Pep Total Protein Albumin Globulin Albumin/Globulin Ratio Lipase TSH Free T4 Urine Color Yellow Urine Appearance Clear Urine pH 5.0 Ur Specific [place] 1.015 Urine Protein Trace H Urine Glucose (UA) Negative Urine Ketones Trace H Urine Occult Blood Negative Urine Nitrate Positive H Urine Bilirubin Negative Urine Urobilinogen 0.2 Ur Leukocyte Esterase Trace H Urine RBC None seen Urine WBC 10-30/hpf H Urine Bacteria Many (>30) H Ur Culture Indicated? Specimen cultured Ethyl Alcohol SARS-CoV-2 (PCR) Negative Blood Type O Positive Antibody Screen Negative 11/29/21 11/29/21 11/29/21 05:00 07:07 07:07 WBC 4.4 L RBC 2.46 L Hgb 8.6 L Hct 24.8 L MCV 100.8 H MCH 35.1 H MCHC 34.8 RDW 15.9 H Plt Count 183 Neut % (Auto) 60.9 Lymph % (Auto) 31.1 [place] % (Auto) 6.7 Eos % (Auto) 0.8 L Baso % (Auto) 0.5 Neut # (Auto) 2700 Lymph # (Auto) 1400 [place] # (Auto) 300 Eos # (Auto) 0 Baso # (Auto) 0 PT 12.0 INR 1.0 APTT 28 Sodium 136 L Potassium 3.6 Chloride 101 Carbon Dioxide 28 BUN 24 H Creatinine 1.08 H Estimated GFR 53 L BUN/Creatinine Ratio 22.2 H Glucose 97 Calcium 8.7 Magnesium Total Bilirubin 0.5 AST 71 H ALT 37 H Alkaline Phosphatase 88 NT-Pro-B Natriuret Pep Total Protein 6.8 Albumin 4.3 Globulin 2.5 Albumin/Globulin Ratio 1.7 Lipase TSH Free T4 Urine Color Urine Appearance Urine pH Ur Specific [place] Urine Protein Urine Glucose (UA) Urine Ketones Urine Occult Blood Urine Nitrate Urine Bilirubin Urine Urobilinogen Ur Leukocyte Esterase Urine RBC Urine WBC Urine Bacteria Ur Culture Indicated? Ethyl Alcohol SARS-CoV-2 (PCR) Blood Type Antibody Screen 11/29/21 11/29/21 07:07 18:05 WBC RBC Hgb 8.3 L Hct 24.2 L MCV MCH MCHC RDW Plt Count Neut % (Auto) Lymph % (Auto) [place] % (Auto) Eos % (Auto) Baso % (Auto) Neut # (Auto) Lymph # (Auto) [place] # (Auto) Eos # (Auto) Baso # (Auto) PT INR APTT Sodium Potassium Chloride Carbon Dioxide BUN Creatinine Estimated GFR BUN/Creatinine Ratio Glucose Calcium Magnesium Total Bilirubin AST ALT Alkaline Phosphatase NT-Pro-B Natriuret Pep Total Protein Albumin Globulin Albumin/Globulin Ratio Lipase TSH 90.20 H Free T4 0.17 L Urine Color Urine Appearance Urine pH Ur Specific [place] Urine Protein Urine Glucose (UA) Urine Ketones Urine Occult Blood Urine Nitrate Urine Bilirubin Urine Urobilinogen Ur Leukocyte Esterase Urine RBC Urine WBC Urine Bacteria Ur Culture Indicated? Ethyl Alcohol SARS-CoV-2 (PCR) Blood Type Antibody Screen PFSH Medical History Alcohol dependence Cervical vertebral fusion Hypothyroidism Insomnia Surgical History Gastric bypass status for obesity S/P cervical spinal fusion Family History Father MVA (motor vehicle accident) Mother Lung cancer Social History household members: none Smoking Status: Former smoker alcohol intake: current Assessment & Plan Assessment & Plan narrative: Mckay Costa is a 75-year-old female with a past medical history significant for hypothyroidism, seasonal allergies, alcohol dependence, previous opiate dependence in remission, insomnia on Ambien and Benadryl who presented to the ED with complaint of abdominal discomfort and nausea for the past 4 weeks, admitted for symptomatic blood loss anemia secondary to GI bleed, DOTTIE secondary to UTI. 1. Blood anemia secondary to GI bleed, acute, present on admission -general surgery consulted for GI bleed, would like EGD and colonoscopy when able to tolerate prep. possibly may be able to prep tomorrow. Also possible outpatient if h/h stable, but continues to drop slightly today. 2. DOTTIE, likely pre renal, secondary to UTI, acute, present on admission -BUN 32, creatinine 1.13, GFR 50, AST 82, ALT 38, -urine is positive for nitrates and cultures pending, positive -to g Rocephin initiated in ED, continue 1 g Q 24 hours -NS at 80 cc/HR -monitor chemistry panel 3. Alcohol dependence, chronic, present on admission.? -ETOH negative -Patient reported a Hx of consumes 2-3 glasses of wine most nights and reports she will finish a bottle of wine in approximately 2 days.? reported she has not had anything to drink in several weeks -denies history of alcohol withdrawal, alcohol seizures or DTs.? -patient admitted alcohol withdrawal and CIWA protocol. 4. Hypothyroidism, acquired, chronic, present on admission.? -TSH ordered - Continue levothyroxine 150 mcg daily 5.. Insomnia, chronic, present on admission.? Stable. -Continued Ambien 5 mg daily at bedtime and Benadryl 25 mg daily at bedtime as needed for insomnia after procedure.? 6. Chronic neck pain with benzodiazepine dependence and opiate dependence in remission, present on admission.? Stable. -Continue diazepam 5 mg after procedure Code status:? Full code Surrogate decision maker: Ger GRIGGS PCR:Negative DVT/VTE prophylaxis:Hold medication SCD's only Disposition: Patient admitted for observation for evaluation of symptomatic anemia due to the lower GI bleed and resolution DOTTIE through treatment of UTI expected length of stay less than 2 midnights. I have utilized all available immediate resources to obtain, update, or review the patient's current medications. I confirmed that the patient's advanced care plan is present, Code status is documented and/or surrogate decision maker is listed in the patient's medical record. Time Spent With Patient Critical Care time: I spent a total of [] minutes of critical care time on this patient's care today; this time is exclusive of procedural time. Quality VTE Deep Vein Thrombosis/Pulmonary Embolism Present on Admission: No
[2021-11-29] MEDS: cefTRIAXone 1,000 MG in SODIUM CHLORIDE 0.9% 100 ML 200 MG IV (21:18)
[2021-11-30] VITALS (9 sets, daily range): BP systolic 122–150; BP diastolic 62–86; PULSE 70–83; RESP 16–20; TEMP 35.9–36.8; O2SAT 94–98
[2021-11-30] MEDS: SODIUM CHLORIDE 0.9% 1,000 ML 80 ML IV ×2 (03:47→16:42)
[2021-11-30] MEDS: LEVOTHYROXINE 150 MCG TABLET PO (05:48)
[2021-11-30 07:40] LABS: Add Manual Diff / Slide Review NO; Basophils Absolute Auto 0 /uL (0-100); Basophils Percent Auto 0.7 % (0-2); Eosinophils Absolute Auto 100 /uL (0-450); Eosinophils Percent Auto 1.8 % (2-4); Hematocrit 23.1 % (36-46); Hemoglobin 7.9 g/dL (12.0-16.0); Lymphocytes Absolute Auto 1400 /uL (1100-4500); Lymphocytes Percent Auto 35.1 % (25-40); Mean Corpuscular HGB Conc 34.1 % (30-36); Mean Corpuscular Hemoglobin 34.7 PG (26-34); Mean Corpuscular Volume 101.8 fL (80-100); Monocytes Absolute Auto 300 /uL (0-900); Monocytes Percent Auto 8.2 % (3-14); Neutrophils Absolute Auto 2200 /uL (1500-7000); Neutrophils Percent Auto 54.2 % (50-75); Platelet Count 177 X10^3/uL (150-400); Red Blood Cell Count 2.27 X10^6/uL (4.0-5.2); Red Cell Distribution Width 16.6 % (11.6-14.8)
[2021-11-30 07:53] LABS: Alanine Aminotransferase 29 IU/L (<35); Albumin 3.5 g/dL (3.5-5.0); Albumin Globulin Ratio 1.4 (1.0-2.8); Alkaline Phosphatase 68 U/L (38-126); Aspartate Aminotransferase 52 IU/L (14-36); BUN Creatinine Ratio 13.9 (6-22); Bilirubin Total 0.2 mg/dL (0.2-1.3); Blood Urea Nitrogen 14 mg/dL (7-17); Calcium 7.7 mg/dL (8.4-10.2); Carbon Dioxide 24 mmol/L (22-32); Chloride 102 mmol/L (98-107); Estimated Glomerular Filt Rate 58 mL/min (>60); Globulin 2.5 g/dL (1.7-4.1); Glucose 90 mg/dL (80-110); HEMOLYSIS < 15 (0-50); Sodium 134 mmol/L (137-145)
[2021-11-30] MEDS: MULTIVITAMIN 1 TABLET 1 TAB PO (10:04)
[2021-11-30] MEDS: POTASSIUM CHLORIDE 20 MEQ TAB 40 MEQ PO (10:04)
[2021-11-30] MEDS: THIAMINE 100 MG TABLET PO (10:04)
[2021-11-30] MEDS: FOLIC ACID 1 MG TABLET PO (10:04)
[2021-11-30] MEDS: PANTOPRAZOLE 40 MG VIAL IV ×2 (10:05→21:33)
--- NOTE | 2021-11-30 16:06 | PM.PNPO.1 ---
Subjective Subjective Interval history: Mrs. Barahona is feeling better today overall her symptoms of nausea and weakness are improved her pain is also improved Exam Vital Signs (past 8 hours): - 11/30/21 09:00 11/30/21 09:59 11/30/21 13:00 Temperature 97.5 F L 97.1 F L Pulse Rate 73 72 Respiratory Rate 16 16 Blood Pressure 122/63 133/75 Pulse Oximetry 98 98 96 Oxygen Delivery Method Room Air Oxygen Flow Rate 0 0 0 Oxygen Delivery Method Room Air Oxygen Flow Rate 0 Narrative Exam Narrative: Patient is awake alert oriented in no acute distress She is laying in bed but seems more alert and with it than yesterday. Her abdomen is soft nontender and nondistended Objective Labs Result Diagrams: 11/30/21 06:45 11/30/21 06:45 Labs: Laboratory Results - last 24 hr 11/29/21 11/30/21 11/30/21 18:05 06:45 06:45 WBC 4.0 L RBC 2.27 L Hgb 8.3 L 7.9 L Hct 24.2 L 23.1 L MCV 101.8 H MCH 34.7 H MCHC 34.1 RDW 16.6 H Plt Count 177 Neut % (Auto) 54.2 Lymph % (Auto) 35.1 [place] % (Auto) 8.2 Eos % (Auto) 1.8 L Baso % (Auto) 0.7 Neut # (Auto) 2200 Lymph # (Auto) 1400 [place] # (Auto) 300 Eos # (Auto) 100 Baso # (Auto) 0 Sodium 134 L Potassium 3.0 L Chloride 102 Carbon Dioxide 24 BUN 14 Creatinine 1.01 Estimated GFR 58 L BUN/Creatinine Ratio 13.9 Glucose 90 Calcium 7.7 L Total Bilirubin 0.2 AST 52 H ALT 29 Alkaline Phosphatase 68 Total Protein 6.0 L Albumin 3.5 Globulin 2.5 Albumin/Globulin Ratio 1.4 PFSH Medical History Alcohol dependence Cervical vertebral fusion Hypothyroidism Insomnia Surgical History Gastric bypass status for obesity S/P cervical spinal fusion Family History Father MVA (motor vehicle accident) Mother Lung cancer Social History household members: none Smoking Status: Former smoker alcohol intake: current Assessment & Plan Post-op Postoperative Procedures: Procedures Operation Date: 12/02/21 14:15 <No data on this case meets the specified criteria> Postoperative plan narrative: Today I spent some time coordinating to arrange an EGD and colonoscopy to be scheduled in the operating room this week. I was able to find a spot in Dr. Fitzgerald schedule on afternoon. Please ensure the patient is prepped for colonoscopy on Monday. Please do not hesitate to contact [facility] with any further concerns or questions. Time Spent With Patient Time with patient: less than 15 minutes Quality VTE Deep Vein Thrombosis/Pulmonary Embolism Present on Admission: No
--- NOTE | 2021-11-30 17:36 | PM.CALLCOV.1 ---
Call Coverage Note Note Date of Patient Contact: 11/30/21 Narrative of Care Provided: Plan EGD and Colonoscopy tomorrow 12/01 Prep tonight NPO after midnight
[2021-11-30] MEDS: PEG3350/SOD SULF,BICARB,CL/KCL 4,000 ML SOLUTION 4000 ML PO (17:51)
--- NOTE | 2021-11-30 18:21 | P.PN_ITS ---
Subjective Subjective Date Patient Seen: 11/30/21 Interval history: She feels improved today, abdominal pain is improved but not resolved. h/h slight declined. Planned for EGD and c-scope tomorrow with prep today. Exam Vital Signs (past 8 hours): - 11/30/21 13:00 11/30/21 13:00 11/30/21 17:00 Temperature 97.1 F L 98.2 F Pulse Rate 72 83 Respiratory Rate 16 16 Blood Pressure 133/75 133/62 Pulse Oximetry 96 96 98 Oxygen Delivery Method Room Air Oxygen Flow Rate 0 0 0 11/30/21 17:00 Temperature Pulse Rate Respiratory Rate Blood Pressure Pulse Oximetry 98 Oxygen Delivery Method Room Air Oxygen Flow Rate 0 Oxygen Delivery Method Room Air Oxygen Flow Rate 0 Narrative Exam Narrative: GENERAL: Alert and oriented x three, female with BMI of 35, no acute distress. HEENT: Head normocephalic, atraumatic, EOMI, pupils reactive, face symmetric, moist mucous membranes NECK: Supple, full range of motion CARDIOVASCULAR: Regular rate and rhythm without murmurs, rubs or gallops. RESPIRATORY: Breath sounds equal bilaterally, no wheezes rales or rhonchi. ABDOMEN: Soft, NT, ND EXTREMITIES: Normal range of motion, no clubbing or edema.? Neurovascularly intact NEUROLOGICAL: Cranial nerves II through XII grossly intact.? Moving all extremities SKIN: Warm, dry, no petechiae, no rashes or lesions. Objective Labs Result Diagrams: 11/30/21 06:45 11/30/21 06:45 Labs: Laboratory Results - last 24 hr 11/30/21 11/30/21 06:45 06:45 WBC 4.0 L RBC 2.27 L Hgb 7.9 L Hct 23.1 L MCV 101.8 H MCH 34.7 H MCHC 34.1 RDW 16.6 H Plt Count 177 Neut % (Auto) 54.2 Lymph % (Auto) 35.1 [place] % (Auto) 8.2 Eos % (Auto) 1.8 L Baso % (Auto) 0.7 Neut # (Auto) 2200 Lymph # (Auto) 1400 [place] # (Auto) 300 Eos # (Auto) 100 Baso # (Auto) 0 Sodium 134 L Potassium 3.0 L Chloride 102 Carbon Dioxide 24 BUN 14 Creatinine 1.01 Estimated GFR 58 L BUN/Creatinine Ratio 13.9 Glucose 90 Calcium 7.7 L Total Bilirubin 0.2 AST 52 H ALT 29 Alkaline Phosphatase 68 Total Protein 6.0 L Albumin 3.5 Globulin 2.5 Albumin/Globulin Ratio 1.4 PFSH Medical History Alcohol dependence Cervical vertebral fusion Hypothyroidism Insomnia Surgical History Gastric bypass status for obesity S/P cervical spinal fusion Family History Father MVA (motor vehicle accident) Mother Lung cancer Social History household members: none Smoking Status: Former smoker alcohol intake: current Assessment & Plan Assessment & Plan narrative: Mckay Costa is a 75-year-old female with a past medical history significant for hypothyroidism, seasonal allergies, alcohol dependence, previous opiate dependence in remission, insomnia on Ambien and Benadryl who presented to the ED with complaint of abdominal discomfort and nausea for the past 4 weeks, admitted for symptomatic blood loss anemia secondary to GI bleed, DOTTIE secondary to UTI. 1. Blood anemia secondary to GI bleed, acute, present on admission -General surgery consulted, h/h continues to downtrend, plan for prep today with EGD/c-scope tomorrow. -transfuse if Hg <7. 2. DOTTIE, likely pre renal, secondary to UTI, acute, present on admission -BUN 32, creatinine 1.13, GFR 50, AST 82, ALT 38, -urine is positive for nitrates and cultures with GNB. -continue ceftriaxone x3 days. 3. Alcohol dependence, chronic, present on admission.? -ETOH negative -Patient reported a Hx of consumes 2-3 glasses of wine most nights and reports she will finish a bottle of wine in approximately 2 days.? reported she has not had anything to drink in several weeks -denies history of alcohol withdrawal, alcohol seizures or DTs.? -patient admitted alcohol withdrawal and CIWA protocol. 4. Hypothyroidism, acquired, chronic, present on admission.? -TSH ordered - Continue levothyroxine 150 mcg daily 5.. Insomnia, chronic, present on admission.? Stable. -Continued Ambien 5 mg daily at bedtime and Benadryl 25 mg daily at bedtime as needed for insomnia after procedure.? 6. Chronic neck pain with benzodiazepine dependence and opiate dependence in remission, present on admission.? Stable. -Continue diazepam 5 mg after procedure Code status:? Full code Surrogate decision maker: Ger GRIGGS PCR:Negative DVT/VTE prophylaxis:Hold medication SCD's only Disposition: Hopefully home tomorrow depending on endoscopy findings and h/h trend. I have utilized all available immediate resources to obtain, update, or review the patient's current medications. I confirmed that the patient's advanced care plan is present, Code status is documented and/or surrogate decision maker is listed in the patient's medical record. Time Spent With Patient Critical Care time: I spent a total of [] minutes of critical care time on this patient's care today; this time is exclusive of procedural time. Quality VTE Deep Vein Thrombosis/Pulmonary Embolism Present on Admission: No
[2021-11-30 19:21] LABS: Hematocrit 26.2 % (36-46); Hemoglobin 9.1 g/dL (12.0-16.0)
[2021-11-30] MEDS: cefTRIAXone 1,000 MG in SODIUM CHLORIDE 0.9% 100 ML 200 MG IV (21:32)
[2021-12-01] VITALS (16 sets, daily range): BP systolic 120–158; BP diastolic 62–91; PULSE 73–96; RESP 14–20; TEMP 35.6–37.4; O2SAT 93–98; BMI 35.0
[2021-12-01] MEDS: SODIUM CHLORIDE 0.9% 1,000 ML 80 ML IV ×2 (05:10→13:18)
[2021-12-01] MEDS: LEVOTHYROXINE 150 MCG TABLET PO (05:14)
[2021-12-01 06:25] LABS: Alanine Aminotransferase 29 IU/L (<35); Albumin 3.5 g/dL (3.5-5.0); Albumin Globulin Ratio 1.5 (1.0-2.8); Alkaline Phosphatase 76 U/L (38-126); Aspartate Aminotransferase 49 IU/L (14-36); BUN Creatinine Ratio 6.8 (6-22); Bilirubin Total 0.4 mg/dL (0.2-1.3); Blood Urea Nitrogen 6 mg/dL (7-17); Calcium 7.7 mg/dL (8.4-10.2); Carbon Dioxide 26 mmol/L (22-32); Chloride 105 mmol/L (98-107); Estimated Glomerular Filt Rate > 60 mL/min (>60); Globulin 2.3 g/dL (1.7-4.1); Glucose 90 mg/dL (80-110); HEMOLYSIS < 15 (0-50); Potassium 2.9 mmol/L (3.4-5.1); Sodium 139 mmol/L (137-145); Total Protein 5.8 g/dL (6.3-8.2)
--- NOTE | 2021-12-01 06:34 | PC.NURSE ---
End of shift note. Care of patient from . Patient AAOX4, denies pain. O2 Sats 97% on RA. Telemetry NSR 78. Finished drinking bowel prep during evening shit. Is incontinent of clear yellow stool and urine. Skin is intact. Plan is to have a colonoscopy today. Her BS this am was 87.
[2021-12-01 06:44] LABS: Hematocrit 24.6 % (36-46); Hemoglobin 8.4 g/dL (12.0-16.0); Mean Corpuscular HGB Conc 34.2 % (30-36); Mean Corpuscular Hemoglobin 34.9 PG (26-34); Mean Corpuscular Volume 102.2 fL (80-100); Platelet Count 216 X10^3/uL (150-400); Red Cell Distribution Width 16.4 % (11.6-14.8); White Blood Cell Count 3.7 X10^3/uL (4.5-11.0)
[2021-12-01 06:45] LABS: Add Manual Diff / Slide Review YES
[2021-12-01 07:04] LABS: Anisocytosis 1+; Neutrophils Absolute Manual 1776 /uL (3000-5900); Nucleated Red Blood Cells 1 #/Diff; Total Cells Counted 100
[2021-12-01] MEDS: PANTOPRAZOLE 40 MG VIAL IV ×2 (09:15→20:38)
--- NOTE | 2021-12-01 13:35 | PM.PREOP ---
Pre-operative Note Interval Note History & Physical reviewed/Exam performed by Physician: Yes Changes to H&P: No
--- NOTE | 2021-12-01 14:45 | PM.OP.EC ---
Operative Date/Time/Diagnoses Date of procedure: 12/01/21 Time of procedure: 14:45 Pre-op diagnosis: Anemia Post-op diagnosis: same (Anemia) Procedure & Clinicians Study performed: Esophagoduodenoscopy and colonoscopy Same procedure as scheduled: Yes Indications: Anemia, history Fang-en-Y gastric bypass Surgeon: Kin Fitzgerald Procedure Notes Procedure in detail: The history and physical was performed/updated and the patient is ASA class is 3. The procedure was discussed in detail with the patient. Potential risks complications including infection, bleeding, missed diagnosis, perforation, need for surgery, and were explained. Their questions were answered and informed consent was obtained. Patient placed in left lateral decubitus position. Time out was performed. Procedural sedation was administered by anesthesia.. A bite block was placed. the scope was inserted into the mouth and advanced through the esophagus and into the stomach. There was evidence of resolved recent gastritis, no ulcer or active hemorrhage. The gastro jejunal junction was intubated in the jejunum was transverse for several cm was normal in its appearance. She has a history of Fang-en-Y gastric bypass. Examination began with a thorough inspection of the perianal area there was no evidence of fissures, fistulae, external hemorrhoids or cutaneous malignancy. The colonoscopy scope was then placed into the anal canal and was advanced to the cecum, which was identified by the ileocecal valve, the appendiceal orifice and the confluence of the taenia. The scope was then slowly withdrawn examining colon thoroughly in all directions, irrigating it of any residual stool. Within the colon there were clots of blood but no active hemorrhage FINDINGS 1. Findings of previous gastrointestinal hemorrhage 2. Resolved gastritis The patient tolerated the procedure well. They will be discharged once criteria are met. The prep was of fair quality. The withdrawl time was 7 minutes. Specimen(s): none sent Complications: none Impression: Resolved gastrointestinal hemorrhage Post-procedure Plan for aftercare: Continue PPI Disposition: Acute Care
[2021-12-01] MEDS: POTASSIUM CHLORIDE IN WATER 10 MEQ/100 ML PIGGYBACK 100 MEQ IV ×5 (16:38→20:51)
--- NOTE | 2021-12-01 17:29 | PM.PN.1 ---
Subjective Subjective Date Patient Seen: 12/01/21 Interval history: Still feels quite weak today, but generally improved. EGD/c-scope today with evidence of gastric bleeding and gastritis. Recommended to continue PPI. Denies chest pain, shortness of breath but has not gotten up since admission. Exam Vital Signs (past 8 hours): - 12/01/21 11:00 12/01/21 11:29 12/01/21 13:04 Temperature 96.3 F L 99.4 F Pulse Rate 79 78 Respiratory Rate 18 18 Blood Pressure 152/71 H 158/86 H Pulse Oximetry 94 96 98 Oxygen Delivery Method Room Air Oxygen Flow Rate 0 12/01/21 14:34 12/01/21 14:46 12/01/21 14:44 Temperature 98.6 F Pulse Rate 78 79 96 H Respiratory Rate 19 17 16 Blood Pressure 120/62 120/66 127/69 Pulse Oximetry 93 96 98 Oxygen Delivery Method Room Air Room Air Room Air Oxygen Flow Rate 12/01/21 14:49 12/01/21 15:27 12/01/21 15:00 Temperature 96.6 F L Pulse Rate 73 77 Respiratory Rate 14 17 Blood Pressure 143/78 H 157/72 H Pulse Oximetry 93 96 96 Oxygen Delivery Method Room Air Room Air Oxygen Flow Rate 0 Oxygen Delivery Method Room Air Oxygen Flow Rate 0 Narrative Exam Narrative: GENERAL: Alert and oriented x three, female with BMI of 35, no acute distress. HEENT: Head normocephalic, atraumatic, EOMI, pupils reactive, face symmetric, moist mucous membranes NECK: Supple, full range of motion CARDIOVASCULAR: Regular rate and rhythm without murmurs, rubs or gallops. RESPIRATORY: Breath sounds equal bilaterally, no wheezes rales or rhonchi. ABDOMEN: Soft, NT, ND EXTREMITIES: Normal range of motion, no clubbing or edema.? Neurovascularly intact NEUROLOGICAL: Cranial nerves II through XII grossly intact.? Moving all extremities SKIN: Warm, dry, no petechiae, no rashes or lesions. Objective Labs Result Diagrams: 12/01/21 05:24 12/01/21 05:24 Labs: Laboratory Results - last 24 hr 11/30/21 12/01/21 12/01/21 19:01 05:24 05:24 WBC 3.7 L RBC 2.40 L Hgb 9.1 L 8.4 L Hct 26.2 L 24.6 L MCV 102.2 H MCH 34.9 H MCHC 34.2 RDW 16.4 H Plt Count 216 Neut % (Auto) Not Reportable Lymph % (Auto) Not Reportable [place] % (Auto) Not Reportable Eos % (Auto) Not Reportable Baso % (Auto) Not Reportable Lymph # (Auto) Not Reportable [place] # (Auto) Not Reportable Baso # (Auto) Not Reportable Total Counted 100 Seg Neutrophils % 48.0 Lymphocytes % (Manual) 39.0 Atypical Lymphs % 1.0 H Monocytes % (Manual) 8.0 Eosinophils % (Manual) 3.0 Basophils % (Manual) 1.0 Neutrophils # (Manual) 1776 L Nucleated RBCs 1 H RBC Morphology Not Reportable Anisocytosis 1+ H Sodium 139 Potassium 2.9 L Chloride 105 Carbon Dioxide 26 BUN 6 L Creatinine 0.88 Estimated GFR > 60 BUN/Creatinine Ratio 6.8 Glucose 90 Calcium 7.7 L Total Bilirubin 0.4 AST 49 H ALT 29 Alkaline Phosphatase 76 Total Protein 5.8 L Albumin 3.5 Globulin 2.3 Albumin/Globulin Ratio 1.5 PFSH Medical History Alcohol dependence Cervical vertebral fusion Hypothyroidism Insomnia Surgical History Gastric bypass status for obesity S/P cervical spinal fusion Family History Father MVA (motor vehicle accident) Mother Lung cancer Social History household members: none Smoking Status: Former smoker alcohol intake: current Assessment & Plan Assessment & Plan narrative: Mckay Costa is a 75-year-old female with a past medical history significant for hypothyroidism, seasonal allergies, alcohol dependence, previous opiate dependence in remission, insomnia on Ambien and Benadryl who presented to the ED with complaint of abdominal discomfort and nausea for the past 4 weeks, admitted for symptomatic blood loss anemia secondary to GI bleed, DOTTIE secondary to UTI. 1. Blood anemia secondary to GI bleed, acute, present on admission -General surgery consulted, h/h continues to downtrend until today. Patient remains weak. EGD/c-scope 12/01 with surgery showed gastritis with evidence of recent bleeding. Will keep to continue to trend h/h and with continued weakness will evaluate further with PT evaluation. - continue PPI BID -transfuse if Hg <7. H/h waxing and waning in the mid 8s since 10/29. -okay for diet - PT ordered. - H pylori pending 2. DOTTIE, likely pre renal, secondary to UTI, acute, present on admission -BUN 32, creatinine 1.13, GFR 50, AST 82, ALT 38. Now improved to cr 0.88 but not back to baseline 0.6-0.7 yet. -urine is positive for nitrates and cultures with turner sensitive e. coli. -continue ceftriaxone x3 days. 3. Alcohol dependence, chronic, present on admission.? -ETOH negative -Patient reported a Hx of consumes 2-3 glasses of wine most nights and reports she will finish a bottle of wine in approximately 2 days.? reported she has not had anything to drink in several weeks -denies history of alcohol withdrawal, alcohol seizures or DTs.? -patient admitted alcohol withdrawal and CIWA protocol. 4. Hypothyroidism, acquired, chronic, present on admission.? -TSH ordered - Continue levothyroxine 150 mcg daily 5.. Insomnia, chronic, present on admission.? Stable. -Continued Ambien 5 mg daily at bedtime and Benadryl 25 mg daily at bedtime as needed for insomnia after procedure.? 6. Chronic neck pain with benzodiazepine dependence and opiate dependence in remission, present on admission.? Stable. -Continue diazepam 5 mg after procedure 7. Hypokalemia - will replete Code status:? Full code Surrogate decision maker: Ger GRIGGS PCR:Negative DVT/VTE prophylaxis:Hold medication SCD's only Disposition: still weak with her anemia, check PT evaluation, possible discharge home as soon as tomorrow. I have utilized all available immediate resources to obtain, update, or review the patient's current medications. I confirmed that the patient's advanced care plan is present, Code status is documented and/or surrogate decision maker is listed in the patient's medical record. Time Spent With Patient Critical Care time: I spent a total of [] minutes of critical care time on this patient's care today; this time is exclusive of procedural time. Quality VTE Deep Vein Thrombosis/Pulmonary Embolism Present on Admission: No
[2021-12-01] MEDS: SODIUM CHLORIDE 0.9% FLUSH 10 ML IV (20:37)
--- NOTE | 2021-12-01 21:53 | PC.NURSE ---
Pt. C/O pain to her IV site. Decreased rate to 75 cc/hr & infusing concurrent with NS @ 80 cc/hr. IV site still painful Dr. Reeves notified or to discontinue K-riders & NS. Orders implemented & changed potassium level recheck in the morning. Will continue POC & monitor.
[2021-12-02] VITALS (7 sets, daily range): BP systolic 120–137; BP diastolic 69–91; PULSE 75–83; RESP 14–18; TEMP 35.9–36.7; O2SAT 92–98
[2021-12-02] MEDS: ZOLPIDEM 5 MG TABLET PO ×2 (02:24→21:05)
[2021-12-02] MEDS: LEVOTHYROXINE 150 MCG TABLET PO (06:41)
[2021-12-02 07:17] LABS: HEMOLYSIS < 15 (0-50); Potassium 3.2 mmol/L (3.4-5.1)
[2021-12-02] MEDS: NYSTATIN POWDER 15GM 1 APPLIC TOP ×2 (08:32→21:02)
[2021-12-02] MEDS: PANTOPRAZOLE 40 MG VIAL IV ×2 (08:32→21:03)
[2021-12-02] MEDS: MULTIVITAMIN 1 TABLET 1 TAB PO (08:32)
[2021-12-02] MEDS: THIAMINE 100 MG TABLET PO (08:32)
[2021-12-02] MEDS: FOLIC ACID 1 MG TABLET PO (08:32)
[2021-12-02] MEDS: SODIUM CHLORIDE 0.9% FLUSH 10 ML IV ×3 (08:33→21:03)
--- NOTE | 2021-12-02 10:35 | PT.IIE ---
Current Diagnoses Gastrointestinal hemorrhage, unspecified (11/28/21) Acute kidney failure, unspecified (11/28/21) Urinary tract infection, site not specified (11/28/21) Surgery Performed Operation Date: 12/01/21 13:45 Actual Procedures p Esophagogastroduodenoscopy(Not Applicable) - Kin Fitzgerald MD s Colonoscopy(Not Applicable) - Kin Fitzgerald MD Surgical History (Last Reviewed 11/29/21 @ 12:55 by Desiree Chinchilla MD) Gastric bypass status for obesity S/P cervical spinal fusion Medical History (Last Reviewed 11/29/21 @ 12:55 by Desiree Chinchilla MD) Alcohol dependence Cervical vertebral fusion Hypothyroidism Insomnia Physical Therapy Inpatient Evaluation/Re-Eval M1 PT/OT-IP Prior Functional Status Start: 12/02/21 12:47 Freq: NEEDED Status: Active Protocol: Document 12/02/21 10:35 AB (Rec: 12/02/21 13:06 AB [email or web address]) Medical Review Prior Functional Status Medical History Reviewed Yes Communication able to make needs known Mobility and Gait pt stated that she is modified independent with all mobilities and ambulation using FWW indoors; outdoors: uses wither a FWW or SPC Social History Household Members none Living Arrangements House Number of Floors (Floors) One Floor Number of Stairs To Enter/Railing? no steps to enter Home Environment Standard Height Toilet,Tub/ Shower Home Equipment Front Wheel Walker,Straight Cane,Tub Transfer Bench,Hand Held Shower,Grab Bars In Shower Additional Social History Comment pt has an adjustable bed M2 PT-IP Current Condition Start: 12/02/21 12:47 Freq: NEEDED Status: Active Protocol: Document 12/02/21 10:35 AB (Rec: 12/02/21 13:06 AB [email or web address]) Physical Therapy Current Condition Current Condition Evaluation Date 12/02/21 Treatment Diagnosis GI bleed; difficulty in walking Onset Date 11/28/21 M3 PT-IP Subjective Start: 12/02/21 12:47 Freq: NEEDED Status: Active Protocol: Document 12/02/21 10:35 AB (Rec: 12/02/21 13:06 AB [email or web address]) Subjective Physical Therapy Visit Type Type Initial Evaluation Visit Start Time 10:35 Visit Stop Time 11:00 Total Visit Minutes 25 Number of ORNAMENTAL IRONWORKER Visits 0 M4 PT-IP Mobility and Gait Start: 12/02/21 12:47 Freq: NEEDED Status: Active Protocol: Document 12/02/21 10:35 AB (Rec: 12/02/21 13:06 AB [email or web address]) PT-Bed Mobility Assessment Supine to Sit Supine to Sit Minimal Assistance,Head of Bed Elevated,Bedrails PT-Transfer Assessment Sit to and From Stand Sit to and from Stand Contact Guard Assistance,1 Person Assistance,Use of Upper Extremities Equipment Transfer Assistive Device Gait Belt,Front Wheeled Walker Orthotic/Prosthetic Devices or Brace: No Transfers Transfer Destination Chair Transfer Technique ambulated Transfer Ability Level of Assist Contact Guard Assistance,1 Person Assistance,Use of Upper Extremities Comments Mobility Comments pt initially insistent to leave purewick on but explained to pt that she is going to get up and ambulate and agreed to have purewick off but pt is not too happy about it. pt tends to direct her own care. completed supine to sit min A. HOB elevated and pt used bed rail to assist. sat on the EOB SBA. put in safety belt and pt demanded to have safety belt really loose and stated that it pushes on her stomach. completed sit to stand CGA and ambulate towards the window using FWW CGA and ambulated back to the chair. agreed to stay up on the chair . call light and table placed within reach. Gait Assessment Gait Gait Assistance Required: Contact Guard Assist,1 Person Assist Distance (Feet) 20 Able to Maintain Weight Bearing Status Yes During Gait Assistive Devices Assistive Device Gait Belt,Front Wheeled Walker Orthotic/Prosthetic Devices or Brace: No Gait Deviations General Gait Pattern Antalgic,Decreased Stride Length,Decreased Feet Clearance Factors Limiting Gait Function Factors Limiting Gait Function Decreased Activity Tolerance, Decreased Strength,Poor Balance,Poor Safety Awareness PT-Balance Assessment Sitting Balance and Reactions Static Sitting Balance Ability Good Dynamic Sitting Balance Ability Good Standing Balance and Reactions Static Standing Balance Ability Fair Dynamic Standing Balance Ability Fair Device Used FWW M5 PT-IP Objective Assessments Start: 12/02/21 12:47 Freq: NEEDED Status: Active Protocol: Document 12/02/21 10:35 AB (Rec: 12/02/21 13:06 AB [email or web address]) Orientation Orientation/Cognition Level of Alertness Alert Language Function Ability Hard of Hearing Safety Awareness Decreased Safety Awareness Memory Description Short Term Impaired Comments with slight confusion Gross Range of Motion Lower Extremity ROM Assessment Within Functional Limits Strength Lower Extremity Strength Hip 4-/5 Knee 4-/5 Muscle Tone Muscle Tone WNL Yes M6 PT-IP Treatment Start: 12/02/21 12:47 Freq: NEEDED Status: Active Protocol: Document 12/02/21 10:35 AB (Rec: 12/02/21 13:06 AB [id number]) Physical Therapy Treatment Education Education Provided Safety M7 PT-IP Assessment and Plan Start: 12/02/21 12:47 Freq: NEEDED Status: Active Protocol: Document 12/02/21 10:35 AB (Rec: 12/02/21 13:06 AB [id number]) PT Summary Assessment and Plan Potential Rehabilitation Potential Fair Status of Condition at Evaluation Stable Summary Impairments Pain,ROM,Strength,Balance, Coordination,Sensation,Tone, Cognition,Bed Mobility, Transfers,Gait,Activity Tolerance Assessment Summary pt requiring CGA to min A with mobility using FWW but has decrease activity tolerance affecting mobility independence. pt also has decrease safety awareness and with slight confusion. pt lives alone and will need to be more independent that current level. d/c plan depending on progress: SNF vs home with assist and HH services. will continue to assess progress. Goals Bed Mobility Goal Independent Transfer Goal Independent,Front Wheeled Walker Gait Goal Independent,Front Wheel Walker Gait Distance 200 Days to Meet Goals 10 Frequency of Treatment Frequency Of Treatment Once a Day Treatment Plan Physical Therapy Treatment Plan Bed Mobility Training,Transfer Training,Gait Training, Therapeutic Exercise,Balance Retraining,Discharge Planning, Hot or Cold Pack,Neuromuscular Re-ed,Coordination Retraining Precautions Other Precautions falls Recommendations To Nursing Amount of Assist Needed 1 Person Assist Discharge Recommendations PT Discharge Recommendations Home vs SNF Transportation Needs at Discharge Private Vehicle,Wheelchair/ Cabulance
[2021-12-02] MEDS: POTASSIUM CHLORIDE 20 MEQ TAB 40 MEQ PO ×2 (10:59→17:01)
--- NOTE | 2021-12-02 11:01 | CM.DPC ---
Addendum entered by Little Espinoza R.N. 12/02/21 15:47: Confirmed that patient does have a primary care provider. Called [facility], for Harmony Leonard was written on her face sheet. Confirmed that Harmony Olea is still her provider, last seen her in April. Will be able to order her home health at discharge, since she has a primary care provider. Addendum entered by Little Espinoza R.N. 12/02/21 13:08: Added O.T. orders for patient, per Dr. Cortez. Patient is wanting home, not long term.August at [facility] had already indicated that patient left AMA upon last admit, so will not accept. Patient is not eligible for home health as well due to not having a provider. Home is now the plan. Original Note: DCP Cont: Met with patient in her room. Introduced self and role. Confirmed that patient resides home alone, here in [place]. She has no current PCP, does see an endocronologist in [place], Dr. Hagan. Confirmed, she does not really have anyone to help her, she could ask her neighbor, when she goes home. Let her know that she would not be able to have home health with no PCP. She did state that she was recommended Dr. Cruz at [facility], but has not yet called to make an appointment. Hospitalist placed P.T. orders, for patient has not yet been up. She uses a FWW at baseline, and drives. When this DC. Speech Therapy Teacher asked her who would pick her up if she is able to go home, and she indicated, she would drive herself. Mentioned that a short term rehab may be needed since she has no one at home to assist her. She has been to [facility] before. She will work with P.T. and see how she does. Went ahead and called August at [facility] asking her to review, she does have beds available. P: DCP to continue to follow. Will see how patient does with P.T. if home versus skilled. Little Espinoza RN/Director Of Business Development
--- NOTE | 2021-12-02 13:51 | OT.IPNOTE ---
Attempted to see pt for OT eval and pt insistent on not doing OT at this time. Pt is adamant of not ready to go home and wanting to talk to the doctor. Unable to do OT eval and to check on the pt tomorrow if still here. Able to talk to pt's nurse and doctor of her requests.
--- NOTE | 2021-12-02 16:30 | PM.PN.1 ---
Subjective Subjective Date Patient Seen: 12/02/21 Interval history: Feels weak today, complains of stomach pains and leg pains which make it difficult to move. Exam Vital Signs (past 8 hours): - 12/02/21 08:32 12/02/21 08:32 12/02/21 12:00 Temperature 96.6 F L Pulse Rate 82 Respiratory Rate 18 Blood Pressure 137/72 Pulse Oximetry 97 98 Oxygen Delivery Method Room Air Room Air Oxygen Flow Rate 0 12/02/21 12:00 12/02/21 16:00 Temperature Pulse Rate 80 Respiratory Rate Blood Pressure 120/91 H Pulse Oximetry 98 97 Oxygen Delivery Method Room Air Oxygen Flow Rate 0 Oxygen Delivery Method Room Air Oxygen Flow Rate 0 Narrative Exam Narrative: GENERAL: WDWN female, obese with BMI of 35, no acute distress. HEENT: Head normocephalic, atraumatic, EOMI, pupils reactive, face symmetric, moist mucous membranes NECK: Supple, full range of motion CARDIOVASCULAR: Regular rate and rhythm without murmurs, rubs or gallops. RESPIRATORY: Breath sounds equal bilaterally, no wheezes rales or rhonchi. ABDOMEN: Soft, NT, ND EXTREMITIES: Normal range of motion, no clubbing. Trace edema bilateral lower extremities.? Neurovascularly intact NEUROLOGICAL: Cranial nerves II through XII grossly intact.? Moving all extremities SKIN: Warm, dry, no petechiae, no rashes or lesions. Objective Labs Result Diagrams: 12/01/21 05:24 12/02/21 06:37 Labs: Laboratory Results - last 24 hr 12/02/21 06:37 Potassium 3.2 L PFSH Medical History Alcohol dependence Cervical vertebral fusion Hypothyroidism Insomnia Surgical History Gastric bypass status for obesity S/P cervical spinal fusion Family History Father MVA (motor vehicle accident) Mother Lung cancer Social History household members: none Smoking Status: Former smoker alcohol intake: current Assessment & Plan Assessment & Plan narrative: Mckay Costa is a 75-year-old female with a past medical history significant for hypothyroidism, seasonal allergies, alcohol dependence, previous opiate dependence in remission, insomnia on Ambien and Benadryl who presented to the ED with complaint of abdominal discomfort and nausea for the past 4 weeks, admitted for symptomatic blood loss anemia secondary to GI bleed, DOTTIE secondary to UTI. 1. Blood anemia secondary to GI bleed, acute, present on admission -General surgery consulted, h/h declined but . Patient remains weak. EGD/c-scope 12/01 with surgery showed gastritis with evidence of recent bleeding. - 1 person assist with PT today. OT also ordered. - continue PPI BID -transfuse if Hg <7. H/h waxing and waning in the mid 8s since 10/29. -okay for diet - H pylori pending 2. DOTTIE, likely pre renal, secondary to UTI, acute, present on admission -BUN 32, creatinine 1.13, GFR 50, AST 82, ALT 38. Now improved to cr 0.88 but not back to baseline 0.6-0.7 yet. -urine is positive for nitrates and cultures with turner sensitive e. coli. -continue ceftriaxone x3 days. 3. Alcohol dependence, chronic, present on admission.? -ETOH negative -Patient reported a Hx of consumes 2-3 glasses of wine most nights and reports she will finish a bottle of wine in approximately 2 days.? reported she has not had anything to drink in several weeks -denies history of alcohol withdrawal, alcohol seizures or DTs.? -patient admitted alcohol withdrawal and CIWA protocol, no evidence of withdrawal. 4. Hypothyroidism, acquired, chronic, present on admission.? -TSH ordered - Continue levothyroxine 150 mcg daily 5.. Insomnia, chronic, present on admission.? Stable. -Continued Ambien 5 mg daily at bedtime and Benadryl 25 mg daily at bedtime as needed for insomnia after procedure.? 6. Chronic neck pain with benzodiazepine dependence and opiate dependence in remission, present on admission.? Stable. -Continue diazepam 5 mg after procedure 7. Hypokalemia - will replete Code status:? Full code Surrogate decision maker: Ger GRIGGS PCR:Negative DVT/VTE prophylaxis:Hold medication SCD's only Disposition: still weak with her anemia, 1 person assist with PT, possible discharge home vs SNF. I have utilized all available immediate resources to obtain, update, or review the patient's current medications. I confirmed that the patient's advanced care plan is present, Code status is documented and/or surrogate decision maker is listed in the patient's medical record. Time Spent With Patient Critical Care time: I spent a total of [] minutes of critical care time on this patient's care today; this time is exclusive of procedural time. Quality VTE Deep Vein Thrombosis/Pulmonary Embolism Present on Admission: No
[2021-12-02 16:34] LABS: H. Pylori Antigen Stool Negative (Negative)
[2021-12-03] VITALS (8 sets, daily range): BP systolic 111–134; BP diastolic 61–85; PULSE 78–95; RESP 12–18; TEMP 35.8–36.7; O2SAT 95–99
[2021-12-03] MEDS: LEVOTHYROXINE 150 MCG TABLET PO (05:34)
[2021-12-03 07:16] LABS: Add Manual Diff / Slide Review NO; Basophils Absolute Auto 0 /uL (0-100); Basophils Percent Auto 0.5 % (0-2); Eosinophils Absolute Auto 100 /uL (0-450); Eosinophils Percent Auto 2.2 % (2-4); Hemoglobin 8.9 g/dL (12.0-16.0); Lymphocytes Absolute Auto 1400 /uL (1100-4500); Lymphocytes Percent Auto 25.2 % (25-40); Mean Corpuscular HGB Conc 34.2 % (30-36); Mean Corpuscular Hemoglobin 35.1 PG (26-34); Mean Corpuscular Volume 102.8 fL (80-100); Monocytes Absolute Auto 400 /uL (0-900); Monocytes Percent Auto 6.3 % (3-14); Neutrophils Absolute Auto 3700 /uL (1500-7000); Neutrophils Percent Auto 65.8 % (50-75); Platelet Count 237 X10^3/uL (150-400); Red Blood Cell Count 2.53 X10^6/uL (4.0-5.2); Red Cell Distribution Width 17.6 % (11.6-14.8); White Blood Cell Count 5.6 X10^3/uL (4.5-11.0)
[2021-12-03 07:26] LABS: BUN Creatinine Ratio 5.3 (6-22); Blood Urea Nitrogen 5 mg/dL (7-17); Calcium 8.3 mg/dL (8.4-10.2); Carbon Dioxide 24 mmol/L (22-32); Chloride 106 mmol/L (98-107); Estimated Glomerular Filt Rate > 60 mL/min (>60); Glucose 139 mg/dL (80-110); HEMOLYSIS < 15 (0-50); Magnesium 2.4 mg/dL (1.6-2.3); Potassium 3.7 mmol/L (3.4-5.1); Sodium 137 mmol/L (137-145)
[2021-12-03] MEDS: MULTIVITAMIN 1 TABLET 1 TAB PO (08:59)
[2021-12-03] MEDS: THIAMINE 100 MG TABLET PO (08:59)
[2021-12-03] MEDS: PANTOPRAZOLE 40 MG VIAL IV ×2 (08:59→20:08)
[2021-12-03] MEDS: FOLIC ACID 1 MG TABLET PO (08:59)
[2021-12-03] MEDS: NYSTATIN POWDER 15GM 1 APPLIC TOP ×2 (09:00→20:08)
[2021-12-03] MEDS: SODIUM CHLORIDE 0.9% FLUSH 10 ML IV ×2 (09:08→20:09)
--- NOTE | 2021-12-03 09:46 | OT.IP.EVAL ---
Current Diagnoses Gastrointestinal hemorrhage, unspecified (11/28/21) Acute kidney failure, unspecified (11/28/21) Urinary tract infection, site not specified (11/28/21) Surgery Performed Operation Date: 12/01/21 13:45 Actual Procedures p Esophagogastroduodenoscopy(Not Applicable) - Kin Fitzgerald MD s Colonoscopy(Not Applicable) - Kin Fitzgerald MD Past Medical History (Last Reviewed 11/29/21 @ 12:55 by Desiree Chinchilla MD) Alcohol dependence Cervical vertebral fusion Hypothyroidism Insomnia Surgical History (Last Reviewed 11/29/21 @ 12:55 by Desiree Chinchilla MD) Gastric bypass status for obesity S/P cervical spinal fusion Occupational Therapy Inpatient Evaluation/Re-Eval M1 PT/OT-IP Prior Functional Status Start: 12/02/21 12:47 Freq: NEEDED Status: Active Protocol: Document 12/03/21 09:46 [facility] (Rec: 12/03/21 10:10 [facility] [id number]) Medical Review Prior Functional Status Medical History Reviewed Yes Communication able to make needs known Mobility and Gait pt stated that she is modified independent with all mobilities and ambulation using FWW indoors; outdoors: uses wither a FWW or SPC Activities of Daily Living and IADL's prior able to care for herself for ADL and IADL needs Social History Household Members none Living Arrangements House Number of Floors (Floors) One Floor Number of Stairs To Enter/Railing? no steps to enter Home Environment Standard Height Toilet,Tub/ Shower Home Equipment Front Wheel Walker,Straight Cane,Tub Transfer Bench,Hand Held Shower,Grab Bars In Shower Additional Social History Comment pt has an adjustable bed M2 OT-IP Current Condition Start: 12/03/21 09:53 Freq: Status: Active Protocol: Document 12/03/21 09:46 [facility] (Rec: 12/03/21 10:10 [facility] [id number]) Occupational Therapy Current Condition Current Condition Evaluation Date 12/03/21 Treatment Diagnosis Anemia due to GI bleed,UTI Diagnosis Onset Date 11/28/21 M3 OT- IP Subjective and Pain Start: 12/03/21 09:53 Freq: Status: Active Protocol: Document 12/03/21 09:46 [facility] (Rec: 12/03/21 10:10 [facility] [id number]) OT- Subjective Occupational Therapy Visit Type Type Initial Evaluation Visit Start Time 09:05 Visit Stop Time 09:46 Total Visit Minutes 41 Occupational Therapy Visit Comments Patient Comments Pt initially refusing to get up and then agreed to get up and do oral care needs. Patient/Caregiver Goals To go home. M4 OT- IP ADL's Start: 12/03/21 09:53 Freq: Status: Active Protocol: Document 12/03/21 09:46 [facility] (Rec: 12/03/21 10:10 [facility] [id number]) OT [id number] Comments OT Self-Feeding Comments Not at meal time. OT ADL-Grooming General Evaluation Grooming Ability Independent OT ADL-Oral Care General Eval Oral Care Ability Independent OT ADL-Dressing General Eval Lower Body Dressing Ability Standby Assistance Comments OT Dressing Comments Pt able to readjust her socks while in bed. OT ADL-Toileting General Evaluation Toileting Ability Total Assistance Comments OT Toileting Comments Pt using pure wick and brief was also wet. OT ADL-Bathing Comments OT Bathing Comments Pt refused. M5 OT- IP IADL's Start: 12/03/21 09:53 Freq: Status: Active Protocol: Document 12/03/21 09:46 [facility] (Rec: 12/03/21 10:10 [facility] [id number]) OT-Instrumental Activities of Daily Living Home Safety Awareness Awareness of Need for Assistance at Home Good Awareness Ability to Problem Solve Emergency Able to Problem Solve Situations Home Safety Comments Due to decreased activity tolerance, pt would benefit from assist for IADl needs. Medication Management Medication Management Comments Pt states does her own, may need assist due decreased memory at times. Money Management Money Management Comments Pt states does her own, may need assist due decreased memory at times. Meal Preparation Meal Preparation Comments Pt would benefit from having assist. Veterinary Meat Inspector Veterinary Meat Inspector Comments Pt would benefit from having assist. Driving Driving Concerns Identified Regarding Safety M6 OT- IP Functional Cognition Start: 12/03/21 09:53 Freq: Status: Active Protocol: Document 12/03/21 09:46 [facility] (Rec: 12/03/21 10:10 [facility] [id number]) Cognitive Factors Limiting Selfcare Function Cognitive Ability Level of Alertness Alert,Confusional State Patient Orientation Name,Place,Situation Attention Span Ability Capable of Focused Attention, Capable of Sustained Attention Ability to Follow Commands Able to Follow One Step Commands Memory Description Short Term Impaired Safety Awareness Underestimates Need for Assistance Cognitive Tests SLUMS Pt would benefit from a formal cognitive assessment. Cognitive Comments Cognitive Assessment Comments Pt able to follow commands however insistent on her care at times. Pt was unaware that the purewick was being used and that she was wet. Pt a bit confused and insisting that her toiletry items were in the clean linens closet. OT- Vision and Hearing OT- Hearing Assessment OT- Hearing Assessment WFL OT- Vision Assessment Visual Acuity Glasses All The Time Vision Assessment Comments Pt states left her glasses at home but was aware enough to grab her sunglasses prior to coming to the hospital due to the brightness outside. M7 OT- IP Mobility and Balance Start: 12/03/21 09:53 Freq: Status: Active Protocol: Document 12/03/21 09:46 [facility] (Rec: 12/03/21 10:10 [facility] [id number]) OT- Bed Mobility Assessment Supine to Sit Supine to Sit Assist Independent Sit to Supine Sit to Supine Assist Standby Assistance,Head of Bed Elevated,Bedrails OT-Transfer Assessment Sit to and From Stand Sit to and from Stand Standby Assistance Transfers Transfer Ability Standby Assistance Technique Transfer Destination Bed Transfer Technique Stand Step Pivot Devices Transfer Assistive Devices Gait Belt,Front Wheeled Walker Comments Mobility Comments Pt able to get into and out of the bed with increased time and use of bed rail to assist with positioning needs. Suggested that pt would benefit from bed rail for home use. SBA to stand and able to walk with FWW slowly and with slight flexed posture. OT- Balance Assessment Sitting Balance and Reactions Static Sitting Balance Ability Normal Dynamic Sitting Balance Ability Good Standing Balance and Reactions Static Standing Balance Ability Good Dynamic Standing Balance Ability Fair M8 OT- IP Objective Assessments Start: 12/03/21 09:53 Freq: Status: Active Protocol: Document 12/03/21 09:46 [facility] (Rec: 12/03/21 10:10 [facility] [id number]) OT Gross Range of Motion Upper Extremity Range of Motion Assessment Within Functional Limits OT Strength Comments Strength Comments NOt able to formally assess at least 3-/5 throughout based on observation form doing ADL needs. OT-Muscle Tone Assessment Muscle Tone WNL Yes M9 OT- IP Assessment and Plan Start: 12/03/21 09:53 Freq: Status: Active Protocol: Document 12/03/21 09:46 [facility] (Rec: 12/03/21 10:10 [facility] [id number]) OT Summary Assessment and Plan Potential Rehabilitation Potential Good Analytic Complexity at Evaluation Moderate Summary OT Impairments Balance,Functional Cognition, Functional Mobility,Dressing, Toileting,Bathing,Toilet Transfers,Shower Transfers, Activity Tolerance Progress Towards Goals Slow Progress due to Medical Issues,Slow Progress due to Activity Tolerance,Slow Progress due to Cognition Assessment Summary Pt MOD complexity and main barriers are pt's decreased activity tolerance, confusion at times, and insistent on her care at times as well. Pt will benefit from assist at home and home health. NOt sure if pt at her [facility] for cognition as a bit confused at times or if still affected by her UTI, to try SLUMS if pt still here tomorrow. Goals Self-Feeding Goal Independent Grooming Goal Independent Dressing Goal Independent Toileting Goal Independent Bathing Goal Independent Toilet Transfer Goal Independent Shower Transfer Goal Independent Days to Meet Goals 5 Frequency of Treatment Frequency Of Treatment Once a Day Treatment Plan OT Treatment Plan ADL Training,Functional Cognition Training,Functional Mobility,Patient/Family Education,Discharge Planning Other Treatment Recommendations and Next shower,SLUMS Treatment Focus Discharge Recommendations OT Discharge Recommendations Home with Assistance,Home Health Transportation Needs at Discharge Private Vehicle
--- NOTE | 2021-12-03 10:50 | PT-IP ANOTE ---
Attempted to see pt at 10:50, pt refused PT due to fatigue and nausea. RN informed.
[2021-12-03] MEDS: ONDANSETRON 4 MG/2 ML INJ IV ×2 (10:58→14:44)
--- NOTE | 2021-12-03 11:46 | CM.DPC ---
Addendum entered by Little Espinoza R.N. 12/03/21 12:19: Spoke to DREA Palm, and patient is appealing discharge, and has called [facility]. Patient is happy that she can stay another day, does not feel that she's medically ready to go home. Mal[facility] is kindly faxing patient's record to [facility]. Patient has already let ASSET PROTECTION ASSOCIATE know that she will plan to take taxi home upon discharge, had her favorite driver/merchandiser, and will have home health. Original Note: DCP Cont: Hospitalist is discharging patient, since her labs are stable, and medically ready. Can order home health for patient, since she does have a primary care provider. Due to her living situation, since she lives alone, and no family in the area, asked DREA Palm to see patient. Patient is worried about leaving the hospital, but had declined halfway. [facility]mi at [facility] indicated that they had patient at one time, but she left the facility and walked back to her house, for she lives next to the hospital. There is a possibility that patient may appeal her discharge. Arpita has agreed to explain the appeal process to the patient. P: Patient does have discharge orders, but patient could possibly appeal the discharge. Will see how conversation goes with Arpita SHEPARD. Little Espinoza RN/Electric Organ Assembler And Checker
--- NOTE | 2021-12-03 12:16 | PM.DS.1 ---
History of Present Illness History of Present Illness Date Patient Seen: 12/03/21 Time Patient Seen: 12:16 Chief complaint: GI issues, weakness Narrative: Mckay Costa is a 75-year-old female with a past medical history significant for hypothyroidism, seasonal allergies, alcohol dependence, previous opiate dependence in remission, insomnia on Ambien and Benadryl who presented to the ED with complaint of abdominal discomfort and nausea for the past 4 weeks she states food and certainly seems to bother her quite a bit she describes more lower abdominal pain and discomfort but not active pain right now.? Patient denies flank or back pain, diarrhea, no bright red blood or black stools, chest pain, shortness of breath, vomiting, fever, body aches, chills, No known ulcers or GI bleed, denies any anticoagulation or blood thinners, denies syncope or head injury, recent illness injury or trauma. She endorses persistent nausea, decreased appetite but has been drinking liquids.? She feels generally weak and using her walker more and more but no falls.? Occasional lightheadedness.? She was drinking several glasses of alcohol daily but has not for the past couple weeks.? Patient is unsure of all her home medications but states she ran out of them and has not been taking them regularly.? She denies surgery but appears she is had surgeries in the past according to her chart.? Patient is an extremely poor historian and confused. No tobacco, no illicit.? Her primary care is Dr. Avila to [place]. Patient's vitals are stable upon admit slightly hypertensive, temp 97.6?, BP 175/81, HR 78, R 16, O2 saturation 95% on room air. Patient presents with anemia, previous labs demonstrate no prior anemia in chart. RBC 2.56, HGB 8.9, HCT 25.6, MCV 100.1, MCH 34.8. Patient also has DOTTIE which is absent from previous labs BUN 32, creatinine 1.13, GFR 50, AST 82, ALT 38, lipase normal, ETOH is negative, patient's urine is positive for nitrates and cultures pending, positive Hemoccult in ED. Patient's abdomen pelvis CT was negative for any intra-abdominal abnormalities, positive hepatic steatosis. EKG sinus rhythm with premature atrial complex rate of [address] or T-wave changes, no notable changes from comparison EKG on 12/05/2020 I personally reviewed. Patient admitted for symptomatic blood loss anemia secondary to GI bleed, DOTTIE secondary to UTI. Discharge Providers Provider Date of admission: 11/28/21 23:44 Discharge Date: 12/03/21 Consults: 11/28/21 23:51 Consult to General Surgery Routine Comment: Consulting Provider: Desiree Chinchilla Reason for consultation: GI bleed Has provider been notified: Yes 11/28/21 23:52 Consult to Dietitian, Adult Routine Comment: Reason For Exam: BMI 35.8/ETOH abuse 11/29/21 00:56 Consult to Dietitian, Adult Routine Comment: Reason For Exam: decreased appetite & malaise 12/01/21 15:53 Consult to Physical Therapy Evaluate & Treat Comment: weakness after GI bleeding Physician Instructions: Evaluate and Treat 12/02/21 13:07 Consult to Occupational Therapy Evaluate & Treat Comment: Physician Instructions: Evaluate and treat Discharge provider: Konrad Cortez DO Summary Hospital Course Hospital Course: Mckay Costa is a 75-year-old female with a past medical history significant for hypothyroidism, seasonal allergies, alcohol dependence, previous opiate dependence in remission, insomnia on Ambien and Benadryl who presented to the ED with complaint of abdominal discomfort and nausea for the past 4 weeks, admitted for symptomatic blood loss anemia secondary to GI bleed, DOTTIE secondary to UTI. 1. Acute blood loss anemia secondary to GI bleed, acute, present on admission -General surgery consulted, h/h declined but now stable between 8-9 for multiple days without transfusion. EGD/c-scope 12/01 with surgery showed gastritis with evidence of recent bleeding. - 1 person assist with PT. Patient declined SNF if offered, patient is stable for discharge home with home health. Patient is tolerating a diet. She has mild nausea but not limiting oral intake. ?- continue PPI BID at discharge, follow up with PCP office recommended. 2. DOTTIE, likely pre renal, secondary to UTI and acute blood loss anemia, acute, present on admission -BUN 32, creatinine 1.13, GFR 50, AST 82, ALT 38. Now improved to cr 0.88 but stable for multiple days. Likely represents new baseline around 0.8 to 0.9. -urine is positive for nitrates and culture with turner sensitive e. coli. -continued ceftriaxone x3 days, now complete. 3. Alcohol dependence, chronic, present on admission.? -ETOH negative on admission. -Patient reported a Hx of consumes 2-3 glasses of wine most nights and reports she will finish a bottle of wine in approximately 2 days.? reported she has not had anything to drink in several weeks -denies history of alcohol withdrawal, alcohol seizures or DTs.? -patient admitted alcohol withdrawal and [facility] protocol, no evidence of withdrawal during her admission. ? 4. Hypothyroidism, acquired, chronic, present on admission.? -TSH 90 with low free t4. unclear medication compliance at home. -Increased levothyroxine to 175 mcg daily from 150 mcg. -Recommend recheck with PCP in 4-6 weeks for TSH and free T4 levels. 5.. Insomnia, chronic, present on admission.? Stable. -Continued Ambien 5 mg daily at bedtime and Benadryl 25 mg daily at bedtime as needed for insomnia after procedure.? 6. Chronic neck pain with benzodiazepine dependence and opiate dependence in remission, present on admission.? Stable. -Continued diazepam 5 mg after procedure 7. Hypokalemia ?- repleted, now improved. Time Spent with Patient Time spent: Greater than 30 minutes Exam Vital Signs (past 8 hours): - 12/03/21 07:45 12/03/21 11:15 12/03/21 07:00 Temperature 97.8 F 96.5 F L Pulse Rate 83 78 Respiratory Rate 18 18 Blood Pressure 118/62 134/85 Pulse Oximetry 99 95 97 Oxygen Delivery Method Room Air Oxygen Delivery Method Room Air Oxygen Flow Rate 0 Narrative Exam Narrative: GENERAL: WDWN female, obese with BMI of 35, no acute distress. HEENT: Head normocephalic, atraumatic, EOMI, pupils reactive, face symmetric, moist mucous membranes NECK: Supple, full range of motion CARDIOVASCULAR: Regular rate and rhythm without murmurs, rubs or gallops. RESPIRATORY: Breath sounds equal bilaterally, no wheezes rales or rhonchi. ABDOMEN: Soft, NT, ND EXTREMITIES: Normal range of motion, no clubbing. Trace edema bilateral lower extremities.? Neurovascularly intact NEUROLOGICAL: Cranial nerves II through XII grossly intact.? Moving all extremities SKIN: Warm, dry, no petechiae, no rashes or lesions. Objective Labs Result Diagrams: 12/03/21 06:25 12/03/21 06:25 Labs: Laboratory Results - last 24 hr 11/29/21 12/03/21 12/03/21 23:59 06:25 06:25 WBC 5.6 RBC 2.53 L Hgb 8.9 L Hct 26.0 L MCV 102.8 H MCH 35.1 H MCHC 34.2 RDW 17.6 H Plt Count 237 Neut % (Auto) 65.8 Lymph % (Auto) 25.2 [place] % (Auto) 6.3 Eos % (Auto) 2.2 Baso % (Auto) 0.5 Neut # (Auto) 3700 Lymph # (Auto) 1400 [place] # (Auto) 400 Eos # (Auto) 100 Baso # (Auto) 0 Sodium 137 Potassium 3.7 Chloride 106 Carbon Dioxide 24 BUN 5 L Creatinine 0.94 Estimated GFR > 60 BUN/Creatinine Ratio 5.3 L Glucose 139 H Calcium 8.3 L Magnesium 2.4 H H. pylori Antigen Negative [facility] Medical History Alcohol dependence Cervical vertebral fusion Hypothyroidism Insomnia Surgical History Gastric bypass status for obesity S/P cervical spinal fusion Family History Father MVA (motor vehicle accident) Mother Lung cancer Social History household members: none Smoking Status: Former smoker alcohol intake: current Discharge Plan Discharge Plan Patient Disposition: Home Health Service Provider Discharge Comment: You were admitted to the hospital with GI bleeding. This has stabilized. Continue oral PPI at home. Your thyroid medication was increased. Please follow up with your PCP within 1-2 weeks for hospital follow up. Discharge orders & Medications Prescriptions: New pantoprazole 40 mg tablet,delayed release (DR/EC) 40 mg PO BID 30 Days Qty: 60 0RF levothyroxine 175 mcg tablet 175 mcg PO DAILY 30 Days Qty: 30 0RF Continued diazepam 5 mg Tablet 5 mg PO BID PRN (Reason: Muscle Spasm) dexamethasone sodium phosphate 0.1 % drops 1 drp ophthalmic (eye) BID PRN (Reason: Allergy Symptoms) betamethasone valerate 0.1 % cream 1 applic Topical DIRECTED Label Comments: apply to affected area bid x 2 weeks then off 1 week. zolpidem 5 mg tablet 5 mg PO QHS PRN (Reason: Sleep) fluticasone propionate 50 mcg/actuation spray,suspension 1 spray Intranasal BID metronidazole [Metrogel] 1 % Gel 1 applic Topical BID PRN (Reason: antibiotic) Rx Instructions: apply under right breast cetirizine 10 mg Tablet 10 mg PO DAILY PRN (Reason: Allergy Symptoms) [id number] 2-1-1 % Gel 1 applic Topical BID PRN (Reason: unknown) Rx Instructions: under right breast Celebrate Multi-Complex 45 2 cap PO DAILY Calcium Citrate + D 2 tab PO TID Label Comments: Calcium Citrate 1500 mg and Vitiamin D 2400 iu listed on patients home med list. Also lists daily totals as 1500 mg / 5400 mg fexofenadine [Madelyn Allergy] 180 mg Tablet 180 mg PO DAILY Discontinued levothyroxine 125 mcg tablet 150 mcg PO DAILY Quality VTE Deep Vein Thrombosis/Pulmonary Embolism Present on Admission: No
--- NOTE | 2021-12-03 15:34 | CM.DPNOTE ---
DCP Note Assisting RN JARRETT Doherty today; DC order in place this morning so entered room w/MANAGER CALL to discuss plan w/patient Patient immediately agitated and appeared defensive stating she wanted to stay longer because I am not ready to leave yet. Patient further explained that she is nauseous and her stomach hurt Spoke w/ Dr Cortez who explained he had gone over reason for medical discharge w/patient this morning. This GREEN INSPECTOR unsure what information patient is retaining, as patient repeats herself often and needs reminders about why she was admitted to the hospital on 11.28.21 Patient denies heavy alcohol use and became very irritated when this GREEN INSPECTOR mentioned concern for alcohol withdrawal. Patient continues to repeat that she feels sick and does not want to return home today Provided patient her IMM, read through her rights under [facility] guidelines to appeal her discharge, and read through the instructions on how to appeal. Patient decided to appeal the discharge and this GREEN INSPECTOR sat with patient at bedside while she began the appeal process, by phone, w/Zhanna [facility] wireless sales representative reports the appeal process can take up to 48 hrs; as of 1541, this office has not heard from [facility] for a record request Explained to patient that if she doesn't want to discharge to a SNF she will need to DC home w/HH eventually, patient stated understanding and said I will have my favorite cable cutter and swager take me home DREA Levin
--- NOTE | 2021-12-03 19:52 | PC.NURSE ---
Patient is alert and oriented but can be forgetful. Breath sounds CTA with RA sat of 97%. HRR. Denies nausea. BT present and abdomen is soft. Denies dysuria, frequency or urgency with urination; currently has purewick in place with suction set to 40mmHg. Is able to turn herself in bed. Gait not assessed but previous RN reports she gets up with walker and 1 assist due to weakness. Denies pain. Refusing to wear SCD's despite eduction on DVT prevention, so reminded to ankle wave when awake. CIWA score is 0. Fall risk score is high and bed alarm is activated.
[2021-12-04] VITALS (7 sets, daily range): BP systolic 125–144; BP diastolic 72–82; PULSE 73–89; RESP 16–18; TEMP 35.9–36.7; O2SAT 95–98
--- NOTE | 2021-12-04 05:12 | P.PN_ITS ---
Subjective Subjective Date Patient Seen: 12/04/21 Interval history: 75 yo female w/?hypothyroidism, seasonal allergies, alcohol dependence, previous opiate dependence in remission, insomnia on Ambien and Benadryl who presented to the ED with complaint of abdominal discomfort and nausea for the past 4 weeks, admitted for symptomatic blood loss anemia secondary to GI bleed, DOTTIE secondary to UTI. Patient has appealed her discharge and is awaiting a decision per Medicare. Patient denies any pain this morning. No shortness of breath, nausea, vomiting. RN reports last bowel movement was 3 days ago. Patient reports intact appetite. Exam Vital Signs (past 8 hours): - 12/04/21 00:00 12/04/21 00:00 12/04/21 04:00 Temperature 97.4 F L 98.1 F Pulse Rate 89 88 Respiratory Rate 18 18 Blood Pressure 141/78 H 125/72 Pulse Oximetry 98 98 95 Oxygen Delivery Method Room Air Oxygen Flow Rate 0 0 0 12/04/21 04:00 Temperature Pulse Rate Respiratory Rate Blood Pressure Pulse Oximetry 95 Oxygen Delivery Method Room Air Oxygen Flow Rate 0 Oxygen Delivery Method Room Air Oxygen Flow Rate 0 Narrative Exam Narrative: GEN: Alert and oriented x 3, NAD HEENT:NC, Face symmetric CHEST: Respiratory excursions symmetric, CTAB CV: RRR, no M/R/G ABD: Soft, obese, mild left lower quadrant tenderness to palpation/ND, BT present in all 4 quadrants, body habitus limits exam EXTR: warm, well perfused, no C/C/E SKIN: warm and dry, no rash NEURO: Alert and oriented x 3, nonfocal Objective Labs Result Diagrams: 12/04/21 06:21 12/03/21 06:25 Labs: Laboratory Results - last 24 hr 12/03/21 12/03/21 06:25 06:25 WBC 5.6 RBC 2.53 L Hgb 8.9 L Hct 26.0 L MCV 102.8 H MCH 35.1 H MCHC 34.2 RDW 17.6 H Plt Count 237 Neut % (Auto) 65.8 Lymph % (Auto) 25.2 [place] % (Auto) 6.3 Eos % (Auto) 2.2 Baso % (Auto) 0.5 Neut # (Auto) 3700 Lymph # (Auto) 1400 [place] # (Auto) 400 Eos # (Auto) 100 Baso # (Auto) 0 Sodium 137 Potassium 3.7 Chloride 106 Carbon Dioxide 24 BUN 5 L Creatinine 0.94 Estimated GFR > 60 BUN/Creatinine Ratio 5.3 L Glucose 139 H Calcium 8.3 L Magnesium 2.4 H PFSH Medical History Alcohol dependence Cervical vertebral fusion Hypothyroidism Insomnia Surgical History Gastric bypass status for obesity S/P cervical spinal fusion Family History Father MVA (motor vehicle accident) Mother Lung cancer Social History household members: none Smoking Status: Former smoker alcohol intake: current Assessment & Plan Assessment & Plan narrative: 1. Acute blood loss anemia secondary to GI bleed, acute, present on admission Patient underwent panendoscopy December 01 with evidence of gastritis and recent bleeding but no active bleeding. She remains on PPI b.i.d.. Hemoglobin is stable at 8.6. 2. Alcohol dependence, chronic, present on admission.? Patient consumes 2-3 glasses of wine most nights. No alcohol for several weeks prior to admission. No evidence of withdrawal. ? 3. Hypothyroidism, acquired, chronic, present on admission.? -free T4 was low at 0.17 with a TSH greater than 90 on November 29. She is on 175 mcg of levothyroxine daily. Uncertain if she had missed doses prior to admission. Will address further with patient. 4. Insomnia, chronic, present on admission.? Stable. On Ambien and is sleeping reasonably well. 5. Constipation Patient reports she typically moves her bowels daily. Will add senna b.i.d.. 6. Chronic neck pain with benzodiazepine dependence and opiate dependence in remission, present on admission.? Stable. Continue diazepam. Resolved issues: DOTTIE Hypokalemia Pansensitive E coli UTI Code status:? Full code Surrogate decision maker: Ger Kline Disposition: Patient appealed discharge. Await decision for Medicare P Time Spent With Patient Critical Care time: I spent a total of [] minutes of critical care time on this patient's care today; this time is exclusive of procedural time. Quality VTE Deep Vein Thrombosis/Pulmonary Embolism Present on Admission: No
[2021-12-04] MEDS: LEVOTHYROXINE 75 MCG TABLET PO (06:00)
[2021-12-04] MEDS: LEVOTHYROXINE 100 MCG TABLET PO (06:00)
[2021-12-04 06:56] LABS: Add Manual Diff / Slide Review NO; Basophils Absolute Auto 0 /uL (0-100); Basophils Percent Auto 0.5 % (0-2); Eosinophils Absolute Auto 100 /uL (0-450); Eosinophils Percent Auto 2.5 % (2-4); Hematocrit 25.2 % (36-46); Hemoglobin 8.6 g/dL (12.0-16.0); Lymphocytes Absolute Auto 1200 /uL (1100-4500); Lymphocytes Percent Auto 24.3 % (25-40); Mean Corpuscular HGB Conc 34.3 % (30-36); Mean Corpuscular Hemoglobin 35.1 PG (26-34); Mean Corpuscular Volume 102.4 fL (80-100); Monocytes Absolute Auto 400 /uL (0-900); Monocytes Percent Auto 9.3 % (3-14); Neutrophils Absolute Auto 3000 /uL (1500-7000); Neutrophils Percent Auto 63.4 % (50-75); Platelet Count 238 X10^3/uL (150-400); Red Blood Cell Count 2.46 X10^6/uL (4.0-5.2); Red Cell Distribution Width 17.6 % (11.6-14.8); White Blood Cell Count 4.7 X10^3/uL (4.5-11.0)
[2021-12-04 07:06] LABS: BUN Creatinine Ratio 6.9 (6-22); Blood Urea Nitrogen 7 mg/dL (7-17); Calcium 8.4 mg/dL (8.4-10.2); Carbon Dioxide 29 mmol/L (22-32); Chloride 106 mmol/L (98-107); Estimated Glomerular Filt Rate 58 mL/min (>60); Glucose 85 mg/dL (80-110); HEMOLYSIS < 15 (0-50); Magnesium 2.4 mg/dL (1.6-2.3); Potassium 4.1 mmol/L (3.4-5.1); Sodium 138 mmol/L (137-145)
[2021-12-04] MEDS: FOLIC ACID 1 MG TABLET PO (08:59)
[2021-12-04] MEDS: SENNOSIDES 8.6 MG TABLET 17.2 MG PO ×2 (09:00→20:12)
[2021-12-04] MEDS: PANTOPRAZOLE 40 MG VIAL IV ×2 (09:00→20:12)
[2021-12-04] MEDS: MULTIVITAMIN 1 TABLET 1 TAB PO (09:00)
[2021-12-04] MEDS: SODIUM CHLORIDE 0.9% FLUSH 10 ML IV ×2 (09:01→20:12)
[2021-12-04] MEDS: NYSTATIN POWDER 15GM 1 APPLIC TOP ×2 (09:02→20:12)
[2021-12-04] MEDS: ONDANSETRON 4 MG/2 ML INJ IV (10:03)
--- NOTE | 2021-12-04 11:51 | PT-IP ANOTE ---
Attempted to see pt this AM, however pt continues to refuse PT stating I have no interest in getting out of bed! Pt c/o nausea, RN notified.
--- NOTE | 2021-12-04 13:45 | CM.DPNOTE ---
Discharge Planning Note: Patient refused discharge yesterday and a Medicare appeal was faxed. So far we have not heard from [facility] for appeal requestand most likely won't hear until Monday. Patient refuses SNF. She has refused therapies today. She is still resistant to return home stating she has nausea? Plan: Continue to encourage patient to return home. She does live alone. Will need to choose a agency upon discharge. Await [facility] communication for appeal. Linda Stringer RN/DCP
--- NOTE | 2021-12-04 15:00 | OT.IP.TRT ---
Current Diagnoses Gastrointestinal hemorrhage, unspecified (11/28/21) Acute kidney failure, unspecified (11/28/21) Urinary tract infection, site not specified (11/28/21) Surgery Performed Operation Date: 12/01/21 13:45 Actual Procedures p Esophagogastroduodenoscopy(Not Applicable) - Kin Fitzgerald MD s Colonoscopy(Not Applicable) - Kin Fitzgerald MD Occupational Therapy Treatment Note M2 OT-IP Current Condition Start: 12/03/21 09:53 Freq: Status: Active Protocol: Document 12/03/21 09:46 [facility] (Rec: 12/03/21 10:10 [facility] [id number]) Occupational Therapy Current Condition Current Condition Evaluation Date 12/03/21 Treatment Diagnosis Anemia due to GI bleed,UTI Diagnosis Onset Date 11/28/21 M3 OT- IP Subjective and Pain Start: 12/03/21 09:53 Freq: Status: Active Protocol: Document 12/04/21 14:40 [facility] (Rec: 12/04/21 15:19 [facility] [id number]) OT- Subjective Occupational Therapy Visit Type Type Treatment Note Visit Start Time 14:40 Visit Stop Time 15:00 Total Visit Minutes 20 Occupational Therapy Visit Comments Patient Comments Pt initially agreed to answering questions, but when realizing doing a cognitive assessment, pt started to get frustrated. I can take care of myself when it is important but these tests do not mean anything to me. Able to let hospitalist be aware of her score. Patient/Caregiver Goals TO go home when she is feeling ready. OT Pain Assessment Pain When Pain Assessed At Rest Pain Present Pain Present Denied Pain M5 OT- IP IADL's Start: 12/03/21 09:53 Freq: Status: Active Protocol: Document 12/03/21 09:46 [facility] (Rec: 12/03/21 10:10 [facility] [id number]) OT-Instrumental Activities of Daily Living Home Safety Awareness Awareness of Need for Assistance at Home Good Awareness Ability to Problem Solve Emergency Able to Problem Solve Situations Home Safety Comments Due to decreased activity tolerance, pt would benefit from assist for IADl needs. Medication Management Medication Management Comments Pt states does her own, may need assist due decreased memory at times. Money Management Money Management Comments Pt states does her own, may need assist due decreased memory at times. Meal Preparation Meal Preparation Comments Pt would benefit from having assist. Hot Dip Plater Hot Dip Plater Comments Pt would benefit from having assist. Driving Driving Concerns Identified Regarding Safety M6 OT- IP Functional Cognition Start: 12/03/21 09:53 Freq: Status: Active Protocol: Document 12/04/21 14:40 [facility] (Rec: 12/04/21 15:19 [facility] [id number]) Cognitive Factors Limiting Selfcare Function Cognitive Ability Level of Alertness Alert,Confusional State Patient Orientation Name,Year,Day of Week,Place, Situation Attention Span Ability Capable of Focused Attention, Capable of Sustained Attention Ability to Follow Commands Able to Follow One Step Commands Memory Description Short Term Impaired,Working Impaired Safety Awareness Underestimates Need for Assistance Problem Solving Ability Needs Assist to Identify Solutions Executive Function Ability Unable to Filter Distractions, Unable to Organize Plans, Unable to Remember Details Cognitive Tests SLUMS Pt scored 19/30 which implies borderline dementia, however pt getting frustrated on the assessment and at times not wanting to participate therefore unsure if her score of 19/30 is accurate. Pt is insistent that she able to care for herself at home and able to remember to take care of her needs. Pt able to recall Dr. Cortez from yesterday and other details. Pt not able to calculate 100- 23, able to recall 6 animals in one minute, able to recall 2 objetcs after time passed, not able to draw the hour hands on the clock after time given, and able to recall 3/4 questions right after time passed. Cognitive Comments Cognitive Assessment Comments Pt is very insistent on her care and needs. Pt still a bit confused at time and needing extra time to recall information and do calculations in her head. Not sure if pt is at her baseline for cognitive needs as prior pt may have had mild deficits. Pt does appears to need increased time to process information and slow to respond at times. M7 OT- IP Mobility and Balance Start: 12/03/21 09:53 Freq: Status: Active Protocol: Document 12/03/21 09:46 [facility] (Rec: 12/03/21 10:10 [facility] [id number]) OT- Bed Mobility Assessment Supine to Sit Supine to Sit Assist Independent Sit to Supine Sit to Supine Assist Standby Assistance,Head of Bed Elevated,Bedrails OT-Transfer Assessment Sit to and From Stand Sit to and from Stand Standby Assistance Transfers Transfer Ability Standby Assistance Technique Transfer Destination Bed Transfer Technique Stand Step Pivot Devices Transfer Assistive Devices Gait Belt,Front Wheeled Walker Comments Mobility Comments Pt able to get into and out of the bed with increased time and use of bed rail to assist with positioning needs. Suggested that pt would benefit from bed rail for home use. SBA to stand and able to walk with FWW slowly and with slight flexed posture. OT- Balance Assessment Sitting Balance and Reactions Static Sitting Balance Ability Normal Dynamic Sitting Balance Ability Good Standing Balance and Reactions Static Standing Balance Ability Good Dynamic Standing Balance Ability Fair M8 OT- IP Objective Assessments Start: 12/03/21 09:53 Freq: Status: Active Protocol: Document 12/03/21 09:46 [facility] (Rec: 12/03/21 10:10 [facility] [id number]) OT Gross Range of Motion Upper Extremity Range of Motion Assessment Within Functional Limits OT Strength Comments Strength Comments NOt able to formally assess at least 3-/5 throughout based on observation form doing ADL needs. OT-Muscle Tone Assessment Muscle Tone WNL Yes M9 OT- IP Assessment and Plan Start: 12/03/21 09:53 Freq: Status: Active Protocol: Document 12/04/21 14:40 [facility] (Rec: 12/04/21 15:19 [facility] [id number]) OT Summary Assessment and Plan Potential Rehabilitation Potential Good Analytic Complexity at Evaluation Moderate Summary OT Impairments Balance,Functional Cognition, Functional Mobility,Dressing, Toileting,Bathing,Toilet Transfers,Shower Transfers, Activity Tolerance Progress Towards Goals Slow Progress due to Medical Issues,Slow Progress due to Activity Tolerance,Slow Progress due to Cognition Assessment Summary Pt scored 19/30 on the SLUMS which implies cognitive deficits. Pt may benefit from skilled rehab to work on cognitive needs and independence with her ADl and mobility needs. Pt insistent on going home when she is ready . Goals Self-Feeding Goal Independent Grooming Goal Independent Dressing Goal Independent Toileting Goal Independent Bathing Goal Independent Toilet Transfer Goal Independent Shower Transfer Goal Independent Days to Meet Goals 5 Frequency of Treatment Frequency Of Treatment Once a Day Treatment Plan OT Treatment Plan ADL Training,Functional Cognition Training,Functional Mobility,Patient/Family Education,Discharge Planning Other Treatment Recommendations and Next shower Treatment Focus Discharge Recommendations OT Discharge Recommendations Home with Assistance,Home Health,SNF Rehab,Home vs SNF Transportation Needs at Discharge Private Vehicle
--- NOTE | 2021-12-04 19:41 | PC.NURSE ---
Patient is alert and oriented but forgetful and poor recall of past events. Breath sounds CTA with RA sat of 95%. HRR. Denies nausea. BT present and is passing flatus but last BM was 12/01; started on Senna today. Has pure wick positioned and to suction at 40mmHg but has also been incontinent of urine. Is able to turn herself in bed. Gait not assessed at this time but report from previous RN indicates patient needs walker and 1 assist but is steady on feet. Denies pain. Refuses SCD's despite DVT prevention information so reminded to ankle wave. Fall risk score is high and bed alarm is activated.
[2021-12-05] VITALS (7 sets, daily range): BP systolic 125–157; BP diastolic 67–81; PULSE 79–88; RESP 16–19; TEMP 36.1–36.8; O2SAT 95–97
--- NOTE | 2021-12-05 05:21 | PM.PN.1 ---
Subjective Subjective Date Patient Seen: 12/05/21 Interval history: 75 yo female w/?hypothyroidism, seasonal allergies, alcohol dependence, previous opiate dependence in remission, insomnia on Ambien and Benadryl who presented to the ED with complaint of abdominal discomfort and nausea for the past 4 weeks, admitted for symptomatic blood loss anemia secondary to GI bleed, DOTTIE secondary to UTI. Patient has appealed her discharge and is awaiting a decision per Medicare. Patient reports she has had increasing abdominal pain this morning. She states this gradually progressed over the course of the day. She is uncertain if it worsens with intake or not. She states that it gradually worsened over a period Of several weeks prior to admission. She describes it as being sharp in nature. No nausea. She believe she had a bowel movement yesterday. Exam Vital Signs (past 8 hours): - 12/05/21 00:00 12/05/21 00:00 12/05/21 04:53 Temperature 97.4 F L 97.4 F L Pulse Rate 83 81 Respiratory Rate 16 18 Blood Pressure 125/69 136/73 Pulse Oximetry 95 97 96 Oxygen Delivery Method Room Air Oxygen Flow Rate 0 0 0 12/05/21 04:53 Temperature Pulse Rate Respiratory Rate Blood Pressure Pulse Oximetry 96 Oxygen Delivery Method Room Air Oxygen Flow Rate 0 Oxygen Delivery Method Room Air Oxygen Flow Rate 0 Narrative Exam Narrative: GEN: Alert and oriented x 3, appears uncomfortable, moaning HEENT:NC, Face symmetric CHEST: Respiratory excursions symmetric, CTAB CV: RRR, no M/R/G ABD: Soft, obese, moderately diffusely tender to palpation/ND, BT present in all 4 quadrants, body habitus limits exam EXTR: warm, well perfused, no C/C/E SKIN: warm and dry, no rash NEURO: Alert and oriented x 3, nonfocal Objective Labs Result Diagrams: 12/05/21 06:35 12/05/21 06:35 Labs: Laboratory Results - last 24 hr 12/04/21 12/04/21 06:21 06:21 WBC 4.7 RBC 2.46 L Hgb 8.6 L Hct 25.2 L MCV 102.4 H MCH 35.1 H MCHC 34.3 RDW 17.6 H Plt Count 238 Neut % (Auto) 63.4 Lymph % (Auto) 24.3 L [place] % (Auto) 9.3 Eos % (Auto) 2.5 Baso % (Auto) 0.5 Neut # (Auto) 3000 Lymph # (Auto) 1200 [place] # (Auto) 400 Eos # (Auto) 100 Baso # (Auto) 0 Sodium 138 Potassium 4.1 Chloride 106 Carbon Dioxide 29 BUN 7 Creatinine 1.01 Estimated GFR 58 L BUN/Creatinine Ratio 6.9 Glucose 85 Calcium 8.4 Magnesium 2.4 H [facility] Medical History Alcohol dependence Cervical vertebral fusion Hypothyroidism Insomnia Surgical History Gastric bypass status for obesity S/P cervical spinal fusion Family History Father MVA (motor vehicle accident) Mother Lung cancer Social History household members: none Smoking Status: Former smoker alcohol intake: current Assessment & Plan Assessment & Plan narrative: 1. Acute blood loss anemia secondary to GI bleed, acute, present on admission Patient underwent panendoscopy December 01 with evidence of gastritis and recent bleeding but no active bleeding.? She remains on PPI b.i.d..? Hemoglobin is stable at 8.4. 2. Alcohol dependence, chronic, present on admission.? Patient consumes 2-3 glasses of wine most nights.? No alcohol for several weeks prior to admission.? No evidence of withdrawal. ? 3. Hypothyroidism, acquired, chronic, present on admission.? -free T4 was low at 0.17 with a TSH greater than 90 on November 29.? She is on 175 mcg of levothyroxine daily.? Uncertain if she had missed doses prior to admission.? She will need outpatient close follow-up. 4. Abdominal pain Unclear etiology. She reports it began several weeks prior to admission and was associated with inability to eat. Although she has no risk factors for mesenteric ischemia I will obtain a CT angiogram for completeness. We will also obtain a lipase and CRP. 5. Insomnia, chronic, present on admission.? Stable. On Ambien and is sleeping reasonably well. 5.? Constipation Patient reports she typically moves her bowels daily.? Started senna b.i.d. yesterday. She reports she did have a bowel movement. 6. Chronic neck pain with benzodiazepine dependence and opiate dependence in remission, present on admission.? Stable. Continue diazepam. 7. Staff report of intermittent confusion SLUMS performed per OT yesterday w/score of 30. OT noted pt was reluctant to perform assessment and stated that Dr. Cortez was the reason she was getting assessed. Results will be interpreted w/caution d/t her reluctance. Resolved issues: DOTTIE Hypokalemia Pansensitive E coli UTI Code status:? Full code Surrogate decision maker: Ger Kline Disposition: Patient appealed discharge.? Await decision for Medicare Time Spent With Patient Critical Care time: I spent a total of [] minutes of critical care time on this patient's care today; this time is exclusive of procedural time. Quality VTE Deep Vein Thrombosis/Pulmonary Embolism Present on Admission: No
[2021-12-05] MEDS: LEVOTHYROXINE 100 MCG TABLET PO (06:22)
[2021-12-05] MEDS: LEVOTHYROXINE 75 MCG TABLET PO (06:22)
[2021-12-05 08:04] LABS: Add Manual Diff / Slide Review NO; Basophils Absolute Auto 0 /uL (0-100); Basophils Percent Auto 0.7 % (0-2); Eosinophils Absolute Auto 100 /uL (0-450); Eosinophils Percent Auto 1.6 % (2-4); Hematocrit 25.3 % (36-46); Hemoglobin 8.4 g/dL (12.0-16.0); Lymphocytes Absolute Auto 1200 /uL (1100-4500); Lymphocytes Percent Auto 23.4 % (25-40); Mean Corpuscular HGB Conc 33.3 % (30-36); Mean Corpuscular Hemoglobin 34.1 PG (26-34); Mean Corpuscular Volume 102.3 fL (80-100); Monocytes Absolute Auto 500 /uL (0-900); Monocytes Percent Auto 8.9 % (3-14); Neutrophils Absolute Auto 3400 /uL (1500-7000); Neutrophils Percent Auto 65.4 % (50-75); Platelet Count 240 X10^3/uL (150-400); Red Blood Cell Count 2.47 X10^6/uL (4.0-5.2); Red Cell Distribution Width 17.7 % (11.6-14.8); White Blood Cell Count 5.2 X10^3/uL (4.5-11.0)
[2021-12-05 08:20] LABS: Blood Urea Nitrogen 9 mg/dL (7-17); Calcium 8.4 mg/dL (8.4-10.2); Carbon Dioxide 29 mmol/L (22-32); Chloride 104 mmol/L (98-107); Estimated Glomerular Filt Rate 58 mL/min (>60); Glucose 79 mg/dL (80-110); HEMOLYSIS < 15 (0-50); Magnesium 2.4 mg/dL (1.6-2.3); Potassium 3.7 mmol/L (3.4-5.1); Sodium 137 mmol/L (137-145)
[2021-12-05] MEDS: FOLIC ACID 1 MG TABLET PO (08:23)
[2021-12-05] MEDS: SODIUM CHLORIDE 0.9% FLUSH 10 ML IV (08:23)
[2021-12-05] MEDS: SENNOSIDES 8.6 MG TABLET 17.2 MG PO ×2 (08:23→21:12)
[2021-12-05] MEDS: MULTIVITAMIN 1 TABLET 1 TAB PO (08:23)
[2021-12-05] MEDS: NYSTATIN POWDER 15GM 1 APPLIC TOP ×2 (08:24→21:12)
[2021-12-05] MEDS: PANTOPRAZOLE DR 40 MG TABLET PO (08:35)
--- NOTE | 2021-12-05 10:57 | DI.CT.S_ITS ---
PROCEDURE: CT ANGIO ABDOMEN PELVIS INDICATIONS: Unexplained abdominal pain, eval for mesenteric ischemia TECHNIQUE: After the administration of intravenous contrast, 2.5 mm thick sections acquired from the diaphragm to the symphysis. 10 mm maximum-intensity projection (MIP) reformats were then acquired. For radiation dose reduction, the following was used: automated exposure control. COMPARISON: [facility], CT, CT ABDOMEN PELVIS W CON, 11/28/2021, 21:54. FINDINGS: Lower thorax: The lung bases are clear. Heart size normal. No hiatal hernia. Liver: The liver is diffusely decreased in attenuation without focal mass lesion. Biliary system: No calcified cholelithiasis or pericholecystic inflammation. No intra or extrahepatic bile duct dilatation. Pancreas: Unremarkable without mass or inflammation evident. Spleen: Normal in size and density. Adrenals: Normal morphology and density. Reproductive system: Unremarkable as visualized. Urinary system: Normal renal size and attenuation. No renal calculi, hydronephrosis, or solid mass present. Urinary bladder unremarkable. Gastrointestinal system: Prior gastric surgery present. There is moderate hiatal hernia noted. Digital anastomosis intact. Bowel wall normal throughout without evidence of pneumatosis. Appendix: No findings to suggest acute appendicitis. Peritoneal spaces: No mesenteric or retroperitoneal adenopathy. No free air. No free fluid. Vasculature: The aorta widely patent without significant atherosclerotic plaque. The superior mesenteric artery and celiac axis arise from a common trunk from the aorta, an anatomic variant. These vessels are also widely patent. Trace atherosclerotic calcification associated with the right renal artery. Both renal arteries are otherwise unremarkable without stenosis. KYA is likewise normal. Abdominal wall: Abdominal wall intact without evidence of ventral or inguinal hernias. Musculoskeletal: Normal bone mineralization. Degenerative disc disease and arthropathy noted in lower lumbar spine. No acute fractures. IMPRESSION: 1. Aortic and mesenteric vasculature are all widely patent without evidence of stenosis. No secondary sequela of mesenteric ischemia. 2. Chronic findings include prior gastric surgery, degenerative disc disease and, small hiatal hernia Approved by: Sharath Wilkins M.D. on 12/05/2021 at 12:24
[2021-12-05 11:13] LABS: C-Reactive Protein Quant 1.2 mg/dL (<1.0); Lipase 292 U/L (23-300)
[2021-12-05] MEDS: ONDANSETRON 4 MG ODT SL (11:30)
--- NOTE | 2021-12-05 12:18 | PC.NURSE ---
Day Shift Pt left floor to go to CT scan at 1218. Pt denied any pain or nausea. Pt was calm and cooperative
--- NOTE | 2021-12-05 13:12 | CM.DPNOTE ---
Discharge Planning Note: Patient continuing to refuse discharge stating that she is too weak and her belly hurts. Her Medicare appeal was faxed on 12/03/21. We received fax today stating they need more information. The entire chart was faxed to them today. She continues to refuse SNF. She refused therapies yesterday, unsure of today. Explained Home Health services to patient and she is amenable to upon discharge and has no HH preference. Spoke with Gm at [facility] who can accept and could start Monday/Monday. F2F filled out and faxed. Plan: Continue to encourage discharge. Await fax from [facility] for decision. Contact [place] upon discharge. Linda Stringer RN/ELVAP
--- NOTE | 2021-12-05 14:28 | PT-IP ANOTE ---
Attempted to see pt, but Care Management facilitating a call for pt at the time.
--- NOTE | 2021-12-05 14:55 | PT-IP ANOTE ---
Pt declines to participate in PT at this time stating they have too much going on. Pt states they have been up once this whole time to use the bathroom and FILTER PLANT OPERATOR offers to assist pt to bathroom - pt declines. Bed mobility offered and pt declines stating maybe tomorrow will be a good day. Advised pt that PT will be back tomorrow to work with her - pt expresses agreement.
--- NOTE | 2021-12-05 14:56 | CM.DPNOTE ---
Discharge Planning Note: Called [employer] due to we received from them need for more records and we faxed the whole chart. This DCP called [employer] and they said they faxed us that the case was closed due to insufficient records on afternoon and that patient needed to file another appeal. This DCP went to patient's room and we called [employer] at 2:45 pm today (spoke with Silviano) and patient initiated a new appeal (Case# [id number]) We then re-faxed the entire chart to them including the ultrasound done earlier today. Left IMM with patient and the new case # written on it and explained. Patient continues to say she has abd pain and nausea. Educated patient that she does not have to wait for their decision to leave. Plan: Await [employer] decision, check online or call if not timely for update. If patient chooses to leave earlier she can. We have a cab voucher available for her, call [facility], left in red folder. Linda Stringer RN/ELVAP
--- NOTE | 2021-12-06 04:43 | PC.NURSE ---
Pt A&O4, but does not fully understand conversation at times and staff often having to repeat in other ways. Nystatin was applied under breasts. 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 Pleasant with staff.
[2021-12-06] MEDS: PANTOPRAZOLE DR 40 MG TABLET PO (06:03)
[2021-12-06] MEDS: LEVOTHYROXINE 100 MCG TABLET PO (06:03)
[2021-12-06] MEDS: LEVOTHYROXINE 75 MCG TABLET PO (06:04)
[2021-12-06] MEDS: SODIUM CHLORIDE 0.9% FLUSH 10 ML IV ×2 (06:04→09:28)
[2021-12-06 07:00] VITALS: BP 140/73; PULSE 93; RESP 16; TEMP 35.9; O2SAT 98
--- NOTE | 2021-12-06 08:15 | PM.PN.1 ---
Subjective Subjective Date Patient Seen: 12/06/21 Time Patient Seen: 12:00 Interval history: Saying her guts still hurt but it is improving. Thinks will be ready to discharge tomorrow. Denies any other symptoms. Exam Vital Signs (past 8 hours): - 12/06/21 01:02 12/06/21 05:00 Oxygen Delivery Method Room Air Room Air Oxygen Delivery Method Room Air Oxygen Flow Rate 0 Narrative Exam Narrative: GEN: Alert and oriented x 3, appears uncomfortable, moaning HEENT:NC, Face symmetric CHEST: Respiratory excursions symmetric, CTAB CV: RRR, no M/R/G ABD: Soft, obese, moderately diffusely tender to palpation/ND, BT present in all 4 quadrants, body habitus limits exam EXTR: warm, well perfused, no C/C/E SKIN: warm and dry, no rash NEURO: Alert and oriented x 3, nonfocal Objective Labs Result Diagrams: 12/05/21 06:35 12/05/21 06:35 Labs: Laboratory Results - last 24 hr 12/05/21 12/05/21 06:35 06:35 Sodium 137 Potassium 3.7 Chloride 104 Carbon Dioxide 29 BUN 9 Creatinine 1.00 Estimated GFR 58 L BUN/Creatinine Ratio 9.0 Glucose 79 L Calcium 8.4 Magnesium 2.4 H C-Reactive Protein 1.2 H Lipase 292 PFSH Medical History Alcohol dependence Cervical vertebral fusion Hypothyroidism Insomnia Surgical History Gastric bypass status for obesity S/P cervical spinal fusion Family History Father MVA (motor vehicle accident) Mother Lung cancer Social History household members: none Smoking Status: Former smoker alcohol intake: current Assessment & Plan Assessment & Plan narrative: 1. Acute blood loss anemia secondary to GI bleed, acute, present on admission Patient underwent panendoscopy December 01 with evidence of gastritis and recent bleeding but no active bleeding.? She remains on PPI b.i.d..? Hemoglobin is stable at 8.4. 2. Alcohol dependence, chronic, present on admission.? Patient consumes 2-3 glasses of wine most nights.? No alcohol for several weeks prior to admission.? No evidence of withdrawal. ? 3. Hypothyroidism, acquired, chronic, present on admission.? -free T4 was low at 0.17 with a TSH greater than 90 on November 29.? She is on 175 mcg of levothyroxine daily.? Uncertain if she had missed doses prior to admission.? She will need outpatient close follow-up. 4. Abdominal pain Unclear etiology. She reports it began several weeks prior to admission and was associated with inability to eat. Although she has no risk factors for mesenteric ischemia I will obtain a CT angiogram for completeness. We will also obtain a lipase and CRP. 5. Insomnia, chronic, present on admission.? Stable. On Ambien and is sleeping reasonably well. 5.? Constipation Patient reports she typically moves her bowels daily.? Started senna b.i.d. yesterday. She reports she did have a bowel movement. 6. Chronic neck pain with benzodiazepine dependence and opiate dependence in remission, present on admission.? Stable. Continue diazepam. 7. Staff report of intermittent confusion SLUMS performed per OT yesterday w/score of 19/30. OT noted pt was reluctant to perform assessment and stated that Dr. Cortez was the reason she was getting assessed. Results will be interpreted w/caution d/t her reluctance. Resolved issues: DOTTIE Hypokalemia Pansensitive E coli UTI Code status:? Full code Surrogate decision maker: Ger Kline Disposition: [facility] 12/07. Time Spent With Patient Critical Care time: I spent a total of [] minutes of critical care time on this patient's care today; this time is exclusive of procedural time. Quality VTE Deep Vein Thrombosis/Pulmonary Embolism Present on Admission: No
[2021-12-06] MEDS: SENNOSIDES 8.6 MG TABLET 17.2 MG PO (09:28)
[2021-12-06] MEDS: FOLIC ACID 1 MG TABLET PO (09:28)
[2021-12-06] MEDS: MULTIVITAMIN 1 TABLET 1 TAB PO (09:28)
[2021-12-06] MEDS: NYSTATIN POWDER 15GM 1 APPLIC TOP (09:28)
--- NOTE | 2021-12-06 12:52 | SLP.IPNOTE ---
Order received for cognitive evaluation. OT administered SLUMS with score of 19/30. WIll discuss with MD is ST is still needed.
--- NOTE | 2021-12-06 14:15 | PC.NURSE ---
Patient denies abdominal pain or cramping today. Tolerated breakfast and lunch, reports feeling full afterwards. Patient had large brown BM per HI TEACHER report without blood. Patient laying in bed watching movies. Call light within reach.
--- NOTE | 2021-12-06 14:58 | CM.DPC ---
ELVAP Cont: DCP met with pt this afternoon to discuss how she is feeling today. Pt states she still feels awful. Pt concerned about how she is going to get home. [facility] verbalized that [employer] is set up for her to take her to her house along with HH. Pt states, I cant go home today. I want to go home tomorrow. I still don't feel good. DCP to continue following case and awaiting Agustínazeb decision on appeal. Shiela Lou RN/ELVAP
[2021-12-06 15:05] VITALS: BP 156/84; PULSE 105; O2SAT 98
--- NOTE | 2021-12-06 15:44 | PT.IPTN ---
Current Diagnoses Gastrointestinal hemorrhage, unspecified (11/28/21) Acute kidney failure, unspecified (11/28/21) Urinary tract infection, site not specified (11/28/21) Surgery Performed Operation Date: 12/01/21 13:45 Actual Procedures p Esophagogastroduodenoscopy(Not Applicable) - Kin Fitzgerald MD s Colonoscopy(Not Applicable) - Kin Fitzgerald MD Physical Therapy Treatment Note M2 PT-IP Current Condition Start: 12/02/21 12:47 Freq: NEEDED Status: Active Protocol: Document 12/06/21 15:05 SP (Rec: 12/06/21 17:14 SP [id number]) Physical Therapy Current Condition Current Condition Evaluation Date 12/02/21 Treatment Diagnosis GI bleed; difficulty in walking Onset Date 11/28/21 M3 PT-IP Subjective Start: 12/02/21 12:47 Freq: NEEDED Status: Active Protocol: Document 12/06/21 15:05 SP (Rec: 12/06/21 17:14 SP [id number]) Subjective Physical Therapy Visit Type Type Treatment Note Visit Start Time 15:05 Visit Stop Time 15:44 Total Visit Minutes 39 Notes VItals taken end tx secondary to increase SOB and reports nausea during gait in hallway. Number of MAJOR GIFTS OFFICER Visits 2 Physical Therapy Visit Comments Patient Comments Pt willing to work with therapy. Patient Goals Return home via her cabinet maker that usually helps her in/out house and states stays with her if needed until settled. She states has no one to assist her if needed. M4 PT-IP Mobility and Gait Start: 12/02/21 12:47 Freq: NEEDED Status: Active Protocol: Document 12/06/21 15:05 SP (Rec: 12/06/21 17:14 SP [id number]) PT-Transfer Assessment Sit to and From Stand Sit to and from Stand Standby Assistance Equipment Transfer Assistive Device Gait Belt,Front Wheeled Walker Orthotic/Prosthetic Devices or Brace: No Transfers Transfer Destination Bed,Toilet Transfer Technique Pt ambulated using FWW Transfer Ability Level of Assist Standby Assistance,Contact Guard Assistance,Use of Upper Extremities Comments Mobility Comments Pt LR R with use bed rail, required Mod A for trunk righting RSL>sit, close SBA scoot to EOB due to trunk sit balance instability able self support using BUE on bed. Once EOB able to don brief offered by nursing staff, able don self and maintain balance. Sit >stand, cued push from bed not FWW, impulsive so provided cues for proximity adn slower repositioning pivot turn w/ FWW for safety across room and back, complete bathroom transfer, self pericare in sitting after voided and brief mgt in standing BUE unsupported, discussed 1 UE on FWW for safety stability, no LOB/devaitions, gait to sink to wash hands w/ FWW. She was able to complete ascend/ descend 2 PF steps states has to manage curb and enter home with cues for FWW positioning slow and safely all 4 points. She was ableto complete stand< >sit<>supine on room bench lower height closer to floor as at home without support requried. She states room bed to high needed assist but won' t at home. Pt requested to walk into hallway, completed approx 150 ft SBA w/ FWW with reports nausea but wanted to walk further distance, upon return same path noted increased SOB, cued for slower pacing and or stop stand rest for breath recovery but pt stated just want to get back to her room and get back in bed. Took pt 30 sec to recover with education and cues for slower breath. sit>R SL SBA with use bed rail ( doesn't have at home). MAJOR GIFTS OFFICER continued safety education for slow pacing, FWW positioning slower safety fwd and step mgt with strangers, recommend someone stay with her for few days. Pt had call light and all needs in reach before left . Gait Assessment Gait Gait Assistance Required: Standby Assistance,Contact Guard Assist Distance (Feet) 150 Able to Maintain Weight Bearing Status Yes During Gait Assistive Devices Assistive Device Gait Belt,Front Wheeled Walker Orthotic/Prosthetic Devices or Brace: No Gait Deviations General Gait Pattern Antalgic,Decreased Stride Length,Decreased Feet Clearance Factors Limiting Gait Function Factors Limiting Gait Function Decreased Activity Tolerance, Decreased Strength,Poor Safety Awareness Comments Gait Comments see mobility comments: 30 ft in room, 150 ft hallway distance. Safety cues proximity to FWW, slower pacing during pivot for safety stability and distance to allow energy/ breath conservation with verbalized understanding. Stair Climbing Assessment Evaluation Level of Assist On Stairs Standby Assistance,Contact Guard Assistance Devices Stair Climbing Assistive Devices Front Wheel Walker Technique/Endurance Stair Climbing Direction Ascend and Descend Stair Climbing Technique Step to Step Number of Steps Climbed 1 Stair Climbing Set # Repetitions (reps) 2 Comments Stair Climbing Comments 2 PF step w/ FWW CGA, cues for slow placement positioning for safety to manage curb and front step into home. PT-Balance Assessment Sitting Balance and Reactions Static Sitting Balance Ability Good Dynamic Sitting Balance Ability Fair Standing Balance and Reactions Static Standing Balance Ability Good Dynamic Standing Balance Ability Fair Device Used FWW Comments Other Balance Tests/Deviations/Treatment Impulsive in standing w/ FWW : at times, cues for positioning , see mobiltiy comments M5 PT-IP Objective Assessments Start: 12/02/21 12:47 Freq: NEEDED Status: Active Protocol: Document 12/02/21 10:35 AB (Rec: 12/02/21 13:06 AB [id number]) Orientation Orientation/Cognition Level of Alertness Alert Language Function Ability Hard of Hearing Safety Awareness Decreased Safety Awareness Memory Description Short Term Impaired Comments with slight confusion Gross Range of Motion Lower Extremity ROM Assessment Within Functional Limits Strength Lower Extremity Strength Hip 4-/5 Knee 4-/5 Muscle Tone Muscle Tone WNL Yes M6 PT-IP Treatment Start: 12/02/21 12:47 Freq: NEEDED Status: Active Protocol: Document 12/06/21 15:05 SP (Rec: 12/06/21 17:14 SP [id number]) Physical Therapy Treatment Exercises Exercises Ankle Pumps,Heel Slides Education Education Provided Safety M7 PT-IP Assessment and Plan Start: 12/02/21 12:47 Freq: NEEDED Status: Active Protocol: Document 12/06/21 15:05 SP (Rec: 12/06/21 17:14 SP [id number]) PT Summary Assessment and Plan Potential Rehabilitation Potential Fair Status of Condition at Evaluation Stable Summary Impairments Pain,ROM,Strength,Balance, Coordination,Sensation,Tone, Cognition,Bed Mobility, Transfers,Gait,Activity Tolerance Progress Towards Goals Progressing Toward Goals,Slow Progress due to Activity Tolerance Assessment Summary pt requiring CGA SBA with mobility using FWW but has decrease activity tolerance affecting mobility and breath rate. pt also has decrease safety awareness and with slight confusion. pt lives alone and will need to be more independent that current level. Recommended having someone come to house stay with her for little while but states doesn't have anyone. My cabinet maker See takes care of me getting in/ out house until I am all set inside. Recommending SNF vs home with assist and HH services. will continue to assess progress. Goals Bed Mobility Goal Independent Transfer Goal Independent,Front Wheeled Walker Gait Goal Independent,Front Wheel Walker Gait Distance 200 Days to Meet Goals 10 Frequency of Treatment Frequency Of Treatment Once a Day Treatment Plan Physical Therapy Treatment Plan Bed Mobility Training,Transfer Training,Gait Training, Therapeutic Exercise,Balance Retraining,Discharge Planning, Hot or Cold Pack,Neuromuscular Re-ed,Coordination Retraining Other Recommendations and Next Treatment bed mob, transfers w/ FWW, Focus gait distance, safety strategies Precautions Other Precautions falls Recommendations To Nursing Amount of Assist Needed Standby Assistance,1 Person Assist Discharge Recommendations PT Discharge Recommendations Home with Assistance,Home with 24/7 Assist Available,Home Health,SNF Rehab,Home vs SNF Transportation Needs at Discharge Private Vehicle,Wheelchair/ Cabulance
[2021-12-06 19:10] VITALS: BP 140/89; PULSE 91; RESP 21; TEMP 36.6; O2SAT 94
--- NOTE | 2021-12-07 02:24 | PC.NURSE ---
Pt has been medically d/c and awaiting appeal. Pt has been sleeping entire shift, no assessment has been done at this time. If pt awakes, pt will be physically assessed. Bed alarm is on.
[2021-12-07] MEDS: PANTOPRAZOLE DR 40 MG TABLET PO (05:47)
[2021-12-07] MEDS: LEVOTHYROXINE 75 MCG TABLET PO (05:47)
[2021-12-07] MEDS: LEVOTHYROXINE 100 MCG TABLET PO (05:47)
--- NOTE | 2021-12-07 07:33 | PM.DS.1 ---
History of Present Illness History of Present Illness Chief complaint: GI issues, weakness Narrative: Ms. Costa endorses a 4 week history of feeling sick.? She lives alone and has a history of gastric bypass, but right now, she can't remember when that was. She recalls her surgeon was Dr. Barker and it was done at a [facility] in [place].? She says, I am just not ready for this conversation, explaining that she has been tired and confused since coming to the hospital yesterday. She hasn't slept much and generally doesn't sleep well. With further questioning, it seems that by sick she means nauseated and weak and tired. She needed to use her walker more often than usual.? At first she said she has not been having stomach pains but then later she did endorse a crampy type of abdominal pain, and indicated her low mid abdomen/suprapubic area for the location. She says that these symptoms have been going on for 4 weeks and seem to be getting progressively and steadily worse day by day. She thought she might have some type of infection. She has had no sick contacts. She cannot identify any alleviating or aggravating factors. Her appetite has been low.? She denies diarrhea or constipation. She says that she has been having smallskinny bowl movements less frequently than normal, and she attributes this to not eating much food. She also hasn't been urinating as much as usual, but denies dysurea. She denies emesis. She has never had symptoms like this before in the past. I asked about feeing bloated or distended and she denied it, but then as I was leaving she said she did feel nauseated and bloated currently. She did remember having a colonoscopy in the past but was unsure of the details. I see a c scope report in the medical record from 01/[address] Yamil Fraser. He visualized a small vascular cecal ectasia and biopsied 4 polyps and saw grade 1 internal hemorrhoids. He recommended 3-5 year follow up depending on pathology, but I am not seeing a pathology report in [facility] today.? She says she has not been drinking, understands the harm of alcohol and doesn't want to end up like her mother. Her etOH level was negative. Discharge Providers Provider Date of admission: 11/28/21 23:44 Discharge Date: 12/07/21 Consults: 11/28/21 23:51 Consult to General Surgery Routine Comment: Consulting Provider: Desiree Chinchilla Reason for consultation: GI bleed Has provider been notified: Yes 11/28/21 23:52 Consult to Dietitian, Adult Routine Comment: Reason For Exam: BMI 35.8/ETOH abuse 11/29/21 00:56 Consult to Dietitian, Adult Routine Comment: Reason For Exam: decreased appetite & malaise 12/01/21 15:53 Consult to Physical Therapy Evaluate & Treat Comment: weakness after GI bleeding Physician Instructions: Evaluate and Treat 12/02/21 13:07 Consult to Occupational Therapy Evaluate & Treat Comment: Physician Instructions: Evaluate and treat 12/04/21 10:40 Consult to Speech Therapy Evaluate & Treat Comment: Cognitive eval/MoCA or SLUMS Physician Instructions: Evaluate and treat Discharge provider: Tristan Kauffman DO Summary Hospital Course Discharge Diagnosis: 1. Acute blood loss anemia secondary to GI bleed, acute, present on admission Patient underwent panendoscopy December 01 with evidence of gastritis and recent bleeding but no active bleeding.? She remains on PPI b.i.d..? Hemoglobin is stable at 8.4. 2. Alcohol dependence, chronic, present on admission.? Patient consumes 2-3 glasses of wine most nights.? No alcohol for several weeks prior to admission.? No evidence of withdrawal. ? 3. Hypothyroidism, acquired, chronic, present on admission.? -free T4 was low at 0.17 with a TSH greater than 90 on November 29.? She is on 175 mcg of levothyroxine daily.? Uncertain if she had missed doses prior to admission.? She will need outpatient close follow-up. 4. Abdominal pain Unclear etiology.? She reports it began several weeks prior to admission and was associated with inability to eat.? Although she has no risk factors for mesenteric ischemia I will obtain a CT angiogram for completeness.? We will also obtain a lipase and CRP. 5. Insomnia, chronic, present on admission.? Stable. On Ambien and is sleeping reasonably well. 5.? Constipation Patient reports she typically moves her bowels daily.? Started senna b.i.d. yesterday.? She reports she did have a bowel movement. 6. Chronic neck pain with benzodiazepine dependence and opiate dependence in remission, present on admission.? Stable. Continue diazepam. 7.? Staff report of intermittent confusion SLUMS performed per OT w/ score of 19/30.? OT noted pt was reluctant to perform assessment and stated that Dr. Cortez was the reason she was getting assessed.? Results will be interpreted w/caution d/t her reluctance. Hospital Course: 75 yo female w/?hypothyroidism, seasonal allergies, alcohol dependence, previous opiate dependence in remission, insomnia on Ambien and Benadryl who presented to the ED with complaint of abdominal discomfort and nausea for the past 4 weeks, admitted for symptomatic blood loss anemia secondary to GI bleed, DOTTIE secondary to UTI. Underwent endoscopy with no evidence of bleeding but gastritis so placed on PPI. DOTTIE resolved. TSH elevated at 90 so her home thyroid med dose increased. She was stable to discharge but continued to complain of non-specific abd pain. CT abd pelvis with contrast showed patent vessels so no evidence of mesenteric ischemia. Discharge was advised but patient appealed her discharge and is awaiting a decision per Medicare. Finally felt ready to go home on 12/07 and will continue PPI and increased dose of levothyroxine 175mcg daily. Shoul have repeat TSH by PCP in 6 weeks. Time Spent with Patient Time spent: Greater than 30 minutes Exam Vital Signs (past 8 hours): - 12/07/21 00:14 Oxygen Delivery Method Room Air Oxygen Delivery Method Room Air Oxygen Flow Rate 0 Narrative Exam Narrative: GEN: Alert and oriented x 3, comfortable HEENT:NC, Face symmetric CHEST: Respiratory excursions symmetric, CTAB CV: RRR, no M/R/G ABD: Soft, obese, moderately diffusely tender to palpation/ND, BT present in all 4 quadrants, body habitus limits exam EXTR: warm, well perfused, no C/C/E SKIN: warm and dry, no rash NEURO: Alert and oriented x 3, nonfocal Objective Labs Result Diagrams: 12/05/21 06:35 12/05/21 06:35 [facility] Medical History Alcohol dependence Cervical vertebral fusion Hypothyroidism Insomnia Surgical History Gastric bypass status for obesity S/P cervical spinal fusion Family History Father MVA (motor vehicle accident) Mother Lung cancer Social History household members: none Smoking Status: Former smoker alcohol intake: current Discharge Plan Discharge Plan Patient Disposition: Home Health Service Provider Discharge Comment: You were admitted to the hospital with GI bleeding. This has stabilized. Continue oral PPI at home. Your thyroid medication was increased. Please follow up with your PCP within 1-2 weeks for hospital follow up. Nursing Discharge Comment: You have a follow up appointment scheduled December 14 on Monday at 3pm with Dr. Alicia Saba. [facility], [facility] [phone]. Discharge orders & Medications Prescriptions: New pantoprazole 40 mg tablet,delayed release (DR/EC) 40 mg PO BID 30 Days Qty: 60 0RF levothyroxine 175 mcg tablet 175 mcg PO DAILY 30 Days Qty: 30 0RF Continued diazepam 5 mg Tablet 5 mg PO BID PRN (Reason: Muscle Spasm) dexamethasone sodium phosphate 0.1 % drops 1 drp ophthalmic (eye) BID PRN (Reason: Allergy Symptoms) betamethasone valerate 0.1 % cream 1 applic Topical DIRECTED Label Comments: apply to affected area bid x 2 weeks then off 1 week. zolpidem 5 mg tablet 5 mg PO QHS PRN (Reason: Sleep) fluticasone propionate 50 mcg/actuation spray,suspension 1 spray Intranasal BID metronidazole [Metrogel] 1 % Gel 1 applic Topical BID PRN (Reason: antibiotic) Rx Instructions: apply under right breast cetirizine 10 mg Tablet 10 mg PO DAILY PRN (Reason: Allergy Symptoms) [id number] 2-1-1 % Gel 1 applic Topical BID PRN (Reason: unknown) Rx Instructions: under right breast Celebrate Multi-Complex 45 2 cap PO DAILY Calcium Citrate + D 2 tab PO TID Label Comments: Calcium Citrate 1500 mg and Vitiamin D 2400 iu listed on patients home med list. Also lists daily totals as 1500 mg / 5400 mg fexofenadine [Madelyn Allergy] 180 mg Tablet 180 mg PO DAILY Discontinued levothyroxine 125 mcg tablet 150 mcg PO DAILY Diet/Activity/Treatments Diet: Diet as Tolerated Activity: As tolerated Oxygen: N/A Visit Report/Discharge Packet Instructions: DI for Gastritis, How to Prevent Falls, Gastrointestinal Bleeding Stand Alone Forms: Colonoscopy Result: [facility] Quality VTE Deep Vein Thrombosis/Pulmonary Embolism Present on Admission: No
[2021-12-07 07:38] VITALS: BP 148/83; PULSE 78; RESP 16; TEMP 36.3; O2SAT 96
[2021-12-07] MEDS: FOLIC ACID 1 MG TABLET PO (09:17)
[2021-12-07] MEDS: SODIUM CHLORIDE 0.9% FLUSH 10 ML IV (09:17)
[2021-12-07] MEDS: MULTIVITAMIN 1 TABLET 1 TAB PO (09:17)
[2021-12-07] MEDS: SENNOSIDES 8.6 MG TABLET 17.2 MG PO (09:17)
[2021-12-07] MEDS: NYSTATIN POWDER 15GM 1 APPLIC TOP (09:17)
--- NOTE | 2021-12-07 11:25 | CM.DPC ---
Addendum entered by Shiela Lou R.N. 12/08/21 09:12: Pt appealed discharge but not heard back from Dede at the time pt decided to leave. Shiela Lou RN/DEEJAY Original Note: DCP Cont: Pt medically stable for discharge and [employer] service was called by RN. DCP contacted [facility] and updated them on pt discharging today. [facility] to get in contact with pt to set up time to come to the house. No other needs at this time. Shiela Lou RN/ELVAP
--- NOTE | 2021-12-07 12:20 | ST-OP ANOTE ---
Physical, Occupational & Speech Therapy At [facility] Speech Therapy Note ST attempt. Pt had discharged home.
--- NOTE | 2021-12-07 14:59 | PC.NURSE ---
late entry for this morning's discharge: Patient awake and pleasant this morning, agreeable to discharge to home. Patient was assisted by SENIOR TEST ANALYST to shower and dressed sitting up in chair waiting for paperwork. IV dc'd intact. Patient assisted to call her PCP office for a follow up appointment, she states she fired Harriet and Lefty, but was willing to try to see Dr. Saba at the office for follow up. F/u appointment scheduled for December 14Monday at 3pm. Prescriptions sent to [facility] by electronically and patient instructed to shredder picker today to start in the morning as directed. Home health services arranged by discharge planning/case management to start on Monday. Patient escorted out by SENIOR TEST ANALYST in wheelchair to discharge to home via taxi ([employer] cab voucher). Patient instructed to call 911 or get emergency care if symptoms return or worsen.
== END 2021-12-07 11:25 | disposition home health service (06) | DRG 378 ==
LOC: ED 23:42 → AC 11-29 00:09
PROVIDERS: Family Medicine; Internal Medicine; Surgery; Admitting Provider Nurse Practitioner Family; Emergency Provider Emergency Medicine; Visit Provider Nurse Practitioner Family
PROC: 0DJ08ZZ Inspection of Upper Intestinal Tract, Via Natural or Artificial Opening Endoscopic (ICD-10-PCS; CPT 43235; principal; 2021-12-01 13:45)
PROC: 0DJD8ZZ Inspection of Lower Intestinal Tract, Via Natural or Artificial Opening Endoscopic (ICD-10-PCS; CPT 45378; 2021-12-01 13:45)
DX: K29.71 Gastritis, unspecified, with bleeding (principal); D62 Acute posthemorrhagic anemia; N17.9 Acute kidney failure, unspecified; N39.0 Urinary tract infection, site not specified; F10.20 Alcohol dependence, uncomplicated; E03.9 Hypothyroidism, unspecified; G47.00 Insomnia, unspecified; G89.29 Other chronic pain; M54.2 Cervicalgia; E87.6 Hypokalemia; B96.20 Unspecified Escherichia coli [E. coli] as the cause of diseases classified elsewhere; F11.21 Opioid dependence, in remission; Y90.0 Blood alcohol level of less than 20 mg/100 ml; Z98.84 Bariatric surgery status; Z87.891 Personal history of nicotine dependence; Z20.822 Contact with and (suspected) exposure to COVID-19
CPT/HCPCS: 00731; 36415; 43239; 45378; 74174; 74177; 80048; 80053; 80320; 81001; 82272; 82962; 83690; 83735; 83880; 84132; 84439; 84443; 85007; 85014; 85018; 85025; 85610; 85730; 86140; 86850; 86900; 86901; 87077; 87086; 87186; 87338; 87635; 93005; 96365; 96375; 97116; 97129; 97161; 97166; 97530; 99231; 99232; 99284; C9803; C9113; J0696; J2405; J2704; Q9967

== ENCOUNTER 2021-12-07 14:41 | Observation (INO) | payer MEDICARE, SELFPAY ==
[2021-11-29] VITALS: BMI 35.0
[2021-12-07] VITALS (9 sets, daily range): BP systolic 117–174; BP diastolic 71–108; PULSE 89–95; RESP 20–28; TEMP 35.8–36.3; O2SAT 97–99; BMI 34.7
--- NOTE | 2021-12-07 15:23 | ED_ITS ---
HPI - Abdominal Pain General Chief Complaint: Abdominal Pain Stated Complaint: GI issues- discharged from AC today- too sick Time Seen by Provider: 12/07/21 14:57 Source: patient Mode of arrival: Ambulatory History of Present Illness HPI narrative: 75F former smoker with extensive medical history including a recent hospitalization for persistent nausea, vomiting and abdominal pain. She extent without significant findings and was discharged earlier in the day. She denies chest pain, shortness of breath or cough. She states that she went home and is still feeling unwell and does not think she should have gone home in the 1st place. She is not dizzy nor weak or lightheaded. She admits to ongoing bilateral flank pain that she thinks is probably worse when she moves and improves with rest. She states anything she eats irritates her stomach even worse. Related Data Home Medications Medication Instructions Recorded Confirmed dexamethasone sodium phosphate 0.1 1 drp ophthalmic (eye) BID PRN 07/06/17 12/07/21 % eye drops Allergy Symptoms fluticasone propionate 50 1 spray intranasal BID 07/06/17 12/07/21 mcg/actuation nasal spray,suspension metronidazole 1 % topical gel 1 applic topical BID PRN antibiotic 07/06/17 12/07/21 (Metrogel) Calcium Citrate + D 2 tab PO TID 12/04/17 12/07/21 Celebrate Multi-Complex 45 2 cap PO DAILY 12/04/17 12/07/21 cetirizine 10 mg tablet 10 mg PO DAILY PRN Allergy Symptoms 12/04/17 12/07/21 hydrocortisone 2 %-iodoquinol 1 1 applic topical BID PRN unknown 12/04/17 12/07/21 %-aloe polysacch no.2 1 % topical gel fexofenadine 180 mg tablet 180 mg PO DAILY 10/23/19 12/07/21 (Madelyn Allergy) diazepam 5 mg tablet 5 mg PO BID PRN Muscle Spasm 11/29/21 12/07/21 Previous Rx's Medication Instructions Recorded levothyroxine 175 mcg tablet 175 mcg PO DAILY 30 days #30 tabs 12/03/21 pantoprazole 40 mg tablet,delayed 40 mg PO BID 30 days #60 tabs 12/03/21 release Allergies Allergy/AdvReac Type Severity Reaction Status Date / Time erythromycin base Allergy Intermediate HIVES Verified 07/17/21 09:59 adhesive Allergy Mild ALLERGIC Verified 07/17/21 09:59 TO TAPE epinephrine Allergy Mild TACHYCARDIA Verified 07/17/21 09:59 gentamicin [Gentamicin] Allergy Mild RASH Verified 07/17/21 09:59 NSAIDS (Non-Steroidal Allergy Mild GASTRITIS Verified 07/17/21 09:59 Anti-Inflamma Serotonin 5HT-3 Antagonists Allergy Mild GASTRITIS Verified 07/17/21 09:59 trazodone Allergy Mild LOSS OF Verified 07/17/21 09:59 BALANCE alprazolam Allergy Unknown LOSS OF Verified 07/17/21 09:59 ABILITY TO FOCUS amitriptyline Allergy Unknown IBS Verified 07/17/21 09:59 SYMPTOMS buspirone Allergy Unknown Verified 07/17/21 09:59 codeine Allergy Unknown IBS Verified 07/17/21 09:59 SYMPTOMS gabapentin Allergy Unknown SEVERE Verified 07/17/21 09:59 GASTRITIS Review of Systems Review of Systems Narrative: GENERAL: Denies chills, fatigue, malaise, fever, sweats. HEENT: Denies sinus pain, ear pain, sore throat, difficulty swallowing, dizziness. RESPIRATORY: Denies dyspnea, cough, wheezing, hemoptysis, sputum. CARDIOVASCULAR: Denies chest pain, palpitations, orthopnea, edema, GASTROINTESTINAL: See HPI : Denies dysuria, frequency, incontinence, hematuria, urinary retention. MUSCULOSKELETAL: denies weakness, joint pain, or bony pain SKIN: Denies rash, skin lesions, or other NEUROLOGIC: Denies weakness, headache, numbness, change in speech, confusion, seizures, incoordination. PSYCHIATRIC: No concerning psychosocial issues. 12 point review of systems is negative except for those stated above Patient History Medical History Alcohol dependence Cervical vertebral fusion Hypothyroidism Insomnia Surgical History Gastric bypass status for obesity S/P cervical spinal fusion Family History Father MVA (motor vehicle accident) Mother Lung cancer Social History household members: none Smoking Status: Former smoker alcohol intake: current Smoking Status: Former smoker alcohol intake frequency: 3 or more drinks per day Alcohol type: wine Substance Use Type: does not use Exam Narrative Exam Narrative: GENERAL: [75] year old patient appears stated age. Well-developed patient, in mild distress. Obviously uncomfortable, no significant work of breathing noted HEAD: Atraumatic. Normocephalic. EYES: Pupils equal round and reactive. Extraocular motions intact. No scleral icterus. No injection or drainage. ENT: Nose without bleeding, purulent drainage. Throat without erythema, tonsillar hypertrophy or exudate. Airway patent. NECK: Trachea midline. Non tender CARDIOVASCULAR: Regular rate and rhythm without murmurs, gallops, or rubs. RESPIRATORY: Clear to auscultation. Breath sounds equal bilaterally. No wheezes, rales, or rhonchi. GASTROINTESTINAL: Abdomen soft, generalized tenderness EXTREMITIES: No edema or joint tenderness. BACK: Nontender without deformity or crepitance. No flank tenderness. NEURO: AOx3. Cranial nerves 2-12 grossly intact SKIN: No rash or erythema of visible areas Initial Vital Signs Initial Vital Signs: Vital Signs Blood Pressure 167/84 H 12/07/21 14:58 Course Orders Ordered: Apixaban (Apixaban 5 Mg Tablet) 5 mg PO BID [facility] Last Admin: 12/09/21 22:02 Dose: 5 mg Documented By: Admin: 12/09/21 12:45 Dose: 5 mg Documented By: MARY Diazepam (Diazepam 5 Mg Tablet) 5 mg PO BID PRN PRN Reason: Muscle Spasm Last Admin: 12/07/21 22:06 Dose: 5 mg Documented By: SHAMIR Levothyroxine Sodium (Levothyroxine 100 Mcg Tablet) 100 mcg PO [facility] Last Admin: 12/09/21 07:49 Dose: 100 mcg Documented By: Admin: 12/08/21 07:31 Dose: 100 mcg Documented By: SHAMIR Levothyroxine Sodium (Levothyroxine 75 Mcg Tablet) 75 mcg PO [facility] Last Admin: 12/09/21 07:49 Dose: 75 mcg Documented By: Admin: 12/08/21 07:31 Dose: 75 mcg Documented By: SHAMIR Loratadine (Loratadine 10 Mg Tablet) 10 mg PO DAILY PRN PRN Reason: Allergic Symptoms Ondansetron HCl (Ondansetron 4 Mg/2 Ml Inj) 4 mg IV Q6HR PRN PRN Reason: Nausea And Vomiting Last Admin: 12/09/21 12:45 Dose: 4 mg Documented By: MARY Pantoprazole Sodium (Pantoprazole Dr 40 Mg Tablet) 40 mg PO 0700 [facility] Last Admin: 12/09/21 07:49 Dose: 40 mg Documented By: Admin: 12/08/21 07:31 Dose: 40 mg Documented By: SHAMIR Polyethylene Glycol (Polyethylene Glycol 3350 17 Gm Powd.Pack) 17 gm PO DAILY PRN PRN Reason: Constipation Sennosides (Sennosides 8.6 Mg Tablet) 8.6 mg PO BID PRN PRN Reason: Constipation Zolpidem Tartrate (Zolpidem 5 Mg Tablet) 5 mg PO BEDTIME PRN PRN Reason: Sleep Discontinued Medications Heparin Sodium (Porcine) (Heparin 5,000 Unit/Ml Vial) 7,500 unit IV NOW ONE Stop: 12/07/21 21:37 Last Admin: 12/07/21 22:00 Dose: 7,500 unit Documented By: SHAMIR Heparin Sodium/Dextrose (Heparin Drip) 25,000 unit in 500 mls @ 35.108 mls/hr IV CONT [facility]; Protocol Last Titration: 12/09/21 12:50 Dose: 0 units/kg/hr, 0 mls/hr Documented By: Admin: 12/08/21 23:05 Dose: 9.49 units/kg/hr, 18.5 mls/hr Documented By: Titration: 12/08/21 23:05 Dose: 0 units/kg/hr, 0 mls/hr Documented By: Titration: 12/08/21 22:35 Dose: 0 units/kg/hr, 0 mls/hr Documented By: Titration: 12/08/21 16:04 Dose: 11.54 units/kg/hr, 22.5 mls/hr Documented By: [facility] Admin: 12/08/21 13:35 Dose: 14.87 units/kg/hr, 29 mls/hr Documented By: Titration: 12/08/21 13:34 Dose: 14.87 units/kg/hr, 29 mls/hr Documented By: Admin: 12/07/21 21:40 Dose: 18 units/kg/hr, 35.108 mls/hr Documented By: SHAMIR Pantoprazole Sodium (Pantoprazole 40 Mg Vial) 40 mg IV NOW ONE Stop: 10/04/22 15:28 Last Admin: 12/07/21 16:00 Dose: 40 mg Documented By: NR Potassium Chloride (Potassium Chloride 20 Meq Tab) 20 meq PO NOW ONE Stop: 12/08/21 10:57 Last Admin: 12/08/21 11:19 Dose: 20 meq Documented By: BT Vital Signs Vital signs: Vital Signs - 8 hr 12/07/21 15:05 12/07/21 14:58 12/07/21 14:59 Temperature 97.4 F L Pulse Rate 95 H 93 H Respiratory Rate 28 H Blood Pressure 117/84 167/84 H Pulse Oximetry 98 98 Oxygen Delivery Method Room Air 12/07/21 15:00 12/07/21 15:00 Temperature Pulse Rate 92 H Respiratory Rate Blood Pressure 155/71 H Pulse Oximetry 98 Oxygen Delivery Method MDM - Abdominal Pain Lab Data Result diagrams: 12/09/21 09:46 12/09/21 06:46 Labs: Lab Results 12/07/21 12/07/21 12/07/21 Range/Units 15:30 15:30 15:30 WBC 6.9 (4.5-11.0) X10^3/uL RBC 2.48 L (4.0-5.2) X10^6/uL Hgb 8.5 L (12.0-16.0) g/dL Hct 25.0 L (36-46) % MCV 100.8 H (80-100) fL MCH 34.1 H (26-34) PG MCHC 33.8 (30-36) % RDW 17.1 H (11.6-14.8) % Plt Count 262 (150-400) X10^3/uL Neut % (Auto) 75.7 H (50-75) % Lymph % (Auto) 15.4 L (25-40) % [place] % (Auto) 6.7 (3-14) % Eos % (Auto) 1.3 L (2-4) % Baso % (Auto) 0.9 (0-2) % Neut # (Auto) 5200 (3123-7672) /uL Lymph # (Auto) 1100 (7294-8359) /uL [place] # (Auto) 500 (0-900) /uL Eos # (Auto) 100 (0-450) /uL Baso # (Auto) 100 (0-100) /uL ESR 37 H (0-20) MM/HR APTT D-Dimer (<500) ng/ml Sodium 137 (137-145) mmol/L Potassium 4.0 (3.4-5.1) mmol/L Chloride 103 (98-107) mmol/L Carbon Dioxide 25 (22-32) mmol/L BUN 17 (7-17) mg/dL Creatinine 0.98 (0.52-1.04) mg/dL Estimated GFR 60 (>60) mL/min BUN/Creatinine Ratio 17.3 (6-22) Glucose 94 (80-110) mg/dL Calcium 9.0 (8.4-10.2) mg/dL Total Bilirubin 0.7 (0.2-1.3) mg/dL AST 39 H (14-36) IU/L ALT 22 (<35) IU/L Alkaline Phosphatase 71 (38-126) U/L C-Reactive Protein (<1.0) mg/dL Total Protein 6.6 (6.3-8.2) g/dL Albumin 4.0 (3.5-5.0) g/dL Globulin 2.6 (1.7-4.1) g/dL Albumin/Globulin Ratio 1.5 (1.0-2.8) Lipase 250 (23-300) U/L 12/07/21 12/07/21 12/07/21 Range/Units 15:30 15:30 15:30 WBC (4.5-11.0) X10^3/uL RBC (4.0-5.2) X10^6/uL Hgb (12.0-16.0) g/dL Hct (36-46) % MCV (80-100) fL MCH (26-34) PG MCHC (30-36) % RDW (11.6-14.8) % Plt Count (150-400) X10^3/uL Neut % (Auto) (50-75) % Lymph % (Auto) (25-40) % [place] % (Auto) (3-14) % Eos % (Auto) (2-4) % Baso % (Auto) (0-2) % Neut # (Auto) (2790-6454) /uL Lymph # (Auto) (7841-9425) /uL [place] # (Auto) (0-900) /uL Eos # (Auto) (0-450) /uL Baso # (Auto) (0-100) /uL ESR (0-20) MM/HR APTT Cancelled D-Dimer 5241 H (<500) ng/ml Sodium (137-145) mmol/L Potassium (3.4-5.1) mmol/L Chloride (98-107) mmol/L Carbon Dioxide (22-32) mmol/L BUN (7-17) mg/dL Creatinine (0.52-1.04) mg/dL Estimated GFR (>60) mL/min BUN/Creatinine Ratio (6-22) Glucose (80-110) mg/dL Calcium (8.4-10.2) mg/dL Total Bilirubin (0.2-1.3) mg/dL AST (14-36) IU/L ALT (<35) IU/L Alkaline Phosphatase (38-126) U/L C-Reactive Protein 1.7 H (<1.0) mg/dL Total Protein (6.3-8.2) g/dL Albumin (3.5-5.0) g/dL Globulin (1.7-4.1) g/dL Albumin/Globulin Ratio (1.0-2.8) Lipase (23-300) U/L Imaging Data CT scan - chest: Radiologist's Impression: [place] [address] CT Scan Report Signed Patient: Mckay Costa MR#: [id number] : 1945 Acct:[id number] Age/Sex: 75 / F Date of Service: 12/07/21 Loc: ED Accession Number: [id number] ?? Procedure: CT angio chest PE protocol Ordering Provider: Hiram Shaw D.O. PROCEDURE:? CT ANGIO CHEST PE PROTOCOL ? INDICATIONS:? chest pain, critical dimer, recent hospitalization ? TECHNIQUE:? After the administration of intravenous contrast, 2 mm thick sections acquired from the pulmonary apices to the posterior costophrenic angles.? 3-dimensional maximum intensity projection (MIP) coronal and sagittal reformats were then acquired through the thorax.? For radiation dose reduction, the following was used:? automated exposure control, adjustment of mA and/or kV according to patient size.? ? COMPARISON:? None. ? FINDINGS:? Image quality:? Excellent.? ? Pulmonary arteries:? Filling defects are identified within the segmental branches of the pulmonary arteries bilaterally, right greater than left.? No visualized right heart strain. ? Lungs and pleura:? Lungs are clear.? No pleural effusions or pneumothorax.? Central and peripheral airways are patent.? ? Mediastinum:? Heart size is normal, without pericardial effusion.? No mediastinal or hilar adenopathy.? Thoracic aorta is normal in caliber and enhancement.? Esophagus is normal in caliber, without hiatal hernia.? ? Bones and chest wall:? No suspicious bony lesions.? Ribs and thoracic spine appear intact throughout.? Thyroid gland is unremarkable.? No axillary or supraclavicular adenopathy.? ? Abdomen:? Postsurgical gastric changes are present.? Otherwise, visualized upper abdominal solid organs appear normal in the early arterial phase of enhancement.? ? IMPRESSION:? ? Segmental branch pulmonary emboli bilaterally without right heart strain.? ? The above findings were discussed with Dr. Hiram Shaw on 12/07/2021 at 457 p.m.. ? ? Dictated by: Nga Knowles M.D. on 12/07/2021 at 16:53 ? ? Approved by: Nga Knowles M.D. on 12/07/2021 at 16:57 ? MDM Narrative Medical decision making narrative: Patient continues to have generalized abdominal pain, no report of ongoing bleeding. She does have newly discovered bilateral pulmonary emboli and though she is not in any obvious significant work of breathing she feels quite poorly in his overall fatigued stating that minimal exertion does wear her out significantly. Furthermore, she will require anti coagulation for her new diagnosis but has recently been in the hospital for gastrointestinal bleeding. She will need to be followed closely with serial exams and blood counts Discharge Plan Departure Patient Disposition: Admitted As Inpatient Clinical Impression: Bilateral pulmonary embolism Admit Date/Time: 12/07/21 17:36 Admit Provider: Tristan Kauffman
[2021-12-07 15:37] LABS: Add Manual Diff / Slide Review NO; Basophils Absolute Auto 100 /uL (0-100); Basophils Percent Auto 0.9 % (0-2); Eosinophils Absolute Auto 100 /uL (0-450); Eosinophils Percent Auto 1.3 % (2-4); Hemoglobin 8.5 g/dL (12.0-16.0); Lymphocytes Absolute Auto 1100 /uL (1100-4500); Lymphocytes Percent Auto 15.4 % (25-40); Mean Corpuscular HGB Conc 33.8 % (30-36); Mean Corpuscular Hemoglobin 34.1 PG (26-34); Mean Corpuscular Volume 100.8 fL (80-100); Monocytes Absolute Auto 500 /uL (0-900); Monocytes Percent Auto 6.7 % (3-14); Neutrophils Absolute Auto 5200 /uL (1500-7000); Neutrophils Percent Auto 75.7 % (50-75); Platelet Count 262 X10^3/uL (150-400); Red Blood Cell Count 2.48 X10^6/uL (4.0-5.2); Red Cell Distribution Width 17.1 % (11.6-14.8); White Blood Cell Count 6.9 X10^3/uL (4.5-11.0)
[2021-12-07 15:49] LABS: D Dimer 5241 ng/ml (<500)
[2021-12-07 15:55] LABS: Alanine Aminotransferase 22 IU/L (<35); Albumin Globulin Ratio 1.5 (1.0-2.8); Alkaline Phosphatase 71 U/L (38-126); Aspartate Aminotransferase 39 IU/L (14-36); BUN Creatinine Ratio 17.3 (6-22); Bilirubin Total 0.7 mg/dL (0.2-1.3); Blood Urea Nitrogen 17 mg/dL (7-17); Carbon Dioxide 25 mmol/L (22-32); Chloride 103 mmol/L (98-107); Estimated Glomerular Filt Rate 60 mL/min (>60); Globulin 2.6 g/dL (1.7-4.1); Glucose 94 mg/dL (80-110); HEMOLYSIS < 15 (0-50); Lipase 250 U/L (23-300); Sodium 137 mmol/L (137-145); Total Protein 6.6 g/dL (6.3-8.2)
[2021-12-07 15:59] LABS: C-Reactive Protein Quant 1.7 mg/dL (<1.0)
[2021-12-07] MEDS: PANTOPRAZOLE 40 MG VIAL IV (16:00)
[2021-12-07 16:12] LABS: Erythrocyte Sedimentation Rate 37 MM/HR (0-20)
--- NOTE | 2021-12-07 16:43 | DI.CT.S_ITS ---
PROCEDURE: CT ANGIO CHEST PE PROTOCOL INDICATIONS: chest pain, critical dimer, recent hospitalization TECHNIQUE: After the administration of intravenous contrast, 2 mm thick sections acquired from the pulmonary apices to the posterior costophrenic angles. 3-dimensional maximum intensity projection (MIP) coronal and sagittal reformats were then acquired through the thorax. For radiation dose reduction, the following was used: automated exposure control, adjustment of mA and/or kV according to patient size. COMPARISON: None. FINDINGS: Image quality: Excellent. Pulmonary arteries: Filling defects are identified within the segmental branches of the pulmonary arteries bilaterally, right greater than left. No visualized right heart strain. Lungs and pleura: Lungs are clear. No pleural effusions or pneumothorax. Central and peripheral airways are patent. Mediastinum: Heart size is normal, without pericardial effusion. No mediastinal or hilar adenopathy. Thoracic aorta is normal in caliber and enhancement. Esophagus is normal in caliber, without hiatal hernia. Bones and chest wall: No suspicious bony lesions. Ribs and thoracic spine appear intact throughout. Thyroid gland is unremarkable. No axillary or supraclavicular adenopathy. Abdomen: Postsurgical gastric changes are present. Otherwise, visualized upper abdominal solid organs appear normal in the early arterial phase of enhancement. IMPRESSION: Segmental branch pulmonary emboli bilaterally without right heart strain. The above findings were discussed with Dr. Hiram Shaw on 12/07/2021 at 457 p.m.. Dictated by: Nga Knowles M.D. on 12/07/2021 at 16:53 Approved by: Nga Knowles M.D. on 12/07/2021 at 16:57
--- NOTE | 2021-12-07 17:26 | PC.NURSE ---
Addendum entered by Jayshree Phan R.N. 12/07/21 17:30: pt states she did not want to be discharged from hospital today, she has appealed her discharge. she does not feel safe at home. she does not feel like she is well enough to drive to her pharmacy for her medications that will help her nausea and stomach. pt states she did not recieve any discharge teaching about diet recommendations for gastritis, pt states she does not recall what she ate when she went home today. Original Note: pt states she was discharged from AC today and she went home to eat and got an upset stomach and returned to the ER. Pt is very short of breath upon ambulation. pt states this is not her normal. pt ambulated to bathroom, placed on oxygen when back to room and stats were 93%.
--- NOTE | 2021-12-07 18:01 | CM.IDA ---
Initial DCP Assessment Patient is 75 y/o female who presents to ED due to concern for GI issues/nausea. Patient was just discharged from Acute care this morning after Keppra appeal. Patient reports that she went home feeling worse and was unable to get prescribed rx from pharmacy. Patient endorses she drove herself back to ED. Patient has PCP Harmony Olea and [facility] and [facility] insurance. Patient has hx of ETOH and Opiod dependence in remission. Patient presents as a poor historian. Per EMR, patient has hx of UTI, DOTTIE, GI bleed, hypothyroidism and Hypertension. Per ED provider Dr. Shaw, patient's CT chest scan shows that patient has segmental branch Pulmonary Emobli bilaterally. Dr. Shaw endorses he has already consulted with hospitalist and patient has been accepted as inpatient status. AUTISM TEACHER enters room to meet with patient. Patient presents as A/Ox3 but presents as poor historian, and not recalling today's events. Patient resides at home alone. Patient endorses independence at baseline with ADLs and states that she uses [facility]. Patient endorses concern with her ability to complete ADLs when she returned to home. AUTISM TEACHER discusses her DCP upon her discharge earlier today. Patient now states that she is interested in SNF rehab as she did not feel comfortable managing ADLs and meet her needs. Patient stated she felt too sick to drive to the grocery store or pharmacy. AUTISM TEACHER observed patient ambulate to bathroom with [facility] in ED. AUTISM TEACHER calls [facility] and leaves reporting patient's return to . AUTISM TEACHER provides patient with Medicare choice list of SNFs, patient has not endorsed preference yet at this time. Plan: Patient accepted by hospitalist as INPT status due to concern for patient's PE, Pending PT eval, patient preference for SNF upon d/c. MUNDO Garcia Discharge Planning/Care Management CM Discharge Assessment Start: 12/07/21 17:39 Freq: Status: Active Protocol: Document 12/07/21 17:39 LN (Rec: 12/07/21 18:01 LN [id number]) Discharge Planning Assessment Assigned Casting Operator MUNDO Lieberman DPOA/Assigned Designee Name Ger Kline Contact Information [phone] Advance Directives? Yes Advance Directives on File No History Provided By Patient,Medical Record Has Patient been admitted in last 30 Yes days? Comment 9/26/22 to 12/07/21 Patient appealed d/c on and was appeal was declined . Prior Living Arrangements House Household Members none Type of transporation used prior to Drives own vehicle admit Comment Patient drove to ED. Independent with ADL's Yes Is patient alert and oriented? Yes Comment Patient endorses independence at baseline prior to feeling sick, patient was only home for a few hours before feeling ill and overwhelmed and returned to ED. Comment Patient has [facility] referral in place. DME Already Rented / Owned [facility] / [facility] Patient/Family Preference Detention Facility Comment Patient now endorses preference for SNF rehab upon medical clearance. Medicare Choice List Provided Yes SNF/HH Preference AUTISM TEACHER provides patient with list of SNF options, no preference reported at this time. Review Status In Process Please Provide Date Initial DC 12/07/21 Assessment Was Performed
[2021-12-07 21:07] LABS: PTT Partial Thromboplastin Tim 25 SECONDS (26-36)
[2021-12-07] MEDS: HEPARIN DRIP 25,000 UNIT/500 ML IV.SOLN 35.108 UNIT IV (21:40)
[2021-12-07] MEDS: HEPARIN 5,000 UNIT/ML VIAL 7500 UNIT IV (22:00)
[2021-12-07] MEDS: diazePAM 5 MG TABLET PO (22:06)
--- NOTE | 2021-12-07 23:20 | PM.HP.1 ---
History of Present Illness History of Present Illness Date Patient Seen: 12/07/21 Time Patient Seen: 23:30 Chief complaint: GI issues- discharged from today- too sick Narrative: Ms. Costa is a 75W with PMH hypothyroidism, etoh dependence just discharged from the hospital after presenting with abdominal pain and nausea for weeks. She had been admitted due to GI bleed, UTI, and DOTTIE. She had EGD completed that showed no active bleeding, but did show gastritis and she was placed on a PPI. She did continue to have abdominal pain throughout her stay, and she had a repeat CT scan, the second time CT angio, that was negative for any vascular pathology. Apparently after discharge she continue to have nausea and she presented back to the hospital. She did not have chest pain or shortness of breath. She had no further bleeding after discharge. In the ED workup was done, vitals notable for tachycardia in the 90s, sats 98%on room air, she was afebrile. Labs notable for WBC 6.9, hgb 8.5, plts 262. Creatinine 0.98. D-dimer 5241. CTA chest done showed segemental branch PEs bilaterally without any right heart strain. She was started on a heparin gtt and admitted for further treatment. Patient History Medical History Alcohol dependence Cervical vertebral fusion Hypothyroidism Insomnia Surgical History Gastric bypass status for obesity S/P cervical spinal fusion Family & Social History Family History Father MVA (motor vehicle accident) Mother Lung cancer Social History: household members none Prior Living Arrangements House Safety & Behavioral: Feels Safe in Current Yes Environment Tobacco & Substance use: Smoking Status Former smoker alcohol intake current alcohol intake frequency 3 or more drinks per day Substance Use Type does not use Meds Home Medications and Allergies Home Medications Medication Instructions Recorded Confirmed Type dexamethasone sodium phosphate 0.1 1 drp ophthalmic (eye) BID PRN 07/06/17 12/07/21 History % eye drops Allergy Symptoms fluticasone propionate 50 1 spray intranasal BID 07/06/17 12/07/21 History mcg/actuation nasal spray,suspension metronidazole 1 % topical gel 1 applic topical BID PRN antibiotic 07/06/17 12/07/21 History (Metrogel) Calcium Citrate + D 2 tab PO TID 12/04/17 12/07/21 History Celebrate Multi-Complex 45 2 cap PO DAILY 12/04/17 12/07/21 History cetirizine 10 mg tablet 10 mg PO DAILY PRN Allergy Symptoms 12/04/17 12/07/21 History hydrocortisone 2 %-iodoquinol 1 1 applic topical BID PRN unknown 12/04/17 12/07/21 History %-aloe polysacch no.2 1 % topical gel fexofenadine 180 mg tablet 180 mg PO DAILY 10/23/19 12/07/21 History (Madelyn Allergy) diazepam 5 mg tablet 5 mg PO BID PRN Muscle Spasm 11/29/21 12/07/21 History levothyroxine 175 mcg tablet 175 mcg PO DAILY 30 days #30 tabs 12/03/21 12/07/21 Rx pantoprazole 40 mg tablet,delayed 40 mg PO BID 30 days #60 tabs 12/03/21 12/07/21 Rx release Allergies Allergy/AdvReac Type Severity Reaction Status Date / Time erythromycin base Allergy Intermediate HIVES Verified 07/17/21 09:59 adhesive Allergy Mild ALLERGIC Verified 07/17/21 09:59 TO TAPE epinephrine Allergy Mild TACHYCARDIA Verified 07/17/21 09:59 gentamicin [Gentamicin] Allergy Mild RASH Verified 07/17/21 09:59 NSAIDS (Non-Steroidal Allergy Mild GASTRITIS Verified 07/17/21 09:59 Anti-Inflamma Serotonin 5HT-3 Antagonists Allergy Mild GASTRITIS Verified 07/17/21 09:59 trazodone Allergy Mild LOSS OF Verified 07/17/21 09:59 BALANCE alprazolam Allergy Unknown LOSS OF Verified 07/17/21 09:59 ABILITY TO FOCUS amitriptyline Allergy Unknown IBS Verified 07/17/21 09:59 SYMPTOMS buspirone Allergy Unknown Verified 07/17/21 09:59 codeine Allergy Unknown IBS Verified 07/17/21 09:59 SYMPTOMS gabapentin Allergy Unknown SEVERE Verified 07/17/21 09:59 GASTRITIS Review of Systems Review of Systems Narrative: 14 systems reviewed and negative aside from what is noted in HPI Exam Vital Signs (past 8 hours): - 12/08/21 00:00 12/08/21 04:36 Temperature 98.1 F 98.3 F Pulse Rate 79 81 Respiratory Rate 19 19 Blood Pressure 137/68 141/75 H Pulse Oximetry 96 94 Oxygen Delivery Method Room Air Narrative Exam Narrative: GEN: chronically ill appearing, no acute distress HEENT: moist mucous membranes, PERRL NECK: trachea midline no jvd PULM: clear bilaterally, no wheezes, rhonchi, rales CV: regular rate and rhythm, no murmurs ABD: soft, nontender, nondistended, no organomegaly, normal bowel sounds EXT: warm and well perfused, no edema NEURO: awake, alert, oriented, no focal deficits Objective Labs Result Diagrams: 12/08/21 04:15 12/08/21 04:15 Labs: Laboratory Results - last 24 hr 12/07/21 12/07/21 12/07/21 15:30 15:30 15:30 WBC 6.9 RBC 2.48 L Hgb 8.5 L Hct 25.0 L MCV 100.8 H MCH 34.1 H MCHC 33.8 RDW 17.1 H Plt Count 262 Neut % (Auto) 75.7 H Lymph % (Auto) 15.[address] [place] % (Auto) 6.7 Eos % (Auto) 1.3 L Baso % (Auto) 0.9 Neut # (Auto) 5200 Lymph # (Auto) 1100 [place] # (Auto) 500 Eos # (Auto) 100 Baso # (Auto) 100 ESR 37 H APTT D-Dimer Sodium 137 Potassium 4.0 Chloride 103 Carbon Dioxide 25 BUN 17 Creatinine 0.98 Estimated GFR 60 BUN/Creatinine Ratio 17.3 Glucose 94 Calcium 9.0 Total Bilirubin 0.7 AST 39 H ALT 22 Alkaline Phosphatase 71 C-Reactive Protein Total Protein 6.6 Albumin 4.0 Globulin 2.6 Albumin/Globulin Ratio 1.5 Lipase 250 12/07/21 12/07/21 12/07/21 15:30 15:30 15:30 WBC RBC Hgb Hct MCV MCH MCHC RDW Plt Count Neut % (Auto) Lymph % (Auto) [place] % (Auto) Eos % (Auto) Baso % (Auto) Neut # (Auto) Lymph # (Auto) [place] # (Auto) Eos # (Auto) Baso # (Auto) ESR APTT Cancelled D-Dimer 5241 H Sodium Potassium Chloride Carbon Dioxide BUN Creatinine Estimated GFR BUN/Creatinine Ratio Glucose Calcium Total Bilirubin AST ALT Alkaline Phosphatase C-Reactive Protein 1.7 H Total Protein Albumin Globulin Albumin/Globulin Ratio Lipase 10/04/22 10/04/22 10/05/22 20:22 20:22 04:15 WBC 5.6 RBC 2.55 L Hgb 8.0 L 8.6 L Hct 25.8 L MCV 101.4 H MCH 33.9 MCHC 33.4 RDW 17.1 H Plt Count 278 Neut % (Auto) 69.1 Lymph % (Auto) 21.[address] [place] % (Auto) 6.2 Eos % (Auto) 1.8 L Baso % (Auto) 1.4 Neut # (Auto) 3900 Lymph # (Auto) 1200 [place] # (Auto) 300 Eos # (Auto) 100 Baso # (Auto) 100 ESR APTT 25 L D-Dimer Sodium Potassium Chloride Carbon Dioxide BUN Creatinine Estimated GFR BUN/Creatinine Ratio Glucose Calcium Total Bilirubin AST ALT Alkaline Phosphatase C-Reactive Protein Total Protein Albumin Globulin Albumin/Globulin Ratio Lipase 12/08/21 04:15 WBC RBC Hgb Hct MCV MCH MCHC RDW Plt Count Neut % (Auto) Lymph % (Auto) [place] % (Auto) Eos % (Auto) Baso % (Auto) Neut # (Auto) Lymph # (Auto) [place] # (Auto) Eos # (Auto) Baso # (Auto) ESR APTT D-Dimer Sodium 139 Potassium 3.5 Chloride 104 Carbon Dioxide 28 BUN 11 Creatinine 0.86 Estimated GFR > 60 BUN/Creatinine Ratio 12.8 Glucose 91 Calcium 8.6 Total Bilirubin AST ALT Alkaline Phosphatase C-Reactive Protein Total Protein Albumin Globulin Albumin/Globulin Ratio Lipase Assessment & Plan Assessment & Plan narrative: 1. Acute Pulmonary embolism -patient with reassuring vitals, mild tachycardia, but no chest pain, sob, no o2 requirement, and CT with no evidence of right heart strain -started on a heparin gtt, will continue and plan likely to transition to oral meds soon -given recent GI bleed, monitor closely for recurrence of bleeding 2. Recent GI bleeding -currently resolved -continue PPI -trend hemoglobin daily 3. Hypothyroidism -continue synthroid 4. Abdominal pain -possibly secondary to gastritis -CT abdomen with angiography was reassuring CODE: Full Proxy: Kahlil Kline, son I have utilized all available resources to reconcile the patient's home medications Time Spent With Patient Critical Care time: I spent a total of [] minutes of critical care time on this patient's care today; this time is exclusive of procedural time. Quality MIPS - Admit I confirm the patient?s Advance Care Plan is present, Code status is documented, Surrogate decision maker is in patient?s record [If Yes, STOP here]: Yes
[2021-12-08] VITALS: BP 137/68; PULSE 79; RESP 19; TEMP 36.7; O2SAT 96
[2021-12-08 04:36] VITALS: BP 141/75; PULSE 81; RESP 19; TEMP 36.8; O2SAT 94
[2021-12-08 04:36] LABS: Add Manual Diff / Slide Review NO; Basophils Absolute Auto 100 /uL (0-100); Basophils Percent Auto 1.4 % (0-2); Eosinophils Absolute Auto 100 /uL (0-450); Eosinophils Percent Auto 1.8 % (2-4); Hematocrit 25.8 % (36-46); Hemoglobin 8.6 g/dL (12.0-16.0); Lymphocytes Absolute Auto 1200 /uL (1100-4500); Lymphocytes Percent Auto 21.5 % (25-40); Mean Corpuscular HGB Conc 33.4 % (30-36); Mean Corpuscular Hemoglobin 33.9 PG (26-34); Mean Corpuscular Volume 101.4 fL (80-100); Monocytes Absolute Auto 300 /uL (0-900); Monocytes Percent Auto 6.2 % (3-14); Neutrophils Absolute Auto 3900 /uL (1500-7000); Neutrophils Percent Auto 69.1 % (50-75); Platelet Count 278 X10^3/uL (150-400); Red Blood Cell Count 2.55 X10^6/uL (4.0-5.2); Red Cell Distribution Width 17.1 % (11.6-14.8); White Blood Cell Count 5.6 X10^3/uL (4.5-11.0)
[2021-12-08 04:45] LABS: BUN Creatinine Ratio 12.8 (6-22); Blood Urea Nitrogen 11 mg/dL (7-17); Calcium 8.6 mg/dL (8.4-10.2); Carbon Dioxide 28 mmol/L (22-32); Chloride 104 mmol/L (98-107); Estimated Glomerular Filt Rate > 60 mL/min (>60); Glucose 91 mg/dL (80-110); HEMOLYSIS < 15 (0-50); Potassium 3.5 mmol/L (3.4-5.1); Sodium 139 mmol/L (137-145)
[2021-12-08 06:34] LABS: PTT Partial Thromboplastin Tim > 200 SECONDS (26-36)
[2021-12-08] MEDS: PANTOPRAZOLE DR 40 MG TABLET PO (07:31)
[2021-12-08] MEDS: LEVOTHYROXINE 75 MCG TABLET PO (07:31)
[2021-12-08] MEDS: LEVOTHYROXINE 100 MCG TABLET PO (07:31)
--- NOTE | 2021-12-08 07:49 | P.PN_ITS ---
Subjective Subjective Date Patient Seen: 12/08/21 Time Patient Seen: 12:00 Interval history: Patient generalized abd pain improved today. On heparin drip and no evidence of bleeding. Says she would like to go to SNF. Exam Vital Signs (past 8 hours): - 12/08/21 00:00 12/08/21 04:36 Temperature 98.1 F 98.3 F Pulse Rate 79 81 Respiratory Rate 19 19 Blood Pressure 137/68 141/75 H Pulse Oximetry 96 94 Oxygen Delivery Method Room Air Narrative Exam Narrative: GEN: chronically ill appearing, no acute distress HEENT: moist mucous membranes, PERRL NECK: trachea midline no jvd PULM: clear bilaterally, no wheezes, rhonchi, rales CV: regular rate and rhythm, no murmurs ABD: soft, nontender, nondistended, no organomegaly, normal bowel sounds EXT: warm and well perfused, no edema NEURO: awake, alert, oriented, no focal deficits Objective Labs Result Diagrams: 12/08/21 14:57 12/08/21 04:15 Labs: Laboratory Results - last 24 hr 12/07/21 12/07/21 12/07/21 15:30 15:30 15:30 WBC 6.9 RBC 2.48 L Hgb 8.5 L Hct 25.0 L MCV 100.8 H MCH 34.1 H MCHC 33.8 RDW 17.1 H Plt Count 262 Neut % (Auto) 75.7 H Lymph % (Auto) 15.4 L [place] % (Auto) 6.7 Eos % (Auto) 1.3 L Baso % (Auto) 0.9 Neut # (Auto) 5200 Lymph # (Auto) 1100 [place] # (Auto) 500 Eos # (Auto) 100 Baso # (Auto) 100 ESR 37 H APTT D-Dimer Sodium 137 Potassium 4.0 Chloride 103 Carbon Dioxide 25 BUN 17 Creatinine 0.98 Estimated GFR 60 BUN/Creatinine Ratio 17.3 Glucose 94 Calcium 9.0 Total Bilirubin 0.7 AST 39 H ALT 22 Alkaline Phosphatase 71 C-Reactive Protein Total Protein 6.6 Albumin 4.0 Globulin 2.6 Albumin/Globulin Ratio 1.5 Lipase 250 12/07/21 12/07/21 12/07/21 15:30 15:30 15:30 WBC RBC Hgb Hct MCV MCH MCHC RDW Plt Count Neut % (Auto) Lymph % (Auto) [place] % (Auto) Eos % (Auto) Baso % (Auto) Neut # (Auto) Lymph # (Auto) [place] # (Auto) Eos # (Auto) Baso # (Auto) ESR APTT Cancelled D-Dimer 5241 H Sodium Potassium Chloride Carbon Dioxide BUN Creatinine Estimated GFR BUN/Creatinine Ratio Glucose Calcium Total Bilirubin AST ALT Alkaline Phosphatase C-Reactive Protein 1.7 H Total Protein Albumin Globulin Albumin/Globulin Ratio Lipase 12/07/21 12/07/21 12/08/21 20:22 20:22 04:15 WBC 5.6 RBC 2.55 L Hgb 8.0 L 8.6 L Hct 25.8 L MCV 101.4 H MCH 33.9 MCHC 33.4 RDW 17.1 H Plt Count 278 Neut % (Auto) 69.1 Lymph % (Auto) 21.5 L [place] % (Auto) 6.2 Eos % (Auto) 1.8 L Baso % (Auto) 1.4 Neut # (Auto) 3900 Lymph # (Auto) 1200 [place] # (Auto) 300 Eos # (Auto) 100 Baso # (Auto) 100 ESR APTT 25 L D-Dimer Sodium Potassium Chloride Carbon Dioxide BUN Creatinine Estimated GFR BUN/Creatinine Ratio Glucose Calcium Total Bilirubin AST ALT Alkaline Phosphatase C-Reactive Protein Total Protein Albumin Globulin Albumin/Globulin Ratio Lipase 12/08/21 12/08/21 04:15 04:15 WBC RBC Hgb Hct MCV MCH MCHC RDW Plt Count Neut % (Auto) Lymph % (Auto) [place] % (Auto) Eos % (Auto) Baso % (Auto) Neut # (Auto) Lymph # (Auto) [place] # (Auto) Eos # (Auto) Baso # (Auto) ESR APTT > 200 H* D D-Dimer Sodium 139 Potassium 3.5 Chloride 104 Carbon Dioxide 28 BUN 11 Creatinine 0.86 Estimated GFR > 60 BUN/Creatinine Ratio 12.8 Glucose 91 Calcium 8.6 Total Bilirubin AST ALT Alkaline Phosphatase C-Reactive Protein Total Protein Albumin Globulin Albumin/Globulin Ratio Lipase FOR[facility]LY [facility], [facility]–1983 Medical History Alcohol dependence Cervical vertebral fusion Hypothyroidism Insomnia Surgical History Gastric bypass status for obesity S/P cervical spinal fusion Family History Father MVA (motor vehicle accident) Mother Lung cancer Social History household members: none Smoking Status: Former smoker alcohol intake: current Assessment & Plan Assessment & Plan narrative: 1. Acute Pulmonary embolism -patient with reassuring vitals, mild tachycardia, but no chest pain, sob, no o2 requirement, and CT with no evidence of right heart strain -started on a heparin gtt, will continue and plan likely to transition to oral meds after 48 hrs -given recent GI bleed, monitor closely for recurrence of bleeding 2. Recent GI bleeding -currently resolved -continue PPI -trend hemoglobin, currently stable in 8's 3. Hypothyroidism -continue synthroid 4. Abdominal pain -possibly secondary to gastritis -CT abdomen with angiography was reassuring CODE: Full Proxy: Kahlil Kline, son I have utilized all available resources to reconcile the patient's home medications Dispo: SNF vs home with on 12/09. Time Spent With Patient Critical Care time: I spent a total of [] minutes of critical care time on this patient's care today; this time is exclusive of procedural time.
--- NOTE | 2021-12-08 07:50 | DI.US.S_ITS ---
PROCEDURE: US PERIPH VENOUS LOW EXTREM BI INDICATIONS: ACUTE PULMONARY EMBOLISM TECHNIQUE: Real-time imaging, as well as color and pulse Doppler interrogation, were performed of the deep veins of both legs from the inguinal ligament to the popliteal fossa. COMPARISON: [facility], CT, CT ANGIO CHEST PE PROTOCOL, 12/07/2021, 16:42. FINDINGS: Right: The common femoral, femoral and popliteal veins are normally compressible, and free of intraluminal thrombus. Color and pulse Doppler demonstrate normal phasic intravascular flow. There is normal augmentation response to distal compression maneuver. Left: The common femoral, femoral and popliteal veins are normally compressible, and free of intraluminal thrombus. Color and pulse Doppler demonstrate normal phasic intravascular flow. There is normal augmentation response to distal compression maneuver. Mild edema can be seen within the left popliteal fossa. IMPRESSION: Negative for deep venous thrombosis. Dictated by: Yehuda Ledbetter M.D. on 12/08/2021 at 8:12 Approved by: Yehuda Ledbetter M.D. on 12/08/2021 at 8:13
[2021-12-08 09:07] VITALS: BP 158/51; PULSE 85; RESP 19; TEMP 36.6; O2SAT 97
[2021-12-08 11:00] LABS: COVID19 -Nasal RAPID Negative (Negative)
[2021-12-08] MEDS: POTASSIUM CHLORIDE 20 MEQ TAB PO (11:19)
[2021-12-08 11:43] LABS: Hemoglobin 8.4 g/dL (12.0-16.0)
--- NOTE | 2021-12-08 12:25 | CM.DPC ---
DCP SNF planning: Per MD, pt likely still OBS Status for PEs and would likely be stable for d/c by tomorrow 12/09/21. PT ordered and pending. Per previous SW note, pt now feels SNF needed at d/c. Pt currently OBS but a readmit and had a qualifying Medicare stay at her last admission with d/c yesterday and failed home and her Inpt qualifying stay is from 11/29-12/07/21. SW met bedside with pt and explained role and provided MCR Choice list via Ipad and pt confirms she was at [facility] in 2019 after a broken leg and preference is to go to a different SNF. Pt is agreeable with referrals being sent to [facility] at this time. SW faxed to above SNF facilities and PASRR completed. Pt also had new referral for [facility] when she discharged yesterday and if pt ends up going home then new [facility] referral would be needed. Plan: SW to follow for PT eval and recommendations and GINETTE NORTON, Gracie Qureshi review towards determining if pt qualifies for SNF under her last Inpt Medicare stay vs home with new [facility] referral. DREA Lopez
--- NOTE | 2021-12-08 13:13 | PT-IP ANOTE ---
PT lauri received. EMR reviewed. Pt admitted for bilateral lung PE and receiving heparin drip that only started last night ad 2139. APTT : >200. pt is not on therapeutic level to work with PT. talked with hospitalist and agreed to hold PT for today.
[2021-12-08] MEDS: HEPARIN DRIP 25,000 UNIT/500 ML IV.SOLN 29 UNIT IV (13:35)
[2021-12-08 14:55] LABS: PTT Partial Thromboplastin Tim > 200 SECONDS (26-36)
[2021-12-08 15:07] LABS: Hemoglobin 8.2 g/dL (12.0-16.0)
[2021-12-08 19:20] VITALS: BP 165/90; PULSE 86; RESP 19; TEMP 36.6; O2SAT 98
[2021-12-08 22:16] LABS: Hemoglobin 8.5 g/dL (12.0-16.0)
[2021-12-08 22:31] LABS: PTT Partial Thromboplastin Tim 133 SECONDS (26-36)
[2021-12-08] MEDS: HEPARIN DRIP 25,000 UNIT/500 ML IV.SOLN 18.5 UNIT IV (23:05)
[2021-12-09 04:35] VITALS: BP 145/69; PULSE 80; RESP 17; TEMP 36.8; O2SAT 95
[2021-12-09 04:42] LABS: PTT Partial Thromboplastin Tim 94 SECONDS (26-36)
--- NOTE | 2021-12-09 05:41 | PC.NURSE ---
Pt is AxOx3 but forgetful and cooperative. VSS, pt denies pain. PTT-133 at 2230 so Heparin stopped for 30 minutes and made adjustment at 2305 by decreasing 200 units/hr according to the protocol. PTT 94 at 0450 so no adjustment needed and next lab should be next a.m. Pt goes to the bathroom with 1 person assistance. No BM overnight. No s/s bleeding noted. Continue monitor.
[2021-12-09 07:06] LABS: Add Manual Diff / Slide Review NO; Basophils Absolute Auto 100 /uL (0-100); Basophils Percent Auto 1.2 % (0-2); Eosinophils Absolute Auto 100 /uL (0-450); Eosinophils Percent Auto 2.6 % (2-4); Hematocrit 26.3 % (36-46); Hemoglobin 8.9 g/dL (12.0-16.0); Lymphocytes Absolute Auto 1300 /uL (1100-4500); Lymphocytes Percent Auto 25.7 % (25-40); Mean Corpuscular HGB Conc 33.8 % (30-36); Mean Corpuscular Hemoglobin 33.8 PG (26-34); Mean Corpuscular Volume 99.9 fL (80-100); Monocytes Absolute Auto 400 /uL (0-900); Monocytes Percent Auto 8.2 % (3-14); Neutrophils Absolute Auto 3100 /uL (1500-7000); Neutrophils Percent Auto 62.3 % (50-75); Platelet Count 281 X10^3/uL (150-400); Red Blood Cell Count 2.63 X10^6/uL (4.0-5.2)
[2021-12-09 07:10] LABS: BUN Creatinine Ratio 12.9 (6-22); Blood Urea Nitrogen 11 mg/dL (7-17); Calcium 8.8 mg/dL (8.4-10.2); Carbon Dioxide 27 mmol/L (22-32); Chloride 105 mmol/L (98-107); Estimated Glomerular Filt Rate > 60 mL/min (>60); Glucose 94 mg/dL (80-110); HEMOLYSIS < 15 (0-50); Potassium 3.7 mmol/L (3.4-5.1); Sodium 140 mmol/L (137-145)
[2021-12-09] MEDS: LEVOTHYROXINE 75 MCG TABLET PO (07:49)
[2021-12-09] MEDS: LEVOTHYROXINE 100 MCG TABLET PO (07:49)
[2021-12-09] MEDS: PANTOPRAZOLE DR 40 MG TABLET PO (07:49)
--- NOTE | 2021-12-09 08:44 | P.PN_ITS ---
Subjective Subjective Date Patient Seen: 12/09/21 Time Patient Seen: 14:02 Interval history: Says she is having more nausea today. Hgb has been stable on heparin drip so transitioning to po eliquis for her PE. Exam Vital Signs (past 8 hours): - 12/09/21 04:35 Temperature 98.3 F Pulse Rate 80 Respiratory Rate 17 Blood Pressure 145/69 H Pulse Oximetry 95 Oxygen Flow Rate 0 Oxygen Delivery Method Room Air Oxygen Flow Rate 0 Narrative Exam Narrative: GEN: chronically ill appearing, no acute distress HEENT: moist mucous membranes, PERRL NECK: trachea midline no jvd PULM: clear bilaterally, no wheezes, rhonchi, rales CV: regular rate and rhythm, no murmurs ABD: soft, nontender, nondistended, no organomegaly, normal bowel sounds EXT: warm and well perfused, no edema NEURO: awake, alert, oriented, no focal deficits Objective Labs Result Diagrams: 12/09/21 09:46 12/09/21 06:46 Labs: Laboratory Results - last 24 hr 12/08/21 12/08/21 12/08/21 09:00 10:20 14:14 WBC RBC Hgb 8.4 L Hct MCV MCH MCHC RDW Plt Count Neut % (Auto) Lymph % (Auto) [place] % (Auto) Eos % (Auto) Baso % (Auto) Neut # (Auto) Lymph # (Auto) [place] # (Auto) Eos # (Auto) Baso # (Auto) APTT > 200 H* Sodium Potassium Chloride Carbon Dioxide BUN Creatinine Estimated GFR BUN/Creatinine Ratio Glucose Calcium SARS-CoV-2 (PCR) Negative 12/08/21 12/08/21 12/08/21 14:57 22:00 22:00 WBC RBC Hgb 8.2 L 8.5 L Hct MCV MCH MCHC RDW Plt Count Neut % (Auto) Lymph % (Auto) [place] % (Auto) Eos % (Auto) Baso % (Auto) Neut # (Auto) Lymph # (Auto) [place] # (Auto) Eos # (Auto) Baso # (Auto) APTT 133 H* D Sodium Potassium Chloride Carbon Dioxide BUN Creatinine Estimated GFR BUN/Creatinine Ratio Glucose Calcium SARS-CoV-2 (PCR) 12/09/21 12/09/21 12/09/21 04:25 06:46 06:46 WBC 5.0 RBC 2.63 L Hgb 8.9 L Hct 26.3 L MCV 99.9 MCH 33.8 MCHC 33.8 RDW 17.0 H Plt Count 281 Neut % (Auto) 62.3 Lymph % (Auto) 25.7 [place] % (Auto) 8.2 Eos % (Auto) 2.6 Baso % (Auto) 1.2 Neut # (Auto) 3100 Lymph # (Auto) 1300 [place] # (Auto) 400 Eos # (Auto) 100 Baso # (Auto) 100 APTT 94 H* D Sodium 140 Potassium 3.7 Chloride 105 Carbon Dioxide 27 BUN 11 Creatinine 0.85 Estimated GFR > 60 BUN/Creatinine Ratio 12.9 Glucose 94 Calcium 8.8 SARS-CoV-2 (PCR) PFSH Medical History Alcohol dependence Cervical vertebral fusion Hypothyroidism Insomnia Surgical History Gastric bypass status for obesity S/P cervical spinal fusion Family History Father MVA (motor vehicle accident) Mother Lung cancer Social History household members: none Smoking Status: Former smoker alcohol intake: current Assessment & Plan Assessment & Plan narrative: 1. Acute Pulmonary embolism -patient with reassuring vitals, mild tachycardia, but no chest pain, sob, no o2 requirement, and CT with no evidence of right heart strain -started on a heparin gtt for 24-48 hrs -given recent GI bleed, monitored closely for recurrence of bleeding but no ev idence of this and Hgb remained stable -stop heparin drip and start eliquis 2. Recent GI bleeding -currently resolved -continue PPI -trend hemoglobin, currently stable in 8's 3. Hypothyroidism -continue synthroid 4. Abdominal pain -possibly secondary to gastritis -CT abdomen with angiography was reassuring CODE: Full Proxy: Kahlil Kline, son I have utilized all available resources to reconcile the patient's home medications Dispo: SNF on 12/10. Time Spent With Patient Critical Care time: I spent a total of [] minutes of critical care time on this patient's care today; this time is exclusive of procedural time.
[2021-12-09 09:43] VITALS: BP 139/66; PULSE 92; RESP 19; TEMP 36.7; O2SAT 96
[2021-12-09 09:58] LABS: Hemoglobin 8.9 g/dL (12.0-16.0)
[2021-12-09 10:09] LABS: PTT Partial Thromboplastin Tim 83 SECONDS (26-36)
--- NOTE | 2021-12-09 11:28 | PT.IIE ---
Surgical History (Last Reviewed 12/08/21 @ 05:44 by Иван Reeves MD) Gastric bypass status for obesity S/P cervical spinal fusion Medical History (Last Reviewed 12/08/21 @ 05:44 by Иван Reeves MD) Alcohol dependence Cervical vertebral fusion Hypothyroidism Insomnia Physical Therapy Inpatient Evaluation/Re-Eval M1 PT/OT-IP Prior Functional Status Start: 12/09/21 14:06 Freq: NEEDED Status: Active Protocol: Document 12/09/21 11:28 AB (Rec: 12/09/21 14:24 AB [email or web address]) Medical Review Prior Functional Status Medical History Reviewed Yes Communication able to make needs known but with confusion Mobility and Gait pt was just hospitalized to 12/07/21 for GI bleed and just stayed home for a few hours and came back to the hospital and this time for PE. pt was modified independent with all mobilities prior to first hospitalization and ambulates using FWW; uses either a FWW or a SPC for outdoor mobility Social History Household Members none Living Arrangements House Number of Floors (Floors) One Floor Number of Stairs To Enter/Railing? 2 platform steps to enter Home Environment Standard Height Toilet,Tub/ Shower Home Equipment Front Wheel Walker,Straight Cane,Tub Transfer Bench,Hand Held Shower,Grab Bars In Shower M2 PT-IP Current Condition Start: 12/09/21 14:06 Freq: NEEDED Status: Active Protocol: Document 12/09/21 11:28 AB (Rec: 12/09/21 14:24 AB [email or web address]) Physical Therapy Current Condition Current Condition Evaluation Date 12/09/21 Treatment Diagnosis Bilateral PE; difficulty in walking Onset Date 12/07/21 M3 PT-IP Subjective Start: 12/09/21 14:06 Freq: NEEDED Status: Active Protocol: Document 12/09/21 11:28 AB (Rec: 12/09/21 14:24 AB [email or web address]) Subjective Physical Therapy Visit Type Type Initial Evaluation Visit Start Time 11:28 Visit Stop Time 11:50 Total Visit Minutes 22 Number of BANQUET SERVER Visits 0 Physical Therapy Visit Comments Patient Comments needs motivation to participate M4 PT-IP Mobility and Gait Start: 12/09/21 14:06 Freq: NEEDED Status: Active Protocol: Document 12/09/21 11:28 AB (Rec: 12/09/21 14:24 AB [email or web address]) PT-Bed Mobility Assessment Supine to Sit Supine to Sit Independent Sit to Supine Sit to Supine Independent PT-Transfer Assessment Sit to and From Stand Sit to and from Stand Standby Assistance Equipment Transfer Assistive Device None Orthotic/Prosthetic Devices or Brace: No Transfers Transfer Destination Toilet Transfer Technique ambulated Transfer Ability Level of Assist Standby Assistance Comments Mobility Comments pt initially refusing PT but agreed. completed supine to sit mod I with HOB elevated. pt requested to use the toilet . sit to stand mod I and ambulated to the toilet pushing IV pole SBA. pt can be impulsive. completed toileting needs SBA. pt sat back on the chair. (+) SOBbut O2 sat at 96% RA. pt ambulated ~ 30 ft using FWW SBA and completed up/down platform step using FWW SBA. repeated x 2 sets. pt ambulated back to her room using FWW SBA. sat up on chair for lunch. positioned on chair. call light and table placed within reach. Gait Assessment Gait Gait Assistance Required: Standby Assistance Distance (Feet) 30 Able to Maintain Weight Bearing Status Yes During Gait Assistive Devices Assistive Device Gait Belt,Front Wheeled Walker Orthotic/Prosthetic Devices or Brace: No Gait Deviations General Gait Pattern Decreased Stride Length, Decreased Feet Clearance,Step- to Gait Factors Limiting Gait Function Factors Limiting Gait Function Decreased Activity Tolerance, Decreased Strength,Difficulty Following Directions,Poor Balance Stair Climbing Assessment Evaluation Level of Assist On Stairs Standby Assistance Devices Stair Climbing Assistive Devices Front Wheel Walker Technique/Endurance Stair Climbing Direction Ascend and Descend Stair Climbing Technique Step to Step Number of Steps Climbed 1 Query Text: Stair Climbing Set # Repetitions (reps) 2 PT-Balance Assessment Sitting Balance and Reactions Static Sitting Balance Ability Normal Dynamic Sitting Balance Ability Normal Standing Balance and Reactions Static Standing Balance Ability Good Dynamic Standing Balance Ability Fair Device Used without AD M5 PT-IP Objective Assessments Start: 12/09/21 14:06 Freq: NEEDED Status: Active Protocol: Document 12/09/21 11:28 AB (Rec: 12/09/21 14:24 [email or web address]) Orientation Orientation/Cognition Level of Alertness Alert Orientation Name,Place,Situation Safety Awareness Decreased Safety Awareness Memory Description Short Term Impaired,Penitentiary Impaired Comments with confusion Gross Range of Motion Lower Extremity ROM Assessment Within Functional Limits Strength Lower Extremity Strength Hip 4-/5 Knee 4-/5 Muscle Tone Muscle Tone WNL Yes M6 PT-IP Treatment Start: 12/09/21 14:06 Freq: NEEDED Status: Active Protocol: Document 12/09/21 11:28 AB (Rec: 12/09/21 14:24 AB [email or web address]) Physical Therapy Treatment Education Education Provided Safety M7 PT-IP Assessment and Plan Start: 12/09/21 14:06 Freq: NEEDED Status: Active Protocol: Document 12/09/21 11:28 AB (Rec: 12/09/21 14:24 AB [email or web address]) PT Summary Assessment and Plan Potential Rehabilitation Potential Fair Status of Condition at Evaluation Stable Summary Impairments Strength,Balance,Cognition, Transfers,Gait,Activity Tolerance Assessment Summary PT eval completed. Pt is modified independent with bed mobility, transfers and ambulation requiring SBA only for safety as pt has decrease safety awareness. pt with SOB with mobility but O2 sat at 96% with activity and expected SOB due to recent bilateral PE. Pt is at maximum functional level at this time and not further PT intervention needed. Pt lives alone and due to cognitive issues affecting safety awareness will need assistance at home or possible [facility] care placement. litigation docket manager aware. informed nurse regarding pt's mobility level. Frequency of Treatment Frequency Of Treatment Discharge Recommendations To Nursing Amount of Assist Needed Standby Assistance Discharge Recommendations PT Discharge Recommendations Home with 26/09 Assist Available,Home Health,Home vs SNF Other Discharge Recommendations home with assist/HH vs LTC/SNF Transportation Needs at Discharge Private Vehicle,Wheelchair/ Cabulance
[2021-12-09] MEDS: APIXABAN 5 MG TABLET PO ×2 (12:45→22:02)
[2021-12-09] MEDS: ONDANSETRON 4 MG/2 ML INJ IV (12:45)
--- NOTE | 2021-12-09 13:28 | CM.DPNOTE ---
DCP Note [facility] has accepted this patient for admission 12.10.21 Discussed with patient, explained patient will be discharged either; a. home w/ HH tomorrow 12.10.21 or b. to [facility] for rehab and additional nursing care Patient says she would rather discharge to the SNF and states appreciation for the option DC anticipated Monday12.10.21 to [facility]; prior inpatient [facility] stay 9.26-10.4. Following closely for DC coordination JW
[2021-12-09 20:10] VITALS: BP 149/71; PULSE 97; RESP 21; TEMP 36.8; O2SAT 96
[2021-12-10 04:55] LABS: Add Manual Diff / Slide Review NO; Basophils Absolute Auto 100 /uL (0-100); Basophils Percent Auto 1.2 % (0-2); Eosinophils Absolute Auto 100 /uL (0-450); Eosinophils Percent Auto 2.2 % (2-4); Hematocrit 24.9 % (36-46); Hemoglobin 8.5 g/dL (12.0-16.0); Lymphocytes Absolute Auto 1200 /uL (1100-4500); Lymphocytes Percent Auto 24.4 % (25-40); Monocytes Absolute Auto 400 /uL (0-900); Neutrophils Absolute Auto 3200 /uL (1500-7000); Neutrophils Percent Auto 64.2 % (50-75); Platelet Count 277 X10^3/uL (150-400); Red Blood Cell Count 2.49 X10^6/uL (4.0-5.2)
[2021-12-10 05:00] LABS: BUN Creatinine Ratio 13.2 (6-22); Blood Urea Nitrogen 12 mg/dL (7-17); Calcium 8.6 mg/dL (8.4-10.2); Carbon Dioxide 26 mmol/L (22-32); Chloride 105 mmol/L (98-107); Estimated Glomerular Filt Rate > 60 mL/min (>60); Glucose 94 mg/dL (80-110); HEMOLYSIS < 15 (0-50); Potassium 3.9 mmol/L (3.4-5.1); Sodium 139 mmol/L (137-145)
--- NOTE | 2021-12-10 06:52 | PC.NURSE ---
End of shift note. Patient alert, oriented to being at a hospital. Patient states she is forgetful and can't remember where her house is, but lives in [place]. Looks fatigued with red rimmed eye lids. Denies pain. Up to BR with FWW and SBA. Has not had an stools this shift to [facility]. Left arm PIV found to be infiltrated at beginning of shift and was d/c'd. New PIV placed in right wrist.
--- NOTE | 2021-12-10 08:01 | P.DS_ITS ---
History of Present Illness History of Present Illness Date Patient Seen: 12/10/21 Time Patient Seen: 08:01 Chief complaint: GI issues- discharged from today- too sick Narrative: Ms. Costa is a 75W with PMH hypothyroidism, etoh dependence just discharged from the hospital after presenting with abdominal pain and nausea for weeks. She had been admitted due to GI bleed, UTI, and DOTTIE. She had EGD completed that showed no active bleeding, but did show gastritis and she was placed on a PPI. She did continue to have abdominal pain throughout her stay, and she had a repeat CT scan, the second time CT angio, that was negative for any vascular pathology. Apparently after discharge she continue to have nausea and she presented back to the hospital. She did not have chest pain or shortness of breath. She had no further bleeding after discharge. In the ED workup was done, vitals notable for tachycardia in the 90s, sats 98%on room air, she was afebrile. Labs notable for WBC 6.9, hgb 8.5, plts 262. Creatinine 0.98. D-dimer 5241. CTA chest done showed segemental branch PEs bilaterally without any right heart strain. She was started on a heparin gtt and admitted for further treatment. Discharge Providers Provider Date of admission: 12/07/21 17:36 Discharge Date: 12/10/21 Primary care physician: Alicia Saba MD Consults: 12/07/21 17:35 Consult to CHIEF WHEELAGE CLERK - Printing Machine Operator Stat Comment: 12/08/21 09:13 Consult to Physical Therapy Evaluate & Treat Comment: Physician Instructions: Evaluate and Treat Discharge provider: Tristan Kauffman DO Summary Hospital Course Discharge Diagnosis: 1. Acute Pulmonary embolism -patient with reassuring vitals, mild tachycardia, but no chest pain, sob, no o2 requirement, and CT with no evidence of right heart strain -started on a heparin gtt for 24-48 hrs -given recent GI bleed, monitored closely for recurrence of bleeding but no evidence of this and Hgb remained stable -stop heparin drip and start eliquis 5mg BID for 3-6 months 2. Recent GI bleeding -currently resolved -continue PPI -trend hemoglobin, currently stable in 8's 3. Hypothyroidism -continue synthroid 4. Abdominal pain -possibly secondary to gastritis -CT abdomen with angiography was reassuring -continue protonix and zofran PRN for nausea Hospital Course: Admitted for bilateral PE in the setting of recent GI bleed, although not requiring O2. Was monitored on heparin drip for 36 hours with no evidence of bleeding or drop in Hgb. Heparin was switched to eliquis. Patient given protonix and zofran for her nonspecific abd pain. PT recommended SNF and patient discharged to [facility] [place]. Time Spent with Patient Time spent: Greater than 30 minutes Exam Vital Signs (past 8 hours): Oxygen Delivery Method Room Air Oxygen Flow Rate 0 Narrative Exam Narrative: GEN: chronically ill appearing, no acute distress HEENT: moist mucous membranes, PERRL NECK: trachea midline no jvd PULM: clear bilaterally, no wheezes, rhonchi, rales CV: regular rate and rhythm, no murmurs ABD: soft, nontender, nondistended, no organomegaly, normal bowel sounds EXT: warm and well perfused, no edema NEURO: awake, alert, oriented, no focal deficits Objective Labs Result Diagrams: 12/10/21 04:26 12/10/21 04:26 Labs: Laboratory Results - last 24 hr 12/09/21 12/09/21 12/10/21 09:46 09:46 04:26 WBC 5.0 RBC 2.49 L Hgb 8.9 L 8.5 L Hct 24.9 L MCV 100.0 MCH 34.0 MCHC 34.0 RDW 17.0 H Plt Count 277 Neut % (Auto) 64.2 Lymph % (Auto) 24.4 L [place] % (Auto) 8.0 Eos % (Auto) 2.2 Baso % (Auto) 1.2 Neut # (Auto) 3200 Lymph # (Auto) 1200 [place] # (Auto) 400 Eos # (Auto) 100 Baso # (Auto) 100 APTT 83 H* Sodium Potassium Chloride Carbon Dioxide BUN Creatinine Estimated GFR BUN/Creatinine Ratio Glucose Calcium 12/10/21 04:26 WBC RBC Hgb Hct MCV MCH MCHC RDW Plt Count Neut % (Auto) Lymph % (Auto) [place] % (Auto) Eos % (Auto) Baso % (Auto) Neut # (Auto) Lymph # (Auto) [place] # (Auto) Eos # (Auto) Baso # (Auto) APTT Sodium 139 Potassium 3.9 Chloride 105 Carbon Dioxide 26 BUN 12 Creatinine 0.91 Estimated GFR > 60 BUN/Creatinine Ratio 13.2 Glucose 94 Calcium 8.6 PFSH Medical History Alcohol dependence Cervical vertebral fusion Hypothyroidism Insomnia Surgical History Gastric bypass status for obesity S/P cervical spinal fusion Family History Father MVA (motor vehicle accident) Mother Lung cancer Social History household members: none Smoking Status: Former smoker alcohol intake: current Discharge Plan Discharge Plan Patient Disposition: SNF [facility] is medically necessary on a continuing basis for any conditions for which he/ she received care during this hospitalization.: Yes The receiving facility has agreed to accept transfer and provide medical treatment.: Yes Discharge orders & Medications Prescriptions: New Eliquis 5 mg tablet 5 mg PO BID Qty: 60 0RF ondansetron 4 mg tablet,disintegrating 4 mg PO Q6-8H PRN (Reason: nausea and vomiting) Qty: 30 0RF pantoprazole [Protonix] 40 mg tablet,delayed release (DR/EC) 40 mg PO DAILY Qty: 30 0RF Continued diazepam 5 mg Tablet 5 mg PO BID PRN (Reason: Muscle Spasm) pantoprazole 40 mg tablet,delayed release (DR/EC) 40 mg PO BID 30 Days Qty: 60 0RF levothyroxine 175 mcg tablet 175 mcg PO DAILY 30 Days Qty: 30 0RF dexamethasone sodium phosphate 0.1 % drops 1 drp ophthalmic (eye) BID PRN (Reason: Allergy Symptoms) fluticasone propionate 50 mcg/actuation spray,suspension 1 spray Intranasal BID metronidazole [Metrogel] 1 % Gel 1 applic Topical BID PRN (Reason: antibiotic) Rx Instructions: apply under right breast cetirizine 10 mg Tablet 10 mg PO DAILY PRN (Reason: Allergy Symptoms) [id number] 2-1-1 % Gel 1 applic Topical BID PRN (Reason: unknown) Rx Instructions: under right breast Celebrate Multi-Complex 45 2 cap PO DAILY Calcium Citrate + D 2 tab PO TID Label Comments: Calcium Citrate 1500 mg and Vitiamin D 2400 iu listed on patients home med list. Also lists daily totals as 1500 mg / 5400 mg fexofenadine [Madelyn Allergy] 180 mg Tablet 180 mg PO DAILY Follow up/Referrals: Alicia Saba MD [Primary Care Provider] - Discharge Data Primary Care Provider: Alicia Saba Attending Provider: Tristan Kauffman
[2021-12-10] MEDS: APIXABAN 5 MG TABLET PO (08:24)
[2021-12-10] MEDS: LEVOTHYROXINE 100 MCG TABLET PO (08:24)
[2021-12-10] MEDS: LEVOTHYROXINE 75 MCG TABLET PO (08:24)
[2021-12-10] MEDS: PANTOPRAZOLE DR 40 MG TABLET PO (08:27)
[2021-12-10 10:55] VITALS: BP 117/64; PULSE 81; RESP 17; TEMP 36.1; O2SAT 96
--- NOTE | 2021-12-10 12:31 | CM.DPNOTE ---
DCP Note DC to [facility] today; patient remains aware and agreeable to plan Updated COVID not needed W/c jolly arranged for p/u at 1100 All DC ppk faxed by Malu NO to [facility] Plan: DC to [facility] via [facility] transport w/c jolly JW
--- NOTE | 2021-12-10 14:11 | PC.NURSE ---
Pt is A&OX3, slightly forgetful. VSS,afebrile on RA.She is tolerating meals well without n/v. She is SBA slightly unsteady gait using FWW. MD at bedside evaluating patient and clears her for discharge to [facility] in [place]. Pt verbalizes acknowledgement and agreement with discharge plan. Yudith at [facility] in [place] called and given report. Facility designee arrives at approximately 1120 to transport patient via w/chair with all of her belongings to SNF. Packet given to designee with prescriptions. She is escorted to vehicle for transport with all of her belongings including her FWW at approximately 1145.
== END 2021-12-10 11:45 ==
LOC: ED 14:57 → AC 17:51
PROVIDERS: Internal Medicine; Admitting Provider Student in an Organized Health Care Education/Training Program; Emergency Provider Emergency Medicine; PCP Internal Medicine; Referring Provider Emergency Medicine; Visit Provider Student in an Organized Health Care Education/Training Program
DX: I26.99 Other pulmonary embolism without acute cor pulmonale (principal); R10.9 Unspecified abdominal pain; R11.2 Nausea with vomiting, unspecified; E03.9 Hypothyroidism, unspecified; R00.0 Tachycardia, unspecified; Z20.822 Contact with and (suspected) exposure to COVID-19
CPT/HCPCS: 36415; 71275; 80048; 80053; 83690; 85018; 85025; 85379; 85651; 85730; 86140; 87635; 93005; 93970; 96365; 96366; 96375; 97161; 99284; C9803; G0378; C9113; J1644; J2405